=== PATIENT | female | born 1930 | race Two or more races ===

== ENCOUNTER 2019-02-19 09:22 | Inpatient (IN) | payer OTHER ==
[2019-02-19] MEDS ORDERED: morphine SULFATE 4 MG/ML VIAL IVPUSH ONE ×2 (09:43→11:32)
[2019-02-19] MEDS ORDERED: SODIUM CHLORIDE 500 ML IV STA (09:44)
[2019-02-19] MEDS ORDERED: ONDANSETRON 4 MG/2 ML VIAL IVPUSH ONE (09:50)
[2019-02-19] MEDS ORDERED: morphine SULFATE 4 MG/ML VIAL ONE ×2 (09:52→11:53)
[2019-02-19] MEDS ORDERED: ONDANSETRON 4 MG/2 ML VIAL ONE ×2 (09:54→14:17)
[2019-02-19 10:11] LABS: EOS % 0.2 % (0-4.5); HEMATOCRIT 46.3 % (32.4-45.2); HEMOGLOBIN 15.6 GM/dL (10.7-15.3); LYMPH % 2.6 % (8-40); MCH 30.9 pg (25.7-33.7); MCHC 33.6 g/dl (32.0-36.0); MEAN CELL VOLUME 91.8 fl (80-96); MEAN PLT VOLUME 7.5 fl (7.5-11.1); MONO % 2.8 % (3.8-10.2); NEUT % 94.4 % (42.8-82.8); PLATELET COUNT 381 K/MM3 (134-434); RBC 5.05 M/mm3 (3.60-5.2); RDW 15.4 % (11.6-15.6); WHITE BLOOD COUNT 10.7 K/mm3 (4.0-10.0)
[2019-02-19 10:40] LABS: INR 0.94 (0.83-1.09); PROTHROMBIN TIME (PATIENT) 11.1 SEC (9.7-13.0)
[2019-02-19 10:42] LABS: ALK PHOS 93 U/L (45-117); ANION GAP 11 MMOL/L (8-16); BILIRUBIN,TOTAL 1.3 mg/dL (0.2-1); BLOOD UREA NITROGEN 22 mg/dL (7-18); CALCIUM 9.7 mg/dL (8.5-10.1); CHLORIDE 87 mmol/L (98-107); CO2 24 mmol/L (21-32); GLUCOSE,RANDOM 279 mg/dL (74-106); LIPASE 1992 U/L (73-393); POTASSIUM 4.8 mmol/L (3.5-5.1); SGOT/AST 24 U/L (15-37); SGPT/ALT 15 U/L (13-61); SODIUM 122 mmol/L (136-145); TOT PROT 7.8 g/dl (6.4-8.2)
--- NOTE | 2019-02-19 11:25 | PDOC ---
Documentation entered by Adelina Dwyer SCRIBE, acting as scribe for Jim Agustin MD. Jim Agustin MD: This documentation has been prepared by the Yuliya white Nirvannie, SCRIBE, under my direction and personally reviewed by me in its entirety. I confirm that the documentation accurately reflects all work, treatment, procedures, and medical decision making performed by me. Attending Attestation - Resident Resident Name: Pierre Dent - ED Attending Attestation I have performed the following: I have examined & evaluated the patient, The case was reviewed & discussed with the resident, I agree w/resident's findings & plan, Exceptions are as noted - HPI HPI: 02/19/19 10:45 The patient is a 88 year old female, with a significant past medical history of DM and HTN, who presents to the emergency department with, 1 day of abdominal pain and back pain. Patient describes her abdominal pain to be 10/10, constant, starting early this morning at 5am. She notes associated constipation (last BM 2 days ago) and nausea without vomiting. Denies any prior similar episodes. She denies recent fevers, chills, headache or dizziness. She denies recent nausea or vomit. She denies recent dysuria, frequency, urgency or hematuria. She denies recent chest pain or shortness of breath. Allergies: NKDA Past surgical history: Appendectomy. - Physicial Exam PE: 02/19/19 10:45 GENERAL: Awake, alert, and fully oriented, in no acute distress. HEAD: No signs of trauma EYES: PERRLA, EOMI, sclera anicteric, conjunctiva clear ENT: Auricles normal inspection, hearing grossly normal, nares patent, oropharynx clear without exudates. Moist mucosa NECK: Nontender, no stepoffs, Normal ROM, supple, no lymphadenopathy, JVD, or masses LUNGS: Breath sounds equal, clear to auscultation bilaterally. No wheezes, and no crackles HEART: Regular rate and rhythm, normal S1 and S2, no murmurs, rubs or gallops ABDOMEN: + distended abdomen, diffusely tender + guarding EXTREMITIES: Normal range of motion, no edema. No clubbing or cyanosis. No cords, erythema, or tenderness NEUROLOGICAL: Cranial nerves II through XII intact. 5/5 strength and sensation in all extremities, Normal speech, normal gait, normal cerebellar function SKIN: Warm, Dry, normal turgor, no rashes or lesions noted. - Critical Care Time Total Critical Care Time: 60 Critical Care Statement: The care of this patient involved high complexity decision making to prevent further life threatening deterioration of the patient 's condition and/or to evaluate & treat vital organ system(s) failure or risk of failure. - Medical Decision Making 02/19/19 11:20 88 F with abdominal pain, distention, diffusely tender. + peritoneal signs. Will evaluate for SBO vs perf vs colitis vs pancreatitis. - Labs, lipase - CTAP - IVF, morphine, zofran 02/19/19 11:38 Labs with elevated lipase, lactate CT appears to have free air Dr. Kyle consulted, will evaluate pt Pt to be admitted to ICU
[2019-02-19] MEDS ORDERED: VANCOMYCIN 1 GM in D5W (PRE-DOCKED) 1,000 MG/250 ML IVPB ONE (11:30)
[2019-02-19] MEDS ORDERED: SODIUM CHLORIDE 1,000 ML IV STA ×3 (11:30→18:57)
[2019-02-19] MEDS ORDERED: PIPERACILLIN/TAZOB 4.5 GM 4.5 GM in DEXTROSE 5%-WATER 100 ML IVPB ONE (11:31)
[2019-02-19] MEDS ORDERED: VANCOMYCIN 1 GRAM (PRE-DOCKED) 1,000 MG/250 ML BAG IVPB ONE (11:40)
[2019-02-19] MEDS ORDERED: PIPERACILLIN/TAZOB 4.5 GM 4.5 GM/100 ML BAG IVPB ONE (11:40)
[2019-02-19] MEDS ORDERED: SODIUM CHLORIDE 1,000 ML IV SCH ×2 (12:00→13:45)
[2019-02-19] MEDS ORDERED: FLUCONAZOLE 400 MG/NS 200 ML IVPB ONE (12:15)
--- NOTE | 2019-02-19 12:18 | CON.ID ---
Consult Consult Specialty:: infectious diseases Referred by:: ad Reason for Consultation:: abd perforation,sepsis - History of Present Illness Chief Complaint: abd pain ,inability to pass stools History of Present Illness: 8 year old female with past medical history of DM, HTN and CAD (s/p stent placement in 2008), presented to the ED due to sudden onset diffuse abdominal pain. Patient reported she had no bowel movements the past 2 days, and this morning, as she was trying to go to the bathroom, she experienced sudden onset, severe 10/10, constant diffuse abdominal pain. The son was nearby when it happened and he immediately called 911. On review of medications, patient takes Meloxicam 15mg daily. Patient denies fever, chills, headache, vomiting, chest pain, SOB, diarrhea, urinary symptoms. patient was worked up and found to have perfration in the abd surgery on the case - History Source History Provided By: Family Member Limitations to Obtaining History: Language Barrier - Alcohol/Substance Use Hx Alcohol Use: No - Smoking History Smoking history: Former smoker Have you smoked in the past 12 months: No Home Medications - Allergies Allergies/Adverse Reactions: Allergies Allergy/AdvReac Type Severity Reaction Status Date / Time No Known Allergies Allergy Verified 02/19/19 09:35 - Home Medications Home Medications: Ambulatory Orders Atorvastatin Ca [Lipitor] 40 mg PO HS 02/19/19 Gabapentin 100 mg PO BID 02/19/19 Isosorbide Mononitrate [Isosorbide Mononitrate ER] 30 mg PO DAILY 02/19/19 Losartan Potassium 100 mg PO DAILY 02/19/19 Meloxicam 15 mg PO DAILY 02/19/19 Metformin HCl [Glucophage] 500 mg PO BID 02/19/19 Zolpidem Tartrate [Ambien] 10 mg PO HS 02/19/19 Physical Exam Vital Signs: Vital Signs Temperature 97.7 F 02/19/19 09:35 Pulse Rate 116 H 02/19/19 11:06 Respiratory Rate 29 H 02/19/19 11:06 Blood Pressure 146/64 02/19/19 11:06 O2 Sat by Pulse Oximetry (%) 96 02/19/19 11:06 Constitutional: Yes: Calm, Moderate Distress Eyes: Yes: Conjunctiva Clear Cardiovascular: Yes: Regular Rate and Rhythm Respiratory: Yes: Regular, CTA Bilaterally Gastrointestinal: Yes: Distention, Tenderness, Other (absent bowel sounds) Musculoskeletal: Yes: WNL Extremities: Yes: WNL Neurological: Yes: Alert, Oriented Psychiatric: Yes: Alert, Oriented Labs: CBC, BMP 02/19/19 09:50 02/19/19 09:50 Imaging - Results Cat Scan: Report Reviewed, Image Reviewed Assessment/Plan Assessment/Plan Perforated viscus, dehydration, CAD, Obesity. Plan : Hydrate , Antibiotics, Emergency laparotomy , for possible perforated ulcer. plan will give her zosyn and diflucan hydration as per surgery rest as per the team
--- NOTE | 2019-02-19 12:21 | PDOC ---
History of Present Illness - General Chief Complaint: Pain Stated Complaint: ABDOMINAL PAIN Time Seen by Provider: 02/19/19 09:37 History Source: Patient Exam Limitations: No Limitations - History of Present Illness Initial Comments: 02/19/19 11:28 88 yo female pmh DM and HTN presents to the ED for sudden onset severe abdominal pain this am. Pain woke her up out of sleep at 5 am, described as severe and diffuse without relieving factors and has associated lower back pain. Last BM 2 days ago described as normal without BRB or melena. Denies F/C/N /V, changes in urinary habits, CP, SOB Past History - Past Medical History Allergies/Adverse Reactions: Allergies Allergy/AdvReac Type Severity Reaction Status Date / Time No Known Allergies Allergy Verified 02/19/19 09:35 Home Medications: Ambulatory Orders Atorvastatin Ca [Lipitor] 40 mg PO HS 02/19/19 Gabapentin 100 mg PO BID 02/19/19 Isosorbide Mononitrate [Isosorbide Mononitrate ER] 30 mg PO DAILY 02/19/19 Losartan Potassium 100 mg PO DAILY 02/19/19 Meloxicam 15 mg PO DAILY 02/19/19 Metformin HCl [Glucophage] 500 mg PO BID 02/19/19 Zolpidem Tartrate [Ambien] 10 mg PO HS 02/19/19 COPD: No Diabetes: Yes HTN: Yes - Suicide/Smoking/Psychosocial Hx Smoking History: Former smoker Have you smoked in the past 12 months: No Information on smoking cessation initiated: No Hx Alcohol Use: No Drug/Substance Use Hx: No Review of Systems - Review of Systems Constitutional: No: Chills, Fever Respiratory: No: Shortness of Breath Cardiac (ROS): No: Chest Pain, Edema ABD/GI: Yes: Constipated, Other (severe diffuse abdominal pain). No: Abdominal Distended, Diarrhea, Nausea, Vomiting, Tarry Stools : No: Burning, Dysuria, Discharge, Frequency, Flank Pain, Hematuria, Incontinence Musculoskeletal: Yes: Back Pain. No: Muscle Weakness Neurological: No: Headache, Numbness, Paresthesia, Weakness *Physical Exam - Vital Signs Last Vital Signs Temp Pulse Resp BP Pulse Ox 97.7 F 116 H 29 H 146/64 96 02/19/19 09:35 02/19/19 11:06 02/19/19 11:06 02/19/19 11:06 02/19/19 11:06 - Physical Exam General Appearance: Yes: Nourished, Appropriately Dressed, Apparent Distress ( due to excessive abdominal pain, pt appears withdrawn ) HEENT: positive: EOMI, WANDA, Normal Voice, Hearing Grossly Normal. negative: Lesions Neck: positive: Supple. negative: Carotid bruit Respiratory/Chest: positive: Lungs Clear, Normal Breath Sounds. negative: Accessory Muscle Use, Rapid RR Cardiovascular: positive: Regular Rhythm, S1, S2, Tachycardia. negative: Edema , JVD, Murmur Vascular Pulses: Dorsalis-Pedis (R): 4+, Doralis-Pedis (L): 4+ Gastrointestinal/Abdominal: positive: Guarding, Rebound, Tenderness. negative: Soft, Pulsatile Mass Musculoskeletal: negative: CVA Tenderness Extremity: positive: Normal Capillary Refill, Normal Inspection Integumentary: positive: Normal Color, Dry, Warm Neurologic: positive: Fully Oriented, Alert, Normal Mood/Affect ED Treatment Course - LABORATORY CBC & Chemistry Diagram: 02/21/19 05:30 02/21/19 05:30 - ADDITIONAL ORDERS Additional order review: Laboratory Results 02/19/19 02/19/19 02/19/19 09:50 09:50 09:50 PT with INR 11.10 INR 0.94 Sodium 122 L Potassium 4.8 Chloride 87 L Carbon Dioxide 24 Anion Gap 11 BUN 22 H Creatinine 1.0 Est GFR (CKD-EPI)AfAm 59.08 Est GFR (CKD-EPI)NonAf 50.97 Random Glucose 279 H Lactic Acid 3.8 H* Calcium 9.7 Total Bilirubin 1.3 H AST 24 ALT 15 Alkaline Phosphatase 93 Creatine Kinase 110 Troponin I < 0.02 Total Protein 7.8 Albumin 4.0 Lipase 1992 H 02/19/19 09:50 RBC 5.05 MCV 91.8 MCHC 33.6 RDW 15.4 MPV 7.5 Neutrophils % 94.4 H Lymphocytes % 2.6 L Monocytes % 2.8 L Eosinophils % 0.2 Basophils % 0.0 - RADIOLOGY Radiology Studies Ordered: Category Date Time Status ABDOMEN FLAT & UPRIGHT [RAD] Stat Radiology 02/19/19 09:44 Completed CHEST X-RAY PORTABLE* [RAD] Stat Radiology 02/19/19 09:44 Completed - Medications Given in the ED: ED Medications Discontinued Medications Generic Name Dose Route Start Last Admin Trade Name Freq PRN Reason Stop Dose Admin Sodium Chloride 500 mls @ 500 mls/hr 02/19/19 09:44 02/19/19 10:13 Normal Saline - IV 02/19/19 10:43 500 mls/hr ASDIR STA Administration Morphine Sulfate 4 mg 02/19/19 09:43 02/19/19 10:13 Morphine Sulfate IVPUSH 02/19/19 09:44 4 mg ONCE ONE Administration Ondansetron HCl 4 mg 02/19/19 09:50 02/19/19 10:13 Zofran Injection IVPUSH 02/19/19 09:51 4 mg ONCE ONE Administration Medical Decision Making - Medical Decision Making 02/19/19 11: 88 yo female pmh DM and HTN presents to the ED for sudden onset severe abdominal pain this am. Pain woke her up out of sleep at 5 am, described as severe and diffuse without relieving factors and has associated lower back pain. Last BM 2 days ago described as normal without BRB or melena. Denies F/C/N /V, changes in urinary habits, CP, SOB Vitasl show elevated HR likely due to pain Abdominal Exam shows guarding, rigidity and diffuse tenderness. Possible surgical abdomen Flat and upright abdominal x ray taken, poor quality but likely shows evidence of SBO line placed immediately on evaluation, 4mg morphine and NS given with minimal relief of pain. Pre-op surgery labs drawn FAST neg Pt taken for CTAP. Image likely shows perforation on ED read, radiology contacted to read image and Dr. Kyle contacted immediately Case discussed with Dr. Kyle, agrees to see pt benedict in the ED and have ICU contacted NG tube, fluids and broad spectrum antibiotics started. Dr. Kyle assess pt in the ED, states immediate surgery required to fix perforation. Pt left department and headed directly to surgery *DC/Admit/Observation/Transfer Diagnosis at time of Disposition: Bowel perforation - Discharge Dispostion Condition at time of disposition: Stable Decision to Admit order: Yes - Referrals - Patient Instructions - Post Discharge Activity
[2019-02-19] MEDS ORDERED: LACTATED RINGERS SOLUTION 1,000 ML/1,000 ML INFUS.BAG IV ONE (12:44)
[2019-02-19] MEDS ORDERED: LACTATED RINGERS SOLUTION 1,000 ML/1,000 ML INFUS.BAG IV SCH (12:45)
[2019-02-19] MEDS ORDERED: MORPHINE SULFATE 2 MG/ML VIAL IVPUSH PRN (12:46)
--- NOTE | 2019-02-19 12:54 | PN ---
Teaching Attending Note Name of Resident: Mackenzie Moss ATTENDING PHYSICIAN STATEMENT I saw and evaluated the patient. I reviewed the resident's note and discussed the case with the resident. I agree with the resident's findings and plan as documented. SUBJECTIVE: Pt seen and examined in the ER. Briefly, 88yo female with h/o HTN, DM who presents with sudden onset abdominal pain starting this AM. Has been constipated for the past 2 days with nausea. Found to have pneumoperitoneum on CT A/P likely from perforated stomach or duodenum. She does take daily meloxicam. No alcohol. No prior abdominal surgeries. OBJECTIVE: Vital Signs Period Temp Pulse Resp BP Sys/Perry Pulse Ox Last 24 Hr 97.7 F 116-123 20-29 146-188/64-87 95-96 Intake & Output 02/16/19 02/17/19 02/18/19 02/19/19 23:59 23:59 23:59 23:59 Weight 59.874 kg Gen: dry mucous membranes Heart: tachycardic, regular Lung: decreased breath sounds at the bases Abd: distended, tympanic, diffusely tender, +rebound Ext: no edema CBC, BMP 02/19/19 09:50 02/19/19 09:50 Active Medications Sodium Chloride (Normal Saline -) 1,000 mls @ 75 mls/hr IV ASDIR AI Fluconazole (Diflucan 400 Mg/Ns Premixed Ivpb -) 200 mls @ 200 mls/hr IVPB ONCE ONE Stop: 02/19/19 13:14 Piperacillin Sod/Tazobactam (Sod 4.5 gm/ Dextrose) 100 mls @ 200 mls/hr IVPB Q8H-IV AI; Protocol Lactated Ringer's (Lactated Ringers Solution) 1,000 ml in 1,000 mls @ 75 mls/ hr IV ASDIR AI Lactated Ringer's (Lactated Ringers Solution) 1,000 ml in 1,000 mls @ 1,000 mls /hr IV ONCE ONE Stop: 02/19/19 13:43 Morphine Sulfate (Morphine Injection -) 2 mg IVPUSH Q4H PRN PRN Reason: PAIN LEVEL 6-10 Pantoprazole Sodium (Protonix Iv) 40 mg IVPUSH DAILY AI ASSESSMENT AND PLAN: r/o Perforated Gastric/Duodenal Ulcer Pneumoperitoneum Severe Sepsis Lactic Acidosis Hyponatremia HTN DM - surgery eval - IV antibiotics - empiric antifungals - protonix - f/u cultures - aggressive IVF resuscitation - maintain urine output >0.5mL/kg/hr - place erickson - send urine lytes, osms, serum osms - trend lactate - pain control - NPO - DVT prophylaxis - ICU monitoring - discussed with pt and son at bedside critical care time spent in reviewing chart, evaluating patient and formulating plan 35 min
--- NOTE | 2019-02-19 13:00 | CONSULT ---
Consultation: REQUESTING PROVIDER: CONSULT REQUEST: We have been asked to medically evaluate this patient for perforated viscus. HISTORY OF PRESENT ILLNESS: Patient is an 88 year old female with past medical history of DM, HTN and CAD (s /p stent placement in 2008), presented to the ED due to sudden onset diffuse abdominal pain. Patient reported she had no bowel movements the past 2 days, and this morning, as she was trying to go to the bathroom, she experienced sudden onset, severe 10/10, constant diffuse abdominal pain. The son was nearby when it happened and he immediately called 911. On review of medications, patient takes Meloxicam 15mg daily. Patient denies fever, chills, headache, vomiting, chest pain, SOB, diarrhea, urinary symptoms. REVIEW OF SYSTEMS: CONSTITUTIONAL: Absent: fever, chills, diaphoresis, generalized weakness, malaise, loss of appetite, weight change HEENT: Absent: rhinorrhea, nasal congestion, throat pain, throat swelling, difficulty swallowing, mouth swelling, ear pain, eye pain, visual changes CARDIOVASCULAR: Absent: chest pain, syncope, palpitations, irregular heart rate, lightheadedness , peripheral edema RESPIRATORY: Absent: cough, shortness of breath, dyspnea with exertion, orthopnea, wheezing, stridor, hemoptysis GASTROINTESTINAL:abdominal pain, nausea,constipation Absent: abdominal distension, vomiting, diarrhea, melena, hematochezia GENITOURINARY: Absent: dysuria, frequency, urgency, hesitancy, hematuria, flank pain, genital pain MUSCULOSKELETAL: Absent: myalgia, arthralgia, joint swelling, back pain, neck pain SKIN: Absent: rash, itching, pallor HEMATOLOGIC/IMMUNOLOGIC: Absent: easy bleeding, easy bruising, lymphadenopathy, frequent infections ENDOCRINE: Absent: unexplained weight gain, unexplained weight loss, heat intolerance, cold intolerance NEUROLOGIC: Absent: headache, focal weakness or paresthesias, dizziness, unsteady gait, seizure, mental status changes, bladder or bowel incontinence PSYCHIATRIC: Absent: anxiety, depression, suicidal or homicidal ideation, hallucinations. PHYSICAL EXAMINATION Vital Signs - 24 hr 02/19/19 02/19/19 09:35 11:06 Temperature 97.7 F Pulse Rate 123 H Pulse Rate [ 116 H Apical] Respiratory 20 29 H Rate Blood Pressure 188/87 H Blood Pressure 146/64 [Right] O2 Sat by Pulse 95 96 Oximetry (%) GENERAL: Awake, alert, and fully oriented, in pain. HEAD: Normal with no signs of trauma. EYES: PERRLA, EOMI, sclera anicteric, conjunctiva clear. EARS, NOSE, THROAT: oropharynx clear without exudates. Dry mucous membranes. NECK: Normal range of motion, supple without lymphadenopathy, JVD, or masses. LUNGS: Breath sounds equal, clear to auscultation bilaterally. HEART: Tachycardic, normal S1 and S2 without murmur, rub or gallop. ABDOMEN: Soft, +diffuse tenderness, not distended, hypoactive bowel sounds. MUSCULOSKELETAL: Normal range of motion at all joints. No bony deformities or tenderness. No CVA tenderness. UPPER EXTREMITIES: 2+ pulses, warm, well-perfused.No peripheral edema. LOWER EXTREMITIES: 2+ pulses, warm, well-perfused.No peripheral edema. NEUROLOGICAL: Cranial nerves II-XII intact. Normal speech. Gait not observed. PSYCHIATRIC: Cooperative. Good eye contact. Appropriate mood and affect. SKIN: Warm, dry, normal turgor, no rashes or lesions noted. Laboratory Results - last 24 hr 02/19/19 02/19/19 02/19/19 09:50 09:50 09:50 WBC 10.7 H RBC 5.05 Hgb 15.6 H Hct 46.3 H MCV 91.8 MCH 30.9 MCHC 33.6 RDW 15.4 Plt Count 381 MPV 7.5 Absolute Neuts (auto) 10.1 H Neutrophils % 94.4 H Lymphocytes % 2.6 L Monocytes % 2.8 L Eosinophils % 0.2 Basophils % 0.0 Nucleated RBC % 0 PT with INR 11.10 INR 0.94 Sodium 122 L Potassium 4.8 Chloride 87 L Carbon Dioxide 24 Anion Gap 11 BUN 22 H Creatinine 1.0 Est GFR (CKD-EPI)AfAm 59.08 Est GFR (CKD-EPI)NonAf 50.97 Random Glucose 279 H Lactic Acid Calcium 9.7 Total Bilirubin 1.3 H AST 24 ALT 15 Alkaline Phosphatase 93 Creatine Kinase 110 Troponin I < 0.02 Total Protein 7.8 Albumin 4.0 Lipase 1992 H Blood Type Antibody Screen 02/19/19 02/19/19 09:50 09:50 WBC RBC Hgb Hct MCV MCH MCHC RDW Plt Count MPV Absolute Neuts (auto) Neutrophils % Lymphocytes % Monocytes % Eosinophils % Basophils % Nucleated RBC % PT with INR INR Sodium Potassium Chloride Carbon Dioxide Anion Gap BUN Creatinine Est GFR (CKD-EPI)AfAm Est GFR (CKD-EPI)NonAf Random Glucose Lactic Acid 3.8 H* Calcium Total Bilirubin AST ALT Alkaline Phosphatase Creatine Kinase Troponin I Total Protein Albumin Lipase Blood Type A POSITIVE Antibody Screen Negative Active Medications Generic Name Dose Route Start Last Admin Trade Name Freq PRN Reason Stop Dose Admin Sodium Chloride 1,000 mls @ 75 mls/hr 02/19/19 12:00 Normal Saline - IV ASDIR AI Fluconazole 200 mls @ 200 mls/hr 02/19/19 12:15 Diflucan 400 Mg/Ns Premixed Ivpb - IVPB 02/19/19 13:14 ONCE ONE Piperacillin Sod/Tazobactam 100 mls @ 200 mls/hr 02/19/19 18:00 Sod 4.5 gm/ Dextrose IVPB Q8H-IV AI Protocol Lactated Ringer's 1,000 ml in 1,000 mls @ 75 mls/hr 02/19/19 12:45 Lactated Ringers Solution IV ASDIR AI Lactated Ringer's 1,000 ml in 1,000 mls @ 1,000 mls/hr 02/19/19 12:44 Lactated Ringers Solution IV 02/19/19 13:43 ONCE ONE Morphine Sulfate 2 mg 02/19/19 12:46 Morphine Injection - IVPUSH Q4H PRN PAIN LEVEL 6-10 ASSESSMENT/PLAN: Patient is an 88 year old female with past medical history of DM, HTN and CAD (s /p stent placement in 2008), presented to the ED due to sudden onset diffuse abdominal pain. #Neuro -awake, alert and oriented x3 #Cardiovascular -Tachycardic, likely due to pain -BP wnl -Will hold #Pulmonology -On 2L NC, saturating >90% -CT: bibasilar interstitial thickening which may represent discoid atelectasis vs chronic interstitial lung disease. An acute infiltrate is less likely. #GI -CTAP: Pneumoperitoneum. Possible soft tissue stranding adjacent to the gastric antrum/proximal duodenum which could be on the basis of PUD. Small amount of free fluid within the abdomen and pelvis. Mild diffuse small bowel dilatation prob on the basis of an ileus. Colonic diverticulosis without evidence of acute diverticulitis. -Surgery (Dr. Kyle) consulted. Recommendations appreciated -Plan for emergent laparotomy -aggressive IV fluid hydration -NPO for now -IV Morphine 2mg q4h PRN for pain -IV Protonix 40mg daily -IV antibiotics per ID -Urine lytes and osm, serum osm -Becerra catheter inserted for accurate I&Os -Lactic acid 3.8. Will trend lactic acid #Renal -renal function stable -Becerra catheter for I&Os -Keep urine output >0.5cc/kg/hr -Hyponatremia, will replete with Iv NS -Urinalysis, urine lytes ordered #ID -ID (Dr. Borjas) consulted. REcommendations appreciated. -Vanc and Zosyn, and Fluconazole given at the ED -Will continue Zosyn 4.5 gm q8h #Endo -Hx of DM -Will hold home Metformin -Insulin sliding scale -BGM q6h #FEN -IV NS @75cc/hr, boluses given -HypoNa, repleted -Routine bmp monitoring -NPO #Prophylaxis -DVT: SCDs -GI: Protonix 40mg IV daily #Disposition -Patient wants DNR but is unable to sign the form. She made her son, Boo Escobar , her healthcare proxy, who was also at bedside. -ICU monitoring Dispo: We will continue to follow the patient. Thank you for this consultative opportunity. Visit type - Emergency Visit Emergency Visit: Yes ED Registration Date: 02/19/19 Care time: The patient presented to the Emergency Department on the above date and was hospitalized for further evaluation of their emergent condition. - New Patient This patient is new to me today: Yes Date on this admission: 02/19/19 - Critical Care Critical Care patient: Yes Total Critical Care Time (in minutes): 35 Critical Care Statement: The care of this patient involved high complexity decision making to prevent further life threatening deterioration of the patient 's condition and/or to evaluate & treat vital organ system(s) failure or risk of failure.
--- NOTE | 2019-02-19 13:53 | CONSULT ---
Consult Consult Specialty:: Surgery Reason for Consultation:: Perforated viscus. - History Source History Provided By: Patient - Past Medical History Cardio/Vascular: Yes: CAD - Alcohol/Substance Use Hx Alcohol Use: No - Smoking History Smoking history: Former smoker Have you smoked in the past 12 months: No Home Medications - Allergies Allergies/Adverse Reactions: Allergies Allergy/AdvReac Type Severity Reaction Status Date / Time No Known Allergies Allergy Verified 02/19/19 09:35 - Home Medications Home Medications: Ambulatory Orders Atorvastatin Ca [Lipitor] 40 mg PO HS 02/19/19 Gabapentin 100 mg PO BID 02/19/19 Isosorbide Mononitrate [Isosorbide Mononitrate ER] 30 mg PO DAILY 02/19/19 Losartan Potassium 100 mg PO DAILY 02/19/19 Meloxicam 15 mg PO DAILY 02/19/19 Metformin HCl [Glucophage] 500 mg PO BID 02/19/19 Zolpidem Tartrate [Ambien] 10 mg PO HS 02/19/19 Physical Exam Vital Signs: Vital Signs Temperature 97.7 F 02/19/19 09:35 Pulse Rate 116 H 02/19/19 11:06 Respiratory Rate 29 H 02/19/19 11:06 Blood Pressure 146/64 02/19/19 11:06 O2 Sat by Pulse Oximetry (%) 96 02/19/19 11:06 Gastrointestinal: Yes: Soft, Tenderness (Tender in right upper quadrant. Distended abdomen.) Labs: CBC, BMP 02/19/19 09:50 02/19/19 09:50 Imaging - Results Cat Scan: Report Reviewed, Image Reviewed Assessment/Plan Perforated viscus, dehydration, CAD, Obesity. Plan : Hydrate , Antibiotics, Emergency laparotomy , for possible perforated ulcer. monitoring,. Consent obtained, Spoke to patient and her son.
[2019-02-19 14:00] LABS: ANISOCYTOSIS 0; MACROCYTOSIS 0; PLATELET ESTIMATE NORMAL
[2019-02-19] MEDS ORDERED: PROPOFOL 20 ML ONE (14:16)
[2019-02-19] MEDS ORDERED: ROCURONIUM BROMIDE 50 MG/5 ML VIAL ONE (14:16)
[2019-02-19] MEDS ORDERED: SODIUM CHLORIDE 0.9% P/F 10 ML VIAL IJ ONE (14:17)
[2019-02-19] MEDS ORDERED: LIDOCAINE HCL/PF 2% SDV 5ML VIAL ONE ×2 (14:17→14:30)
[2019-02-19] MEDS ORDERED: DEXAMETHASONE SOD PHOSPHATE 4 MG/1 ML VIAL ONE (14:17)
[2019-02-19] MEDS ORDERED: ceFAZolin SODIUM 1 GM VIAL ONE (14:17)
--- NOTE | 2019-02-19 14:36 | HP ---
Admitting History and Physical - Admission Chief Complaint: came with abdominal pain History of Present Illness: The patient is a 88 year old female, with a significant past medical history of DM and HTN, who presents to the emergency department with, 1 day of abdominal pain and back pain. Patient describes her abdominal pain to be 10/10, constant, starting early this morning at 5am. She notes associated constipation (last BM 2 days ago) and nausea without vomiting. Denies any prior similar episodes. She denies recent fevers, chills, headache or dizziness. She denies recent nausea or vomit. She denies recent dysuria, frequency, urgency or hematuria. She denies recent chest pain or shortness of breath. in ER Ct scan done show pneumoperitoneum in ER she got diflucan,vanco and zosyn seen by surgery , pulm and ID wbc 10.9 lactic acid 3.8 History Source: Family Member, Medical Record - Past Medical History Cardiovascular: Yes: CAD - Smoking History Smoking history: Former smoker Have you smoked in the past 12 months: No - Alcohol/Substance Use Hx Alcohol Use: No Home Medications - Allergies Allergies/Adverse Reactions: Allergies Allergy/AdvReac Type Severity Reaction Status Date / Time No Known Allergies Allergy Verified 02/19/19 09:35 - Home Medications Home Medications: Ambulatory Orders Atorvastatin Ca [Lipitor] 40 mg PO HS 02/19/19 Gabapentin 100 mg PO BID 02/19/19 Isosorbide Mononitrate [Isosorbide Mononitrate ER] 30 mg PO DAILY 02/19/19 Losartan Potassium 100 mg PO DAILY 02/19/19 Meloxicam 15 mg PO DAILY 02/19/19 Metformin HCl [Glucophage] 500 mg PO BID 02/19/19 Zolpidem Tartrate [Ambien] 10 mg PO HS 02/19/19 Review of Systems - Review of Systems Gastrointestinal: reports: Abdominal Pain Physical Examination Vital Signs: Vital Signs Temperature 98.6 F 02/19/19 14:00 Pulse Rate 95 H 02/19/19 14:00 Respiratory Rate 02/19/19 14:00 Blood Pressure 117/57 L 02/19/19 14:00 O2 Sat by Pulse Oximetry (%) 97 02/19/19 14:00 Constitutional: Yes: Calm HENT: Yes: Other (NG tube) Cardiovascular: Yes: Regular Rate and Rhythm, S1, S2 Respiratory: Yes: CTA Bilaterally Gastrointestinal: Yes: Distention, Tenderness Edema: No Neurological: Yes: Alert, Oriented Labs: CBC, BMP 02/19/19 09:50 02/19/19 09:50 Imaging - Results Cat Scan: Report Reviewed Problem List - Problems (1) Bowel perforation Assessment/Plan: NPO - emergency laprotomy ng tube ivf - hydration iv abx icu monitring scds Code(s): K63.1 - PERFORATION OF INTESTINE (NONTRAUMATIC)
[2019-02-19] MEDS ORDERED: ceFAZolin SODIUM 1 GM VIAL IVPB ONE (15:12)
[2019-02-19] MEDS ORDERED: NEOSTIGMINE METHYLSULFATE 0.5 MG/1 ML - 10 ML MDV ONE (16:07)
[2019-02-19] MEDS ORDERED: GLYCOPYRROLATE 0.2 MG/1 ML VIAL ONE (16:10)
[2019-02-19] MEDS ORDERED: ESMOLOL HCL 100,000 MCG/10 ML VIAL ONE (16:17)
--- NOTE | 2019-02-19 16:37 | OP ---
Operative Note - Note: Operative Date: 02/19/19 Pre-Operative Diagnosis: Perforated duodenal ulcer , acute peritonitis, CAD , hypertetion , obesity. Operation: Exploratory laparotomy,. Repair of perforated duodenal ulcer with plication and omental overlay. Findings: Perforation of anterior wall of duodenum about 2 cms , with peritonitis. Post-Operative Diagnosis: Other (Perforated duodenal ulcer with peritonitis.) Surgeon: Lupillo Kyle Operator: Filomena Santamaria Anesthesia: General Estimated Blood Loss (mls): 20 Operative Report Dictated: Yes
--- NOTE | 2019-02-19 17:18 | SURG ---
Surgery [facility] Note [facility]: Janice Monreal PA-C Date of Service: 02/19/19 Diagnosis: Perforated duodenal ulcer , acute peritonitis, CAD , hypertetion , obesity. Procedure: Exploratory laparotomy,. Repair of perforated duodenal ulcer with plication and omental overlay I was present for the entirety of the operative procedure. For further detail, please refer to operative report. Visit type - Case Type Case Type: ED Admission - Emergency Emergency Visit: Yes ED Registration Date: 02/19/19 Care time: The patient presented to the Emergency Department on the above date and was hospitalized for further evaluation of their emergent condition. - New patient This patient is new to me today: Yes Date on this admission: 02/19/19
[2019-02-19] MEDS ORDERED: PIPERACILLIN/TAZOB 4.5 GM 4.5 GM in DEXTROSE 5%-WATER 100 ML IVPB SCH (18:00)
[2019-02-19] MEDS ORDERED: DEXTROSE 5%-WATER 100 ML IVPB ONE (18:19)
[2019-02-19] MEDS ORDERED: PIPERACILLIN/TAZOBACTAM 4.5 GM VIAL IVPB ONE (18:19)
--- NOTE | 2019-02-19 18:24 | PN ---
Progress Note (short form) - Note Progress Note: Received patient from OR s/p repair of perforated duodenal ulcer. Per anesthesia , no complications during sx. Pt. had brief episode of desaturation s/p extubation which has since resolved. Physical exam: Neuro: patient awake, drowsy, able to follow commands moving all 4 extremities. Pulmonary: CTA b/l down to the bases Cardio: Tachycardic, regular rhythm, s1, s2 heard no murmurs Abdomen: Midline surgical bandage clean and in place. Right sided drain in place draining serosanguinous fluid. A/P -Patient desaturated after extubation; will order CXR to r/o aspiration. Will order ABG to assess respiratory status. -Patient tachycardic on transfer from PACU to the 120's-40's. Rate normalized once patient settled in bed and given IV morphine. -ABG indicative of metabolic acidosis; will order stat bmp, lactic acid -will order post op cbc while drawing above labs. -Pain control w/ morphine 2mg q4h -s/p 1L bolus and now on NS @ 75 -monitor overnight for post op hypotension.
[2019-02-19 18:35] LABS: ARTERIAL BLD GAS O2 SATURATION 91.9 % (95-98); ARTERIAL BLOOD GAS BASE EXCESS -5.4 meq/l (-2-2); ARTERIAL BLOOD GAS PCO2 38.3 mmHg (35-45); ARTERIAL BLOOD GAS PO2 65.9 mmHg (80-105); ARTERIAL BLOOD GAS pH 7.33 (7.35-7.45)
[2019-02-19 18:38] LABS: ALLENS TEST POSITIVE
[2019-02-19] MEDS ORDERED: DEXTROSE 5%-LACTATED RINGERS 1,000 ML IV SCH (18:57)
[2019-02-19] MEDS: SODIUM CHLORIDE 1,000 ML IV SCH (19:00)
[2019-02-19] MEDS: MUPIROCIN 2% TOPICAL OINTMENT FOR DECOLONIZATION NS SCH (21:38)
[2019-02-19] MEDS: CHLORHEXIDINE GLUCONATE 4% CLEANSER FOR DECOLONIZATION TP SCH (21:39)
[2019-02-19] MEDS: HEPARIN NA (PORCINE) 5,000 UNITS/ML 1ML VIAL SQ SCH (21:42)
[2019-02-19] MEDS: MORPHINE SULFATE 2 MG/ML VIAL IVPUSH PRN (21:43)
[2019-02-19 21:51] LABS: HEMATOCRIT 40.5 % (32.4-45.2); HEMOGLOBIN 13.4 GM/dL (10.7-15.3); MCH 30.7 pg (25.7-33.7); MCHC 33.1 g/dl (32.0-36.0); MEAN CELL VOLUME 92.6 fl (80-96); MEAN PLT VOLUME 7.4 fl (7.5-11.1); PLATELET COUNT 237 K/MM3 (134-434); RBC 4.37 M/mm3 (3.60-5.2); RDW 15.6 % (11.6-15.6); WHITE BLOOD COUNT 9.8 K/mm3 (4.0-10.0)
[2019-02-19] MEDS ORDERED: MUPIROCIN 2% TOPICAL OINTMENT FOR DECOLONIZATION NS SCH ×2 (22:00)
[2019-02-19] MEDS ORDERED: CHLORHEXIDINE GLUCONATE 4% CLEANSER FOR DECOLONIZATION TP SCH ×2 (22:00)
[2019-02-19 22:17] LABS: CALCIUM 7.7 mg/dL (8.5-10.1); CREATININE 0.7 mg/dL (0.55-1.3); POTASSIUM 4.6 mmol/L (3.5-5.1)
[2019-02-20] MEDS: MORPHINE SULFATE 2 MG/ML VIAL IVPUSH PRN ×2 (04:34→10:20)
[2019-02-20 06:56] LABS: BASO % 0.1 % (0-2.0); HEMATOCRIT 37.2 % (32.4-45.2); HEMOGLOBIN 12.5 GM/dL (10.7-15.3); LYMPH % 3.4 % (8-40); MCH 30.6 pg (25.7-33.7); MCHC 33.6 g/dl (32.0-36.0); MEAN CELL VOLUME 91.2 fl (80-96); MEAN PLT VOLUME 7.4 fl (7.5-11.1); MONO % 5.6 % (3.8-10.2); NEUT % 90.9 % (42.8-82.8); PLATELET COUNT 285 K/MM3 (134-434); RBC 4.08 M/mm3 (3.60-5.2); RDW 15.5 % (11.6-15.6); WHITE BLOOD COUNT 11.9 K/mm3 (4.0-10.0)
[2019-02-20] MEDS: INSULIN SLIDING SCALE (NOVOLOG) 1 VIAL SQ SCH ×4 (07:02→21:59)
[2019-02-20 07:22] LABS: ALBUMIN 2.4 g/dl (3.4-5.0); BILIRUBIN,TOTAL 0.8 mg/dL (0.2-1); CALCIUM 7.8 mg/dL (8.5-10.1); CREATININE 0.6 mg/dL (0.55-1.3); MAGNESIUM 2.9 mg/dL (1.8-2.4); PHOSPHOROUS 3.4 mg/dL (2.5-4.9); POTASSIUM 4.7 mmol/L (3.5-5.1); TOT PROT 5.2 g/dl (6.4-8.2)
--- NOTE | 2019-02-20 08:18 | PN ---
Progress Note (short form) - Note Progress Note: Post op day#1.S/P Expl lapratomy with repair of perforated duodenal ulcer under GA uneventful.P96.BP141/65 and Spo2 94 on O2 3L.Patient stable.No any anesthesia related problem.Patient DC from the anesthesia care.
--- NOTE | 2019-02-20 08:43 | OP ---
DATE OF OPERATION: 02/19/2019 PREOPERATIVE DIAGNOSIS: Perforated viscus, acute abdomen, abdominal pain, coronary artery disease, hypertension, diabetes mellitus. POSTOPERATIVE DIAGNOSIS: Perforated duodenal ulcer, peritonitis. OPERATIVE PROCEDURE: Exploratory laparotomy, repair of perforated duodenal ulcer with plication and omental overlay. SURGEON: LUIS MAURER MD KNOT BUMPER: ADE JUAN ANESTHESIA: General. OPERATIVE DESCRIPTION: This 88-year-old woman presented to the emergency room with acute onset of abdominal pain this morning. She had tenderness in the upper abdomen. She had workup which revealed pneumoperitoneum with fluid around the stomach suggesting perforated duodenal ulcer. The patient's consent was obtained for exploratory laparotomy. The risks, benefits and complications were discussed with the patient and the family. The patient was given antibiotics, started on IV fluids. An NG tube was placed. The patient was brought to the operating room. The patient received general anesthesia. A Becerra catheter was placed in the bladder. The abdomen painted and draped. A timeout was called. The abdomen was opened through an upper midline incision below the umbilicus. It was deepened through the skin and subcutaneous tissue, the linea alba, anterior peritoneum and the abdominal cavity. There was free air and fluid in the upper part of the abdomen. A specimen of fluid was sent for culture and antibiotic sensitivity examination. On further inspection there was found to be a 2-cm ulcer on the anterior wall of the first portion of the duodenum. The liver was normal. On palpation there were multiple diverticula in the sigmoid colon. However, there was no pus, no free air, suggestive of chronic diverticulitis. The perforation was then approximated with 2-0 silk sutures across the length of the duodenum, one above the perforation, one across the middle of the perforation, another below the perforation. A suture was passed 2 cm on the edge of the perforation, brought into the perforation, and introduced again through the perforation and brought out to the opposite side of the bowel. Three silk sutures obtained. The duodenum was then approximated and plicated by tying the knots across the perforation. Next, free vascularized omentum of the transverse colon was brought over the repair and sutured. The sutures were brought around the omentum and around the perforation again, thus overlaying the omentum over the perforation and repair. Two seromuscular sutures of the stomach were obtained to anchor the omentum overlying the duodenum. Repair was adequately performed. The stomach was distended but there was no air leak when air was introduced into the stomach via the ng tube, from the reapir into the peritoneal cavity. The abdominal cavity was then thoroughly irrigated with normal saline, irrigating all the 4 quadrants as well as the complete abdominal cavity. The sump drainage tube was then placed in the infra hepatic space on the right side adjacent to the duodenum, and was brought out of the abdomen, through a stab wound in the right flank. This was anchored to the skin with interrupted 2-0 silk sutures. The NG tube was found to be in the body of the stomach. The abdomen was then closed with continuous No. 1 looped PDS sutures. The skin was approximated with joey. Estimated blood loss was between 5 to 20 mL. Sponge count, instrument counts were correct. The patient was brought to the recovery room in satisfactory and stable condition. Cruz TOM/[id number] MTDD
--- NOTE | 2019-02-20 09:00 | PN ---
Physical Exam: SUBJECTIVE: Patient seen and examined at bedside this morning. No acute events overnight. Patient reports pain on surgical site, relieved with Morphine. She reports headache and discomfort from not sleeping last night because of the noise. She denies fever, chills, dizziness, chest pain, SOB. No flatus or BMs. Becerra cath in place with UO 1700cc overnight. JANET drain 280cc of serosanguinous fluid. OBJECTIVE: Vital Signs Temperature 98.4 F 02/20/19 06:00 Pulse Rate 96 H 02/20/19 06:00 Respiratory Rate 16 02/20/19 06:00 Blood Pressure 127/59 L 02/20/19 06:00 O2 Sat by Pulse Oximetry (%) 97 02/19/19 21:00 GENERAL: Awake, alert, and fully oriented, not in distress HEAD: Normal with no signs of trauma. EYES: PERRLA, EOMI, sclera anicteric, conjunctiva clear. EARS, NOSE, THROAT: oropharynx clear without exudates. Dry mucous membranes. NGT in place. NECK: Normal range of motion, supple without lymphadenopathy, JVD, or masses. LUNGS: Breath sounds equal, clear to auscultation bilaterally. HEART: RRR, normal S1 and S2 without murmur, rub or gallop. ABDOMEN: Soft, +RUQ tenderness, not distended, hypoactive bowel sounds. Dressing clean dry and intact, JANET drain in place. MUSCULOSKELETAL: Normal range of motion at all joints. No bony deformities or tenderness. No CVA tenderness. UPPER EXTREMITIES: 2+ pulses, warm, well-perfused.No peripheral edema. LOWER EXTREMITIES: 2+ pulses, warm, well-perfused.No peripheral edema. NEUROLOGICAL: Cranial nerves II-XII intact. Normal speech. Gait not observed. PSYCHIATRIC: Cooperative. Good eye contact. Appropriate mood and affect. SKIN: Warm, dry, normal turgor, no rashes or lesions noted. Laboratory Results - last 24 hr 02/19/19 02/19/19 02/19/19 09:50 09:50 09:50 WBC 10.7 H RBC 5.05 Hgb 15.6 H Hct 46.3 H MCV 91.8 MCH 30.9 MCHC 33.6 RDW 15.4 Plt Count 381 MPV 7.5 Absolute Neuts (auto) 10.1 H Neutrophils % 94.4 H Neutrophils % (Manual) 87.2 H Band Neutrophils % 7.3 Lymphocytes % 2.6 L Lymphocytes % (Manual) 2.8 L Monocytes % 2.8 L Monocytes % (Manual) 2 L Eosinophils % 0.2 Eosinophils % (Manual) 0.0 Basophils % 0.0 Basophils % (Manual) 0.0 Myelocytes % (Man) 0 Promyelocytes % (Man) 0 Blast Cells % (Manual) 0 Nucleated RBC % 0 Metamyelocytes 1 Hypochromia 0 Platelet Estimate Normal Polychromasia 0 Poikilocytosis 0 Anisocytosis 0 Microcytosis 0 Macrocytosis 0 PT with INR 11.10 INR 0.94 Puncture Site ABG pH ABG pCO2 at Pt Temp ABG pO2 at Pt Temp ABG HCO3 ABG O2 Sat (Measured) ABG O2 Content ABG Base Excess Malik Test O2 Delivery Device Oxygen Flow Rate Sodium 122 L Potassium 4.8 Chloride 87 L Carbon Dioxide 24 Anion Gap 11 BUN 22 H Creatinine 1.0 Est GFR (CKD-EPI)AfAm 59.08 Est GFR (CKD-EPI)NonAf 50.97 POC Glucometer Random Glucose 279 H Serum Osmolality Lactic Acid Calcium 9.7 Phosphorus Magnesium Total Bilirubin 1.3 H AST 24 ALT 15 Alkaline Phosphatase 93 Creatine Kinase 110 Troponin I < 0.02 Total Protein 7.8 Albumin 4.0 Lipase 1992 H Blood Type Antibody Screen 02/19/19 02/19/19 02/19/19 09:50 09:50 12:26 WBC RBC Hgb Hct MCV MCH MCHC RDW Plt Count MPV Absolute Neuts (auto) Neutrophils % Neutrophils % (Manual) Band Neutrophils % Lymphocytes % Lymphocytes % (Manual) Monocytes % Monocytes % (Manual) Eosinophils % Eosinophils % (Manual) Basophils % Basophils % (Manual) Myelocytes % (Man) Promyelocytes % (Man) Blast Cells % (Manual) Nucleated RBC % Metamyelocytes Hypochromia Platelet Estimate Polychromasia Poikilocytosis Anisocytosis Microcytosis Macrocytosis PT with INR INR Puncture Site ABG pH ABG pCO2 at Pt Temp ABG pO2 at Pt Temp ABG HCO3 ABG O2 Sat (Measured) ABG O2 Content ABG Base Excess Malik Test O2 Delivery Device Oxygen Flow Rate Sodium Potassium Chloride Carbon Dioxide Anion Gap BUN Creatinine Est GFR (CKD-EPI)AfAm Est GFR (CKD-EPI)NonAf POC Glucometer Random Glucose Serum Osmolality Lactic Acid 3.8 H* Calcium Phosphorus Magnesium Total Bilirubin AST ALT Alkaline Phosphatase Creatine Kinase Troponin I Total Protein Albumin Lipase Blood Type A POSITIVE Cancelled Antibody Screen Negative Cancelled 02/19/19 02/19/19 02/19/19 13:32 13:32 17:26 WBC RBC Hgb Hct MCV MCH MCHC RDW Plt Count MPV Absolute Neuts (auto) Neutrophils % Neutrophils % (Manual) Band Neutrophils % Lymphocytes % Lymphocytes % (Manual) Monocytes % Monocytes % (Manual) Eosinophils % Eosinophils % (Manual) Basophils % Basophils % (Manual) Myelocytes % (Man) Promyelocytes % (Man) Blast Cells % (Manual) Nucleated RBC % Metamyelocytes Hypochromia Platelet Estimate Polychromasia Poikilocytosis Anisocytosis Microcytosis Macrocytosis PT with INR INR Puncture Site Arterial line ABG pH 7.33 L ABG pCO2 at Pt Temp 38.3 ABG pO2 at Pt Temp 65.9 L ABG HCO3 19.5 L ABG O2 Sat (Measured) 91.9 L ABG O2 Content 15.8 ABG Base Excess -5.4 L Malik Test Positive O2 Delivery Device Nasal cannula Oxygen Flow Rate 3l Sodium Potassium Chloride Carbon Dioxide Anion Gap BUN Creatinine Est GFR (CKD-EPI)AfAm Est GFR (CKD-EPI)NonAf POC Glucometer Random Glucose Serum Osmolality 279 Lactic Acid Calcium Phosphorus Magnesium Total Bilirubin AST ALT Alkaline Phosphatase Creatine Kinase Troponin I Total Protein Albumin Lipase Blood Type A POSITIVE Antibody Screen Negative 02/19/19 02/19/19 02/19/19 19:45 21:30 21:30 WBC 9.8 RBC 4.37 Hgb 13.4 Hct 40.5 MCV 92.6 MCH 30.7 MCHC 33.1 RDW 15.6 Plt Count 237 D MPV 7.4 L Absolute Neuts (auto) Neutrophils % Neutrophils % (Manual) Band Neutrophils % Lymphocytes % Lymphocytes % (Manual) Monocytes % Monocytes % (Manual) Eosinophils % Eosinophils % (Manual) Basophils % Basophils % (Manual) Myelocytes % (Man) Promyelocytes % (Man) Blast Cells % (Manual) Nucleated RBC % Metamyelocytes Hypochromia Platelet Estimate Polychromasia Poikilocytosis Anisocytosis Microcytosis Macrocytosis PT with INR INR Puncture Site ABG pH ABG pCO2 at Pt Temp ABG pO2 at Pt Temp ABG HCO3 ABG O2 Sat (Measured) ABG O2 Content ABG Base Excess Malik Test O2 Delivery Device Oxygen Flow Rate Sodium 127 L Potassium 4.6 Chloride 97 L Carbon Dioxide 22 Anion Gap 8 BUN 17 Creatinine 0.7 Est GFR (CKD-EPI)AfAm 90.93 Est GFR (CKD-EPI)NonAf 78.45 POC Glucometer Random Glucose 213 H Serum Osmolality Lactic Acid 2.9 H* Calcium 7.7 L Phosphorus Magnesium Total Bilirubin AST ALT Alkaline Phosphatase Creatine Kinase Troponin I Total Protein Albumin Lipase Blood Type Antibody Screen 02/20/19 02/20/19 02/20/19 05:30 05:30 07:00 WBC 11.9 H RBC 4.08 Hgb 12.5 Hct 37.2 MCV 91.2 MCH 30.6 MCHC 33.6 RDW 15.5 Plt Count 285 D MPV 7.4 L Absolute Neuts (auto) 10.8 H Neutrophils % 90.9 H Neutrophils % (Manual) Band Neutrophils % Lymphocytes % 3.4 L D Lymphocytes % (Manual) Monocytes % 5.6 D Monocytes % (Manual) Eosinophils % 0.0 D Eosinophils % (Manual) Basophils % 0.1 D Basophils % (Manual) Myelocytes % (Man) Promyelocytes % (Man) Blast Cells % (Manual) Nucleated RBC % 0 Metamyelocytes Hypochromia Platelet Estimate Polychromasia Poikilocytosis Anisocytosis Microcytosis Macrocytosis PT with INR INR Puncture Site ABG pH ABG pCO2 at Pt Temp ABG pO2 at Pt Temp ABG HCO3 ABG O2 Sat (Measured) ABG O2 Content ABG Base Excess Malik Test O2 Delivery Device Oxygen Flow Rate Sodium 132 L Potassium 4.7 Chloride 102 Carbon Dioxide 23 Anion Gap 7 L BUN 14 Creatinine 0.6 Est GFR (CKD-EPI)AfAm 95.66 Est GFR (CKD-EPI)NonAf 82.53 POC Glucometer 108 Random Glucose 116 H Serum Osmolality Lactic Acid Calcium 7.8 L Phosphorus 3.4 Magnesium 2.9 H Total Bilirubin 0.8 AST 41 H ALT 32 Alkaline Phosphatase 55 Creatine Kinase Troponin I Total Protein 5.2 L Albumin 2.4 L Lipase Blood Type Antibody Screen Active Medications Generic Name Dose Route Start Last Admin Trade Name Freq PRN Reason Stop Dose Admin Chlorhexidine Gluconate 1 applic 02/19/19 22:00 02/19/19 21:39 Hibiclens For Decolonization - TP 1 applic HS AI Administration Heparin Sodium (Porcine) 5,000 unit 05/16/19 22:00 02/19/19 21:42 Heparin - SQ 5,000 unit BID AI Administration Sodium Chloride 1,000 mls @ 75 mls/hr 02/19/19 18:57 02/19/19 19:00 Normal Saline - IV 75 mls/hr ASDIR AI Administration Piperacillin Sod/Tazobactam 100 mls @ 200 mls/hr 02/20/19 02:00 Sod 4.5 gm/ Dextrose IVPB Q8H-IV AI Protocol Insulin Aspart 1 vial 02/20/19 07:00 02/20/19 07:02 Novolog Vial Sliding Scale - SQ Not Given ACHS AI Protocol Morphine Sulfate 2 mg 02/19/19 18:57 02/20/19 04:34 Morphine Sulfate IVPUSH 2 mg Q4H PRN Administration PAIN LEVEL 6-10 Mupirocin 1 applic 02/19/19 22:00 02/19/19 21:38 Bactroban Ointment (For Decolonization) - NS 02/24/19 21:59 1 applic BID AI Administration Pantoprazole Sodium 40 mg 02/20/19 10:00 Protonix Iv IVPUSH DAILY [facility] ASSESSMENT/PLAN: Patient is an 88 year old female with past medical history of DM, HTN and CAD (s /p stent placement in 2008), presented to the ED due to sudden onset diffuse abdominal pain. #Neuro -awake, alert and oriented x3 #Cardiovascular -BP and HR wnl -Will hold home BP meds for now. -May resume BP meds when PO resumed. #Pulmonology -On 2L NC, saturating >90% -CT: bibasilar interstitial thickening which may represent discoid atelectasis vs chronic interstitial lung disease. An acute infiltrate is less likely. #GI -CTAP: Pneumoperitoneum. Possible soft tissue stranding adjacent to the gastric antrum/proximal duodenum which could be on the basis of PUD. Small amount of free fluid within the abdomen and pelvis. Mild diffuse small bowel dilatation prob on the basis of an ileus. Colonic diverticulosis without evidence of acute diverticulitis. -Surgery (Dr. Kyle) consulted. Recommendations appreciated -POD 1: exploratory laparotomy. Repair of perforated duodenal ulcer with plication and omental overlay. -Post-op findings: Perforation of anterior wall of duodenum withe peritonitis -Continue IV fluids -Keep NPO, advance as per surgery recs -NG tube to suction -IV Morphine 2mg q4h PRN for pain -IV Protonix 40mg daily -IV antibiotics per ID -Urine lytes and osm, serum osm -Becerra catheter inserted for accurate I&Os -Lactic acidosis, resolved #Renal -renal function stable -Becerra catheter for I&Os -Keep urine output >0.5cc/kg/hr -Hyponatremia, will replete with Iv NS -Urinalysis, urine lytes ordered #ID -ID (Dr. Brojas) consulted. REcommendations appreciated. -Vanc and Zosyn, and Fluconazole given at the ED -Will continue Zosyn 4.5 gm q8h #Endo -Hx of DM -Will hold home Metformin -Insulin sliding scale -BGM q6h #FEN -IV NS @75cc/hr, boluses given -Routine bmp monitoring -NPO #Prophylaxis -DVT: SCDs -GI: Protonix 40mg IV daily #Disposition -Patient wants DNR but is unable to sign the form. She made her son, Boo Escobar , her healthcare proxy, who was also at bedside. -Transfer to tele Visit type - Emergency Visit Emergency Visit: Yes ED Registration Date: 02/19/19 Care time: The patient presented to the Emergency Department on the above date and was hospitalized for further evaluation of their emergent condition. - New Patient This patient is new to me today: No - Critical Care Critical Care patient: Yes Total Critical Care Time (in minutes): 36 Critical Care Statement: The care of this patient involved high complexity decision making to prevent further life threatening deterioration of the patient 's condition and/or to evaluate & treat vital organ system(s) failure or risk of failure.
[2019-02-20] MEDS ORDERED: PANTOPRAZOLE SODIUM 40 MG VIAL IVPUSH SCH (10:00)
[2019-02-20] MEDS: PANTOPRAZOLE SODIUM 40 MG VIAL IVPUSH SCH (10:18)
[2019-02-20] MEDS: MUPIROCIN 2% TOPICAL OINTMENT FOR DECOLONIZATION NS SCH ×2 (10:19→21:53)
[2019-02-20] MEDS: HEPARIN NA (PORCINE) 5,000 UNITS/ML 1ML VIAL SQ SCH ×2 (10:19→21:53)
--- NOTE | 2019-02-20 10:44 | PN ---
Progress Note, Physician Chief Complaint: await alert has some abdominal pain NG tube in place erickson cath removed - Current Medication List Current Medications: Active Medications Chlorhexidine Gluconate (Hibiclens For Decolonization -) 1 applic TP HS [facility] Last Admin: 02/19/19 21:39 Dose: 1 applic Heparin Sodium (Porcine) (Heparin -) 5,000 unit SQ BID [facility] Last Admin: 02/20/19 10:19 Dose: 5,000 unit Sodium Chloride (Normal Saline -) 1,000 mls @ 75 mls/hr IV ASDIR [facility] Last Admin: 02/19/19 19:00 Dose: 75 mls/hr Piperacillin Sod/Tazobactam (Sod 4.5 gm/ Dextrose) 100 mls @ 200 mls/hr IVPB Q8H-IV [facility]; Protocol Insulin Aspart (Novolog Vial Sliding Scale -) 1 vial SQ ACHS [facility]; Protocol Last Admin: 02/20/19 07:02 Dose: Not Given Morphine Sulfate (Morphine Sulfate) 2 mg IVPUSH Q4H PRN PRN Reason: PAIN LEVEL 6-10 Last Admin: 02/20/19 10:20 Dose: 2 mg Mupirocin (Bactroban Ointment (For Decolonization) -) 1 applic NS BID [facility] Stop: 02/24/19 21:59 Last Admin: 02/20/19 10:19 Dose: 1 applic Pantoprazole Sodium (Protonix Iv) 40 mg IVPUSH DAILY [facility] Last Admin: 02/20/19 10:18 Dose: 40 mg - Objective Vital Signs: Vital Signs Temperature 98.4 F 02/20/19 06:00 Pulse Rate 96 H 02/20/19 06:00 Respiratory Rate 16 02/20/19 06:00 Blood Pressure 127/59 L 02/20/19 06:00 O2 Sat by Pulse Oximetry (%) 97 02/19/19 21:00 Constitutional: Yes: Calm Cardiovascular: Yes: Regular Rate and Rhythm, S1, S2 Respiratory: Yes: CTA Bilaterally Gastrointestinal: Yes: Other (midline dressing and right quadrant dressing in place with drain serosanginous drainage) Edema: No Neurological: Yes: Alert, Oriented Labs: CBC, BMP 02/20/19 05:30 02/20/19 05:30 INR, PTT INR 0.94 (0.83-1.09) 05/16/19 09:50 Problem List - Problems (1) Bowel perforation Assessment/Plan: NPO - emergency exploratory laprotomy and repair perforated duodenal ulcer ng tube ivf - hydration iv abx icu monitoring scds dvt ppx trend lactic acid Code(s): K63.1 - PERFORATION OF INTESTINE (NONTRAUMATIC)
--- NOTE | 2019-02-20 11:54 | PN ---
Teaching Attending Note Name of Resident: Mackenzie Moss ATTENDING PHYSICIAN STATEMENT I saw and evaluated the patient. I reviewed the resident's note and discussed the case with the resident. I agree with the resident's findings and plan as documented. SUBJECTIVE: Patient seen and examined in the ICU. Awake and alert. Reports abdominal discomfort. No CP or SOB. OBJECTIVE: Intake & Output 02/17/19 02/18/19 02/19/19 02/20/19 23:59 23:59 23:59 23:59 Intake Total 1525 900 Output Total 930 1730 Balance 595 -830 Weight 132 lb Last Vital Signs Temp Pulse Resp BP Pulse Ox 97.2 F L 96 H 20 124/66 97 02/20/19 08:00 02/20/19 10:00 02/20/19 10:00 02/20/19 10:00 02/19/19 21:00 Active Medications Chlorhexidine Gluconate (Hibiclens For Decolonization -) 1 applic TP HS [facility] Last Admin: 02/19/19 21:39 Dose: 1 applic Heparin Sodium (Porcine) (Heparin -) 5,000 unit SQ BID [facility] Last Admin: 02/20/19 10:19 Dose: 5,000 unit Sodium Chloride (Normal Saline -) 1,000 mls @ 75 mls/hr IV ASDIR [facility] Last Admin: 02/19/19 19:00 Dose: 75 mls/hr Piperacillin Sod/Tazobactam (Sod 4.5 gm/ Dextrose) 100 mls @ 200 mls/hr IVPB Q8H-IV [facility]; Protocol Insulin Aspart (Novolog Vial Sliding Scale -) 1 vial SQ ACHS [facility]; Protocol Last Admin: 02/20/19 07:02 Dose: Not Given Morphine Sulfate (Morphine Sulfate) 2 mg IVPUSH Q4H PRN PRN Reason: PAIN LEVEL 6-10 Last Admin: 02/20/19 10:20 Dose: 2 mg Mupirocin (Bactroban Ointment (For Decolonization) -) 1 applic NS BID [facility] Stop: 02/24/19 21:59 Last Admin: 02/20/19 10:19 Dose: 1 applic Pantoprazole Sodium (Protonix Iv) 40 mg IVPUSH DAILY [facility] Last Admin: 02/20/19 10:18 Dose: 40 mg Gen: dry mucous membranes Heart: tachycardic, regular Lung: decreased breath sounds at the bases Abd: distended, tympanic, diffusely tender, +rebound Ext: no edema Laboratory Results - last 24 hr 02/19/19 02/19/19 02/19/19 09:50 09:50 12:26 WBC RBC Hgb Hct MCV MCH MCHC RDW Plt Count MPV Absolute Neuts (auto) Neutrophils % Neutrophils % (Manual) 87.2 H Band Neutrophils % 7.3 Lymphocytes % Lymphocytes % (Manual) 2.8 L Monocytes % Monocytes % (Manual) 2 L Eosinophils % Eosinophils % (Manual) 0.0 Basophils % Basophils % (Manual) 0.0 Myelocytes % (Man) 0 Promyelocytes % (Man) 0 Blast Cells % (Manual) 0 Nucleated RBC % Metamyelocytes 1 Hypochromia 0 Platelet Estimate Normal Polychromasia 0 Poikilocytosis 0 Anisocytosis 0 Microcytosis 0 Macrocytosis 0 Puncture Site ABG pH ABG pCO2 at Pt Temp ABG pO2 at Pt Temp ABG HCO3 ABG O2 Sat (Measured) ABG O2 Content ABG Base Excess Malik Test O2 Delivery Device Oxygen Flow Rate Sodium Potassium Chloride Carbon Dioxide Anion Gap BUN Creatinine Est GFR (CKD-EPI)AfAm Est GFR (CKD-EPI)NonAf POC Glucometer Random Glucose Serum Osmolality Lactic Acid Calcium Phosphorus Magnesium Total Bilirubin AST ALT Alkaline Phosphatase Total Protein Albumin Blood Type A POSITIVE Cancelled Antibody Screen Negative Cancelled 02/19/19 02/19/19 02/19/19 13:32 13:32 17:26 WBC RBC Hgb Hct MCV MCH MCHC RDW Plt Count MPV Absolute Neuts (auto) Neutrophils % Neutrophils % (Manual) Band Neutrophils % Lymphocytes % Lymphocytes % (Manual) Monocytes % Monocytes % (Manual) Eosinophils % Eosinophils % (Manual) Basophils % Basophils % (Manual) Myelocytes % (Man) Promyelocytes % (Man) Blast Cells % (Manual) Nucleated RBC % Metamyelocytes Hypochromia Platelet Estimate Polychromasia Poikilocytosis Anisocytosis Microcytosis Macrocytosis Puncture Site Arterial line ABG pH 7.33 L ABG pCO2 at Pt Temp 38.3 ABG pO2 at Pt Temp 65.9 L ABG HCO3 19.5 L ABG O2 Sat (Measured) 91.9 L ABG O2 Content 15.8 ABG Base Excess -5.4 L Malik Test Positive O2 Delivery Device Nasal cannula Oxygen Flow Rate 3l Sodium Potassium Chloride Carbon Dioxide Anion Gap BUN Creatinine Est GFR (CKD-EPI)AfAm Est GFR (CKD-EPI)NonAf POC Glucometer Random Glucose Serum Osmolality 279 Lactic Acid Calcium Phosphorus Magnesium Total Bilirubin AST ALT Alkaline Phosphatase Total Protein Albumin Blood Type A POSITIVE Antibody Screen Negative 02/19/19 02/19/19 02/19/19 19:45 21:30 21:30 WBC 9.8 RBC 4.37 Hgb 13.4 Hct 40.5 MCV 92.6 MCH 30.7 MCHC 33.1 RDW 15.6 Plt Count 237 D MPV 7.4 L Absolute Neuts (auto) Neutrophils % Neutrophils % (Manual) Band Neutrophils % Lymphocytes % Lymphocytes % (Manual) Monocytes % Monocytes % (Manual) Eosinophils % Eosinophils % (Manual) Basophils % Basophils % (Manual) Myelocytes % (Man) Promyelocytes % (Man) Blast Cells % (Manual) Nucleated RBC % Metamyelocytes Hypochromia Platelet Estimate Polychromasia Poikilocytosis Anisocytosis Microcytosis Macrocytosis Puncture Site ABG pH ABG pCO2 at Pt Temp ABG pO2 at Pt Temp ABG HCO3 ABG O2 Sat (Measured) ABG O2 Content ABG Base Excess Malik Test O2 Delivery Device Oxygen Flow Rate Sodium 127 L Potassium 4.6 Chloride 97 L Carbon Dioxide 22 Anion Gap 8 BUN 17 Creatinine 0.7 Est GFR (CKD-EPI)AfAm 90.93 Est GFR (CKD-EPI)NonAf 78.45 POC Glucometer Random Glucose 213 H Serum Osmolality Lactic Acid 2.9 H* Calcium 7.7 L Phosphorus Magnesium Total Bilirubin AST ALT Alkaline Phosphatase Total Protein Albumin Blood Type Antibody Screen 02/20/19 02/20/19 02/20/19 05:30 05:30 07:00 WBC 11.9 H RBC 4.08 Hgb 12.5 Hct 37.2 MCV 91.2 MCH 30.6 MCHC 33.6 RDW 15.5 Plt Count 285 D MPV 7.4 L Absolute Neuts (auto) 10.8 H Neutrophils % 90.9 H Neutrophils % (Manual) Band Neutrophils % Lymphocytes % 3.4 L D Lymphocytes % (Manual) Monocytes % 5.6 D Monocytes % (Manual) Eosinophils % 0.0 D Eosinophils % (Manual) Basophils % 0.1 D Basophils % (Manual) Myelocytes % (Man) Promyelocytes % (Man) Blast Cells % (Manual) Nucleated RBC % 0 Metamyelocytes Hypochromia Platelet Estimate Polychromasia Poikilocytosis Anisocytosis Microcytosis Macrocytosis Puncture Site ABG pH ABG pCO2 at Pt Temp ABG pO2 at Pt Temp ABG HCO3 ABG O2 Sat (Measured) ABG O2 Content ABG Base Excess Malik Test O2 Delivery Device Oxygen Flow Rate Sodium 132 L Potassium 4.7 Chloride 102 Carbon Dioxide 23 Anion Gap 7 L BUN 14 Creatinine 0.6 Est GFR (CKD-EPI)AfAm 95.66 Est GFR (CKD-EPI)NonAf 82.53 POC Glucometer 108 Random Glucose 116 H Serum Osmolality Lactic Acid Calcium 7.8 L Phosphorus 3.4 Magnesium 2.9 H Total Bilirubin 0.8 AST 41 H ALT 32 Alkaline Phosphatase 55 Total Protein 5.2 L Albumin 2.4 L Blood Type Antibody Screen 02/20/19 11:05 WBC RBC Hgb Hct MCV MCH MCHC RDW Plt Count MPV Absolute Neuts (auto) Neutrophils % Neutrophils % (Manual) Band Neutrophils % Lymphocytes % Lymphocytes % (Manual) Monocytes % Monocytes % (Manual) Eosinophils % Eosinophils % (Manual) Basophils % Basophils % (Manual) Myelocytes % (Man) Promyelocytes % (Man) Blast Cells % (Manual) Nucleated RBC % Metamyelocytes Hypochromia Platelet Estimate Polychromasia Poikilocytosis Anisocytosis Microcytosis Macrocytosis Puncture Site ABG pH ABG pCO2 at Pt Temp ABG pO2 at Pt Temp ABG HCO3 ABG O2 Sat (Measured) ABG O2 Content ABG Base Excess Malik Test O2 Delivery Device Oxygen Flow Rate Sodium Potassium Chloride Carbon Dioxide Anion Gap BUN Creatinine Est GFR (CKD-EPI)AfAm Est GFR (CKD-EPI)NonAf POC Glucometer Random Glucose Serum Osmolality Lactic Acid 1.7 Calcium Phosphorus Magnesium Total Bilirubin AST ALT Alkaline Phosphatase Total Protein Albumin Blood Type Antibody Screen ASSESSMENT AND PLAN: Perforated Duodenal Ulcer Pneumoperitoneum Sepsis Lactic Acidosis Hyponatremia HTN DM - IVF - ABX coverage - Protonix - f/u final cultures - maintain urine output >0.5mL/kg/hr - D/C erickson - Pain control - PO when cleared by surgery - DVT prophylaxis - Floor in AM if stable Dr Sue
[2019-02-20] MEDS: PIPERACILLIN/TAZOB 4.5 GM 4.5 GM in DEXTROSE 5%-WATER 100 ML IVPB SCH ×2 (12:00→17:47)
--- NOTE | 2019-02-20 12:04 | PN ---
Progress Note, Physician - Current Medication List Current Medications: Active Medications Chlorhexidine Gluconate (Hibiclens For Decolonization -) 1 applic TP HS [facility] Last Admin: 02/19/19 21:39 Dose: 1 applic Heparin Sodium (Porcine) (Heparin -) 5,000 unit SQ BID [facility] Last Admin: 02/20/19 10:19 Dose: 5,000 unit Sodium Chloride (Normal Saline -) 1,000 mls @ 75 mls/hr IV ASDIR [facility] Last Admin: 02/19/19 19:00 Dose: 75 mls/hr Piperacillin Sod/Tazobactam (Sod 4.5 gm/ Dextrose) 100 mls @ 200 mls/hr IVPB Q8H-IV [facility]; Protocol Insulin Aspart (Novolog Vial Sliding Scale -) 1 vial SQ ACHS [facility]; Protocol Last Admin: 02/20/19 07:02 Dose: Not Given Morphine Sulfate (Morphine Sulfate) 2 mg IVPUSH Q4H PRN PRN Reason: PAIN LEVEL 6-10 Last Admin: 02/20/19 10:20 Dose: 2 mg Mupirocin (Bactroban Ointment (For Decolonization) -) 1 applic NS BID [facility] Stop: 02/24/19 21:59 Last Admin: 02/20/19 10:19 Dose: 1 applic Pantoprazole Sodium (Protonix Iv) 40 mg IVPUSH DAILY [facility] Last Admin: 02/20/19 10:18 Dose: 40 mg - Objective Vital Signs: Vital Signs Temperature 97.2 F L 02/20/19 08:00 Pulse Rate 96 H 02/20/19 10:00 Respiratory Rate 20 02/20/19 10:00 Blood Pressure 124/66 02/20/19 10:00 O2 Sat by Pulse Oximetry (%) 97 02/19/19 21:00 Labs: CBC, BMP 02/20/19 05:30 02/20/19 05:30 INR, PTT INR 0.94 (0.83-1.09) 02/19/19 09:50 Assessment/Plan Surgery: Patient is alert and oriented , She is informed of the operative findings. Labwork is normal. Reinforced the need for NG tube to suction , with the nursing staff. Wound is clean, No calf tenderness. On PPI, DVT prophylaxis, antibiotics. WBC 11.9. Electrolytes , normal. . Lactic acid , corrected. Adequate urine output. Antibiotics.
[2019-02-20] MEDS ORDERED: DEXTROSE 5%-WATER 100 ML IVPB ONE ×2 (14:46→17:42)
[2019-02-20] MEDS ORDERED: PIPERACILLIN/TAZOBACTAM 4.5 GM VIAL IVPB ONE ×2 (14:46→17:42)
--- NOTE | 2019-02-20 14:49 | PN ---
Progress Note, Physician History of Present Illness: stable no new issues feels better - Current Medication List Current Medications: Active Medications Chlorhexidine Gluconate (Hibiclens For Decolonization -) 1 applic TP HS [facility] Last Admin: 02/19/19 21:39 Dose: 1 applic Heparin Sodium (Porcine) (Heparin -) 5,000 unit SQ BID [facility] Last Admin: 02/20/19 10:19 Dose: 5,000 unit Sodium Chloride (Normal Saline -) 1,000 mls @ 75 mls/hr IV ASDIR [facility] Last Admin: 02/19/19 19:00 Dose: 75 mls/hr Piperacillin Sod/Tazobactam (Sod 4.5 gm/ Dextrose) 100 mls @ 200 mls/hr IVPB Q8H-IV [facility]; Protocol Insulin Aspart (Novolog Vial Sliding Scale -) 1 vial SQ ACHS [facility]; Protocol Last Admin: 02/20/19 07:02 Dose: Not Given Morphine Sulfate (Morphine Sulfate) 2 mg IVPUSH Q4H PRN PRN Reason: PAIN LEVEL 6-10 Last Admin: 02/20/19 10:20 Dose: 2 mg Mupirocin (Bactroban Ointment (For Decolonization) -) 1 applic NS BID [facility] Stop: 02/24/19 21:59 Last Admin: 02/20/19 10:19 Dose: 1 applic Pantoprazole Sodium (Protonix Iv) 40 mg IVPUSH DAILY [facility] Last Admin: 02/20/19 10:18 Dose: 40 mg - Objective Vital Signs: Vital Signs Temperature 97.2 F L 02/20/19 08:00 Pulse Rate 96 H 02/20/19 10:00 Respiratory Rate 20 02/20/19 10:00 Blood Pressure 124/66 02/20/19 10:00 O2 Sat by Pulse Oximetry (%) 97 02/19/19 21:00 Constitutional: Yes: No Distress, Calm Cardiovascular: Yes: Regular Rate and Rhythm Respiratory: Yes: Regular, CTA Bilaterally Gastrointestinal: Yes: Soft, Other (absent bowel sounds,ng in place) Musculoskeletal: Yes: WNL Extremities: Yes: WNL Neurological: Yes: Alert, Oriented Psychiatric: Yes: Alert, Oriented Labs: CBC, BMP 02/20/19 05:30 02/20/19 05:30 INR, PTT INR 0.94 (0.83-1.09) 02/19/19 09:50 - ....Imaging Chest X-ray: Report Reviewed, Image Reviewed Assessment/Plan Assessment/Plan Perforated viscus, dehydration, CAD, Obesity. Plan : Hydrate , Antibiotics, Emergency laparotomy , for possible perforated ulcer. plan continue current mgmt hydration ng tube rest as per icu close watch awaiting gi function cc 40 min
--- NOTE | 2019-02-20 14:49 | EKG ---
Test Reason : Blood Pressure : / mmHG Vent. Rate : 123 BPM Atrial Rate : 123 BPM P-R Int : 130 ms QRS Dur : 084 ms QT Int : 316 ms P-R-T Axes : 046 036 054 degrees QTc Int : 452 ms SINUS TACHYCARDIA NONSPECIFIC ST ABNORMALITY ABNORMAL ECG NO PREVIOUS ECGS AVAILABLE Confirmed by KARON SPICER MD ([id number]) on 02/20/2019 2:48:57 PM Referred By: Nia SCOTT Confirmed By:KARON SPICER MD
[2019-02-20] MEDS: CHLORHEXIDINE GLUCONATE 4% CLEANSER FOR DECOLONIZATION TP SCH (21:53)
[2019-02-20] MEDS: SODIUM CHLORIDE 1,000 ML IV SCH (21:59)
[2019-02-21] MEDS ORDERED: PIPERACILLIN/TAZOBACTAM 4.5 GM VIAL IVPB ONE ×3 (01:31→17:26)
[2019-02-21] MEDS ORDERED: DEXTROSE 5%-WATER 100 ML IVPB ONE ×3 (01:31→17:26)
[2019-02-21] MEDS: PIPERACILLIN/TAZOB 4.5 GM 4.5 GM in DEXTROSE 5%-WATER 100 ML IVPB SCH ×3 (01:37→17:29)
[2019-02-21] MEDS: MORPHINE SULFATE 2 MG/ML VIAL IVPUSH PRN ×2 (02:02→09:50)
[2019-02-21] MEDS: INSULIN SLIDING SCALE (NOVOLOG) 1 VIAL SQ SCH ×4 (05:24→21:50)
[2019-02-21 06:11] LABS: BASO % 0.1 % (0-2.0); EOS % 0.4 % (0-4.5); HEMATOCRIT 35.5 % (32.4-45.2); HEMOGLOBIN 11.9 GM/dL (10.7-15.3); LYMPH % 7.6 % (8-40); MCH 30.6 pg (25.7-33.7); MCHC 33.6 g/dl (32.0-36.0); MEAN CELL VOLUME 91.1 fl (80-96); MEAN PLT VOLUME 7.2 fl (7.5-11.1); NEUT % 86.9 % (42.8-82.8); PLATELET COUNT 249 K/MM3 (134-434); RDW 15.9 % (11.6-15.6); WHITE BLOOD COUNT 11.4 K/mm3 (4.0-10.0)
[2019-02-21 06:44] LABS: ALBUMIN 2.4 g/dl (3.4-5.0); BILIRUBIN,TOTAL 1.1 mg/dL (0.2-1); CALCIUM 7.9 mg/dL (8.5-10.1); CREATININE 0.8 mg/dL (0.55-1.3); MAGNESIUM 2.4 mg/dL (1.8-2.4); PHOSPHOROUS 2.8 mg/dL (2.5-4.9); POTASSIUM 4.2 mmol/L (3.5-5.1); TOT PROT 5.5 g/dl (6.4-8.2)
[2019-02-21] MEDS: PANTOPRAZOLE SODIUM 40 MG VIAL IVPUSH SCH (09:49)
[2019-02-21] MEDS: MUPIROCIN 2% TOPICAL OINTMENT FOR DECOLONIZATION NS SCH (09:49)
[2019-02-21] MEDS: HEPARIN NA (PORCINE) 5,000 UNITS/ML 1ML VIAL SQ SCH ×2 (09:49→21:52)
--- NOTE | 2019-02-21 09:57 | PN ---
Progress Note, Physician - Current Medication List Current Medications: Active Medications Chlorhexidine Gluconate (Hibiclens For Decolonization -) 1 applic TP HS [facility] Last Admin: 02/20/19 21:53 Dose: 1 applic Heparin Sodium (Porcine) (Heparin -) 5,000 unit SQ BID [facility] Last Admin: 02/21/19 09:49 Dose: 5,000 unit Sodium Chloride (Normal Saline -) 1,000 mls @ 75 mls/hr IV ASDIR [facility] Last Admin: 02/20/19 21:59 Dose: Not Given Piperacillin Sod/Tazobactam (Sod 4.5 gm/ Dextrose) 100 mls @ 200 mls/hr IVPB Q8H-IV [facility]; Protocol Last Admin: 02/21/19 09:49 Dose: 200 mls/hr Insulin Aspart (Novolog Vial Sliding Scale -) 1 vial SQ Q6H [facility]; Protocol Last Admin: 02/21/19 05:24 Dose: Not Given Morphine Sulfate (Morphine Sulfate) 2 mg IVPUSH Q4H PRN PRN Reason: PAIN LEVEL 6-10 Last Admin: 02/21/19 09:50 Dose: 2 mg Mupirocin (Bactroban Ointment (For Decolonization) -) 1 applic NS BID [facility] Stop: 02/24/19 21:59 Last Admin: 02/21/19 09:49 Dose: 1 applic Pantoprazole Sodium (Protonix Iv) 40 mg IVPUSH DAILY [facility] Last Admin: 02/21/19 09:49 Dose: 40 mg - Objective Vital Signs: Vital Signs Temperature 98.4 F 02/21/19 06:00 Pulse Rate 113 H 02/21/19 08:00 Respiratory Rate 24 H 02/21/19 08:00 Blood Pressure 177/94 H 02/21/19 08:00 O2 Sat by Pulse Oximetry (%) 100 02/20/19 21:00 Cardiovascular: Yes: S1, S2 Respiratory: Yes: Mechanically Ventilated Gastrointestinal: Yes: Distention, Other (NGT INSERTED) Labs: CBC, BMP 02/21/19 05:30 02/21/19 05:30 INR, PTT INR 0.94 (0.83-1.09) 02/19/19 09:50 Problem List - Problems (1) Perforated chronic peptic ulcer Assessment/Plan: Operative Date: 02/19/19 Pre-Operative Diagnosis: Perforated duodenal ulcer , acute peritonitis, CAD , hypertetion , obesity. Operation: Exploratory laparotomy,. Repair of perforated duodenal ulcer with plication and omental overlay. Findings: Perforation of anterior wall of duodenum about 2 cms , with peritonitis. Post-Operative Diagnosis: Other (Perforated duodenal ulcer with peritonitis.) Surgeon: Lupillo Kyle FURTHER PLAN PER SURGERY Code(s): K27.5 - CHRONIC OR UNSP PEPTIC ULCER, SITE UNSP, WITH PERFORATION (2) Diabetes Assessment/Plan: BGM WITH SS Code(s): E11.9 - TYPE 2 DIABETES MELLITUS WITHOUT COMPLICATIONS (3) Sepsis Assessment/Plan: IV ABX ID ON CASE Code(s): A41.9 - SEPSIS, UNSPECIFIED ORGANISM
[2019-02-21] MEDS ORDERED: METOPROLOL TARTRATE 5 MG/5 ML VIAL IVPUSH ONE (11:15)
--- NOTE | 2019-02-21 13:29 | PN ---
Progress Note, Physician History of Present Illness: patient stable no complaints ng tube not draining much - Current Medication List Current Medications: Active Medications Chlorhexidine Gluconate (Hibiclens For Decolonization -) 1 applic TP HS [facility] Last Admin: 02/20/19 21:53 Dose: 1 applic Heparin Sodium (Porcine) (Heparin -) 5,000 unit SQ BID [facility] Last Admin: 02/21/19 09:49 Dose: 5,000 unit Sodium Chloride (Normal Saline -) 1,000 mls @ 75 mls/hr IV ASDIR [facility] Last Admin: 02/20/19 21:59 Dose: Not Given Piperacillin Sod/Tazobactam (Sod 4.5 gm/ Dextrose) 100 mls @ 200 mls/hr IVPB Q8H-IV [facility]; Protocol Last Admin: 02/21/19 09:49 Dose: 200 mls/hr Insulin Aspart (Novolog Vial Sliding Scale -) 1 vial SQ Q6H [facility]; Protocol Last Admin: 02/21/19 11:34 Dose: Not Given Morphine Sulfate (Morphine Sulfate) 2 mg IVPUSH Q4H PRN PRN Reason: PAIN LEVEL 6-10 Last Admin: 02/21/19 09:50 Dose: 2 mg Mupirocin (Bactroban Ointment (For Decolonization) -) 1 applic NS BID [facility] Stop: 02/24/19 21:59 Last Admin: 02/21/19 09:49 Dose: 1 applic Pantoprazole Sodium (Protonix Iv) 40 mg IVPUSH DAILY [facility] Last Admin: 02/21/19 09:49 Dose: 40 mg - Objective Vital Signs: Vital Signs Temperature 98.8 F 02/21/19 10:00 Pulse Rate 97 H 02/21/19 12:00 Respiratory Rate 14 02/21/19 12:00 Blood Pressure 116/94 02/21/19 12:00 O2 Sat by Pulse Oximetry (%) 100 02/21/19 09:00 Constitutional: Yes: No Distress, Calm Cardiovascular: Yes: S1, S2 Respiratory: Yes: Regular, CTA Bilaterally Gastrointestinal: Yes: Other (bowel sounds still absent,ng tube in place) Musculoskeletal: Yes: WNL Extremities: Yes: WNL Wound/Incision: Yes: Clean/Dry Neurological: Yes: Alert, Oriented Psychiatric: Yes: Alert, Oriented Labs: CBC, BMP 02/21/19 05:30 02/21/19 05:30 INR, PTT INR 0.94 (0.83-1.09) 02/19/19 09:50 - ....Imaging Chest X-ray: Report Reviewed, Image Reviewed Assessment/Plan Assessment/Plan Perforated viscus, dehydration, CAD, Obesity. Plan : Hydrate , Antibiotics, Emergency laparotomy , for possible perforated ulcer. plan continue current mgmt hydration ng tube rest as per icu close watch awaiting gi function cc 40 min
--- NOTE | 2019-02-21 14:43 | PN ---
Progress Note, Physician - Current Medication List Current Medications: Active Medications Chlorhexidine Gluconate (Hibiclens For Decolonization -) 1 applic TP HS [facility] Heparin Sodium (Porcine) (Heparin -) 5,000 unit SQ BID [facility] Sodium Chloride (Normal Saline -) 1,000 mls @ 75 mls/hr IV ASDIR [facility] Piperacillin Sod/Tazobactam (Sod 4.5 gm/ Dextrose) 100 mls @ 200 mls/hr IVPB Q8H-IV [facility]; Protocol Insulin Aspart (Novolog Vial Sliding Scale -) 1 vial SQ Q6H [facility]; Protocol Morphine Sulfate (Morphine Sulfate) 2 mg IVPUSH Q4H PRN PRN Reason: PAIN LEVEL 6-10 Mupirocin (Bactroban Ointment (For Decolonization) -) 1 applic NS BID [facility] Stop: 02/24/19 21:59 Pantoprazole Sodium (Protonix Iv) 40 mg IVPUSH DAILY [facility] - Objective Vital Signs: Vital Signs Temperature 98.8 F 02/21/19 10:00 Pulse Rate 97 H 02/21/19 12:00 Respiratory Rate 14 02/21/19 12:00 Blood Pressure 116/94 02/21/19 12:00 O2 Sat by Pulse Oximetry (%) 100 02/21/19 09:00 Labs: CBC, BMP 02/21/19 05:30 02/21/19 05:30 INR, PTT INR 0.94 (0.83-1.09) 02/19/19 09:50 Assessment/Plan Surgery: patient is alert and orinted, comfortable. Temperature is normal. WBC is elevated. Abdomen is soft , not tender. No dranage from drain. NG drainage only 22 ml . greenish. WBC is still elevated, Continue antibiotics. Gastrograffin g.i. study on Saturday. Continue antibiotics, IV fluids, ' NG to suction. Out of bed.
[2019-02-21] MEDS: SODIUM CHLORIDE 1,000 ML IV SCH (15:23)
[2019-02-21] MEDS ORDERED: CHLORHEXIDINE GLUCONATE 4% CLEANSER FOR DECOLONIZATION TP SCH (22:00)
[2019-02-21] MEDS ORDERED: MUPIROCIN 2% TOPICAL OINTMENT FOR DECOLONIZATION NS SCH (22:00)
[2019-02-22] MEDS ORDERED: DEXTROSE 5%-WATER 100 ML IVPB ONE ×3 (01:09→18:40)
[2019-02-22] MEDS ORDERED: PIPERACILLIN/TAZOBACTAM 4.5 GM VIAL IVPB ONE ×3 (01:09→18:39)
[2019-02-22] MEDS: PIPERACILLIN/TAZOB 4.5 GM 4.5 GM in DEXTROSE 5%-WATER 100 ML IVPB SCH ×3 (01:16→18:42)
[2019-02-22] MEDS: MORPHINE SULFATE 2 MG/ML VIAL IVPUSH PRN ×4 (02:30→20:55)
[2019-02-22] MEDS: INSULIN SLIDING SCALE (NOVOLOG) 1 VIAL SQ SCH ×4 (06:33→21:01)
--- NOTE | 2019-02-22 10:03 | PN ---
Progress Note, Physician - Current Medication List Current Medications: Active Medications Heparin Sodium (Porcine) (Heparin -) 5,000 unit SQ BID [facility] Last Admin: 02/21/19 21:52 Dose: 5,000 unit Sodium Chloride (Normal Saline -) 1,000 mls @ 75 mls/hr IV ASDIR [facility] Last Admin: 02/21/19 15:23 Dose: 75 mls/hr Piperacillin Sod/Tazobactam (Sod 4.5 gm/ Dextrose) 100 mls @ 200 mls/hr IVPB Q8H-IV [facility]; Protocol Last Admin: 02/22/19 01:16 Dose: 200 mls/hr Insulin Aspart (Novolog Vial Sliding Scale -) 1 vial SQ ACHS [facility]; Protocol Last Admin: 02/22/19 06:33 Dose: Not Given Morphine Sulfate (Morphine Sulfate) 2 mg IVPUSH Q4H PRN PRN Reason: PAIN LEVEL 6-10 Last Admin: 02/22/19 08:57 Dose: 2 mg Pantoprazole Sodium (Protonix Iv) 40 mg IVPUSH DAILY [facility] - Objective Vital Signs: Vital Signs Temperature 98.6 F 02/22/19 06:00 Pulse Rate 88 02/22/19 06:00 Respiratory Rate 16 02/22/19 06:00 Blood Pressure 151/76 02/22/19 06:00 O2 Sat by Pulse Oximetry (%) 100 02/21/19 21:00 Cardiovascular: Yes: S1, S2 Respiratory: Yes: Regular, CTA Bilaterally Gastrointestinal: Yes: Soft, Tenderness, Other (ngt) Labs: CBC, BMP 02/21/19 05:30 02/21/19 05:30 INR, PTT INR 0.94 (0.83-1.09) 02/19/19 09:50 Problem List - Problems (1) Perforated chronic peptic ulcer Assessment/Plan: Operative Date: 02/19/19 Pre-Operative Diagnosis: Perforated duodenal ulcer , acute peritonitis, CAD , hypertetion , obesity. Operation: Exploratory laparotomy,. Repair of perforated duodenal ulcer with plication and omental overlay. Findings: Perforation of anterior wall of duodenum about 2 cms , with peritonitis. Post-Operative Diagnosis: Other (Perforated duodenal ulcer with peritonitis.) Surgeon: Lupillo Kyle FURTHER PLAN PER SURGERY Code(s): K27.5 - CHRONIC OR UNSP PEPTIC ULCER, SITE UNSP, WITH PERFORATION (2) Diabetes Assessment/Plan: BGM WITH SS Code(s): E11.9 - TYPE 2 DIABETES MELLITUS WITHOUT COMPLICATIONS (3) Sepsis Assessment/Plan: IV ABX ID ON CASE Code(s): A41.9 - SEPSIS, UNSPECIFIED ORGANISM
[2019-02-22] MEDS: PANTOPRAZOLE SODIUM 40 MG VIAL IVPUSH SCH (10:23)
[2019-02-22] MEDS: HEPARIN NA (PORCINE) 5,000 UNITS/ML 1ML VIAL SQ SCH ×2 (10:23→21:00)
--- NOTE | 2019-02-22 11:50 | PN ---
Progress Note, Physician History of Present Illness: stable no complaints - Current Medication List Current Medications: Active Medications Heparin Sodium (Porcine) (Heparin -) 5,000 unit SQ BID [facility] Last Admin: 02/22/19 10:23 Dose: 5,000 unit Sodium Chloride (Normal Saline -) 1,000 mls @ 75 mls/hr IV ASDIR [facility] Last Admin: 02/21/19 15:23 Dose: 75 mls/hr Piperacillin Sod/Tazobactam (Sod 4.5 gm/ Dextrose) 100 mls @ 200 mls/hr IVPB Q8H-IV [facility]; Protocol Last Admin: 02/22/19 10:23 Dose: 200 mls/hr Insulin Aspart (Novolog Vial Sliding Scale -) 1 vial SQ ACHS [facility]; Protocol Last Admin: 02/22/19 11:35 Dose: Not Given Morphine Sulfate (Morphine Sulfate) 2 mg IVPUSH Q4H PRN PRN Reason: PAIN LEVEL 6-10 Last Admin: 02/22/19 08:57 Dose: 2 mg Pantoprazole Sodium (Protonix Iv) 40 mg IVPUSH DAILY [facility] Last Admin: 02/22/19 10:23 Dose: 40 mg - Objective Vital Signs: Vital Signs Temperature 98.8 F 02/22/19 09:00 Pulse Rate 92 H 02/22/19 11:12 Respiratory Rate 20 02/22/19 11:12 Blood Pressure 148/77 02/22/19 11:12 O2 Sat by Pulse Oximetry (%) 100 02/21/19 21:00 Constitutional: Yes: No Distress, Calm Cardiovascular: Yes: S1, S2 Respiratory: Yes: Regular, CTA Bilaterally Gastrointestinal: Yes: Soft, Other (still absent bowel sounds) Musculoskeletal: Yes: WNL Extremities: Yes: WNL Wound/Incision: Yes: Clean/Dry Neurological: Yes: Alert, Oriented Psychiatric: Yes: Alert, Oriented Labs: CBC, BMP 02/21/19 05:30 02/21/19 05:30 INR, PTT INR 0.94 (0.83-1.09) 02/19/19 09:50 Assessment/Plan Assessment/Plan Perforated viscus, dehydration, CAD, Obesity. Plan : Hydrate , Antibiotics, Emergency laparotomy , for possible perforated ulcer. plan continue current mgmt hydration close watch awaiting gi function
[2019-02-22] MEDS: SODIUM CHLORIDE 1,000 ML IV SCH (16:42)
[2019-02-23] MEDS ORDERED: DEXTROSE 5%-WATER 100 ML IVPB ONE ×3 (01:12→18:05)
[2019-02-23] MEDS ORDERED: PIPERACILLIN/TAZOBACTAM 4.5 GM VIAL IVPB ONE ×3 (01:12→18:05)
[2019-02-23] MEDS: PIPERACILLIN/TAZOB 4.5 GM 4.5 GM in DEXTROSE 5%-WATER 100 ML IVPB SCH ×3 (01:23→18:43)
[2019-02-23] MEDS: MORPHINE SULFATE 2 MG/ML VIAL IVPUSH PRN ×3 (04:35→23:23)
[2019-02-23] MEDS: INSULIN SLIDING SCALE (NOVOLOG) 1 VIAL SQ SCH ×4 (06:32→23:15)
[2019-02-23] MEDS: HEPARIN NA (PORCINE) 5,000 UNITS/ML 1ML VIAL SQ SCH ×2 (09:05→23:12)
[2019-02-23] MEDS: PANTOPRAZOLE SODIUM 40 MG VIAL IVPUSH SCH (09:05)
[2019-02-23] MEDS: SODIUM CHLORIDE 1,000 ML IV SCH ×3 (09:05→23:16)
--- NOTE | 2019-02-23 11:44 | PN ---
Progress Note, Physician Chief Complaint: Perforated Peptic Ulcer Acute Peritonitis S/p Exp Laparotomy History of Present Illness: Previous notes and events reviewed awake and alert NAD sts pain is controlled upper GI series done today NGT to [facility] - Current Medication List Current Medications: Active Medications Heparin Sodium (Porcine) (Heparin -) 5,000 unit SQ BID [facility] Last Admin: 02/23/19 09:05 Dose: 5,000 unit Sodium Chloride (Normal Saline -) 1,000 mls @ 75 mls/hr IV ASDIR [facility] Last Admin: 02/23/19 09:05 Dose: 75 mls/hr Piperacillin Sod/Tazobactam (Sod 4.5 gm/ Dextrose) 100 mls @ 200 mls/hr IVPB Q8H-IV [facility]; Protocol Last Admin: 02/23/19 09:06 Dose: 200 mls/hr Insulin Aspart (Novolog Vial Sliding Scale -) 1 vial SQ ACHS [facility]; Protocol Last Admin: 02/23/19 11:18 Dose: Not Given Morphine Sulfate (Morphine Sulfate) 2 mg IVPUSH Q4H PRN PRN Reason: PAIN LEVEL 6-10 Last Admin: 02/23/19 10:45 Dose: 2 mg Pantoprazole Sodium (Protonix Iv) 40 mg IVPUSH DAILY [facility] Last Admin: 02/23/19 09:05 Dose: 40 mg - Objective Vital Signs: Vital Signs Temperature 98.4 F 02/23/19 09:00 Pulse Rate 95 H 02/23/19 09:00 Respiratory Rate 18 02/23/19 09:00 Blood Pressure 150/88 02/23/19 09:00 O2 Sat by Pulse Oximetry (%) 95 02/23/19 09:00 Constitutional: Yes: No Distress, Calm Eyes: Yes: Conjunctiva Clear HENT: Yes: Atraumatic Cardiovascular: Yes: Regular Rate and Rhythm Respiratory: Yes: Regular, CTA Bilaterally Gastrointestinal: Yes: Normal Bowel Sounds, Soft Genitourinary: Yes: Incontinence Musculoskeletal: Yes: Muscle Weakness Extremities: Yes: WNL Edema: No Wound/Incision: Yes: [place] Intact, Open to air, Draining (RLQ--draining to gravity) Neurological: Yes: Alert, Pre-Existing Deficit Psychiatric: Yes: Alert Labs: CBC, BMP 02/21/19 05:30 02/21/19 05:30 INR, PTT INR 0.94 (0.83-1.09) 02/19/19 09:50 Microbiology 02/19/19 17:30 Peritoneal Cavity Swab Gram Stain - Final 02/19/19 17:30 Peritoneal Cavity Swab Wound Culture - Final NO AEROBIC OR ANAEROBIC GROWTH OBTAINED. Problem List - Problems (1) Diabetes Assessment/Plan: -BGM ACHS -ISS Code(s): E11.9 - TYPE 2 DIABETES MELLITUS WITHOUT COMPLICATIONS (2) Perforated chronic peptic ulcer Assessment/Plan: -Surgery on board -POD #4 exploratory laparotomy -NGT to [facility]CS -drain to RLQ draining to gravity -Upper GI Series shows no extravasation -IV Zosyn -NPO status Code(s): K27.5 - CHRONIC OR UNSP PEPTIC ULCER, SITE UNSP, WITH PERFORATION (3) Sepsis Assessment/Plan: -WBC 11.4 -afebrile -ID on board -IV Zosyn Code(s): A41.9 - SEPSIS, UNSPECIFIED ORGANISM Assessment/Plan see problem list dvt ppx
--- NOTE | 2019-02-23 13:06 | PN ---
Progress Note, Physician History of Present Illness: stable no new issues still awaiting function - Current Medication List Current Medications: Active Medications Heparin Sodium (Porcine) (Heparin -) 5,000 unit SQ BID [facility] Last Admin: 02/23/19 09:05 Dose: 5,000 unit Sodium Chloride (Normal Saline -) 1,000 mls @ 75 mls/hr IV ASDIR [facility] Last Admin: 02/23/19 09:05 Dose: 75 mls/hr Piperacillin Sod/Tazobactam (Sod 4.5 gm/ Dextrose) 100 mls @ 200 mls/hr IVPB Q8H-IV [facility]; Protocol Last Admin: 02/23/19 09:06 Dose: 200 mls/hr Insulin Aspart (Novolog Vial Sliding Scale -) 1 vial SQ ACHS [facility]; Protocol Last Admin: 02/23/19 11:18 Dose: Not Given Morphine Sulfate (Morphine Sulfate) 2 mg IVPUSH Q4H PRN PRN Reason: PAIN LEVEL 6-10 Last Admin: 02/23/19 10:45 Dose: 2 mg Pantoprazole Sodium (Protonix Iv) 40 mg IVPUSH DAILY [facility] Last Admin: 02/23/19 09:05 Dose: 40 mg - Objective Vital Signs: Vital Signs Temperature 98.4 F 02/23/19 09:00 Pulse Rate 95 H 02/23/19 09:00 Respiratory Rate 18 02/23/19 09:00 Blood Pressure 150/88 02/23/19 09:00 O2 Sat by Pulse Oximetry (%) 95 02/23/19 09:00 Constitutional: Yes: No Distress, Calm Cardiovascular: Yes: S1, S2 Respiratory: Yes: Regular, CTA Bilaterally Gastrointestinal: Yes: Hypoactive Bowel Sounds Musculoskeletal: Yes: WNL Extremities: Yes: WNL Wound/Incision: Yes: Clean/Dry Neurological: Yes: Alert, Oriented Psychiatric: Yes: Alert, Oriented Labs: CBC, BMP 02/21/19 05:30 02/21/19 05:30 INR, PTT INR 0.94 (0.83-1.09) 02/19/19 09:50 Assessment/Plan Assessment/Plan Perforated viscus, dehydration, CAD, Obesity. Plan : Hydrate , Antibiotics, Emergency laparotomy , perforated ulcer. gi bleed plan stable continue current mgmt awaiting gi function rest as per surgery
[2019-02-23] MEDS ORDERED: PHENOL 177 ML SPRAY BOTTLE MM SCH (19:22)
--- NOTE | 2019-02-23 19:33 | PN ---
Progress Note, Physician - Current Medication List Current Medications: Active Medications Heparin Sodium (Porcine) (Heparin -) 5,000 unit SQ BID [facility] Last Admin: 02/23/19 09:05 Dose: 5,000 unit Sodium Chloride (Normal Saline -) 1,000 mls @ 75 mls/hr IV ASDIR [facility] Last Admin: 02/23/19 09:05 Dose: 75 mls/hr Piperacillin Sod/Tazobactam (Sod 4.5 gm/ Dextrose) 100 mls @ 200 mls/hr IVPB Q8H-IV [facility]; Protocol Last Admin: 02/23/19 18:43 Dose: 200 mls/hr Insulin Aspart (Novolog Vial Sliding Scale -) 1 vial SQ ACHS [facility]; Protocol Last Admin: 02/23/19 17:58 Dose: Not Given Morphine Sulfate (Morphine Sulfate) 2 mg IVPUSH Q4H PRN PRN Reason: PAIN LEVEL 6-10 Last Admin: 02/23/19 10:45 Dose: 2 mg Pantoprazole Sodium (Protonix Iv) 40 mg IVPUSH DAILY [facility] Last Admin: 02/23/19 09:05 Dose: 40 mg Phenol/Menthol (Chloraseptic -) 1 spray MM DAILY [facility] - Objective Vital Signs: Vital Signs Temperature 98.9 F 02/23/19 14:12 Pulse Rate 89 02/23/19 14:12 Respiratory Rate 18 02/23/19 09:00 Blood Pressure 145/83 02/23/19 14:12 O2 Sat by Pulse Oximetry (%) 95 02/23/19 09:00 Labs: CBC, BMP 02/21/19 05:30 02/21/19 05:30 INR, PTT INR 0.94 (0.83-1.09) 02/19/19 09:50 Assessment/Plan Surgery: Patient is afebrile. Abdomen is soft, not tender, Gasrograffin study shows no contrast leaking out. Will resume oral feeding tomorrow. Repeat wbc. Discharge planning.
[2019-02-23] MEDS: TETRACAINE/BENZOCAINE/BUTAMBEN 20 GM SPR TP SCH (23:11)
[2019-02-24] MEDS ORDERED: PIPERACILLIN/TAZOBACTAM 4.5 GM VIAL IVPB ONE ×3 (02:52→09:53)
[2019-02-24] MEDS ORDERED: DEXTROSE 5%-WATER 100 ML IVPB ONE ×3 (02:52→09:53)
[2019-02-24] MEDS: PIPERACILLIN/TAZOB 4.5 GM 4.5 GM in DEXTROSE 5%-WATER 100 ML IVPB SCH ×2 (02:57→10:03)
[2019-02-24] MEDS: MORPHINE SULFATE 2 MG/ML VIAL IVPUSH PRN (03:30)
[2019-02-24] MEDS: INSULIN SLIDING SCALE (NOVOLOG) 1 VIAL SQ SCH ×4 (06:21→21:29)
[2019-02-24 06:33] LABS: BASO % 0.6 % (0-2.0); EOS % 3.1 % (0-4.5); HEMATOCRIT 35.8 % (32.4-45.2); HEMOGLOBIN 12.2 GM/dL (10.7-15.3); LYMPH % 13.1 % (8-40); MCH 30.7 pg (25.7-33.7); MCHC 34.1 g/dl (32.0-36.0); MEAN CELL VOLUME 90.1 fl (80-96); MEAN PLT VOLUME 7.1 fl (7.5-11.1); MONO % 10.5 % (3.8-10.2); NEUT % 72.7 % (42.8-82.8); PLATELET COUNT 295 K/MM3 (134-434); RBC 3.98 M/mm3 (3.60-5.2); RDW 15.6 % (11.6-15.6); WHITE BLOOD COUNT 9.2 K/mm3 (4.0-10.0)
[2019-02-24 07:15] LABS: ALBUMIN 2.3 g/dl (3.4-5.0); BILIRUBIN,TOTAL 0.9 mg/dL (0.2-1); CREATININE 0.6 mg/dL (0.55-1.3); TOT PROT 5.5 g/dl (6.4-8.2)
[2019-02-24 07:29] LABS: POTASSIUM 2.7 mmol/L (3.5-5.1)
[2019-02-24] MEDS: HEPARIN NA (PORCINE) 5,000 UNITS/ML 1ML VIAL SQ SCH ×2 (10:04→21:28)
[2019-02-24] MEDS: PANTOPRAZOLE SODIUM 40 MG VIAL IVPUSH SCH (10:04)
[2019-02-24] MEDS: TETRACAINE/BENZOCAINE/BUTAMBEN 20 GM SPR TP SCH (10:08)
[2019-02-24] MEDS ORDERED: POTASSIUM CHLORIDE TABS 20 MEQ TABLET.ER (FP) PO ONE (10:15)
--- NOTE | 2019-02-24 10:53 | PN ---
Progress Note, Physician - Current Medication List Current Medications: Active Medications Benzocaine/Butamben/Tetracaine HCl (Cetacaine [place] -) 1 spray TP DAILY [facility] Last Admin: 02/24/19 10:08 Dose: 1 spray Heparin Sodium (Porcine) (Heparin -) 5,000 unit SQ BID [facility] Last Admin: 02/24/19 10:04 Dose: 5,000 unit Sodium Chloride (Normal Saline -) 1,000 mls @ 75 mls/hr IV ASDIR [facility] Last Admin: 02/23/19 23:16 Dose: 75 mls/hr Piperacillin Sod/Tazobactam (Sod 4.5 gm/ Dextrose) 100 mls @ 200 mls/hr IVPB Q8H-IV [facility]; Protocol Last Admin: 02/24/19 10:03 Dose: 200 mls/hr Potassium Chloride (Potassium Chloride 10 Meq Premix Ivpb -) 10 meq in 100 mls @ 100 mls/hr IVPB Q1H [facility] Stop: 02/24/19 12:14 Insulin Aspart (Novolog Vial Sliding Scale -) 1 vial SQ ACHS [facility]; Protocol Last Admin: 02/24/19 06:21 Dose: Not Given Morphine Sulfate (Morphine Sulfate) 2 mg IVPUSH Q4H PRN PRN Reason: PAIN LEVEL 6-10 Last Admin: 02/24/19 03:30 Dose: 2 mg Pantoprazole Sodium (Protonix Iv) 40 mg IVPUSH DAILY [facility] Last Admin: 02/24/19 10:04 Dose: 40 mg - Objective Vital Signs: Vital Signs Temperature 98.0 F 02/24/19 06:30 Pulse Rate 98 H 02/24/19 06:30 Respiratory Rate 20 02/24/19 06:30 Blood Pressure 156/76 02/24/19 06:30 O2 Sat by Pulse Oximetry (%) 95 02/23/19 21:00 Labs: CBC, BMP 02/24/19 06:00 02/24/19 06:00 INR, PTT INR 0.94 (0.83-1.09) 02/19/19 09:50 Assessment/Plan Surgery: Patient is afebrile, Out of bed. Wound is clean , WBC is normal. Drain removed. Discharge planning. Hypokalemia. On IV PPI. can start oral PPI. Potassium supplements , Discharge planning.
[2019-02-24] MEDS: KCL 10 MEQ IVPB 10 MEQ/100 ML INFUS.BAG IVPB SCH ×2 (10:57→12:31)
[2019-02-24] MEDS: PANTOPRAZOLE 40 MG TABLET (FP) PO SCH (11:27)
[2019-02-24] MEDS ORDERED: INSULIN (NOVOLOG) ASPART 100 UNITS/ML 10ML VIAL ONE ×2 (11:48→17:04)
--- NOTE | 2019-02-24 12:05 | PN ---
Progress Note, Physician History of Present Illness: patient stable no new issues - Current Medication List Current Medications: Active Medications Benzocaine/Butamben/Tetracaine HCl (Cetacaine [place] -) 1 spray TP DAILY [facility] Last Admin: 02/24/19 10:08 Dose: 1 spray Heparin Sodium (Porcine) (Heparin -) 5,000 unit SQ BID [facility] Last Admin: 02/24/19 10:04 Dose: 5,000 unit Potassium Chloride (Potassium Chloride 10 Meq Premix Ivpb -) 10 meq in 100 mls @ 100 mls/hr IVPB Q1H [facility] Stop: 02/24/19 12:14 Last Admin: 02/24/19 10:57 Dose: 100 mls/hr Insulin Aspart (Novolog Vial Sliding Scale -) 1 vial SQ ACHS [facility]; Protocol Last Admin: 02/24/19 11:50 Dose: 6 units Morphine Sulfate (Morphine Sulfate) 2 mg IVPUSH Q4H PRN PRN Reason: PAIN LEVEL 6-10 Last Admin: 02/24/19 03:30 Dose: 2 mg Pantoprazole Sodium (Protonix -) 40 mg PO DAILY [facility] Last Admin: 02/24/19 11:27 Dose: Not Given - Objective Vital Signs: Vital Signs Temperature 98.0 F 02/24/19 10:00 Pulse Rate 108 H 02/24/19 10:00 Respiratory Rate 20 02/24/19 10:00 Blood Pressure 164/78 02/24/19 10:00 O2 Sat by Pulse Oximetry (%) 95 02/23/19 21:00 Constitutional: Yes: No Distress, Calm Cardiovascular: Yes: Regular Rate and Rhythm Respiratory: Yes: Regular, CTA Bilaterally Gastrointestinal: Yes: Normal Bowel Sounds, Soft Musculoskeletal: Yes: WNL Extremities: Yes: WNL Neurological: Yes: Alert, Oriented Psychiatric: Yes: Alert, Oriented Labs: CBC, BMP 02/24/19 06:00 02/24/19 06:00 INR, PTT INR 0.94 (0.83-1.09) 02/19/19 09:50 Assessment/Plan Assessment/Plan Perforated viscus, dehydration, CAD, Obesity. Plan : Hydrate , Antibiotics, Emergency laparotomy , for possible perforated ulcer. plan will change to oral abx to be given for another 5 days rest as per the team patient stable
--- NOTE | 2019-02-24 15:33 | PN ---
Progress Note, Physician Chief Complaint: Perforated Peptic Ulcer Acute Peritonitis S/p Exp Laparotomy History of Present Illness: Previous notes and events reviewed awake and alert NAD sts pain is controlled NGT removed and drain to RLQ removed - Current Medication List Current Medications: Active Medications Amoxicillin/Clavulanate Potassium (Augmentin - 875mg Tablet) 1 tab PO BID@0800, 1730 [facility] Benzocaine/Butamben/Tetracaine HCl (Cetacaine [place] -) 1 spray TP DAILY [facility] Last Admin: 02/24/19 10:08 Dose: 1 spray Heparin Sodium (Porcine) (Heparin -) 5,000 unit SQ BID [facility] Last Admin: 02/24/19 10:04 Dose: 5,000 unit Insulin Aspart (Novolog Vial Sliding Scale -) 1 vial SQ [facility]; Protocol Last Admin: 02/24/19 11:50 Dose: 6 units Pantoprazole Sodium (Protonix -) 40 mg PO DAILY [facility] Last Admin: 02/24/19 11:27 Dose: Not Given - Objective Vital Signs: Vital Signs Temperature 98.0 F 02/24/19 10:00 Pulse Rate 108 H 02/24/19 10:00 Respiratory Rate 02/24/19 10:00 Blood Pressure 164/78 02/24/19 10:00 O2 Sat by Pulse Oximetry (%) 95 02/23/19 21:00 Constitutional: Yes: No Distress, Calm Eyes: Yes: Conjunctiva Clear HENT: Yes: Atraumatic Cardiovascular: Yes: Regular Rate and Rhythm Respiratory: Yes: Regular, CTA Bilaterally Gastrointestinal: Yes: Normal Bowel Sounds, Soft Musculoskeletal: Yes: Muscle Weakness Extremities: Yes: WNL Edema: No Wound/Incision: Yes: [place] Intact, Dressing Dry and Intact Neurological: Yes: Alert Psychiatric: Yes: Alert, Oriented Labs: CBC, BMP 02/24/19 06:00 02/24/19 06:00 INR, PTT INR 0.94 (0.83-1.09) 02/19/19 09:50 Microbiology 02/19/19 17:30 Peritoneal Cavity Swab Gram Stain - Final 02/19/19 17:30 Peritoneal Cavity Swab Wound Culture - Final NO AEROBIC OR ANAEROBIC GROWTH OBTAINED. Problem List - Problems (1) Diabetes Assessment/Plan: -[facility] -ISS -diabetic diet Code(s): E11.9 - TYPE 2 DIABETES MELLITUS WITHOUT COMPLICATIONS (2) Perforated chronic peptic ulcer Assessment/Plan: -Surgery on board -POD #5 exploratory laparotomy -drain to RLQ draining to gravity -Upper GI Series shows no extravasation -Augmentin Code(s): K27.5 - CHRONIC OR UNSP PEPTIC ULCER, SITE UNSP, WITH PERFORATION (3) Sepsis Assessment/Plan: -WBC 9.2 -afebrile -ID on board -Augmentin PO Code(s): A41.9 - SEPSIS, UNSPECIFIED ORGANISM Assessment/Plan see problem list dvt ppx
[2019-02-24] MEDS: AMOX TR/POT CLAV 875MG/125MG TABLETS (FP) PO SCH (17:08)
[2019-02-24] MEDS ORDERED: MORPHINE SULFATE 2 MG/ML VIAL IVPUSH ONE (20:58)
[2019-02-25] MEDS ORDERED: INSULIN (NOVOLOG) ASPART 100 UNITS/ML 10ML VIAL ONE (05:45)
[2019-02-25] MEDS: INSULIN SLIDING SCALE (NOVOLOG) 1 VIAL SQ SCH ×4 (06:22→21:50)
[2019-02-25 07:44] LABS: HEMATOCRIT 38.4 % (32.4-45.2); MCHC 33.9 g/dl (32.0-36.0); MEAN CELL VOLUME 91.4 fl (80-96); MEAN PLT VOLUME 7.3 fl (7.5-11.1); PLATELET COUNT 312 K/MM3 (134-434); RDW 15.7 % (11.6-15.6); WHITE BLOOD COUNT 10.7 K/mm3 (4.0-10.0)
[2019-02-25 08:11] LABS: ALBUMIN 2.8 g/dl (3.4-5.0); BILIRUBIN,TOTAL 0.6 mg/dL (0.2-1); CALCIUM 8.6 mg/dL (8.5-10.1); CREATININE 0.8 mg/dL (0.55-1.3); POTASSIUM 3.9 mmol/L (3.5-5.1); TOT PROT 6.4 g/dl (6.4-8.2)
[2019-02-25] MEDS: AMOX TR/POT CLAV 875MG/125MG TABLETS (FP) PO SCH ×2 (08:26→17:29)
[2019-02-25] MEDS: HEPARIN NA (PORCINE) 5,000 UNITS/ML 1ML VIAL SQ SCH ×2 (09:53→21:51)
[2019-02-25] MEDS: PANTOPRAZOLE 40 MG TABLET (FP) PO SCH (09:53)
[2019-02-25] MEDS: TETRACAINE/BENZOCAINE/BUTAMBEN 20 GM SPR TP SCH (10:23)
--- NOTE | 2019-02-25 12:21 | PN ---
Progress Note, Physician History of Present Illness: stable dirrhoea - Current Medication List Current Medications: Active Medications Amoxicillin/Clavulanate Potassium (Augmentin - 875mg Tablet) 1 tab PO BID@0800, 1730 [facility] Last Admin: 02/25/19 08:26 Dose: 1 tab Benzocaine/Butamben/Tetracaine HCl (Cetacaine [place] -) 1 spray TP DAILY [facility] Last Admin: 02/25/19 10:23 Dose: 1 spray Heparin Sodium (Porcine) (Heparin -) 5,000 unit SQ BID [facility] Last Admin: 02/25/19 09:53 Dose: 5,000 unit Insulin Aspart (Novolog Vial Sliding Scale -) 1 vial SQ ACHS [facility]; Protocol Last Admin: 02/25/19 11:29 Dose: 4 units Pantoprazole Sodium (Protonix -) 40 mg PO DAILY [facility] Last Admin: 02/25/19 09:53 Dose: 40 mg - Objective Vital Signs: Vital Signs Temperature 98.7 F 02/25/19 09:00 Pulse Rate 94 H 02/25/19 09:00 Respiratory Rate 20 02/25/19 09:00 Blood Pressure 149/74 02/25/19 09:00 O2 Sat by Pulse Oximetry (%) 95 02/25/19 09:00 Constitutional: Yes: No Distress, Calm Cardiovascular: Yes: S1, S2 Respiratory: Yes: Regular, CTA Bilaterally Gastrointestinal: Yes: Normal Bowel Sounds, Soft Wound/Incision: Yes: Clean/Dry Neurological: Yes: Alert, Oriented Labs: CBC, BMP 02/25/19 07:00 02/25/19 07:00 INR, PTT INR 0.94 (0.83-1.09) 02/19/19 09:50 Assessment/Plan Assessment/Plan Perforated viscus, dehydration, CAD, Obesity. Plan : Hydrate , Antibiotics, Emergency laparotomy , perforated ulcer. gi bleed plan stable continue current mgmt nutrition rest as per surgery
--- NOTE | 2019-02-25 14:19 | PN ---
Progress Note, Physician Chief Complaint: Perforated Peptic Ulcer Acute Peritonitis S/p Exp Laparotomy History of Present Illness: Previous notes and events reviewed awake and alert NAD patient mulitple episodes of diarrhea last night and two episodes this morning, patient was advanced to regular diet during night parior to diarrhea denies abdominal pain - Current Medication List Current Medications: Active Medications Amoxicillin/Clavulanate Potassium (Augmentin - 875mg Tablet) 1 tab PO BID@0800, 1730 [facility] Last Admin: 02/25/19 08:26 Dose: 1 tab Benzocaine/Butamben/Tetracaine HCl (Cetacaine [place] -) 1 spray TP DAILY [facility] Last Admin: 02/25/19 10:23 Dose: 1 spray Heparin Sodium (Porcine) (Heparin -) 5,000 unit SQ BID [facility] Last Admin: 02/25/19 09:53 Dose: 5,000 unit Insulin Aspart (Novolog Vial Sliding Scale -) 1 vial SQ [facility]; Protocol Last Admin: 02/25/19 11:29 Dose: 4 units Pantoprazole Sodium (Protonix -) 40 mg PO DAILY [facility] Last Admin: 02/25/19 09:53 Dose: 40 mg - Objective Vital Signs: Vital Signs Temperature 98.7 F 02/25/19 09:00 Pulse Rate 94 H 02/25/19 09:00 Respiratory Rate 20 02/25/19 09:00 Blood Pressure 149/74 02/25/19 09:00 O2 Sat by Pulse Oximetry (%) 95 02/25/19 09:00 Constitutional: Yes: No Distress, Calm Eyes: Yes: Conjunctiva Clear Neck: Yes: Supple Cardiovascular: Yes: Regular Rate and Rhythm Respiratory: Yes: Regular, CTA Bilaterally Gastrointestinal: Yes: Normal Bowel Sounds, Soft Genitourinary: Yes: Incontinence Musculoskeletal: Yes: Muscle Weakness Extremities: Yes: WNL Edema: No Neurological: Yes: Alert, Oriented Psychiatric: Yes: Alert, Oriented Labs: CBC, BMP 02/25/19 07:00 02/25/19 07:00 INR, PTT INR 0.94 (0.83-1.09) 02/19/19 09:50 Microbiology 02/19/19 17:30 Peritoneal Cavity Swab Gram Stain - Final 02/19/19 17:30 Peritoneal Cavity Swab Wound Culture - Final NO AEROBIC OR ANAEROBIC GROWTH OBTAINED. Problem List - Problems (1) Diabetes Assessment/Plan: -BGM ACHS -ISS -diabetic diet Code(s): E11.9 - TYPE 2 DIABETES MELLITUS WITHOUT COMPLICATIONS (2) Perforated chronic peptic ulcer Assessment/Plan: -Surgery on board -POD #6 exploratory laparotomy -drain removed and dressing in place without -Upper GI Series shows no extravasation -Augmentin PO Code(s): K27.5 - CHRONIC OR UNSP PEPTIC ULCER, SITE UNSP, WITH PERFORATION (3) Sepsis Assessment/Plan: -WBC 10.7 -afebrile -ID on board -Augmentin PO Code(s): A41.9 - SEPSIS, UNSPECIFIED ORGANISM (4) Diarrhea Assessment/Plan: -stool culture ordered Code(s): R19.7 - DIARRHEA, UNSPECIFIED Assessment/Plan see problem list dvt ppx PT
--- NOTE | 2019-02-25 16:18 | PN ---
Progress Note, Physician - Current Medication List Current Medications: Active Medications Amoxicillin/Clavulanate Potassium (Augmentin - 875mg Tablet) 1 tab PO BID@0800, 1730 [facility] Last Admin: 02/25/19 08:26 Dose: 1 tab Benzocaine/Butamben/Tetracaine HCl (Cetacaine [place] -) 1 spray TP DAILY [facility] Last Admin: 02/25/19 10:23 Dose: 1 spray Heparin Sodium (Porcine) (Heparin -) 5,000 unit SQ BID [facility] Last Admin: 02/25/19 09:53 Dose: 5,000 unit Insulin Aspart (Novolog Vial Sliding Scale -) 1 vial SQ ACHS [facility]; Protocol Last Admin: 02/25/19 11:29 Dose: 4 units Pantoprazole Sodium (Protonix -) 40 mg PO DAILY [facility] Last Admin: 02/25/19 09:53 Dose: 40 mg - Objective Vital Signs: Vital Signs Temperature 98.7 F 02/25/19 09:00 Pulse Rate 94 H 02/25/19 09:00 Respiratory Rate 20 02/25/19 09:00 Blood Pressure 149/74 02/25/19 09:00 O2 Sat by Pulse Oximetry (%) 95 02/25/19 09:00 Labs: CBC, BMP 02/25/19 07:00 02/25/19 07:00 INR, PTT INR 0.94 (0.83-1.09) 02/19/19 09:50 Assessment/Plan Surgery: Patient is afebrile. Wound is clean. Tolerating diet . Had diarrhea, ? secondary to augmentin. Stool for C . diff. no surgical issues.
[2019-02-25] MEDS ORDERED: MORPHINE SULFATE 2 MG/ML VIAL IVPUSH ONE (22:06)
[2019-02-26] MEDS: INSULIN SLIDING SCALE (NOVOLOG) 1 VIAL SQ SCH ×4 (06:04→21:11)
[2019-02-26] MEDS: PANTOPRAZOLE 40 MG TABLET (FP) PO SCH (09:38)
[2019-02-26] MEDS: AMOX TR/POT CLAV 875MG/125MG TABLETS (FP) PO SCH ×2 (09:38→17:52)
[2019-02-26] MEDS: HEPARIN NA (PORCINE) 5,000 UNITS/ML 1ML VIAL SQ SCH ×2 (09:39→21:12)
[2019-02-26] MEDS: TETRACAINE/BENZOCAINE/BUTAMBEN 20 GM SPR TP SCH (09:46)
--- NOTE | 2019-02-26 12:28 | DS ---
Physical Examination Vital Signs: Vital Signs Temperature 98.4 F 02/26/19 06:10 Pulse Rate 102 H 02/26/19 06:10 Respiratory Rate 20 02/26/19 06:10 Blood Pressure 149/78 02/26/19 06:10 O2 Sat by Pulse Oximetry (%) 96 02/25/19 21:00 Findings/Remarks: Patient is an 88 y/o female with past medical history of DM and HTN. Patient complain of abdominal pain radiate to back x [address] scan in ER showed pneumoperitoneum. Patient is s/p exploratory laparotomy for repair of perforated duodenal ulcer. Constitutional: Yes: No Distress, Calm Eyes: Yes: Conjunctiva Clear HENT: Yes: Atraumatic Cardiovascular: Yes: Regular Rate and Rhythm Respiratory: Yes: Regular, CTA Bilaterally Gastrointestinal: Yes: Normal Bowel Sounds, Soft Musculoskeletal: Yes: Muscle Weakness Extremities: Yes: WNL Edema: No Wound/Incision: Yes: Recluse Intact, Dressing Dry and Intact Neurological: Yes: Alert, Pre-Existing Deficit Psychiatric: Yes: Alert, Oriented Labs: CBC, BMP 02/25/19 07:00 02/25/19 07:00 Microbiology 02/19/19 17:30 Peritoneal Cavity Swab Gram Stain - Final 02/19/19 17:30 Peritoneal Cavity Swab Wound Culture - Final NO AEROBIC OR ANAEROBIC GROWTH OBTAINED. Discharge Summary Reason For Visit: PERFORATION OF INTESTINE Current Active Problems Bowel perforation (Acute) Diabetes (Acute) Diarrhea (Acute) Perforated chronic peptic ulcer (Acute) Sepsis (Acute) Hospital Course: see progress notes Laboratory Tests 02/19/19 02/19/19 02/19/19 09:50 09:50 09:50 WBC 10.7 H RBC 5.05 Hgb 15.6 H Hct 46.3 H MCV 91.8 MCH 30.9 MCHC 33.6 RDW 15.4 Plt Count 381 MPV 7.5 Absolute Neuts (auto) 10.1 H Neutrophils % 94.4 H Neutrophils % (Manual) 87.2 H Band Neutrophils % 7.3 Lymphocytes % 2.6 L Lymphocytes % (Manual) 2.8 L Monocytes % 2.8 L Monocytes % (Manual) 2 L Eosinophils % 0.2 Eosinophils % (Manual) 0.0 Basophils % 0.0 Basophils % (Manual) 0.0 Myelocytes % (Man) 0 Promyelocytes % (Man) 0 Blast Cells % (Manual) 0 Nucleated RBC % 0 Metamyelocytes 1 Hypochromia 0 Platelet Estimate Normal Polychromasia 0 Poikilocytosis 0 Anisocytosis 0 Microcytosis 0 Macrocytosis 0 PT with INR 11.10 INR 0.94 Puncture Site ABG pH ABG pCO2 at Pt Temp ABG pO2 at Pt Temp ABG HCO3 ABG O2 Sat (Measured) ABG O2 Content ABG Base Excess Malik Test O2 Delivery Device Oxygen Flow Rate Sodium 122 L Potassium 4.8 Chloride 87 L Carbon Dioxide 24 Anion Gap 11 BUN 22 H Creatinine 1.0 Est GFR (CKD-EPI)AfAm 59.08 Est GFR (CKD-EPI)NonAf 50.97 POC Glucometer Random Glucose 279 H Serum Osmolality Lactic Acid Calcium 9.7 Phosphorus Magnesium Total Bilirubin 1.3 H AST 24 ALT 15 Alkaline Phosphatase 93 Creatine Kinase 110 Troponin I < 0.02 Total Protein 7.8 Albumin 4.0 Lipase 1992 H Blood Type Antibody Screen 02/19/19 02/19/19 02/19/19 09:50 09:50 12:26 WBC RBC Hgb Hct MCV MCH MCHC RDW Plt Count MPV Absolute Neuts (auto) Neutrophils % Neutrophils % (Manual) Band Neutrophils % Lymphocytes % Lymphocytes % (Manual) Monocytes % Monocytes % (Manual) Eosinophils % Eosinophils % (Manual) Basophils % Basophils % (Manual) Myelocytes % (Man) Promyelocytes % (Man) Blast Cells % (Manual) Nucleated RBC % Metamyelocytes Hypochromia Platelet Estimate Polychromasia Poikilocytosis Anisocytosis Microcytosis Macrocytosis PT with INR INR Puncture Site ABG pH ABG pCO2 at Pt Temp ABG pO2 at Pt Temp ABG HCO3 ABG O2 Sat (Measured) ABG O2 Content ABG Base Excess Malik Test O2 Delivery Device Oxygen Flow Rate Sodium Potassium Chloride Carbon Dioxide Anion Gap BUN Creatinine Est GFR (CKD-EPI)AfAm Est GFR (CKD-EPI)NonAf POC Glucometer Random Glucose Serum Osmolality Lactic Acid 3.8 H* Calcium Phosphorus Magnesium Total Bilirubin AST ALT Alkaline Phosphatase Creatine Kinase Troponin I Total Protein Albumin Lipase Blood Type A POSITIVE Cancelled Antibody Screen Negative Cancelled 02/19/19 02/19/19 02/19/19 13:32 13:32 17:26 WBC RBC Hgb Hct MCV MCH MCHC RDW Plt Count MPV Absolute Neuts (auto) Neutrophils % Neutrophils % (Manual) Band Neutrophils % Lymphocytes % Lymphocytes % (Manual) Monocytes % Monocytes % (Manual) Eosinophils % Eosinophils % (Manual) Basophils % Basophils % (Manual) Myelocytes % (Man) Promyelocytes % (Man) Blast Cells % (Manual) Nucleated RBC % Metamyelocytes Hypochromia Platelet Estimate Polychromasia Poikilocytosis Anisocytosis Microcytosis Macrocytosis PT with INR INR Puncture Site Arterial line ABG pH 7.33 L ABG pCO2 at Pt Temp 38.3 ABG pO2 at Pt Temp 65.9 L ABG HCO3 19.5 L ABG O2 Sat (Measured) 91.9 L ABG O2 Content 15.8 ABG Base Excess -5.4 L Malik Test Positive O2 Delivery Device Nasal cannula Oxygen Flow Rate 3l Sodium Potassium Chloride Carbon Dioxide Anion Gap BUN Creatinine Est GFR (CKD-EPI)AfAm Est GFR (CKD-EPI)NonAf POC Glucometer Random Glucose Serum Osmolality 279 Lactic Acid Calcium Phosphorus Magnesium Total Bilirubin AST ALT Alkaline Phosphatase Creatine Kinase Troponin I Total Protein Albumin Lipase Blood Type A POSITIVE Antibody Screen Negative 02/19/19 02/19/19 02/19/19 19:45 21:30 21:30 WBC 9.8 RBC 4.37 Hgb 13.4 Hct 40.5 MCV 92.6 MCH 30.7 MCHC 33.1 RDW 15.6 Plt Count 237 D MPV 7.4 L Absolute Neuts (auto) Neutrophils % Neutrophils % (Manual) Band Neutrophils % Lymphocytes % Lymphocytes % (Manual) Monocytes % Monocytes % (Manual) Eosinophils % Eosinophils % (Manual) Basophils % Basophils % (Manual) Myelocytes % (Man) Promyelocytes % (Man) Blast Cells % (Manual) Nucleated RBC % Metamyelocytes Hypochromia Platelet Estimate Polychromasia Poikilocytosis Anisocytosis Microcytosis Macrocytosis PT with INR INR Puncture Site ABG pH ABG pCO2 at Pt Temp ABG pO2 at Pt Temp ABG HCO3 ABG O2 Sat (Measured) ABG O2 Content ABG Base Excess Malik Test O2 Delivery Device Oxygen Flow Rate Sodium 127 L Potassium 4.6 Chloride 97 L Carbon Dioxide 22 Anion Gap 8 BUN 17 Creatinine 0.7 Est GFR (CKD-EPI)AfAm 90.93 Est GFR (CKD-EPI)NonAf 78.45 POC Glucometer Random Glucose 213 H Serum Osmolality Lactic Acid 2.9 H* Calcium 7.7 L Phosphorus Magnesium Total Bilirubin AST ALT Alkaline Phosphatase Creatine Kinase Troponin I Total Protein Albumin Lipase Blood Type Antibody Screen 02/20/19 02/20/19 02/20/19 05:30 05:30 07:00 WBC 11.9 H RBC 4.08 Hgb 12.5 Hct 37.2 MCV 91.2 MCH 30.6 MCHC 33.6 RDW 15.5 Plt Count 285 D MPV 7.4 L Absolute Neuts (auto) 10.8 H Neutrophils % 90.9 H Neutrophils % (Manual) Band Neutrophils % Lymphocytes % 3.4 L D Lymphocytes % (Manual) Monocytes % 5.6 D Monocytes % (Manual) Eosinophils % 0.0 D Eosinophils % (Manual) Basophils % 0.1 D Basophils % (Manual) Myelocytes % (Man) Promyelocytes % (Man) Blast Cells % (Manual) Nucleated RBC % 0 Metamyelocytes Hypochromia Platelet Estimate Polychromasia Poikilocytosis Anisocytosis Microcytosis Macrocytosis PT with INR INR Puncture Site ABG pH ABG pCO2 at Pt Temp ABG pO2 at Pt Temp ABG HCO3 ABG O2 Sat (Measured) ABG O2 Content ABG Base Excess Malik Test O2 Delivery Device Oxygen Flow Rate Sodium 132 L Potassium 4.7 Chloride 102 Carbon Dioxide 23 Anion Gap 7 L BUN 14 Creatinine 0.6 Est GFR (CKD-EPI)AfAm 95.66 Est GFR (CKD-EPI)NonAf 82.53 POC Glucometer 108 Random Glucose 116 H Serum Osmolality Lactic Acid Calcium 7.8 L Phosphorus 3.4 Magnesium 2.9 H Total Bilirubin 0.8 AST 41 H ALT 32 Alkaline Phosphatase 55 Creatine Kinase Troponin I Total Protein 5.2 L Albumin 2.4 L Lipase Blood Type Antibody Screen 02/20/19 02/20/19 02/20/19 11:05 15:36 21:57 WBC RBC Hgb Hct MCV MCH MCHC RDW Plt Count MPV Absolute Neuts (auto) Neutrophils % Neutrophils % (Manual) Band Neutrophils % Lymphocytes % Lymphocytes % (Manual) Monocytes % Monocytes % (Manual) Eosinophils % Eosinophils % (Manual) Basophils % Basophils % (Manual) Myelocytes % (Man) Promyelocytes % (Man) Blast Cells % (Manual) Nucleated RBC % Metamyelocytes Hypochromia Platelet Estimate Polychromasia Poikilocytosis Anisocytosis Microcytosis Macrocytosis PT with INR INR Puncture Site ABG pH ABG pCO2 at Pt Temp ABG pO2 at Pt Temp ABG HCO3 ABG O2 Sat (Measured) ABG O2 Content ABG Base Excess Malik Test O2 Delivery Device Oxygen Flow Rate Sodium Potassium Chloride Carbon Dioxide Anion Gap BUN Creatinine Est GFR (CKD-EPI)AfAm Est GFR (CKD-EPI)NonAf POC Glucometer 126 111 Random Glucose Serum Osmolality Lactic Acid 1.7 Calcium Phosphorus Magnesium Total Bilirubin AST ALT Alkaline Phosphatase Creatine Kinase Troponin I Total Protein Albumin Lipase Blood Type Antibody Screen 02/21/19 02/21/19 02/21/19 05:21 05:30 05:30 WBC 11.4 H RBC 3.90 Hgb 11.9 Hct 35.5 MCV 91.1 MCH 30.6 MCHC 33.6 RDW 15.9 H Plt Count 249 MPV 7.2 L Absolute Neuts (auto) 9.9 H Neutrophils % 86.9 H Neutrophils % (Manual) Band Neutrophils % Lymphocytes % 7.6 L D Lymphocytes % (Manual) Monocytes % 5.0 Monocytes % (Manual) Eosinophils % 0.4 D Eosinophils % (Manual) Basophils % 0.1 Basophils % (Manual) Myelocytes % (Man) Promyelocytes % (Man) Blast Cells % (Manual) Nucleated RBC % 0 Metamyelocytes Hypochromia Platelet Estimate Polychromasia Poikilocytosis Anisocytosis Microcytosis Macrocytosis PT with INR INR Puncture Site ABG pH ABG pCO2 at Pt Temp ABG pO2 at Pt Temp ABG HCO3 ABG O2 Sat (Measured) ABG O2 Content ABG Base Excess Malik Test O2 Delivery Device Oxygen Flow Rate Sodium 136 Potassium 4.2 Chloride 102 Carbon Dioxide 26 Anion Gap 8 BUN 13 Creatinine 0.8 Est GFR (CKD-EPI)AfAm 77.37 Est GFR (CKD-EPI)NonAf 66.76 POC Glucometer 97 Random Glucose 103 Serum Osmolality Lactic Acid Calcium 7.9 L Phosphorus 2.8 Magnesium 2.4 Total Bilirubin 1.1 H AST 28 ALT 19 Alkaline Phosphatase 66 Creatine Kinase Troponin I Total Protein 5.5 L Albumin 2.4 L Lipase Blood Type Antibody Screen 02/21/19 02/21/19 02/21/19 11:33 16:29 21:49 WBC RBC Hgb Hct MCV MCH MCHC RDW Plt Count MPV Absolute Neuts (auto) Neutrophils % Neutrophils % (Manual) Band Neutrophils % Lymphocytes % Lymphocytes % (Manual) Monocytes % Monocytes % (Manual) Eosinophils % Eosinophils % (Manual) Basophils % Basophils % (Manual) Myelocytes % (Man) Promyelocytes % (Man) Blast Cells % (Manual) Nucleated RBC % Metamyelocytes Hypochromia Platelet Estimate Polychromasia Poikilocytosis Anisocytosis Microcytosis Macrocytosis PT with INR INR Puncture Site ABG pH ABG pCO2 at Pt Temp ABG pO2 at Pt Temp ABG HCO3 ABG O2 Sat (Measured) ABG O2 Content ABG Base Excess Malik Test O2 Delivery Device Oxygen Flow Rate Sodium Potassium Chloride Carbon Dioxide Anion Gap BUN Creatinine Est GFR (CKD-EPI)AfAm Est GFR (CKD-EPI)NonAf POC Glucometer 119 96 95 Random Glucose Serum Osmolality Lactic Acid Calcium Phosphorus Magnesium Total Bilirubin AST ALT Alkaline Phosphatase Creatine Kinase Troponin I Total Protein Albumin Lipase Blood Type Antibody Screen 02/22/19 02/22/19 02/22/19 05:28 11:28 16:33 WBC RBC Hgb Hct MCV MCH MCHC RDW Plt Count MPV Absolute Neuts (auto) Neutrophils % Neutrophils % (Manual) Band Neutrophils % Lymphocytes % Lymphocytes % (Manual) Monocytes % Monocytes % (Manual) Eosinophils % Eosinophils % (Manual) Basophils % Basophils % (Manual) Myelocytes % (Man) Promyelocytes % (Man) Blast Cells % (Manual) Nucleated RBC % Metamyelocytes Hypochromia Platelet Estimate Polychromasia Poikilocytosis Anisocytosis Microcytosis Macrocytosis PT with INR INR Puncture Site ABG pH ABG pCO2 at Pt Temp ABG pO2 at Pt Temp ABG HCO3 ABG O2 Sat (Measured) ABG O2 Content ABG Base Excess Malik Test O2 Delivery Device Oxygen Flow Rate Sodium Potassium Chloride Carbon Dioxide Anion Gap BUN Creatinine Est GFR (CKD-EPI)AfAm Est GFR (CKD-EPI)NonAf POC Glucometer 80 99 73 Random Glucose Serum Osmolality Lactic Acid Calcium Phosphorus Magnesium Total Bilirubin AST ALT Alkaline Phosphatase Creatine Kinase Troponin I Total Protein Albumin Lipase Blood Type Antibody Screen 02/22/19 02/23/19 02/23/19 20:52 06:17 11:17 WBC RBC Hgb Hct MCV MCH MCHC RDW Plt Count MPV Absolute Neuts (auto) Neutrophils % Neutrophils % (Manual) Band Neutrophils % Lymphocytes % Lymphocytes % (Manual) Monocytes % Monocytes % (Manual) Eosinophils % Eosinophils % (Manual) Basophils % Basophils % (Manual) Myelocytes % (Man) Promyelocytes % (Man) Blast Cells % (Manual) Nucleated RBC % Metamyelocytes Hypochromia Platelet Estimate Polychromasia Poikilocytosis Anisocytosis Microcytosis Macrocytosis PT with INR INR Puncture Site ABG pH ABG pCO2 at Pt Temp ABG pO2 at Pt Temp ABG HCO3 ABG O2 Sat (Measured) ABG O2 Content ABG Base Excess Malik Test O2 Delivery Device Oxygen Flow Rate Sodium Potassium Chloride Carbon Dioxide Anion Gap BUN Creatinine Est GFR (CKD-EPI)AfAm Est GFR (CKD-EPI)NonAf POC Glucometer 88 87 115 Random Glucose Serum Osmolality Lactic Acid Calcium Phosphorus Magnesium Total Bilirubin AST ALT Alkaline Phosphatase Creatine Kinase Troponin I Total Protein Albumin Lipase Blood Type Antibody Screen 02/23/19 02/23/19 02/24/19 16:32 23:14 05:45 WBC RBC Hgb Hct MCV MCH MCHC RDW Plt Count MPV Absolute Neuts (auto) Neutrophils % Neutrophils % (Manual) Band Neutrophils % Lymphocytes % Lymphocytes % (Manual) Monocytes % Monocytes % (Manual) Eosinophils % Eosinophils % (Manual) Basophils % Basophils % (Manual) Myelocytes % (Man) Promyelocytes % (Man) Blast Cells % (Manual) Nucleated RBC % Metamyelocytes Hypochromia Platelet Estimate Polychromasia Poikilocytosis Anisocytosis Microcytosis Macrocytosis PT with INR INR Puncture Site ABG pH ABG pCO2 at Pt Temp ABG pO2 at Pt Temp ABG HCO3 ABG O2 Sat (Measured) ABG O2 Content ABG Base Excess Malik Test O2 Delivery Device Oxygen Flow Rate Sodium Potassium Chloride Carbon Dioxide Anion Gap BUN Creatinine Est GFR (CKD-EPI)AfAm Est GFR (CKD-EPI)NonAf POC Glucometer 90 89 90 Random Glucose Serum Osmolality Lactic Acid Calcium Phosphorus Magnesium Total Bilirubin AST ALT Alkaline Phosphatase Creatine Kinase Troponin I Total Protein Albumin Lipase Blood Type Antibody Screen 02/24/19 02/24/19 02/24/19 06:00 06:00 11:21 WBC 9.2 RBC 3.98 Hgb 12.2 Hct 35.8 MCV 90.1 MCH 30.7 MCHC 34.1 RDW 15.6 Plt Count 295 MPV 7.1 L Absolute Neuts (auto) 6.7 Neutrophils % 72.7 Neutrophils % (Manual) Band Neutrophils % Lymphocytes % 13.1 D Lymphocytes % (Manual) Monocytes % 10.5 H D Monocytes % (Manual) Eosinophils % 3.1 D Eosinophils % (Manual) Basophils % 0.6 D Basophils % (Manual) Myelocytes % (Man) Promyelocytes % (Man) Blast Cells % (Manual) Nucleated RBC % 0 Metamyelocytes Hypochromia Platelet Estimate Polychromasia Poikilocytosis Anisocytosis Microcytosis Macrocytosis PT with INR INR Puncture Site ABG pH ABG pCO2 at Pt Temp ABG pO2 at Pt Temp ABG HCO3 ABG O2 Sat (Measured) ABG O2 Content ABG Base Excess Malik Test O2 Delivery Device Oxygen Flow Rate Sodium 135 L Potassium 2.7 L* Chloride 102 Carbon Dioxide 23 Anion Gap 11 BUN 11 Creatinine 0.6 Est GFR (CKD-EPI)AfAm 95.66 Est GFR (CKD-EPI)NonAf 82.53 POC Glucometer 262 Random Glucose 99 Serum Osmolality Lactic Acid Calcium 8.0 L Phosphorus Magnesium Total Bilirubin 0.9 AST 18 ALT 14 Alkaline Phosphatase 61 Creatine Kinase Troponin I Total Protein 5.5 L Albumin 2.3 L Lipase Blood Type Antibody Screen 02/24/19 02/24/19 02/25/19 16:29 20:41 05:30 WBC RBC Hgb Hct MCV MCH MCHC RDW Plt Count MPV Absolute Neuts (auto) Neutrophils % Neutrophils % (Manual) Band Neutrophils % Lymphocytes % Lymphocytes % (Manual) Monocytes % Monocytes % (Manual) Eosinophils % Eosinophils % (Manual) Basophils % Basophils % (Manual) Myelocytes % (Man) Promyelocytes % (Man) Blast Cells % (Manual) Nucleated RBC % Metamyelocytes Hypochromia Platelet Estimate Polychromasia Poikilocytosis Anisocytosis Microcytosis Macrocytosis PT with INR INR Puncture Site ABG pH ABG pCO2 at Pt Temp ABG pO2 at Pt Temp ABG HCO3 ABG O2 Sat (Measured) ABG O2 Content ABG Base Excess Malik Test O2 Delivery Device Oxygen Flow Rate Sodium Potassium Chloride Carbon Dioxide Anion Gap BUN Creatinine Est GFR (CKD-EPI)AfAm Est GFR (CKD-EPI)NonAf POC Glucometer 175 194 137 Random Glucose Serum Osmolality Lactic Acid Calcium Phosphorus Magnesium Total Bilirubin AST ALT Alkaline Phosphatase Creatine Kinase Troponin I Total Protein Albumin Lipase Blood Type Antibody Screen 02/25/19 02/25/19 02/25/19 07:00 07:00 11:25 WBC 10.7 H RBC 4.20 Hgb 13.0 Hct 38.4 MCV 91.4 MCH 31.0 MCHC 33.9 RDW 15.7 H Plt Count 312 MPV 7.3 L Absolute Neuts (auto) Neutrophils % Neutrophils % (Manual) Band Neutrophils % Lymphocytes % Lymphocytes % (Manual) Monocytes % Monocytes % (Manual) Eosinophils % Eosinophils % (Manual) Basophils % Basophils % (Manual) Myelocytes % (Man) Promyelocytes % (Man) Blast Cells % (Manual) Nucleated RBC % Metamyelocytes Hypochromia Platelet Estimate Polychromasia Poikilocytosis Anisocytosis Microcytosis Macrocytosis PT with INR INR Puncture Site ABG pH ABG pCO2 at Pt Temp ABG pO2 at Pt Temp ABG HCO3 ABG O2 Sat (Measured) ABG O2 Content ABG Base Excess Malik Test O2 Delivery Device Oxygen Flow Rate Sodium 137 Potassium 3.9 Chloride 102 Carbon Dioxide 30 Anion Gap 6 L BUN 10 Creatinine 0.8 Est GFR (CKD-EPI)AfAm 77.37 Est GFR (CKD-EPI)NonAf 66.76 POC Glucometer 201 Random Glucose 143 H Serum Osmolality Lactic Acid Calcium 8.6 Phosphorus Magnesium Total Bilirubin 0.6 AST 21 ALT 16 Alkaline Phosphatase 71 Creatine Kinase Troponin I Total Protein 6.4 Albumin 2.8 L Lipase Blood Type Antibody Screen 02/25/19 02/25/19 02/26/19 16:30 21:44 06:01 WBC RBC Hgb Hct MCV MCH MCHC RDW Plt Count MPV Absolute Neuts (auto) Neutrophils % Neutrophils % (Manual) Band Neutrophils % Lymphocytes % Lymphocytes % (Manual) Monocytes % Monocytes % (Manual) Eosinophils % Eosinophils % (Manual) Basophils % Basophils % (Manual) Myelocytes % (Man) Promyelocytes % (Man) Blast Cells % (Manual) Nucleated RBC % Metamyelocytes Hypochromia Platelet Estimate Polychromasia Poikilocytosis Anisocytosis Microcytosis Macrocytosis PT with INR INR Puncture Site ABG pH ABG pCO2 at Pt Temp ABG pO2 at Pt Temp ABG HCO3 ABG O2 Sat (Measured) ABG O2 Content ABG Base Excess Malik Test O2 Delivery Device Oxygen Flow Rate Sodium Potassium Chloride Carbon Dioxide Anion Gap BUN Creatinine Est GFR (CKD-EPI)AfAm Est GFR (CKD-EPI)NonAf POC Glucometer 145 157 129 Random Glucose Serum Osmolality Lactic Acid Calcium Phosphorus Magnesium Total Bilirubin AST ALT Alkaline Phosphatase Creatine Kinase Troponin I Total Protein Albumin Lipase Blood Type Antibody Screen 02/26/19 11:22 WBC RBC Hgb Hct MCV MCH MCHC RDW Plt Count MPV Absolute Neuts (auto) Neutrophils % Neutrophils % (Manual) Band Neutrophils % Lymphocytes % Lymphocytes % (Manual) Monocytes % Monocytes % (Manual) Eosinophils % Eosinophils % (Manual) Basophils % Basophils % (Manual) Myelocytes % (Man) Promyelocytes % (Man) Blast Cells % (Manual) Nucleated RBC % Metamyelocytes Hypochromia Platelet Estimate Polychromasia Poikilocytosis Anisocytosis Microcytosis Macrocytosis PT with INR INR Puncture Site ABG pH ABG pCO2 at Pt Temp ABG pO2 at Pt Temp ABG HCO3 ABG O2 Sat (Measured) ABG O2 Content ABG Base Excess Malik Test O2 Delivery Device Oxygen Flow Rate Sodium Potassium Chloride Carbon Dioxide Anion Gap BUN Creatinine Est GFR (CKD-EPI)AfAm Est GFR (CKD-EPI)NonAf POC Glucometer 163 Random Glucose Serum Osmolality Lactic Acid Calcium Phosphorus Magnesium Total Bilirubin AST ALT Alkaline Phosphatase Creatine Kinase Troponin I Total Protein Albumin Lipase Blood Type Antibody Screen Active Medications Generic Name Dose Route Start Last Admin Trade Name Higinioq PRN Reason Stop Dose Admin Amoxicillin/Clavulanate Potassium 1 tab 02/24/19 17:30 02/26/19 09:38 Augmentin - 875mg Tablet PO 1 tab BID@0800,1730 AI Administration Benzocaine/Butamben/Tetracaine HCl 1 spray 02/23/19 19:00 02/26/19 09:46 Cetacaine [place] - TP 1 spray DAILY AI Administration Heparin Sodium (Porcine) 5,000 unit 02/21/19 22:00 02/26/19 09:39 Heparin - SQ 5,000 unit BID AI Administration Insulin Aspart 1 vial 02/21/19 16:30 02/26/19 11:27 Novolog Vial Sliding Scale - SQ 2 units ACHS AI Administration Protocol Pantoprazole Sodium 40 mg 02/24/19 11:15 02/26/19 09:38 Protonix - PO 40 mg DAILY AI Administration Microbiology 02/19/19 17:30 Peritoneal Cavity Swab Gram Stain - Final 02/19/19 17:30 Peritoneal Cavity Swab Wound Culture - Final NO AEROBIC OR ANAEROBIC GROWTH OBTAINED. Condition: Stable - Instructions Diet, Activity, Other Instructions: Call Dr. Kyle's office , Tel No [phone], for follow up appointment. Follow up with PMD in 1 week after discharge Follow up with Surgery Dr Kyle for staple removal continue with current medication regimen continue with ABT return to ER if develop infection to surgical site, respiratory distress, chest pain, fever Referrals: Lupillo Kyle MD [Staff Physician] - Disposition: VNS/HOME HEALTH CARE - Home Medications Comprehensive Discharge Medication List: Ambulatory Orders Atorvastatin Ca [Lipitor] 40 mg PO HS 02/19/19 Gabapentin 100 mg PO BID 02/19/19 Isosorbide Mononitrate [Isosorbide Mononitrate ER] 30 mg PO DAILY 02/19/19 Losartan Potassium 100 mg PO DAILY 02/19/19 Meloxicam 15 mg PO DAILY 02/19/19 Metformin HCl [Glucophage] 500 mg PO BID 02/19/19 Zolpidem Tartrate [Ambien] 10 mg PO HS 02/19/19 Amox-Tr/K Cl [Augmentin 875-125mg Tablet -] 1 tab PO BID@0800,1730 #6 tablet Pantoprazole Sodium [Protonix -] 40 mg PO DAILY #30 tablet.ec 02/26/19
--- NOTE | 2019-02-26 13:46 | PN ---
Progress Note, Physician History of Present Illness: awake and alert NAD patient mulitple episodes of diarrhea last night and two episodes this morning, patient was advanced to regular diet during night had dirrhoea - Current Medication List Current Medications: Active Medications Amoxicillin/Clavulanate Potassium (Augmentin - 875mg Tablet) 1 tab PO BID@0800, 1730 [facility] Last Admin: 02/26/19 09:38 Dose: 1 tab Benzocaine/Butamben/Tetracaine HCl (Cetacaine [place] -) 1 spray TP DAILY [facility] Last Admin: 02/26/19 09:46 Dose: 1 spray Heparin Sodium (Porcine) (Heparin -) 5,000 unit SQ BID [facility] Last Admin: 02/26/19 09:39 Dose: 5,000 unit Insulin Aspart (Novolog Vial Sliding Scale -) 1 vial SQ ACHS [facility]; Protocol Last Admin: 02/26/19 11:27 Dose: 2 units Pantoprazole Sodium (Protonix -) 40 mg PO DAILY [facility] Last Admin: 02/26/19 09:38 Dose: 40 mg - Objective Vital Signs: Vital Signs Temperature 98.4 F 02/26/19 06:10 Pulse Rate 102 H 02/26/19 06:10 Respiratory Rate 20 02/26/19 06:10 Blood Pressure 149/78 02/26/19 06:10 O2 Sat by Pulse Oximetry (%) 96 02/25/19 21:00 Constitutional: Yes: No Distress, Calm Cardiovascular: Yes: Regular Rate and Rhythm Respiratory: Yes: Regular, CTA Bilaterally Gastrointestinal: Yes: Normal Bowel Sounds, Soft Musculoskeletal: Yes: WNL Extremities: Yes: WNL Neurological: Yes: Alert, Oriented Psychiatric: Yes: Alert, Oriented Labs: CBC, BMP 02/25/19 07:00 02/25/19 07:00 INR, PTT INR 0.94 (0.83-1.09) 02/19/19 09:50 Assessment/Plan Assessment/Plan Perforated viscus, dehydration, CAD, Obesity. Plan : Hydrate , Antibiotics, Emergency laparotomy , perforated ulcer. gi bleed plan stable continue current mgmt will deescalte oral abx rest as per surgery
[2019-02-27] MEDS: INSULIN SLIDING SCALE (NOVOLOG) 1 VIAL SQ SCH ×4 (06:32→21:06)
[2019-02-27] MEDS: AMOX TR/POT CLAV 875MG/125MG TABLETS (FP) PO SCH (08:28)
[2019-02-27] MEDS: TETRACAINE/BENZOCAINE/BUTAMBEN 20 GM SPR TP SCH (09:08)
[2019-02-27] MEDS: HEPARIN NA (PORCINE) 5,000 UNITS/ML 1ML VIAL SQ SCH ×2 (09:09→21:06)
[2019-02-27] MEDS: PANTOPRAZOLE 40 MG TABLET (FP) PO SCH (09:09)
--- NOTE | 2019-02-27 09:49 | PN ---
Progress Note, Physician - Current Medication List Current Medications: Active Medications Amoxicillin/Clavulanate Potassium (Augmentin - 875mg Tablet) 1 tab PO BID@0800, 1730 [facility] Last Admin: 02/27/19 08:28 Dose: 1 tab Benzocaine/Butamben/Tetracaine HCl (Cetacaine [place] -) 1 spray TP DAILY [facility] Last Admin: 02/27/19 09:08 Dose: 1 spray Heparin Sodium (Porcine) (Heparin -) 5,000 unit SQ BID [facility] Last Admin: 02/27/19 09:09 Dose: 5,000 unit Insulin Aspart (Novolog Vial Sliding Scale -) 1 vial SQ ACHS [facility]; Protocol Last Admin: 02/27/19 06:32 Dose: Not Given Pantoprazole Sodium (Protonix -) 40 mg PO DAILY [facility] Last Admin: 02/27/19 09:09 Dose: 40 mg - Objective Vital Signs: Vital Signs Temperature 98.6 F 02/27/19 08:03 Pulse Rate 98 H 02/27/19 08:03 Respiratory Rate 15 02/27/19 08:03 Blood Pressure 160/78 02/27/19 08:03 O2 Sat by Pulse Oximetry (%) 97 02/26/19 21:00 Labs: CBC, BMP 02/25/19 07:00 02/25/19 07:00 INR, PTT INR 0.94 (0.83-1.09) 02/19/19 09:50 Assessment/Plan Wound is clean , all joey are removed. Wound is healing well. No more diarrhea. Can be discharged with PPI .
[2019-02-27] MEDS ORDERED: INSULIN (NOVOLOG) ASPART 100 UNITS/ML 10ML VIAL ONE (11:00)
--- NOTE | 2019-02-27 13:13 | PN ---
Progress Note, Physician History of Present Illness: stable doing well surgery note noted - Current Medication List Current Medications: Active Medications Amoxicillin/Clavulanate Potassium (Augmentin - 875mg Tablet) 1 tab PO BID@0800, 1730 [facility] Last Admin: 02/27/19 08:28 Dose: 1 tab Benzocaine/Butamben/Tetracaine HCl (Cetacaine [place] -) 1 spray TP DAILY [facility] Last Admin: 02/27/19 09:08 Dose: 1 spray Heparin Sodium (Porcine) (Heparin -) 5,000 unit SQ BID [facility] Last Admin: 02/27/19 09:09 Dose: 5,000 unit Insulin Aspart (Novolog Vial Sliding Scale -) 1 vial SQ ACHS [facility]; Protocol Last Admin: 02/27/19 11:00 Dose: 4 units Pantoprazole Sodium (Protonix -) 40 mg PO DAILY [facility] Last Admin: 02/27/19 09:09 Dose: 40 mg - Objective Vital Signs: Vital Signs Temperature 98.6 F 02/27/19 08:03 Pulse Rate 98 H 02/27/19 08:03 Respiratory Rate 15 02/27/19 08:03 Blood Pressure 160/78 02/27/19 08:03 O2 Sat by Pulse Oximetry (%) 98 02/27/19 09:00 Constitutional: Yes: No Distress, Calm Cardiovascular: Yes: Regular Rate and Rhythm Respiratory: Yes: Regular, CTA Bilaterally Gastrointestinal: Yes: Normal Bowel Sounds, Soft Musculoskeletal: Yes: WNL Extremities: Yes: WNL Wound/Incision: Yes: Clean/Dry Neurological: Yes: Alert, Oriented Psychiatric: Yes: Alert, Oriented Labs: CBC, BMP 02/25/19 07:00 02/25/19 07:00 INR, PTT INR 0.94 (0.83-1.09) 02/19/19 09:50 Assessment/Plan Assessment/Plan Perforated viscus, dehydration, CAD, Obesity. Plan : Hydrate , Antibiotics, Emergency laparotomy , for possible perforated ulcer. plan continue current mgmt stop abx rest as per the team
--- NOTE | 2019-02-27 17:16 | PN ---
Progress Note, Physician Chief Complaint: Perforated Peptic Ulcer Acute Peritonitis S/p Exp Laparotomy History of Present Illness: Previous notes and events reviewed awake and alert NAD denies further episodes of diarrhea awaiting bed at [facility] surgical joey removed by surgery team - Current Medication List Current Medications: Active Medications Amoxicillin/Clavulanate Potassium (Augmentin - 875mg Tablet) 1 tab PO BID@0800, 1730 [facility] Last Admin: 02/27/19 08:28 Dose: 1 tab Benzocaine/Butamben/Tetracaine HCl (Cetacaine [place] -) 1 spray TP DAILY [facility] Last Admin: 02/27/19 09:08 Dose: 1 spray Heparin Sodium (Porcine) (Heparin -) 5,000 unit SQ BID [facility] Last Admin: 02/27/19 09:09 Dose: 5,000 unit Insulin Aspart (Novolog Vial Sliding Scale -) 1 vial SQ ACHS [facility]; Protocol Last Admin: 02/27/19 16:05 Dose: Not Given Pantoprazole Sodium (Protonix -) 40 mg PO DAILY [facility] Last Admin: 02/27/19 09:09 Dose: 40 mg - Objective Vital Signs: Vital Signs Temperature 97.7 F 02/27/19 15:08 Pulse Rate 100 H 02/27/19 15:08 Respiratory Rate 15 02/27/19 08:03 Blood Pressure 156/80 02/27/19 15:08 O2 Sat by Pulse Oximetry (%) 98 02/27/19 09:00 Constitutional: Yes: No Distress, Calm Eyes: Yes: Conjunctiva Clear HENT: Yes: Atraumatic Cardiovascular: Yes: Regular Rate and Rhythm Respiratory: Yes: Regular, CTA Bilaterally Gastrointestinal: Yes: Normal Bowel Sounds, Soft Genitourinary: Yes: Incontinence Musculoskeletal: Yes: Muscle Weakness Extremities: Yes: WNL Edema: No Wound/Incision: Yes: Open to air, Other (steri strips) Neurological: Yes: Alert, Pre-Existing Deficit Psychiatric: Yes: Alert, Oriented Labs: CBC, BMP 02/25/19 07:00 02/25/19 07:00 INR, PTT INR 0.94 (0.83-1.09) 02/19/19 09:50 Microbiology 02/19/19 17:30 Peritoneal Cavity Swab Gram Stain - Final 02/19/19 17:30 Peritoneal Cavity Swab Wound Culture - Final NO AEROBIC OR ANAEROBIC GROWTH OBTAINED. Problem List - Problems (1) Diabetes Assessment/Plan: -BGM ACHS -ISS -diabetic diet Code(s): E11.9 - TYPE 2 DIABETES MELLITUS WITHOUT COMPLICATIONS (2) Perforated chronic peptic ulcer Assessment/Plan: -Surgery on board -POD #7 exploratory laparotomy -drain removed and dressing in place without -Upper GI Series shows no extravasation -d/c ABT as per ID--monitor off antibiotics Code(s): K27.5 - CHRONIC OR UNSP PEPTIC ULCER, SITE UNSP, WITH PERFORATION (3) Sepsis Assessment/Plan: -WBC 10.7 -afebrile -ID on board -ABT d/c by ID--will monitor off ABT Code(s): A41.9 - SEPSIS, UNSPECIFIED ORGANISM (4) Diarrhea Assessment/Plan: -stool culture ordered -resolved Code(s): R19.7 - DIARRHEA, UNSPECIFIED Assessment/Plan see problem list dvt ppx PT
[2019-02-28] MEDS: INSULIN SLIDING SCALE (NOVOLOG) 1 VIAL SQ SCH ×4 (06:04→21:06)
[2019-02-28] MEDS: TETRACAINE/BENZOCAINE/BUTAMBEN 20 GM SPR TP SCH (09:34)
[2019-02-28] MEDS: PANTOPRAZOLE 40 MG TABLET (FP) PO SCH (09:34)
[2019-02-28] MEDS: HEPARIN NA (PORCINE) 5,000 UNITS/ML 1ML VIAL SQ SCH ×2 (09:34→21:06)
[2019-02-28 09:51] LABS: HEMATOCRIT 36.3 % (32.4-45.2); MCH 30.5 pg (25.7-33.7); MEAN CELL VOLUME 92.3 fl (80-96); MEAN PLT VOLUME 7.4 fl (7.5-11.1); PLATELET COUNT 378 K/MM3 (134-434); RBC 3.94 M/mm3 (3.60-5.2); RDW 15.9 % (11.6-15.6); WHITE BLOOD COUNT 7.6 K/mm3 (4.0-10.0)
[2019-02-28 10:13] LABS: ALBUMIN 2.8 g/dl (3.4-5.0); BILIRUBIN,TOTAL 0.4 mg/dL (0.2-1); CALCIUM 8.6 mg/dL (8.5-10.1); CREATININE 0.9 mg/dL (0.55-1.3); POTASSIUM 3.4 mmol/L (3.5-5.1); TOT PROT 6.4 g/dl (6.4-8.2)
[2019-02-28] MEDS: LOSARTAN POTASSIUM 50 MG TABLET (FP) PO SCH (10:30)
[2019-02-28] MEDS: ISOSORBIDE MONONITRATE 30 MG TAB.SR.24H (FP) PO SCH (10:30)
[2019-02-28] MEDS ORDERED: INSULIN (NOVOLOG) ASPART 100 UNITS/ML 10ML VIAL ONE ×2 (11:13→20:44)
--- NOTE | 2019-02-28 11:20 | PN ---
Progress Note, Physician History of Present Illness: Pt seen and examined. Events noted. Pt states she feels well. Has no specific complaints. - Current Medication List Current Medications: Active Medications Atorvastatin Calcium (Lipitor -) 40 mg PO HS [facility] Benzocaine/Butamben/Tetracaine HCl (Cetacaine [place] -) 1 spray TP DAILY [facility] Last Admin: 02/28/19 09:34 Dose: 1 spray Gabapentin (Neurontin -) 100 mg PO BID [facility] Heparin Sodium (Porcine) (Heparin -) 5,000 unit SQ BID [facility] Last Admin: 02/28/19 09:34 Dose: 5,000 unit Insulin Aspart (Novolog Vial Sliding Scale -) 1 vial SQ ACHS [facility]; Protocol Last Admin: 02/28/19 11:14 Dose: 2 units Isosorbide Mononitrate (Imdur -) 30 mg PO DAILY [facility] Last Admin: 02/28/19 10:30 Dose: 30 mg Losartan Potassium (Cozaar -) 100 mg PO DAILY [facility] Last Admin: 02/28/19 10:30 Dose: 100 mg Metformin HCl (Glucophage -) 500 mg PO BID@0700,1630 [facility] Pantoprazole Sodium (Protonix -) 40 mg PO DAILY [facility] Last Admin: 02/28/19 09:34 Dose: 40 mg - Objective Vital Signs: Vital Signs Temperature 98.2 F 02/28/19 07:46 Pulse Rate 103 H 02/28/19 07:46 Respiratory Rate 17 02/28/19 07:46 Blood Pressure 170/85 02/28/19 07:46 O2 Sat by Pulse Oximetry (%) 98 02/28/19 08:51 Constitutional: Yes: No Distress, Calm Cardiovascular: Yes: Regular Rate and Rhythm Respiratory: Yes: Regular Gastrointestinal: Yes: Normal Bowel Sounds, Soft Genitourinary: Yes: WNL Integumentary: Yes: WNL Neurological: Yes: Alert Labs: CBC, BMP 02/28/19 09:10 02/28/19 09:10 INR, PTT INR 0.94 (0.83-1.09) 02/19/19 09:50 Problem List - Problems (1) Perforated chronic peptic ulcer Code(s): K27.5 - CHRONIC OR UNSP PEPTIC ULCER, SITE UNSP, WITH PERFORATION Assessment/Plan Perforated PUD s/p Ex-lap -- monitor off antibiotics -- currently stable, without pain/afebrile
[2019-02-28] MEDS: metFORMIN HCL 500 MG TABLET (FP) PO SCH (16:25)
[2019-02-28] MEDS ORDERED: POTASSIUM CHLORIDE ORAL LIQUID 20 MEQ/15 ML PO ONE (16:38)
--- NOTE | 2019-02-28 17:14 | PN ---
Progress Note, Physician Chief Complaint: Perforated Peptic Ulcer Acute Peritonitis S/p Exp Laparotomy History of Present Illness: Previous notes and events reviewed awake and alert NAD denies further episodes of diarrhea denies chest pain or SOB - Current Medication List Current Medications: Active Medications Atorvastatin Calcium (Lipitor -) 40 mg PO HS [facility] Benzocaine/Butamben/Tetracaine HCl (Cetacaine [place] -) 1 spray TP DAILY [facility] Last Admin: 02/28/19 09:34 Dose: 1 spray Gabapentin (Neurontin -) 100 mg PO BID [facility] Heparin Sodium (Porcine) (Heparin -) 5,000 unit SQ BID [facility] Last Admin: 02/28/19 09:34 Dose: 5,000 unit Insulin Aspart (Novolog Vial Sliding Scale -) 1 vial SQ ACHS [facility]; Protocol Last Admin: 02/28/19 16:23 Dose: Not Given Isosorbide Mononitrate (Imdur -) 30 mg PO DAILY [facility] Last Admin: 02/28/19 10:30 Dose: 30 mg Losartan Potassium (Cozaar -) 100 mg PO DAILY [facility] Last Admin: 02/28/19 10:30 Dose: 100 mg Metformin HCl (Glucophage -) 500 mg PO BID@0700,1630 [facility] Last Admin: 02/28/19 16:25 Dose: 500 mg Pantoprazole Sodium (Protonix -) 40 mg PO DAILY [facility] Last Admin: 02/28/19 09:34 Dose: 40 mg - Objective Vital Signs: Vital Signs Temperature 97.7 F 02/28/19 15:09 Pulse Rate 110 H 02/28/19 15:09 Respiratory Rate 17 02/28/19 15:09 Blood Pressure 143/72 02/28/19 15:09 O2 Sat by Pulse Oximetry (%) 98 02/28/19 08:51 Constitutional: Yes: No Distress, Calm Eyes: Yes: Conjunctiva Clear HENT: Yes: Atraumatic Cardiovascular: Yes: Regular Rate and Rhythm Respiratory: Yes: Regular, CTA Bilaterally Gastrointestinal: Yes: Normal Bowel Sounds, Soft Musculoskeletal: Yes: Muscle Weakness Extremities: Yes: WNL Edema: No Neurological: Yes: Alert, Oriented Psychiatric: Yes: Alert, Oriented Labs: CBC, BMP 02/28/19 09:10 02/28/19 09:10 INR, PTT INR 0.94 (0.83-1.09) 02/19/19 09:50 Microbiology 02/27/19 02:00 Stool Salmonella/Shigella Culture - Preliminary NO ENTERIC PATHOGENS, 24 HOURS, ON PRIMARY PLATES 02/27/19 02:00 Stool Yersinia Culture - Preliminary NO ENTERIC PATHOGENS, 24 HOURS, ON PRIMARY PLATES 02/27/19 02:00 Stool Vibrio Culture - Preliminary NO ENTERIC PATHOGENS, 24 HOURS, ON PRIMARY PLATES 02/27/19 02:00 Stool Escherichia coli 0157 Culture - Preliminary NO ENTERIC PATHOGENS, 24 HOURS, ON PRIMARY PLATES 02/19/19 17:30 Peritoneal Cavity Swab Gram Stain - Final 02/19/19 17:30 Peritoneal Cavity Swab Wound Culture - Final NO AEROBIC OR ANAEROBIC GROWTH OBTAINED. Problem List - Problems (1) Diabetes Assessment/Plan: -BGM ACHS -ISS -diabetic diet Code(s): E11.9 - TYPE 2 DIABETES MELLITUS WITHOUT COMPLICATIONS (2) Perforated chronic peptic ulcer Assessment/Plan: -Surgery on board -POD exploratory laparotomy -drain removed and dressing in place without -Upper GI Series shows no extravasation -monitor off antibiotics Code(s): K27.5 - CHRONIC OR UNSP PEPTIC ULCER, SITE UNSP, WITH PERFORATION (3) Sepsis Assessment/Plan: -WBC 7.6 -afebrile -ID on board -will monitor off ABT Code(s): A41.9 - SEPSIS, UNSPECIFIED ORGANISM (4) Diarrhea Assessment/Plan: -stool culture neg -resolved Code(s): R19.7 - DIARRHEA, UNSPECIFIED Assessment/Plan see problem list dvt ppx PT prior authorization for SNF was denied, spoke with MALINI Banks and will have peer to peer on Saturday
[2019-02-28] MEDS: ATORVASTATIN CA 40 MG TABLET (FP) PO SCH (21:06)
[2019-02-28] MEDS: GABAPENTIN 100 MG CAPSULE (FP) PO SCH (21:06)
[2019-03-01] MEDS: INSULIN SLIDING SCALE (NOVOLOG) 1 VIAL SQ SCH ×4 (06:26→21:34)
[2019-03-01] MEDS: metFORMIN HCL 500 MG TABLET (FP) PO SCH ×2 (06:26→16:47)
[2019-03-01] MEDS ORDERED: INSULIN (NOVOLOG) ASPART 100 UNITS/ML 10ML VIAL ONE ×2 (06:28→10:49)
[2019-03-01 08:54] LABS: MCH 30.3 pg (25.7-33.7); MCHC 32.5 g/dl (32.0-36.0); MEAN CELL VOLUME 93.1 fl (80-96); MEAN PLT VOLUME 7.5 fl (7.5-11.1); PLATELET COUNT 402 K/MM3 (134-434); RBC 3.97 M/mm3 (3.60-5.2); RDW 15.8 % (11.6-15.6); WHITE BLOOD COUNT 8.6 K/mm3 (4.0-10.0)
[2019-03-01] MEDS ORDERED: PT OWN MED DRAWER 7, Y5N ONE (09:22)
[2019-03-01 09:25] LABS: ALBUMIN 3.1 g/dl (3.4-5.0); BILIRUBIN,TOTAL 0.7 mg/dL (0.2-1); CREATININE 0.9 mg/dL (0.55-1.3); POTASSIUM 3.8 mmol/L (3.5-5.1); TOT PROT 6.7 g/dl (6.4-8.2)
[2019-03-01] MEDS: GABAPENTIN 100 MG CAPSULE (FP) PO SCH ×2 (09:25→21:31)
[2019-03-01] MEDS: ISOSORBIDE MONONITRATE 30 MG TAB.SR.24H (FP) PO SCH (09:25)
[2019-03-01] MEDS: PANTOPRAZOLE 40 MG TABLET (FP) PO SCH (09:25)
[2019-03-01] MEDS: LOSARTAN POTASSIUM 50 MG TABLET (FP) PO SCH (09:25)
[2019-03-01] MEDS: HEPARIN NA (PORCINE) 5,000 UNITS/ML 1ML VIAL SQ SCH (09:26)
[2019-03-01] MEDS: TETRACAINE/BENZOCAINE/BUTAMBEN 20 GM SPR TP SCH (09:27)
--- NOTE | 2019-03-01 12:29 | PN ---
Progress Note, Physician History of Present Illness: Pt states she feels better. Having BMs, no abd pain. No specific complaints. - Current Medication List Current Medications: Active Medications Atorvastatin Calcium (Lipitor -) 40 mg PO HS [facility] Last Admin: 02/28/19 21:06 Dose: 40 mg Benzocaine/Butamben/Tetracaine HCl (Cetacaine [place] -) 1 spray TP DAILY [facility] Last Admin: 03/01/19 09:27 Dose: 1 spray Gabapentin (Neurontin -) 100 mg PO BID [facility] Last Admin: 03/01/19 09:25 Dose: 100 mg Heparin Sodium (Porcine) (Heparin -) 5,000 unit SQ BID [facility] Last Admin: 03/01/19 09:26 Dose: 5,000 unit Insulin Aspart (Novolog Vial Sliding Scale -) 1 vial SQ ACHS [facility]; Protocol Last Admin: 03/01/19 10:55 Dose: Not Given Isosorbide Mononitrate (Imdur -) 30 mg PO DAILY [facility] Last Admin: 03/01/19 09:25 Dose: 30 mg Losartan Potassium (Cozaar -) 100 mg PO DAILY [facility] Last Admin: 03/01/19 09:25 Dose: 100 mg Metformin HCl (Glucophage -) 500 mg PO BID@0700,1630 [facility] Last Admin: 03/01/19 06:26 Dose: 500 mg Pantoprazole Sodium (Protonix -) 40 mg PO DAILY [facility] Last Admin: 03/01/19 09:25 Dose: 40 mg - Objective Vital Signs: Vital Signs Temperature 97.9 F 03/01/19 10:00 Pulse Rate 98 H 03/01/19 10:00 Respiratory Rate 19 03/01/19 10:00 Blood Pressure 159/75 03/01/19 10:00 O2 Sat by Pulse Oximetry (%) 97 03/01/19 09:00 Constitutional: Yes: No Distress, Calm Cardiovascular: Yes: Regular Rate and Rhythm Respiratory: Yes: Regular Gastrointestinal: Yes: Normal Bowel Sounds, Soft Integumentary: Yes: WNL Labs: CBC, BMP 03/01/19 08:00 03/01/19 08:00 INR, PTT INR 0.94 (0.83-1.09) 02/19/19 09:50 Problem List - Problems (1) Perforated chronic peptic ulcer Code(s): K27.5 - CHRONIC OR UNSP PEPTIC ULCER, SITE UNSP, WITH PERFORATION Assessment/Plan Perforated PUD s/p Ex-lap s/p Acute peritonitis -- currently stable, without pain/afebrile monitor off antibiotics
--- NOTE | 2019-03-01 14:44 | PN ---
Progress Note, Physician Chief Complaint: Perforated Peptic Ulcer Acute Peritonitis S/p Exp Laparotomy History of Present Illness: Previous notes and events reviewed awake and alert NAD denies chest pain or SOB no complaints of pain verbalized - Current Medication List Current Medications: Active Medications Atorvastatin Calcium (Lipitor -) 40 mg PO HS [facility] Last Admin: 02/28/19 21:06 Dose: 40 mg Benzocaine/Butamben/Tetracaine HCl (Cetacaine [place] -) 1 spray TP DAILY [facility] Last Admin: 03/01/19 09:27 Dose: 1 spray Gabapentin (Neurontin -) 100 mg PO BID [facility] Last Admin: 03/01/19 09:25 Dose: 100 mg Heparin Sodium (Porcine) (Heparin -) 5,000 unit SQ BID [facility] Last Admin: 03/01/19 09:26 Dose: 5,000 unit Insulin Aspart (Novolog Vial Sliding Scale -) 1 vial SQ [facility]; Protocol Last Admin: 03/01/19 10:55 Dose: Not Given Isosorbide Mononitrate (Imdur -) 30 mg PO DAILY [facility] Last Admin: 03/01/19 09:25 Dose: 30 mg Losartan Potassium (Cozaar -) 100 mg PO DAILY [facility] Last Admin: 03/01/19 09:25 Dose: 100 mg Metformin HCl (Glucophage -) 500 mg PO BID@0700,1630 [facility] Last Admin: 03/01/19 06:26 Dose: 500 mg Pantoprazole Sodium (Protonix -) 40 mg PO DAILY [facility] Last Admin: 03/01/19 09:25 Dose: 40 mg - Objective Vital Signs: Vital Signs Temperature 97.9 F 03/01/19 10:00 Pulse Rate 98 H 03/01/19 10:00 Respiratory Rate 19 03/01/19 10:00 Blood Pressure 159/75 03/01/19 10:00 O2 Sat by Pulse Oximetry (%) 97 03/01/19 09:00 Constitutional: Yes: No Distress, Calm Eyes: Yes: Conjunctiva Clear HENT: Yes: Atraumatic Cardiovascular: Yes: Regular Rate and Rhythm Respiratory: Yes: Regular, CTA Bilaterally Gastrointestinal: Yes: Normal Bowel Sounds, Soft Musculoskeletal: Yes: Muscle Weakness Extremities: Yes: WNL Edema: No Neurological: Yes: Alert, Pre-Existing Deficit Psychiatric: Yes: Alert Labs: CBC, BMP 03/01/19 08:00 03/01/19 08:00 INR, PTT INR 0.94 (0.83-1.09) 02/19/19 09:50 Microbiology 02/27/19 02:00 Stool Salmonella/Shigella Culture - Final NO GROWTH OF SALMONELLA OR SHIGELLA SPECIES OBTAINED 02/27/19 02:00 Stool Campylobacter Culture - Final NO GROWTH OF CAMPYLOBACTER SPECIES OBTAINED 02/27/19 02:00 Stool Yersinia Culture - Final NO GROWTH OF YERSINIA SPECIES OBTAINED 02/27/19 02:00 Stool Vibrio Culture - Final NO GROWTH OF VIBRIO SPECIES OBTAINED 02/27/19 02:00 Stool Escherichia coli 0157 Culture - Final NO GROWTH OF E COLI 0157 OBTAINED 02/19/19 17:30 Peritoneal Cavity Swab Gram Stain - Final 02/19/19 17:30 Peritoneal Cavity Swab Wound Culture - Final NO AEROBIC OR ANAEROBIC GROWTH OBTAINED. Problem List - Problems (1) Diabetes Assessment/Plan: -[facility] ACHS -ISS -diabetic diet Code(s): E11.9 - TYPE 2 DIABETES MELLITUS WITHOUT COMPLICATIONS (2) Perforated chronic peptic ulcer Assessment/Plan: -Surgery on board -s/pexploratory laparotomy -drain removed and dressing in place without -Upper GI Series shows no extravasation -monitor off antibiotics Code(s): K27.5 - CHRONIC OR UNSP PEPTIC ULCER, SITE UNSP, WITH PERFORATION (3) Sepsis Assessment/Plan: -WBC 8.6 -afebrile -ID on board -will monitor off ABT Code(s): A41.9 - SEPSIS, UNSPECIFIED ORGANISM (4) Diarrhea Assessment/Plan: -stool culture neg -resolved Code(s): R19.7 - DIARRHEA, UNSPECIFIED
[2019-03-01] MEDS: ATORVASTATIN CA 40 MG TABLET (FP) PO SCH (21:23)
[2019-03-02] MEDS ORDERED: ACETAMINOPHEN 1000 MG/100 ML VIAL (NON FORMULARY) IVPB ONE (01:09)
[2019-03-02] MEDS ORDERED: PANTOPRAZOLE SODIUM 40 MG VIAL IVPUSH ONE (05:40)
[2019-03-02] MEDS: INSULIN SLIDING SCALE (NOVOLOG) 1 VIAL SQ SCH ×4 (06:05→21:30)
[2019-03-02] MEDS: metFORMIN HCL 500 MG TABLET (FP) PO SCH ×2 (06:05→18:00)
[2019-03-02 06:50] LABS: HEMATOCRIT 28.9 % (32.4-45.2); HEMOGLOBIN 9.8 GM/dL (10.7-15.3); MCH 30.8 pg (25.7-33.7); MCHC 33.9 g/dl (32.0-36.0); MEAN CELL VOLUME 90.9 fl (80-96); PLATELET COUNT 369 K/MM3 (134-434); RBC 3.17 M/mm3 (3.60-5.2); RDW 15.4 % (11.6-15.6)
[2019-03-02 07:22] LABS: ALBUMIN 2.6 g/dl (3.4-5.0); BILIRUBIN,TOTAL 0.5 mg/dL (0.2-1); CALCIUM 8.3 mg/dL (8.5-10.1); CREATININE 0.9 mg/dL (0.55-1.3); TOT PROT 5.6 g/dl (6.4-8.2)
--- NOTE | 2019-03-02 09:19 | CON.GI ---
Consult - History of Present Illness History of Present Illness: GI CONSULT DICTATED - NPO /IVF -PPI - SERIAL H/H - TENTATIVELY PLAN FOR EGD ON SATURDAY - Past Medical History Cardio/Vascular: Yes: CAD - Alcohol/Substance Use Hx Alcohol Use: No - Smoking History Smoking history: Former smoker Have you smoked in the past 12 months: No Home Medications - Allergies Allergies/Adverse Reactions: Allergies Allergy/AdvReac Type Severity Reaction Status Date / Time No Known Allergies Allergy Verified 02/19/19 09:35 - Home Medications Home Medications: Ambulatory Orders Atorvastatin Ca [Lipitor] 40 mg PO HS 02/19/19 Gabapentin 100 mg PO BID 02/19/19 Isosorbide Mononitrate [Isosorbide Mononitrate ER] 30 mg PO DAILY 02/19/19 Losartan Potassium 100 mg PO DAILY 02/19/19 Meloxicam 15 mg PO DAILY 02/19/19 Metformin HCl [Glucophage] 500 mg PO BID 02/19/19 Zolpidem Tartrate [Ambien] 10 mg PO HS 02/19/19 Amox-Tr/K Cl [Augmentin 875-125mg Tablet -] 1 tab PO BID@0800,1730 #6 tablet Pantoprazole Sodium [Protonix -] 40 mg PO DAILY #30 tablet.ec 02/26/19 Physical Exam-GI Vital Signs: Vital Signs Temperature 98.5 F 03/02/19 05:55 Pulse Rate 105 H 03/02/19 05:55 Respiratory Rate 20 03/02/19 05:55 Blood Pressure 125/64 03/02/19 05:55 O2 Sat by Pulse Oximetry (%) 98 03/01/19 21:00 Labs: CBC, BMP 03/02/19 06:40 03/02/19 06:40 INR, PTT INR 0.94 (0.83-1.09) 02/19/19 09:50
--- NOTE | 2019-03-02 09:47 | PN ---
Progress Note, Physician Chief Complaint: Perforated Peptic Ulcer Acute Peritonitis S/p Exp Laparotomy History of Present Illness: Previous notes and events reviewed awake and alert NAD patient started having episodes of BRBPR x3, last night with clots noted, currently had 2 episodes this morning tachycardic pale looking - Current Medication List Current Medications: Active Medications Atorvastatin Calcium (Lipitor -) 40 mg PO HS [facility] Last Admin: 03/01/19 21:23 Dose: Not Given Benzocaine/Butamben/Tetracaine HCl (Cetacaine [place] -) 1 spray TP DAILY [facility] Last Admin: 03/01/19 09:27 Dose: 1 spray Gabapentin (Neurontin -) 100 mg PO BID [facility] Last Admin: 03/01/19 21:31 Dose: Not Given Sodium Chloride (Normal Saline -) 1,000 mls @ 42 mls/hr IV ASDIR [facility] Insulin Aspart (Novolog Vial Sliding Scale -) 1 vial SQ ACHS [facility]; Protocol Last Admin: 03/02/19 06:05 Dose: Not Given Isosorbide Mononitrate (Imdur -) 30 mg PO DAILY [facility] Last Admin: 03/01/19 09:25 Dose: 30 mg Losartan Potassium (Cozaar -) 100 mg PO DAILY [facility] Last Admin: 03/01/19 09:25 Dose: 100 mg Metformin HCl (Glucophage -) 500 mg PO BID@0700,1630 [facility] Last Admin: 03/02/19 06:05 Dose: Not Given Pantoprazole Sodium (Protonix -) 40 mg PO BID [facility] - Objective Vital Signs: Vital Signs Temperature 98.5 F 03/02/19 05:55 Pulse Rate 105 H 03/02/19 05:55 Respiratory Rate 20 03/02/19 05:55 Blood Pressure 125/64 03/02/19 05:55 O2 Sat by Pulse Oximetry (%) 98 03/01/19 21:00 Constitutional: Yes: No Distress, Calm, Pallor Eyes: Yes: Conjunctiva Clear HENT: Yes: Atraumatic Cardiovascular: Yes: Tachycardia Respiratory: Yes: Regular, CTA Bilaterally Gastrointestinal: Yes: Normal Bowel Sounds, Soft Musculoskeletal: Yes: Muscle Weakness Extremities: Yes: WNL Edema: No Neurological: Yes: Alert, Pre-Existing Deficit Psychiatric: Yes: Alert Labs: CBC, BMP 03/02/19 06:40 03/02/19 06:40 INR, PTT INR 0.94 (0.83-1.09) 02/19/19 09:50 Microbiology 02/27/19 02:00 Stool Salmonella/Shigella Culture - Final NO GROWTH OF SALMONELLA OR SHIGELLA SPECIES OBTAINED 02/27/19 02:00 Stool Campylobacter Culture - Final NO GROWTH OF CAMPYLOBACTER SPECIES OBTAINED 02/27/19 02:00 Stool Yersinia Culture - Final NO GROWTH OF YERSINIA SPECIES OBTAINED 02/27/19 02:00 Stool Vibrio Culture - Final NO GROWTH OF VIBRIO SPECIES OBTAINED 02/27/19 02:00 Stool Escherichia coli 0157 Culture - Final NO GROWTH OF E COLI 0157 OBTAINED 02/19/19 17:30 Peritoneal Cavity Swab Gram Stain - Final 02/19/19 17:30 Peritoneal Cavity Swab Wound Culture - Final NO AEROBIC OR ANAEROBIC GROWTH OBTAINED. Problem List - Problems (1) Diabetes Assessment/Plan: -BGM ACHS -ISS -diabetic diet Code(s): E11.9 - TYPE 2 DIABETES MELLITUS WITHOUT COMPLICATIONS (2) Perforated chronic peptic ulcer Assessment/Plan: -Surgery on board -s/p exploratory laparotomy -drain removed and dressing in place without -Upper GI Series shows no extravasation -monitor off antibiotics Code(s): K27.5 - CHRONIC OR UNSP PEPTIC ULCER, SITE UNSP, WITH PERFORATION (3) Sepsis Assessment/Plan: -WBC 10.0 -afebrile -ID on board -will monitor off ABT Code(s): A41.9 - SEPSIS, UNSPECIFIED ORGANISM (4) Diarrhea Assessment/Plan: -stool culture neg -resolved Code(s): R19.7 - DIARRHEA, UNSPECIFIED (5) Rectal bleeding Assessment/Plan: -GI consult -IV hydration -Hg drop 12.0-9.8 -type and screen -1U PRBC -NPO -ICU consult Code(s): K62.5 - HEMORRHAGE OF ANUS AND RECTUM Assessment/Plan see problem list dvt ppx
[2019-03-02] MEDS: SODIUM CHLORIDE 1,000 ML IV SCH (09:48)
[2019-03-02] MEDS: LOSARTAN POTASSIUM 50 MG TABLET (FP) PO SCH (09:49)
[2019-03-02] MEDS: PANTOPRAZOLE 40 MG TABLET (FP) PO SCH ×2 (09:49→22:38)
[2019-03-02] MEDS: GABAPENTIN 100 MG CAPSULE (FP) PO SCH ×2 (09:49→22:38)
[2019-03-02] MEDS: ISOSORBIDE MONONITRATE 30 MG TAB.SR.24H (FP) PO SCH (09:49)
[2019-03-02] MEDS: TETRACAINE/BENZOCAINE/BUTAMBEN 20 GM SPR TP SCH (09:50)
--- NOTE | 2019-03-02 10:42 | PN ---
Progress Note, Physician - Current Medication List Current Medications: Active Medications Atorvastatin Calcium (Lipitor -) 40 mg PO HS [facility] Last Admin: 03/01/19 21:23 Dose: Not Given Benzocaine/Butamben/Tetracaine HCl (Cetacaine [place] -) 1 spray TP DAILY [facility] Last Admin: 03/02/19 09:50 Dose: 1 spray Gabapentin (Neurontin -) 100 mg PO BID [facility] Last Admin: 03/02/19 09:49 Dose: 100 mg Sodium Chloride (Normal Saline -) 1,000 mls @ 42 mls/hr IV ASDIR [facility] Last Admin: 03/02/19 09:48 Dose: 42 mls/hr Insulin Aspart (Novolog Vial Sliding Scale -) 1 vial SQ ACHS [facility]; Protocol Last Admin: 03/02/19 06:05 Dose: Not Given Isosorbide Mononitrate (Imdur -) 30 mg PO DAILY [facility] Last Admin: 03/02/19 09:49 Dose: 30 mg Losartan Potassium (Cozaar -) 100 mg PO DAILY [facility] Last Admin: 03/02/19 09:49 Dose: 100 mg Metformin HCl (Glucophage -) 500 mg PO BID@0700,1630 [facility] Last Admin: 03/02/19 06:05 Dose: Not Given Pantoprazole Sodium (Protonix -) 40 mg PO BID [facility] Last Admin: 03/02/19 09:49 Dose: 40 mg - Objective Vital Signs: Vital Signs Temperature 98.5 F 03/02/19 05:55 Pulse Rate 105 H 03/02/19 05:55 Respiratory Rate 20 03/02/19 05:55 Blood Pressure 125/64 03/02/19 05:55 O2 Sat by Pulse Oximetry (%) 98 03/01/19 21:00 Labs: CBC, BMP 03/02/19 06:40 03/02/19 06:40 INR, PTT INR 0.94 (0.83-1.09) 02/19/19 09:50 Assessment/Plan Surgery: Patient has rectal bleeding since last night with drop in hematocrit from 35,38 - to 28. Still has painless bloody bowel movement Patient had a perforated ulcer on the anterior wall of the first portion of the duodenum. Active , acute bleeding, is usually from a penetrating ulcer, on the posterior wall of the duodenum. G.I evaluation for source of bleeding , upper and lower endocsopy. If brisk bleeding suggest , CT angio. Keep in a monitored setting. Serial hematocrit. Discussed with the ICU attending. Transfer to a monitored setting, to ICU.
--- NOTE | 2019-03-02 12:11 | PN ---
Progress Note, Physician History of Present Illness: patient now in the icu bleeding per rectum being transfused c/o abd pain - Current Medication List Current Medications: Active Medications Atorvastatin Calcium (Lipitor -) 40 mg PO HS [facility] Last Admin: 03/01/19 21:23 Dose: Not Given Benzocaine/Butamben/Tetracaine HCl (Cetacaine [place] -) 1 spray TP DAILY [facility] Last Admin: 03/02/19 09:50 Dose: 1 spray Gabapentin (Neurontin -) 100 mg PO BID [facility] Last Admin: 03/02/19 09:49 Dose: 100 mg Sodium Chloride (Normal Saline -) 1,000 mls @ 42 mls/hr IV ASDIR [facility] Last Admin: 03/02/19 09:48 Dose: 42 mls/hr Insulin Aspart (Novolog Vial Sliding Scale -) 1 vial SQ ACHS [facility]; Protocol Last Admin: 03/02/19 06:05 Dose: Not Given Isosorbide Mononitrate (Imdur -) 30 mg PO DAILY [facility] Last Admin: 03/02/19 09:49 Dose: 30 mg Losartan Potassium (Cozaar -) 100 mg PO DAILY [facility] Last Admin: 03/02/19 09:49 Dose: 100 mg Metformin HCl (Glucophage -) 500 mg PO BID@0700,1630 [facility] Last Admin: 03/02/19 06:05 Dose: Not Given Pantoprazole Sodium (Protonix -) 40 mg PO BID [facility] Last Admin: 03/02/19 09:49 Dose: 40 mg - Objective Vital Signs: Vital Signs Temperature 99.5 F 03/02/19 09:00 Pulse Rate 94 H 03/02/19 09:00 Respiratory Rate 19 03/02/19 09:00 Blood Pressure 136/83 03/02/19 09:00 O2 Sat by Pulse Oximetry (%) 98 03/02/19 09:00 Constitutional: Yes: Calm, Moderate Distress Cardiovascular: Yes: S1, S2 Respiratory: Yes: Regular, CTA Bilaterally Gastrointestinal: Yes: Rectal Bleeding, Tenderness, Other (absent bowel sounds) Musculoskeletal: Yes: WNL Extremities: Yes: WNL Neurological: Yes: Alert, Oriented Psychiatric: Yes: Alert, Oriented Labs: CBC, BMP 03/02/19 06:40 03/02/19 06:40 INR, PTT INR 0.94 (0.83-1.09) 05/16/19 09:50 Assessment/Plan Assessment/Plan Perforated viscus, dehydration, CAD, Obesity. Plan : Hydrate , Antibiotics, Emergency laparotomy , perforated ulcer. gi bleed plan would hold of any abx for now gambino h monitoring close watch transfusion r/o any abd issues should consider ct scan to see for any intraabd finding rest as per the team cc 40 min
--- NOTE | 2019-03-02 15:55 | CONS ---
DATE OF CONSULTATION: DATEOF DICTATION: 03/02/2019 HISTORY OF PRESENT ILLNESS: The patient is an 88-year-old female with a past medical history of diabetes, hypertension who was admitted to the emergency room with a 1 day history of abdominal and back pain. Her initial CAT scan was shown to have pneumoperitoneum. During the course she underwent repair of a perforated duodenal ulcer with plication and omental overlay. She was treated for peritonitis and was doing well on the floor. However, last night she developed an episode of bloody bowel movement which she denies any associated abdominal pain, nausea, vomiting, hematemesis or melena. It was noted to be bright red blood. Today she has had no further episodes of GI bleed. PAST MEDICAL AND SURGICAL HISTORY: As listed in the HPI. ALLERGIES: No known drug allergies. SOCIAL HISTORY: No smoking, drinking or drug use. FAMILY HISTORY: Noncontributory. REVIEW OF SYSTEMS: As per the HPI. PHYSICAL EXAMINATION: Vital Signs: Temperature 98, pulse 100, blood pressure 108/59, respirations 17, saturation of oxygen 100% on 2 L. General: No acute distress. HEENT: Anicteric sclerae. Cardiovascular: S1, S2, regular rate and rhythm. Lungs: Bilaterally clear to auscultation. Abdomen: Soft and nontender. Extremities: No edema. White blood cell count 10, hemoglobin 9.8 and hematocrit 28. Previously on the it was hemoglobin 12 and hematocrit 37. MCV 90. Platelet count 369. INR 0.94. Sodium 134, potassium 4, BUN 13 and creatinine 0.9, glucose 141. Stool for occult blood on the was negative. She has had no further imaging of her abdomen since her abdominal perforation. IMPRESSION: Bloody bowel movement and history of perforated peptic ulcer, status post repair which was done on the . It would appear that this is a lower GI source. However, an upper GI source considering her history of ulcer disease and recent surgical repair cannot be entirely excluded. She is hemodynamically stable at this time without sign of an overt GI bleed. RECOMMENDATION: N.p.o. IV fluids. Protonix 40 mg IV daily. Would recommend stool H. pylori antigen. Tentatively plan for a diagnostic upper endoscopy tomorrow if cleared by surgery and, if that is negative, she can have a diagnostic colonoscopy the day to follow. Avoid NSAIDs. Serial hemoglobins and hematocrits q.6 hours. Medical ICU care. DO RHONDA DELGADO/[id number]
[2019-03-02 16:59] LABS: BASO % 0.7 % (0-2.0); EOS % 1.5 % (0-4.5); HEMOGLOBIN 10.4 GM/dL (10.7-15.3); LYMPH % 15.3 % (8-40); MCH 29.9 pg (25.7-33.7); MCHC 32.6 g/dl (32.0-36.0); MEAN CELL VOLUME 91.7 fl (80-96); MEAN PLT VOLUME 7.6 fl (7.5-11.1); MONO % 7.3 % (3.8-10.2); NEUT % 75.2 % (42.8-82.8); PLATELET COUNT 375 K/MM3 (134-434); RBC 3.49 M/mm3 (3.60-5.2); RDW 15.5 % (11.6-15.6); WHITE BLOOD COUNT 11.4 K/mm3 (4.0-10.0)
--- NOTE | 2019-03-02 18:00 | PN ---
Physical Exam: SUBJECTIVE: Patient seen and examined at bedside this morning. Patient reported to have about 5 episodes of painless BRBPR with clots that started last night. This morning, Hgb was noted to drop from 12 to 9.8. Patient received 1 unit pRBC and was transferred to the ICU for closer monitoring. Patient denies any fever, chills, headache, dizziness, chest pain, SOB, abdominal pain, diarrhea, urinary symptoms. Patient is POD 11 today. Upon arrival at the ICU, no more episodes of GI bleeding. OBJECTIVE: Vital Signs Temperature 97.6 F 03/02/19 16:00 Pulse Rate 94 H 03/02/19 16:00 Respiratory Rate 21 H 03/02/19 16:00 Blood Pressure 115/59 L 03/02/19 16:00 O2 Sat by Pulse Oximetry (%) 100 03/02/19 16:52 GENERAL: The patient is awake, alert, and fully oriented, in no acute distress. HEAD: Normal with no signs of trauma. EYES: PERRLA, EOMI, sclera anicteric, conjunctiva clear. ENT:oropharynx clear without exudates, dry mucous membranes. NECK: Trachea midline, full range of motion, supple. LUNGS: Breath sounds equal, clear to auscultation bilaterally. HEART: Regular rate and rhythm, S1, S2 without murmur, rub or gallop. ABDOMEN: Soft, nontender, nondistended, normoactive bowel sounds. +midline wound clean, dry and intact with sterile strips EXTREMITIES: 2+ pulses, warm, well-perfused, no edema. NEUROLOGICAL: Cranial nerves II through XII grossly intact. Normal speech, gait not observed. PSYCH: Normal mood, normal affect. SKIN: Warm, dry, normal turgor, no rashes or lesions noted Laboratory Results - last 24 hr 03/01/19 03/02/19 03/02/19 21:33 04:00 06:03 WBC RBC Hgb Hct MCV MCH MCHC RDW Plt Count MPV Absolute Neuts (auto) Neutrophils % Lymphocytes % Monocytes % Eosinophils % Basophils % Nucleated RBC % Sodium Potassium Chloride Carbon Dioxide Anion Gap BUN Creatinine Est GFR (CKD-EPI)AfAm Est GFR (CKD-EPI)NonAf POC Glucometer 144 154 Random Glucose Calcium Total Bilirubin AST ALT Alkaline Phosphatase Total Protein Albumin Stool Occult Blood Negative Blood Type Antibody Screen Crossmatch 03/02/19 03/02/1919 06:40 06:40 06:40 WBC 10.0 RBC 3.17 L Hgb 9.8 L Hct 28.9 L D MCV 90.9 MCH 30.8 MCHC 33.9 RDW 15.4 Plt Count 369 MPV 7.0 L Absolute Neuts (auto) Neutrophils % Lymphocytes % Monocytes % Eosinophils % Basophils % Nucleated RBC % Sodium 134 L Potassium 4.0 Chloride 100 Carbon Dioxide 27 Anion Gap 7 L BUN 13 Creatinine 0.9 Est GFR (CKD-EPI)AfAm 67.10 Est GFR (CKD-EPI)NonAf 57.90 POC Glucometer Random Glucose 141 H Calcium 8.3 L Total Bilirubin 0.5 AST 18 ALT 15 Alkaline Phosphatase 62 Total Protein 5.6 L Albumin 2.6 L Stool Occult Blood Blood Type A POSITIVE Antibody Screen Negative Crossmatch See Detail 03/02/19 03/02/19 03/02/19 12:19 16:40 16:57 WBC 11.4 H RBC 3.49 L Hgb 10.4 L Hct 32.0 L MCV 91.7 MCH 29.9 MCHC 32.6 RDW 15.5 Plt Count 375 MPV 7.6 Absolute Neuts (auto) 8.6 H Neutrophils % 75.2 Lymphocytes % 15.3 Monocytes % 7.3 Eosinophils % 1.5 Basophils % 0.7 Nucleated RBC % 0 Sodium Potassium Chloride Carbon Dioxide Anion Gap BUN Creatinine Est GFR (CKD-EPI)AfAm Est GFR (CKD-EPI)NonAf POC Glucometer 136 113 Random Glucose Calcium Total Bilirubin AST ALT Alkaline Phosphatase Total Protein Albumin Stool Occult Blood Blood Type Antibody Screen Crossmatch Active Medications Generic Name Dose Route Start Last Admin Trade Name Yovani PRN Reason Stop Dose Admin Atorvastatin Calcium 40 mg 02/28/19 22:00 03/01/19 21:23 Lipitor - PO Not Given HS AI Benzocaine/Butamben/Tetracaine HCl 1 spray 02/23/19 19:00 03/02/19 09:50 Cetacaine [place] - TP 1 spray DAILY AI Administration Gabapentin 100 mg 02/28/19 22:00 03/02/19 09:49 Neurontin - PO 100 mg BID AI Administration Sodium Chloride 1,000 mls @ 42 mls/hr 03/02/19 09:45 03/02/19 09:48 Normal Saline - IV 42 mls/hr ASDIR AI Administration Insulin Aspart 1 vial 02/21/19 16:30 03/02/19 12:22 Novolog Vial Sliding Scale - SQ Not Given ACHS [facility] Protocol Isosorbide Mononitrate 30 mg 02/28/19 10:00 03/02/19 09:49 Imdur - PO 30 mg DAILY [facility] Administration Losartan Potassium 100 mg 02/28/19 10:00 03/02/19 09:49 Cozaar - PO 100 mg DAILY AI Administration Metformin HCl 500 mg 02/28/19 16:30 03/02/19 06:05 Glucophage - PO Not Given BID@0700,1630 [facility] Pantoprazole Sodium 40 mg 03/02/19 10:00 03/02/19 09:49 Protonix - PO 40 mg BID [facility] Administration ASSESSMENT/PLAN: Patient is an 88 year old female with past medical history of DM, HTN and CAD (s /p stent placement in 2008), presented to the ED due to sudden onset diffuse abdominal pain. #Neuro -awake, alert and oriented x3 #Cardiovascular -BP and HR wnl -Will hold home BP meds for now as patient is NPO for tentaive EGD tomorrow -May resume BP meds when PO resumed. #Pulmonology -On 2L NC, saturating >90% #GI -New onset GI bleed -CT abdomen/pelvis done. -Surgery (Dr. Kyle) consulted. Recommendations appreciated -POD 11: exploratory laparotomy. Repair of perforated duodenal ulcer with plication and omental overlay. -Post-op findings: Perforation of anterior wall of duodenum with peritonitis -Active acute GI bleed is usually from an ulcer on the posterior wall of the duodenum -CT abdomen and pelvis done -Serial H/H -GI (Dr. Castano) consulted. Recommendations appreciated -Keep NPO -IV Protonix drip started -Iv fluids -Tentative plan for EGD tomorrow -Transfuse PRN to keep Hgb >7 #Renal -renal function stable -Bladder scan showed 1000cc of retained urine -Becerra catheter inserted #ID -ID (Dr. Borjas) consulted. REcommendations appreciated. -Hold any antibiotics for now #Endo -Hx of DM -Will hold home Metformin -Insulin sliding scale -BGM q6h #Anemia -Anemia 2/2 acute GI blood loss -s/p 1 u pRBC -repeat Hgb improved from 9.8 to 10.4 -Transfuse PRN to keep Hgb>7 -CBC q6h #FEN -IV NS @42cc/hr, boluses PRN -Routine bmp monitoring -NPO #Prophylaxis -DVT: SCDs -GI: Protonix drip #Disposition -Patient wants DNR but is unable to sign the form. She made her son, Boo Escobar , her healthcare proxy, who was also at bedside. -ICU monitoring -Would discuss goals of care again tomorrow. Visit type - Emergency Visit Emergency Visit: Yes ED Registration Date: 02/19/19 Care time: The patient presented to the Emergency Department on the above date and was hospitalized for further evaluation of their emergent condition. - New Patient This patient is new to me today: Yes Date on this admission: 03/02/19 - Critical Care Critical Care patient: Yes Total Critical Care Time (in minutes): 36 Critical Care Statement: The care of this patient involved high complexity decision making to prevent further life threatening deterioration of the patient 's condition and/or to evaluate & treat vital organ system(s) failure or risk of failure.
[2019-03-02] MEDS: ATORVASTATIN CA 40 MG TABLET (FP) PO SCH (22:38)
[2019-03-03] MEDS: metFORMIN HCL 500 MG TABLET (FP) PO SCH ×2 (06:04→18:30)
[2019-03-03] MEDS: INSULIN SLIDING SCALE (NOVOLOG) 1 VIAL SQ SCH ×4 (06:04→21:11)
[2019-03-03 06:28] LABS: BASO % 0.7 % (0-2.0); EOS % 2.2 % (0-4.5); HEMATOCRIT 29.6 % (32.4-45.2); HEMOGLOBIN 10.2 GM/dL (10.7-15.3); LYMPH % 15.7 % (8-40); MCH 31.1 pg (25.7-33.7); MCHC 34.3 g/dl (32.0-36.0); MEAN CELL VOLUME 90.5 fl (80-96); MEAN PLT VOLUME 7.6 fl (7.5-11.1); NEUT % 72.4 % (42.8-82.8); PLATELET COUNT 347 K/MM3 (134-434); RBC 3.27 M/mm3 (3.60-5.2); RDW 15.5 % (11.6-15.6); WHITE BLOOD COUNT 8.9 K/mm3 (4.0-10.0)
[2019-03-03 06:48] LABS: ALBUMIN 2.4 g/dl (3.4-5.0); CALCIUM 8.2 mg/dL (8.5-10.1); CREATININE 0.8 mg/dL (0.55-1.3); MAGNESIUM 2.1 mg/dL (1.8-2.4); PHOSPHOROUS 3.7 mg/dL (2.5-4.9); POTASSIUM 4.2 mmol/L (3.5-5.1); TOT PROT 5.2 g/dl (6.4-8.2)
--- NOTE | 2019-03-03 08:21 | PN ---
Progress Note, Physician - Current Medication List Current Medications: Active Medications Atorvastatin Calcium (Lipitor -) 40 mg PO HS [facility] Last Admin: 03/02/19 22:38 Dose: 40 mg Benzocaine/Butamben/Tetracaine HCl (Cetacaine [place] -) 1 spray TP DAILY [facility] Last Admin: 03/02/19 09:50 Dose: 1 spray Gabapentin (Neurontin -) 100 mg PO BID [facility] Last Admin: 03/02/19 22:38 Dose: 100 mg Sodium Chloride (Normal Saline -) 1,000 mls @ 42 mls/hr IV ASDIR [facility] Last Admin: 03/02/19 09:48 Dose: 42 mls/hr Insulin Aspart (Novolog Vial Sliding Scale -) 1 vial SQ ACHS [facility]; Protocol Last Admin: 03/03/19 06:04 Dose: Not Given Isosorbide Mononitrate (Imdur -) 30 mg PO DAILY [facility] Last Admin: 03/02/19 09:49 Dose: 30 mg Losartan Potassium (Cozaar -) 100 mg PO DAILY [facility] Last Admin: 03/02/19 09:49 Dose: 100 mg Metformin HCl (Glucophage -) 500 mg PO BID@0700,1630 [facility] Last Admin: 03/03/19 06:04 Dose: 500 mg Pantoprazole Sodium (Protonix -) 40 mg PO BID [facility] Last Admin: 03/02/19 22:38 Dose: 40 mg - Objective Vital Signs: Vital Signs Temperature 97.2 F L 03/03/19 02:00 Pulse Rate 85 03/03/19 06:00 Respiratory Rate 18 03/03/19 06:00 Blood Pressure 134/55 L 03/03/19 06:00 O2 Sat by Pulse Oximetry (%) 100 03/02/19 21:00 Cardiovascular: Yes: Regular Rate and Rhythm Respiratory: Yes: Regular, CTA Bilaterally Gastrointestinal: Yes: Normal Bowel Sounds, Soft. No: Tenderness Labs: CBC, BMP 03/03/19 05:30 03/03/19 05:30 INR, PTT INR 0.94 (0.83-1.09) 02/19/19 09:50 Problem List - Problems (1) Perforated chronic peptic ulcer Code(s): K27.5 - CHRONIC OR UNSP PEPTIC ULCER, SITE UNSP, WITH PERFORATION (2) Diabetes Code(s): E11.9 - TYPE 2 DIABETES MELLITUS WITHOUT COMPLICATIONS (3) Sepsis Code(s): A41.9 - SEPSIS, UNSPECIFIED ORGANISM Assessment/Plan - Problems (1) Diabetes Assessment/Plan: -BGM ACHS -ISS -diabetic diet Code(s): E11.9 - TYPE 2 DIABETES MELLITUS WITHOUT COMPLICATIONS (2) Perforated chronic peptic ulcer Assessment/Plan: -Surgery on board -s/p exploratory laparotomy -drain removed and dressing in place without -Upper GI Series shows no extravasation -monitor off antibiotics Code(s): K27.5 - CHRONIC OR UNSP PEPTIC ULCER, SITE UNSP, WITH PERFORATION (3) Sepsis Assessment/Plan: -WBC 10.0 -afebrile -ID on board -will monitor off ABT Code(s): A41.9 - SEPSIS, UNSPECIFIED ORGANISM (4) Diarrhea Assessment/Plan: -stool culture neg -resolved Code(s): R19.7 - DIARRHEA, UNSPECIFIED (5) Rectal bleeding Assessment/Plan: -GI consult -IV hydration -Hg drop 12.0-9.8 Laboratory Tests 03/02/19 03/02/19 03/03/19 06:40 16:40 05:30 Hgb 9.8 L 10.4 L 10.2 L BUN Creatinine 03/03/19 05:30 Hgb BUN 8 Creatinine 0.8 -Endoscpy per gi and surgery -NPO Code(s): K62.5 - HEMORRHAGE OF ANUS AND RECTUM
--- NOTE | 2019-03-03 09:17 | PN ---
Physical Exam: SUBJECTIVE: Patient seen and examined at bedside this morning. Yesterday afternoon, bladder scan was done which revealed >1000cc of retained urine. Erickson catheter was inserted. Patient had no more episodes of GI bleed since coming to the ICU. No acute events overnight. Patient denies fever, chills, headache, dizziness, chest pain, SOB, addominal pain, diarrhea. OBJECTIVE: Vital Signs Temperature 97.2 F L 03/03/19 02:00 Pulse Rate 85 03/03/19 06:00 Respiratory Rate 18 03/03/19 06:00 Blood Pressure 134/55 L 03/03/19 06:00 O2 Sat by Pulse Oximetry (%) 100 03/02/19 21:00 GENERAL: The patient is awake, alert, and fully oriented, in no acute distress. HEAD: Normal with no signs of trauma. EYES: PERRLA, EOMI, sclera anicteric, conjunctiva clear. ENT:oropharynx clear without exudates, dry mucous membranes. NECK: Trachea midline, full range of motion, supple. LUNGS: Breath sounds equal, clear to auscultation bilaterally. HEART: Regular rate and rhythm, S1, S2 without murmur, rub or gallop. ABDOMEN: Soft, nontender, nondistended, normoactive bowel sounds. +midline wound clean, dry and intact with sterile strips ODALIS: no masses, no hemorrhoids appreciated. No gross blood noted. EXTREMITIES: 2+ pulses, warm, well-perfused, no edema. NEUROLOGICAL: Cranial nerves II through XII grossly intact. Normal speech, gait not observed. PSYCH: Normal mood, normal affect. SKIN: Warm, dry, normal turgor, no rashes or lesions noted Laboratory Results - last 24 hr 03/02/19 03/02/19 03/02/19 06:40 12:19 16:40 WBC 11.4 H RBC 3.49 L Hgb 10.4 L Hct 32.0 L MCV 91.7 MCH 29.9 MCHC 32.6 RDW 15.5 Plt Count 375 MPV 7.6 Absolute Neuts (auto) 8.6 H Neutrophils % 75.2 Lymphocytes % 15.3 Monocytes % 7.3 Eosinophils % 1.5 Basophils % 0.7 Nucleated RBC % 0 Sodium Potassium Chloride Carbon Dioxide Anion Gap BUN Creatinine Est GFR (CKD-EPI)AfAm Est GFR (CKD-EPI)NonAf POC Glucometer 136 Random Glucose Calcium Phosphorus Magnesium Total Bilirubin AST ALT Alkaline Phosphatase Total Protein Albumin Blood Type A POSITIVE Antibody Screen Negative Crossmatch See Detail 03/02/19 03/02/19 03/03/19 16:57 21:51 05:30 WBC 8.9 RBC 3.27 L Hgb 10.2 L Hct 29.6 L MCV 90.5 MCH 31.1 MCHC 34.3 RDW 15.5 Plt Count 347 MPV 7.6 Absolute Neuts (auto) 6.4 Neutrophils % 72.4 Lymphocytes % 15.7 Monocytes % 9.0 Eosinophils % 2.2 Basophils % 0.7 Nucleated RBC % 0 Sodium Potassium Chloride Carbon Dioxide Anion Gap BUN Creatinine Est GFR (CKD-EPI)AfAm Est GFR (CKD-EPI)NonAf POC Glucometer 113 110 Random Glucose Calcium Phosphorus Magnesium Total Bilirubin AST ALT Alkaline Phosphatase Total Protein Albumin Blood Type Antibody Screen Crossmatch 03/03/19 03/03/19 05:30 05:47 WBC RBC Hgb Hct MCV MCH MCHC RDW Plt Count MPV Absolute Neuts (auto) Neutrophils % Lymphocytes % Monocytes % Eosinophils % Basophils % Nucleated RBC % Sodium 136 Potassium 4.2 Chloride 102 Carbon Dioxide 28 Anion Gap 6 L BUN 8 Creatinine 0.8 Est GFR (CKD-EPI)AfAm 77.37 Est GFR (CKD-EPI)NonAf 66.76 POC Glucometer 107 Random Glucose 107 H Calcium 8.2 L Phosphorus 3.7 Magnesium 2.1 Total Bilirubin 1.0 AST 15 ALT 13 Alkaline Phosphatase 60 Total Protein 5.2 L Albumin 2.4 L Blood Type Antibody Screen Crossmatch Active Medications Generic Name Dose Route Start Last Admin Trade Name Yovani PRN Reason Stop Dose Admin Atorvastatin Calcium 40 mg 02/28/19 22:00 03/02/19 22:38 Lipitor - PO 40 mg HS AI Administration Benzocaine/Butamben/Tetracaine HCl 1 spray 02/23/19 19:00 03/02/19 09:50 Cetacaine [place] - TP 1 spray DAILY AI Administration Gabapentin 100 mg 02/28/19 22:00 03/02/19 22:38 Neurontin - PO 100 mg BID AI Administration Sodium Chloride 1,000 mls @ 42 mls/hr 03/02/19 09:45 03/02/19 09:48 Normal Saline - IV 42 mls/hr ASDIR AI Administration Insulin Aspart 1 vial 02/21/19 16:30 03/03/19 06:04 Novolog Vial Sliding Scale - SQ Not Given ACHS [facility] Protocol Isosorbide Mononitrate 30 mg 02/28/19 10:00 03/02/19 09:49 Imdur - PO 30 mg DAILY AI Administration Losartan Potassium 100 mg 02/28/19 10:00 03/02/19 09:49 Cozaar - PO 100 mg DAILY AI Administration Metformin HCl 500 mg 02/28/19 16:30 03/03/19 06:04 Glucophage - PO 500 mg BID@0700,1630 AI Administration Pantoprazole Sodium 40 mg 03/02/19 10:00 03/02/19 22:38 Protonix - PO 40 mg BID AI Administration ASSESSMENT/PLAN: Patient is an 88 year old female with past medical history of DM, HTN and CAD (s /p stent placement in 2008), presented to the ED due to sudden onset diffuse abdominal pain. #Neuro -awake, alert and oriented x3 #Cardiovascular -BP and HR wnl -Will hold home BP meds for now as patient is NPO for tentative EGD/Colonoscopy -May resume BP meds when PO resumed. #Pulmonology -On 2L NC, saturating >90% #GI -Acute GI bleed, likely 2/2 LGIB, vs UGIB -CT abdomen/pelvis: Cholelithiasis. Mild right sided hydronephrosis and hydroureter without obvious obstruction. Prominent pancreatic head. Markedly dilated urinary bladder. Extensive left sided diverticulosis without evidence of acute diverticulitis. Fecal retention. No acute pathology within the abdomen or plevis. -Pancreatic head prominent, would need MRCP. -Surgery (Dr. Kyle) consulted. Recommendations appreciated -POD 11: exploratory laparotomy. Repair of perforated duodenal ulcer with plication and omental overlay. -Post-op findings: Perforation of anterior wall of duodenum with peritonitis -Serial H/H -GI (Dr. Castano) consulted. -Keep NPO -IV Protonix drip started -Iv fluids -Tentative plan for EGD -Transfuse PRN to keep Hgb >7 #Renal -renal function stable -Bladder scan showed 1000cc of retained urine, erickson cath inserted yesterday -Will maintain erickson for now #ID -ID (Dr. Borjas) consulted. Recommendations appreciated. -Hold any antibiotics for now #Endo -Hx of DM -Will hold home Metformin -Insulin sliding scale -BGM q6h #Anemia -Anemia 2/2 acute GI blood loss -s/p 1 u pRBC yesterday -Hgb stable at 10.2 -Transfuse PRN to keep Hgb>7 -CBC q12h #FEN -IV NS @42cc/hr, boluses PRN -Routine bmp monitoring -NPO #Prophylaxis -DVT: SCDs -GI: Protonix drip #Disposition -ICU monitoring Visit type - Emergency Visit Emergency Visit: Yes ED Registration Date: 02/19/19 Care time: The patient presented to the Emergency Department on the above date and was hospitalized for further evaluation of their emergent condition. - New Patient This patient is new to me today: No - Critical Care Critical Care patient: Yes Total Critical Care Time (in minutes): 35 Critical Care Statement: The care of this patient involved high complexity decision making to prevent further life threatening deterioration of the patient 's condition and/or to evaluate & treat vital organ system(s) failure or risk of failure.
[2019-03-03] MEDS ORDERED: PT OWN MED DRAWER 7, Y5N ONE ×2 (09:49→21:01)
[2019-03-03] MEDS: LOSARTAN POTASSIUM 50 MG TABLET (FP) PO SCH (09:55)
[2019-03-03] MEDS: ISOSORBIDE MONONITRATE 30 MG TAB.SR.24H (FP) PO SCH (09:55)
[2019-03-03] MEDS: TETRACAINE/BENZOCAINE/BUTAMBEN 20 GM SPR TP SCH (09:55)
[2019-03-03] MEDS: PANTOPRAZOLE 40 MG TABLET (FP) PO SCH (09:55)
[2019-03-03] MEDS: GABAPENTIN 100 MG CAPSULE (FP) PO SCH ×2 (09:55→21:09)
--- NOTE | 2019-03-03 11:35 | PN ---
Teaching Attending Note Name of Resident: Mackenzie Moss ATTENDING PHYSICIAN STATEMENT I saw and evaluated the patient. I reviewed the resident's note and discussed the case with the resident. I agree with the resident's findings and plan as documented. SUBJECTIVE: Pt seen and examined in the ICU. Transferred down after having episodes of BRBPR. Hemodynamically stable. Denies abdominal pain, shortness of breath or chest pain. OBJECTIVE: Vital Signs Period Temp Pulse Resp BP Sys/Perry Pulse Ox Last 24 Hr 97.2 F-98.5 F 82-108 14-24 94-151/45-89 93-100 Intake & Output 02/28/19 03/01/19 03/02/19 03/03/19 23:59 23:59 23:59 23:59 Intake Total 635 724 2894 431.4 Output Total 2800 400 Balance 805 570 -1128 31.4 Weight 58.287 kg 58.202 kg Gen: NAD at rest Heart: RRR Lung: decreased breath sounds at the bases Abd: soft, nontender Ext: no edema CBC, BMP 03/03/19 05:30 03/03/19 05:30 Active Medications Atorvastatin Calcium (Lipitor -) 40 mg PO HS [facility] Last Admin: 03/02/19 22:38 Dose: 40 mg Benzocaine/Butamben/Tetracaine HCl (Cetacaine [place] -) 1 spray TP DAILY [facility] Last Admin: 03/03/19 09:55 Dose: 1 spray Gabapentin (Neurontin -) 100 mg PO BID [facility] Last Admin: 03/03/19 09:55 Dose: 100 mg Sodium Chloride (Normal Saline -) 1,000 mls @ 42 mls/hr IV ASDIR [facility] Last Admin: 03/02/19 09:48 Dose: 42 mls/hr Insulin Aspart (Novolog Vial Sliding Scale -) 1 vial SQ ACHS [facility]; Protocol Last Admin: 03/03/19 06:04 Dose: Not Given Isosorbide Mononitrate (Imdur -) 30 mg PO DAILY [facility] Last Admin: 03/03/19 09:55 Dose: 30 mg Losartan Potassium (Cozaar -) 100 mg PO DAILY [facility] Last Admin: 03/03/19 09:55 Dose: 100 mg Metformin HCl (Glucophage -) 500 mg PO BID@0700,1630 [facility] Last Admin: 03/03/19 06:04 Dose: 500 mg Pantoprazole Sodium (Protonix -) 40 mg PO BID AI Last Admin: 03/03/19 09:55 Dose: 40 mg ASSESSMENT AND PLAN: GI Bleed Acute Blood Loss Anemia Perforated Duodenal Ulcer s/p ex-lap/repair 02/19 DM HTN - monitor H/H - transfuse as needed - protonix - GI f/u for endoscopy - NPO for now - IVF - DVT prophylaxis - disposition pending endoscopy -
[2019-03-03] MEDS: SODIUM CHLORIDE 1,000 ML IV SCH (12:18)
--- NOTE | 2019-03-03 12:19 | PN ---
Progress Note, Physician History of Present Illness: Surgery: Patient is currently not bleeding. Hematocrit is 29. has no abdominal pain. Scheduled to have endoscopy today. Abdomen is soft. CT scan suggests an enlarged head of pancreas and an MRCP is recommended. marked diverticulii in the descending colon. Problems: Lower g.i. bleed, ? etilogy, Enlarged / Prominent head of pancreas. Blood loss anemia. - Current Medication List Current Medications: Active Medications Atorvastatin Calcium (Lipitor -) 40 mg PO HS [facility] Last Admin: 03/02/19 22:38 Dose: 40 mg Benzocaine/Butamben/Tetracaine HCl (Cetacaine [place] -) 1 spray TP DAILY [facility] Last Admin: 03/03/19 09:55 Dose: 1 spray Gabapentin (Neurontin -) 100 mg PO BID [facility] Last Admin: 03/03/19 09:55 Dose: 100 mg Sodium Chloride (Normal Saline -) 1,000 mls @ 42 mls/hr IV ASDIR [facility] Last Admin: 03/02/19 09:48 Dose: 42 mls/hr Insulin Aspart (Novolog Vial Sliding Scale -) 1 vial SQ ACHS [facility]; Protocol Last Admin: 03/03/19 06:04 Dose: Not Given Isosorbide Mononitrate (Imdur -) 30 mg PO DAILY [facility] Last Admin: 03/03/19 09:55 Dose: 30 mg Losartan Potassium (Cozaar -) 100 mg PO DAILY [facility] Last Admin: 03/03/19 09:55 Dose: 100 mg Metformin HCl (Glucophage -) 500 mg PO BID@0700,1630 [facility] Last Admin: 03/03/19 06:04 Dose: 500 mg Pantoprazole Sodium (Protonix -) 40 mg PO BID [facility] Last Admin: 03/03/19 09:55 Dose: 40 mg - Objective Vital Signs: Vital Signs Temperature 97.5 F L 03/03/19 10:00 Pulse Rate 85 03/03/19 10:00 Respiratory Rate 19 03/03/19 10:00 Blood Pressure 151/89 03/03/19 10:00 O2 Sat by Pulse Oximetry (%) 100 03/03/19 09:00 Labs: CBC, BMP 03/03/19 05:30 03/03/19 05:30 INR, PTT INR 0.94 (0.83-1.09) 02/19/19 09:50
--- NOTE | 2019-03-03 14:38 | PN ---
Progress Note (short form) - Note Progress Note: EGD complete. report left in procedural section of physical chart and to be scanned into [employer]
--- NOTE | 2019-03-03 16:27 | PN ---
Progress Note (short form) - Note Progress Note: Spoke with Ms. Palumbo post procedure. Explained that no source of rectal bleeding and anemia noted on EGD. AHs never had colonosocpy. Discussed potential risks of the procedure like but not limited to bleeding, perforation requiring surgery to repair, infection, sedation medication effects all of which could be potentially life threatening. She has agreed to the procedure. Plan for 03/04.
[2019-03-03] MEDS ORDERED: BISACODYL 5 MG TABLET.DR (FP) PO ONE (17:00)
[2019-03-03 17:39] LABS: HEMATOCRIT 30.7 % (32.4-45.2); HEMOGLOBIN 10.1 GM/dL (10.7-15.3); MCH 30.1 pg (25.7-33.7); MCHC 32.8 g/dl (32.0-36.0); MEAN PLT VOLUME 7.4 fl (7.5-11.1); PLATELET COUNT 351 K/MM3 (134-434); RBC 3.34 M/mm3 (3.60-5.2); RDW 15.7 % (11.6-15.6); WHITE BLOOD COUNT 11.4 K/mm3 (4.0-10.0)
[2019-03-03] MEDS ORDERED: POLYETHYLENE GLYCOL 3350 255 GM BTL PO ONE (18:00)
[2019-03-03 18:06] LABS: AMYLASE 332 U/L (25-115); LIPASE 2142 U/L (73-393)
[2019-03-03] MEDS: ATORVASTATIN CA 40 MG TABLET (FP) PO SCH (21:09)
[2019-03-03] MEDS: PANTOPRAZOLE 20 MG TABLET (FP) PO SCH (21:09)
[2019-03-04] MEDS: metFORMIN HCL 500 MG TABLET (FP) PO SCH (06:09)
[2019-03-04] MEDS: INSULIN SLIDING SCALE (NOVOLOG) 1 VIAL SQ SCH ×4 (06:09→21:08)
[2019-03-04 06:40] LABS: HEMATOCRIT 30.5 % (32.4-45.2); HEMOGLOBIN 10.3 GM/dL (10.7-15.3); MCH 30.7 pg (25.7-33.7); MCHC 33.8 g/dl (32.0-36.0); MEAN CELL VOLUME 90.8 fl (80-96); MEAN PLT VOLUME 7.7 fl (7.5-11.1); PLATELET COUNT 374 K/MM3 (134-434); RBC 3.35 M/mm3 (3.60-5.2); RDW 15.6 % (11.6-15.6); WHITE BLOOD COUNT 9.8 K/mm3 (4.0-10.0)
[2019-03-04] MEDS ORDERED: PT OWN MED DRAWER 7, Y5N ONE ×2 (08:19→09:16)
[2019-03-04 08:24] LABS: CREATININE 0.7 mg/dL (0.55-1.3); POTASSIUM 3.7 mmol/L (3.5-5.1)
[2019-03-04 08:25] LABS: ALBUMIN 2.7 g/dl (3.4-5.0); BILIRUBIN,TOTAL 0.7 mg/dL (0.2-1); CALCIUM 8.3 mg/dL (8.5-10.1); MAGNESIUM 2.1 mg/dL (1.8-2.4); PHOSPHOROUS 3.5 mg/dL (2.5-4.9); TOT PROT 5.4 g/dl (6.4-8.2)
--- NOTE | 2019-03-04 08:35 | PN ---
Progress Note, Physician - Current Medication List Current Medications: Active Medications Atorvastatin Calcium (Lipitor -) 40 mg PO HS [facility] Last Admin: 03/03/19 21:09 Dose: 40 mg Benzocaine/Butamben/Tetracaine HCl (Cetacaine [place] -) 1 spray TP DAILY [facility] Last Admin: 03/03/19 09:55 Dose: 1 spray Gabapentin (Neurontin -) 100 mg PO BID [facility] Last Admin: 03/03/19 21:09 Dose: 100 mg Sodium Chloride (Normal Saline -) 1,000 mls @ 42 mls/hr IV ASDIR [facility] Last Admin: 03/03/19 12:18 Dose: 42 mls/hr Insulin Aspart (Novolog Vial Sliding Scale -) 1 vial SQ [facility]; Protocol Last Admin: 03/04/19 06:09 Dose: Not Given Isosorbide Mononitrate (Imdur -) 30 mg PO DAILY [facility] Last Admin: 03/03/19 09:55 Dose: 30 mg Losartan Potassium (Cozaar -) 100 mg PO DAILY [facility] Last Admin: 03/03/19 09:55 Dose: 100 mg Pantoprazole Sodium (Protonix -) 20 mg PO BID [facility] Last Admin: 03/03/19 21:09 Dose: 20 mg - Objective Vital Signs: Vital Signs Temperature 98.7 F 03/04/19 06:00 Pulse Rate 91 H 03/04/19 08:00 Respiratory Rate 18 03/04/19 08:00 Blood Pressure 132/57 L 03/04/19 08:00 O2 Sat by Pulse Oximetry (%) 100 03/04/19 08:01 Cardiovascular: Yes: S1, S2 Respiratory: Yes: Regular, CTA Bilaterally Gastrointestinal: Yes: Normal Bowel Sounds, Soft. No: Tenderness Labs: CBC, BMP 03/04/19 05:30 03/04/19 05:30 INR, PTT INR 0.94 (0.83-1.09) 02/19/19 09:50 Problem List - Problems (1) Perforated chronic peptic ulcer Code(s): K27.5 - CHRONIC OR UNSP PEPTIC ULCER, SITE UNSP, WITH PERFORATION (2) Diabetes Code(s): E11.9 - TYPE 2 DIABETES MELLITUS WITHOUT COMPLICATIONS (3) Sepsis Code(s): A41.9 - SEPSIS, UNSPECIFIED ORGANISM Assessment/Plan - Problems (1) Diabetes Assessment/Plan: -BGM ACHS -ISS -diabetic diet Code(s): E11.9 - TYPE 2 DIABETES MELLITUS WITHOUT COMPLICATIONS (2) Perforated chronic peptic ulcer Assessment/Plan: -Surgery on board -s/p exploratory laparotomy -drain removed and dressing in place without -Upper GI Series shows no extravasation -monitor off antibiotics Code(s): K27.5 - CHRONIC OR UNSP PEPTIC ULCER, SITE UNSP, WITH PERFORATION (3) Sepsis Assessment/Plan: -WBC 10.0 -afebrile -ID on board -will monitor off ABT Code(s): A41.9 - SEPSIS, UNSPECIFIED ORGANISM (4) Diarrhea Assessment/Plan: -stool culture neg -resolved Code(s): R19.7 - DIARRHEA, UNSPECIFIED (5) Rectal bleeding Assessment/Plan: -GI consult -IV hydration -Hg drop 12.0-9.8 Laboratory Tests 03/02/19 03/02/19 03/03/19 06:40 16:40 05:30 Hgb 9.8 L 10.4 L 10.2 L BUN Creatinine 03/03/19 05:30 Hgb BUN 8 Creatinine 0.8 -Endoscpy per gi and surgery -NPO Code(s): K62.5 - HEMORRHAGE OF ANUS AND RECTUM
--- NOTE | 2019-03-04 08:38 | PN ---
Physical Exam: SUBJECTIVE: Patient seen and examined at bedside this morning. Patient had EGD yesterday. Plan for colonoscopy today, bowel prep started last night. No acute events overnight. No melena or hematochezia reported. Patient denies any fever, chills, headache, dizziness, chest pain, SOB, abdominal pain, diarrhea, urinary symptoms. OBJECTIVE: Vital Signs Temperature 98.7 F 03/04/19 06:00 Pulse Rate 91 H 03/04/19 08:00 Respiratory Rate 18 03/04/19 08:00 Blood Pressure 132/57 L 03/04/19 08:00 O2 Sat by Pulse Oximetry (%) 100 03/04/19 08:01 GENERAL: The patient is awake, alert, and fully oriented, in no acute distress. HEAD: Normal with no signs of trauma. EYES: PERRLA, EOMI, sclera anicteric, conjunctiva clear. ENT:oropharynx clear without exudates, dry mucous membranes. NECK: Trachea midline, supple. LUNGS: Breath sounds equal, clear to auscultation bilaterally. HEART: Regular rate and rhythm, S1, S2 without murmur, rub or gallop. ABDOMEN: Soft, nontender, nondistended, normoactive bowel sounds. +midline wound clean, dry and intact with sterile strips EXTREMITIES: 2+ pulses, warm, well-perfused, no edema. NEUROLOGICAL: Cranial nerves II through XII grossly intact. Normal speech, gait not observed. PSYCH: Normal mood, normal affect. SKIN: Warm, dry, normal turgor, no rashes or lesions noted Laboratory Results - last 24 hr 03/03/19 03/03/19 03/03/19 12:33 17:00 17:00 WBC 11.4 H RBC 3.34 L Hgb 10.1 L Hct 30.7 L MCV 92.0 MCH 30.1 MCHC 32.8 RDW 15.7 H Plt Count 351 MPV 7.4 L POC Glucometer 114 Total Amylase 332 H Lipase 2142 H 03/03/19 03/03/19 03/04/19 17:47 21:08 05:30 WBC 9.8 RBC 3.35 L Hgb 10.3 L Hct 30.5 L MCV 90.8 MCH 30.7 MCHC 33.8 RDW 15.6 Plt Count 374 MPV 7.7 POC Glucometer 99 195 Total Amylase Lipase 03/04/19 06:03 WBC RBC Hgb Hct MCV MCH MCHC RDW Plt Count MPV POC Glucometer 114 Total Amylase Lipase Active Medications Generic Name Dose Route Start Last Admin Trade Name Yovani PRN Reason Stop Dose Admin Atorvastatin Calcium 40 mg 02/28/19 22:00 03/03/19 21:09 Lipitor - PO 40 mg HS AI Administration Benzocaine/Butamben/Tetracaine HCl 1 spray 02/23/19 19:00 03/03/19 09:55 Cetacaine [place] - TP 1 spray DAILY AI Administration Gabapentin 100 mg 02/28/19 22:00 03/03/19 21:09 Neurontin - PO 100 mg BID AI Administration Sodium Chloride 1,000 mls @ 42 mls/hr 03/02/19 09:45 03/03/19 12:18 Normal Saline - IV 42 mls/hr ASDIR AI Administration Insulin Aspart 1 vial 02/21/19 16:30 03/04/19 06:09 Novolog Vial Sliding Scale - SQ Not Given ACHS AI Protocol Isosorbide Mononitrate 30 mg 02/28/19 10:00 03/03/19 09:55 Imdur - PO 30 mg DAILY AI Administration Losartan Potassium 100 mg 02/28/19 10:00 03/03/19 09:55 Cozaar - PO 100 mg DAILY AI Administration Metformin HCl 500 mg 02/28/19 16:30 03/04/19 06:09 Glucophage - PO Not Given BID@0700,1630 AI Pantoprazole Sodium 20 mg 03/03/19 22:00 03/03/19 21:09 Protonix - PO 20 mg BID AI Administration ASSESSMENT/PLAN: Patient is an 88 year old female with past medical history of DM, HTN, HLD and CAD (s/p stent placement in 2008), presented to the ED due to sudden onset diffuse abdominal pain. #Neuro -awake, alert and oriented x3 #Cardiovascular -Hx of HTN, HLD -Losartan 100mg daily -Atorvastatin 40mg daily #Pulmonology -On 2L NC, saturating >90% #GI -Acute GI bleed, likely 2/2 LGIB -EGD done yesterday: Duodenitis. Esophagus, stomach, rest of duodenum unremarkable. No bleeding source. -CT abdomen/pelvis: Cholelithiasis. Mild right sided hydronephrosis and hydroureter without obvious obstruction. Prominent pancreatic head. Markedly dilated urinary bladder. Extensive left sided diverticulosis without evidence of acute diverticulitis. Fecal retention. No acute pathology within the abdomen or plevis. -Pancreatic head prominent, may need MRCP. -Lipase (2142) and Amylase (332) elevated -Surgery (Dr. Kyle) consulted. Recommendations appreciated -POD 11: exploratory laparotomy. Repair of perforated duodenal ulcer with plication and omental overlay. -Post-op findings: Perforation of anterior wall of duodenum with peritonitis -GI (Dr. Liu) consulted. Recommendations appreciated. -Keep NPO except meds -Avoid NSAIDs -PO Protonix 20mg BID -IV fluids -Plan for colonoscopy today -Transfuse PRN to keep Hgb >7 #Renal -renal function stable -Becerra cath inserted (03/02) for urine retention #ID -ID (Dr. Borjas) consulted. Recommendations appreciated. -Hold any antibiotics for now #Endo -Hx of DM -Will hold home Metformin -Insulin sliding scale -BGM q6h #Anemia -Anemia 2/2 acute GI blood loss -s/p 1 u pRBC (03/02) -Hgb stable at 10.3 -Transfuse PRN to keep Hgb>7 -CBC q12h #FEN -IV NS @42cc/hr, boluses PRN -Routine bmp monitoring -NPO except for meds #Prophylaxis -DVT: SCDs -GI: Pantoprazole 20mg PO BID #Disposition -ICU monitoring -await colonoscopy results, then will transfer to [facility]-surg Visit type - Emergency Visit Emergency Visit: Yes ED Registration Date: 02/19/19 Care time: The patient presented to the Emergency Department on the above date and was hospitalized for further evaluation of their emergent condition. - New Patient This patient is new to me today: No - Critical Care Critical Care patient: Yes Total Critical Care Time (in minutes): 35 Critical Care Statement: The care of this patient involved high complexity decision making to prevent further life threatening deterioration of the patient 's condition and/or to evaluate & treat vital organ system(s) failure or risk of failure.
[2019-03-04] MEDS: ISOSORBIDE MONONITRATE 30 MG TAB.SR.24H (FP) PO SCH (09:41)
[2019-03-04] MEDS: LOSARTAN POTASSIUM 50 MG TABLET (FP) PO SCH (09:41)
[2019-03-04] MEDS: GABAPENTIN 100 MG CAPSULE (FP) PO SCH ×2 (09:41→21:08)
[2019-03-04] MEDS: PANTOPRAZOLE 20 MG TABLET (FP) PO SCH ×2 (10:04→21:08)
[2019-03-04] MEDS: TETRACAINE/BENZOCAINE/BUTAMBEN 20 GM SPR TP SCH (10:08)
[2019-03-04] MEDS: SODIUM CHLORIDE 1,000 ML IV SCH (10:09)
--- NOTE | 2019-03-04 10:16 | PN ---
Teaching Attending Note Name of Resident: Mackenzie Moss ATTENDING PHYSICIAN STATEMENT I saw and evaluated the patient. I reviewed the resident's note and discussed the case with the resident. I agree with the resident's findings and plan as documented. SUBJECTIVE: Pt seen and examined in the ICU. s/p EGD showing duodenitis. For colonoscopy today. OBJECTIVE: Vital Signs Period Temp Pulse Resp BP Sys/Perry Pulse Ox Last 24 Hr 97.4 F-98.7 F 89-100 16-22 105-139/51-76 100-100 Intake & Output 03/01/19 03/02/19 03/03/19 03/04/19 23:59 23:59 23:59 23:59 Intake Total 570 1672 2581.4 Output Total 2800 400 Balance 570 -1128 2181.4 Weight 58.287 kg 58.202 kg 59.012 kg Gen: NAD at rest Heart: RRR Lung: decreased breath sounds at the bases Abd: soft, nontender Ext: no edema CBC, BMP 03/04/19 05:30 03/04/19 05:30 Active Medications Atorvastatin Calcium (Lipitor -) 40 mg PO HS [facility] Last Admin: 03/03/19 21:09 Dose: 40 mg Benzocaine/Butamben/Tetracaine HCl (Cetacaine [place] -) 1 spray TP DAILY [facility] Last Admin: 03/04/19 10:08 Dose: 1 spray Gabapentin (Neurontin -) 100 mg PO BID [facility] Last Admin: 03/04/19 09:41 Dose: 100 mg Sodium Chloride (Normal Saline -) 1,000 mls @ 42 mls/hr IV ASDIR [facility] Last Admin: 03/04/19 10:09 Dose: 42 mls/hr Insulin Aspart (Novolog Vial Sliding Scale -) 1 vial SQ ACHS [facility]; Protocol Last Admin: 03/04/19 06:09 Dose: Not Given Isosorbide Mononitrate (Imdur -) 30 mg PO DAILY [facility] Last Admin: 03/04/19 09:41 Dose: 30 mg Losartan Potassium (Cozaar -) 100 mg PO DAILY [facility] Last Admin: 03/04/19 09:41 Dose: 100 mg Pantoprazole Sodium (Protonix -) 20 mg PO BID [facility] Last Admin: 03/04/19 10:04 Dose: 20 mg ASSESSMENT AND PLAN: GI Bleed Acute Blood Loss Anemia Pancreatic Mass Perforated Duodenal Ulcer s/p ex-lap/repair 02/19 DM HTN - monitor H/H - transfuse as needed - protonix - for colonoscopy today - IVF - for MRCP - DVT prophylaxis - can monitor on floor
--- NOTE | 2019-03-04 11:00 | PN ---
Progress Note (short form) - Note Progress Note: Spoke to Gen Palumbo, , who is the patient's [id number], brother to her . He said he has power of Office Worker but no such documents on file. Asked about the patient's welfare, he said he had visited her in hospital and had called and received information prior. He wanted to know if she was stable enough to be transferred back to the floors. Let him know endoscopy did not show any bleeding site, but she was pending colonoscopy and if negative would be transferred to Med Surg.
[2019-03-04 13:01] LABS: BASO % 0.5 % (0-2.0); EOS % 1.6 % (0-4.5); HEMATOCRIT 31.1 % (32.4-45.2); HEMOGLOBIN 10.3 GM/dL (10.7-15.3); LYMPH % 13.2 % (8-40); MCH 30.7 pg (25.7-33.7); MEAN CELL VOLUME 92.9 fl (80-96); MEAN PLT VOLUME 7.6 fl (7.5-11.1); MONO % 8.6 % (3.8-10.2); NEUT % 76.1 % (42.8-82.8); PLATELET COUNT 398 K/MM3 (134-434); RBC 3.35 M/mm3 (3.60-5.2); RDW 15.6 % (11.6-15.6); WHITE BLOOD COUNT 8.6 K/mm3 (4.0-10.0)
--- NOTE | 2019-03-04 13:29 | PN ---
Progress Note, Physician History of Present Illness: patient stable no new issues no bleeding any mores plan for colonoscopy abd pain better - Current Medication List Current Medications: Active Medications Atorvastatin Calcium (Lipitor -) 40 mg PO HS [facility] Last Admin: 03/03/19 21:09 Dose: 40 mg Benzocaine/Butamben/Tetracaine HCl (Cetacaine [place] -) 1 spray TP DAILY [facility] Last Admin: 03/04/19 10:08 Dose: 1 spray Gabapentin (Neurontin -) 100 mg PO BID [facility] Last Admin: 03/04/19 09:41 Dose: 100 mg Sodium Chloride (Normal Saline -) 1,000 mls @ 42 mls/hr IV ASDIR [facility] Last Admin: 03/04/19 10:09 Dose: 42 mls/hr Insulin Aspart (Novolog Vial Sliding Scale -) 1 vial SQ ACHS [facility]; Protocol Last Admin: 03/04/19 11:55 Dose: Not Given Isosorbide Mononitrate (Imdur -) 30 mg PO DAILY [facility] Last Admin: 03/04/19 09:41 Dose: 30 mg Losartan Potassium (Cozaar -) 100 mg PO DAILY [facility] Last Admin: 03/04/19 09:41 Dose: 100 mg Pantoprazole Sodium (Protonix -) 20 mg PO BID [facility] Last Admin: 03/04/19 10:04 Dose: 20 mg - Objective Vital Signs: Vital Signs Temperature 98.2 F 03/04/19 12:00 Pulse Rate 99 H 03/04/19 12:00 Respiratory Rate 18 03/04/19 12:00 Blood Pressure 139/60 03/04/19 12:00 O2 Sat by Pulse Oximetry (%) 100 03/04/19 08:01 Constitutional: Yes: Calm, Mild Distress Cardiovascular: Yes: Regular Rate and Rhythm Respiratory: Yes: Regular, CTA Bilaterally Gastrointestinal: Yes: Soft, Hypoactive Bowel Sounds, Tenderness Musculoskeletal: Yes: WNL Extremities: Yes: WNL Neurological: Yes: Alert, Oriented Psychiatric: Yes: Alert, Oriented Labs: CBC, BMP 03/04/19 05:30 INR, PTT INR 0.94 (0.83-1.09) 02/19/19 09:50 Assessment/Plan Assessment/Plan Perforated viscus, dehydration, CAD, Obesity. Plan : Hydrate , Antibiotics, Emergency laparotomy , perforated ulcer. gi bleed plan continue as per icu monitor colonoscopy rest as per the team stable cc 38 min
--- NOTE | 2019-03-04 15:29 | PN ---
Progress Note (short form) - Note Progress Note: Brief GI note Colonoscopy performed today revealing scattered diverticulosis throughout the colon and moderate/large internal hemorrhoids, both potential sources of lower GI bleed. No blood seen on this exam. 2 diminutive polyps also seen in right colon and transverse colon, removed with cold forceps. See scanned endoscopy report for additional details. Recommendations: -Observe patient in MICU -Continue to monitor Hb and for evidence of bleeding -Resume previous diet, once diet advanced advise high fiber -Follow up pathology results -Attempted to contact pts son to discuss, no answer, VM not available.
[2019-03-04 17:43] LABS: HEMATOCRIT 30.5 % (32.4-45.2); HEMOGLOBIN 10.1 GM/dL (10.7-15.3); MCH 30.6 pg (25.7-33.7); MCHC 33.2 g/dl (32.0-36.0); MEAN CELL VOLUME 92.2 fl (80-96); MEAN PLT VOLUME 7.5 fl (7.5-11.1); PLATELET COUNT 410 K/MM3 (134-434); RBC 3.31 M/mm3 (3.60-5.2); RDW 15.5 % (11.6-15.6); WHITE BLOOD COUNT 8.5 K/mm3 (4.0-10.0)
[2019-03-04] MEDS: ATORVASTATIN CA 40 MG TABLET (FP) PO SCH (21:08)
[2019-03-05] MEDS ORDERED: ACETAMINOPHEN 325 MG TABLET (FP) PO PRN (02:11)
[2019-03-05] MEDS ORDERED: ACETAMINOPHEN 325 MG TABLET (FP) ONE (02:20)
[2019-03-05] MEDS: INSULIN SLIDING SCALE (NOVOLOG) 1 VIAL SQ SCH ×4 (06:16→22:38)
[2019-03-05 06:20] LABS: BASO % 0.8 % (0-2.0); EOS % 2.6 % (0-4.5); HEMATOCRIT 26.8 % (32.4-45.2); HEMOGLOBIN 9.2 GM/dL (10.7-15.3); LYMPH % 18.1 % (8-40); MCH 31.3 pg (25.7-33.7); MCHC 34.4 g/dl (32.0-36.0); MEAN PLT VOLUME 7.6 fl (7.5-11.1); MONO % 10.8 % (3.8-10.2); NEUT % 67.7 % (42.8-82.8); PLATELET COUNT 383 K/MM3 (134-434); RBC 2.95 M/mm3 (3.60-5.2); RDW 15.6 % (11.6-15.6)
[2019-03-05 06:55] LABS: ALBUMIN 2.5 g/dl (3.4-5.0); BILIRUBIN,TOTAL 0.6 mg/dL (0.2-1); CREATININE 0.6 mg/dL (0.55-1.3); PHOSPHOROUS 3.5 mg/dL (2.5-4.9); POTASSIUM 3.7 mmol/L (3.5-5.1); TOT PROT 5.1 g/dl (6.4-8.2)
[2019-03-05] MEDS: GABAPENTIN 100 MG CAPSULE (FP) PO SCH ×2 (10:07→22:32)
[2019-03-05] MEDS: LOSARTAN POTASSIUM 50 MG TABLET (FP) PO SCH (10:07)
[2019-03-05] MEDS: PANTOPRAZOLE 20 MG TABLET (FP) PO SCH ×2 (10:07→22:32)
[2019-03-05] MEDS: ISOSORBIDE MONONITRATE 30 MG TAB.SR.24H (FP) PO SCH (10:07)
[2019-03-05] MEDS: TETRACAINE/BENZOCAINE/BUTAMBEN 20 GM SPR TP SCH (10:21)
--- NOTE | 2019-03-05 10:37 | PN ---
Teaching Attending Note Name of Resident: Mackenzie Moss ATTENDING PHYSICIAN STATEMENT I saw and evaluated the patient. I reviewed the resident's note and discussed the case with the resident. I agree with the resident's findings and plan as documented. SUBJECTIVE: Pt seen and examined in the ICU. s/p colonoscopy showing diverticulosism, internal hemorrhoids, s/p polypectomy x 2. No further bleeding noted. OBJECTIVE: Vital Signs Period Temp Pulse Resp BP Sys/Perry Pulse Ox Last 24 Hr 97.4 F-98.4 F 85-104 15-21 96-139/52-78 100-100 Intake & Output 03/02/19 03/03/19 03/04/19 03/05/19 23:59 23:59 23:59 23:59 Intake Total 1672 2581.4 1220 504 Output Total 2800 400 1300 Balance -1128 2181.4 -80 504 Weight 58.287 kg 58.202 kg 59.012 kg 56.291 kg Gen: NAD at rest Heart: RRR Lung: decreased breath sounds at the bases Abd: soft, nontender Ext: no edema CBC, BMP 03/05/19 05:30 03/05/19 05:30 Active Medications Acetaminophen (Tylenol -) 325 mg PO Q4H PRN PRN Reason: PAIN LEVEL 4 - 6 Last Admin: 03/05/19 02:22 Dose: 325 mg Atorvastatin Calcium (Lipitor -) 40 mg PO HS [facility] Last Admin: 03/04/19 21:08 Dose: 40 mg Benzocaine/Butamben/Tetracaine HCl (Cetacaine [place] -) 1 spray TP DAILY [facility] Last Admin: 03/05/19 10:21 Dose: 1 spray Gabapentin (Neurontin -) 100 mg PO BID [facility] Last Admin: 03/05/19 10:07 Dose: 100 mg Sodium Chloride (Normal Saline -) 1,000 mls @ 42 mls/hr IV ASDIR [facility] Last Admin: 03/04/19 10:09 Dose: 42 mls/hr Insulin Aspart (Novolog Vial Sliding Scale -) 1 vial SQ ACHS [facility]; Protocol Last Admin: 03/05/19 06:16 Dose: Not Given Isosorbide Mononitrate (Imdur -) 30 mg PO DAILY [facility] Last Admin: 03/05/19 10:07 Dose: 30 mg Losartan Potassium (Cozaar -) 100 mg PO DAILY [facility] Last Admin: 03/05/19 10:07 Dose: 100 mg Pantoprazole Sodium (Protonix -) 20 mg PO BID [facility] Last Admin: 03/05/19 10:07 Dose: 20 mg ASSESSMENT AND PLAN: GI Bleed Acute Blood Loss Anemia Pancreatic Mass Perforated Duodenal Ulcer s/p ex-lap/repair 02/19 DM HTN - monitor H/H - transfuse as needed - PO as tolerated - can d/c IVF if tolerating PO - for MRCP - DVT prophylaxis - can monitor on floor
--- NOTE | 2019-03-05 11:27 | PN ---
Progress Note, Physician Chief Complaint: awake alert in icu s/p colonoscopy yesterday showed internal hemorrhoids and diverticulosis h/h stable no more bleeding - Current Medication List Current Medications: Active Medications Acetaminophen (Tylenol -) 325 mg PO Q4H PRN PRN Reason: PAIN LEVEL 4 - 6 Last Admin: 03/05/19 02:22 Dose: 325 mg Atorvastatin Calcium (Lipitor -) 40 mg PO HS [facility] Last Admin: 03/04/19 21:08 Dose: 40 mg Benzocaine/Butamben/Tetracaine HCl (Cetacaine [place] -) 1 spray TP DAILY [facility] Last Admin: 03/05/19 10:21 Dose: 1 spray Gabapentin (Neurontin -) 100 mg PO BID [facility] Last Admin: 03/05/19 10:07 Dose: 100 mg Insulin Aspart (Novolog Vial Sliding Scale -) 1 vial SQ ACHS [facility]; Protocol Last Admin: 03/05/19 06:16 Dose: Not Given Isosorbide Mononitrate (Imdur -) 30 mg PO DAILY [facility] Last Admin: 03/05/19 10:07 Dose: 30 mg Losartan Potassium (Cozaar -) 100 mg PO DAILY [facility] Last Admin: 03/05/19 10:07 Dose: 100 mg Pantoprazole Sodium (Protonix -) 20 mg PO BID [facility] Last Admin: 03/05/19 10:07 Dose: 20 mg - Objective Vital Signs: Vital Signs Temperature 98.4 F 03/05/19 06:00 Pulse Rate 91 H 03/05/19 08:00 Respiratory Rate 20 03/05/19 09:00 Blood Pressure 124/77 03/05/19 08:00 O2 Sat by Pulse Oximetry (%) 100 03/05/19 09:00 Constitutional: Yes: Calm Cardiovascular: Yes: Regular Rate and Rhythm, S1, S2 Respiratory: Yes: CTA Bilaterally Gastrointestinal: Yes: Normal Bowel Sounds, Soft, Other (midline steristrips) Neurological: Yes: Alert, Oriented Labs: CBC, BMP 03/05/19 05:30 03/05/19 05:30 INR, PTT INR 0.94 (0.83-1.09) 02/19/19 09:50 Problem List - Problems (1) Bowel perforation Assessment/Plan: S/p exploratory laprotomy and repair perforated duodenal ulcer drain removed tolerating diet Code(s): K63.1 - PERFORATION OF INTESTINE (NONTRAUMATIC) (2) Diabetes Assessment/Plan: sliding scale bgm noted metformin held bc of lactic acidosis Code(s): E11.9 - TYPE 2 DIABETES MELLITUS WITHOUT COMPLICATIONS Qualifiers: Diabetes mellitus type: type 2 (3) Rectal bleeding Assessment/Plan: s/p colonscopy h/h stable Code(s): K62.5 - HEMORRHAGE OF ANUS AND RECTUM (4) Pancreatic abnormality Assessment/Plan: noted on ct scan to get MRCP 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
--- NOTE | 2019-03-05 11:43 | PN ---
Physical Exam: SUBJECTIVE: Patient seen and examined at bedside this morning. No acute events overnight. Patient feels well and denies any fever, chills, headache, chest pain , SOB, palpitations, abdominal pain, diarrhea, bloody stools, or urinary symptoms. OBJECTIVE: Vital Signs Temperature 98.4 F 03/05/19 06:00 Pulse Rate 91 H 03/05/19 08:00 Respiratory Rate 20 03/05/19 09:00 Blood Pressure 124/77 03/05/19 08:00 O2 Sat by Pulse Oximetry (%) 100 03/05/19 09:00 GENERAL: The patient is awake, alert, and fully oriented, in no acute distress. HEAD: Normal with no signs of trauma. EYES: PERRLA, EOMI, sclera anicteric, conjunctiva clear. ENT:oropharynx clear without exudates, dry mucous membranes. NECK: supple. LUNGS: Breath sounds equal, clear to auscultation bilaterally. HEART: Regular rate and rhythm, S1, S2 without murmur, rub or gallop. ABDOMEN: Soft, nontender, nondistended, normoactive bowel sounds. +midline wound clean, dry and intact with sterile strips EXTREMITIES: 2+ pulses, warm, well-perfused, no edema. NEUROLOGICAL: Cranial nerves II through XII grossly intact. Normal speech, gait not observed. PSYCH: Normal mood, normal affect. SKIN: Warm, dry, normal turgor, no rashes or lesions noted Laboratory Results - last 24 hr 03/04/19 03/04/19 03/04/19 11:52 12:40 16:16 WBC 8.6 RBC 3.35 L Hgb 10.3 L Hct 31.1 L MCV 92.9 MCH 30.7 MCHC 33.0 RDW 15.6 Plt Count 398 MPV 7.6 Absolute Neuts (auto) 6.5 Neutrophils % 76.1 Lymphocytes % 13.2 Monocytes % 8.6 Eosinophils % 1.6 Basophils % 0.5 Nucleated RBC % 0 Sodium Potassium Chloride Carbon Dioxide Anion Gap BUN Creatinine Est GFR (CKD-EPI)AfAm Est GFR (CKD-EPI)NonAf POC Glucometer 124 110 Random Glucose Calcium Phosphorus Magnesium Total Bilirubin AST ALT Alkaline Phosphatase Total Protein Albumin 03/04/19 03/04/19 03/05/19 17:21 21:07 05:30 WBC 8.5 7.0 RBC 3.31 L 2.95 L Hgb 10.1 L 9.2 L Hct 30.5 L 26.8 L MCV 92.2 91.0 MCH 30.6 31.3 MCHC 33.2 34.4 RDW 15.5 15.6 Plt Count 410 383 MPV 7.5 7.6 Absolute Neuts (auto) 4.8 Neutrophils % 67.7 Lymphocytes % 18.1 D Monocytes % 10.8 H Eosinophils % 2.6 Basophils % 0.8 Nucleated RBC % 0 Sodium Potassium Chloride Carbon Dioxide Anion Gap BUN Creatinine Est GFR (CKD-EPI)AfAm Est GFR (CKD-EPI)NonAf POC Glucometer 178 Random Glucose Calcium Phosphorus Magnesium Total Bilirubin AST ALT Alkaline Phosphatase Total Protein Albumin 03/05/19 03/05/19 05:30 05:32 WBC RBC Hgb Hct MCV MCH MCHC RDW Plt Count MPV Absolute Neuts (auto) Neutrophils % Lymphocytes % Monocytes % Eosinophils % Basophils % Nucleated RBC % Sodium 137 Potassium 3.7 Chloride 104 Carbon Dioxide 26 Anion Gap 7 L BUN 7 Creatinine 0.6 Est GFR (CKD-EPI)AfAm 95.66 Est GFR (CKD-EPI)NonAf 82.53 POC Glucometer 114 Random Glucose 117 H Calcium 8.0 L Phosphorus 3.5 Magnesium 2.0 Total Bilirubin 0.6 AST 17 ALT 14 Alkaline Phosphatase 63 Total Protein 5.1 L Albumin 2.5 L Active Medications Generic Name Dose Route Start Last Admin Trade Name Freq PRN Reason Stop Dose Admin Acetaminophen 325 mg 03/05/19 02:11 03/05/19 02:22 Tylenol - PO 325 mg Q4H PRN Administration PAIN LEVEL 4 - 6 Atorvastatin Calcium 40 mg 02/28/19 22:00 03/04/19 21:08 Lipitor - PO 40 mg HS AI Administration Benzocaine/Butamben/Tetracaine HCl 1 spray 02/23/19 19:00 03/05/19 10:21 Cetacaine [place] - TP 1 spray DAILY AI Administration Gabapentin 100 mg 02/28/19 22:00 03/05/19 10:07 Neurontin - PO 100 mg BID AI Administration Insulin Aspart 1 vial 02/21/19 16:30 03/05/19 06:16 Novolog Vial Sliding Scale - SQ Not Given ACHS AI Protocol Isosorbide Mononitrate 30 mg 02/28/19 10:00 03/05/19 10:07 Imdur - PO 30 mg DAILY AI Administration Losartan Potassium 100 mg 02/28/19 10:00 03/05/19 10:07 Cozaar - PO 100 mg DAILY AI Administration Pantoprazole Sodium 20 mg 03/03/19 22:00 03/05/19 10:07 Protonix - PO 20 mg BID AI Administration ASSESSMENT/PLAN: Patient is an 88 year old female with past medical history of DM, HTN, HLD and CAD (s/p stent placement in 2008), presented to the ED due to sudden onset diffuse abdominal pain. #Neuro -awake, alert and oriented x3 #Cardiovascular -Hx of HTN, HLD -Losartan 100mg daily -Atorvastatin 40mg daily #Pulmonology -On 2L NC, saturating >90% #GI -Acute GI bleed, likely 2/2 LGIB -EGD (03/03): Duodenitis. Esophagus, stomach, rest of duodenum unremarkable. No bleeding source. -Colonoscopy (03/04): Scattered diverticulosis throughout the colon and moderate /large internal hemorrhoids. No blood seen. Two diminutive polyps seen in right colon and transverse colon, removed with cold forceps. -CT abdomen/pelvis: Cholelithiasis. Mild right sided hydronephrosis and hydroureter without obvious obstruction. Prominent pancreatic head. Markedly dilated urinary bladder. Extensive left sided diverticulosis without evidence of acute diverticulitis. Fecal retention. No acute pathology within the abdomen or plevis. -Pancreatic head prominent. -MRCP pending -Lipase and Amylase elevated, trending down today -Surgery (Dr. Kyle) consulted. Recommendations appreciated -POD 14: exploratory laparotomy. Repair of perforated duodenal ulcer with plication and omental overlay. -Post-op findings: Perforation of anterior wall of duodenum with peritonitis -GI (Dr. Liu) consulted. Recommendations appreciated. -Resume diabetic, high fiber diet -To follow up biopsy results -Avoid NSAIDs -PO Protonix 20mg BID -Transfuse PRN to keep Hgb >7 #Renal -renal function stable -Erickson cath inserted (03/02) for urine retention -Will discontinue erickson for voiding trial -Bladder scan PRN #ID -ID (Dr. Borjas) consulted. Recommendations appreciated. -Hold any antibiotics for now #Endo -Hx of DM -Will hold home Metformin -Insulin sliding scale -BGM q6h #Anemia -Anemia 2/2 acute GI blood loss -s/p 1 u pRBC (03/02) -H/H stable -Transfuse PRN to keep Hgb>7 -Will continue monitor CBC #FEN -Not on any standing fluids -Routine bmp monitoring -Diabetic, high fiber diet #Prophylaxis -DVT: SCDs -GI: Pantoprazole 20mg PO BID #Disposition -full code -transfer to [facility]-surg Visit type - Emergency Visit Emergency Visit: Yes ED Registration Date: 02/19/19 Care time: The patient presented to the Emergency Department on the above date and was hospitalized for further evaluation of their emergent condition. - New Patient This patient is new to me today: No - Critical Care Critical Care patient: Yes Total Critical Care Time (in minutes): 35 Critical Care Statement: The care of this patient involved high complexity decision making to prevent further life threatening deterioration of the patient 's condition and/or to evaluate & treat vital organ system(s) failure or risk of failure.
[2019-03-05 12:14] LABS: BASO % 0.6 % (0-2.0); EOS % 1.9 % (0-4.5); HEMATOCRIT 30.1 % (32.4-45.2); HEMOGLOBIN 10.1 GM/dL (10.7-15.3); LYMPH % 14.6 % (8-40); MCH 30.8 pg (25.7-33.7); MCHC 33.4 g/dl (32.0-36.0); MEAN CELL VOLUME 92.3 fl (80-96); MEAN PLT VOLUME 7.4 fl (7.5-11.1); MONO % 9.9 % (3.8-10.2); PLATELET COUNT 418 K/MM3 (134-434); RBC 3.26 M/mm3 (3.60-5.2); RDW 15.3 % (11.6-15.6); WHITE BLOOD COUNT 7.1 K/mm3 (4.0-10.0)
--- NOTE | 2019-03-05 13:12 | PN ---
Progress Note, Physician History of Present Illness: stable no new issues - Current Medication List Current Medications: Active Medications Acetaminophen (Tylenol -) 325 mg PO Q4H PRN PRN Reason: PAIN LEVEL 4 - 6 Last Admin: 03/05/19 02:22 Dose: 325 mg Atorvastatin Calcium (Lipitor -) 40 mg PO HS [facility] Last Admin: 03/04/19 21:08 Dose: 40 mg Benzocaine/Butamben/Tetracaine HCl (Cetacaine [place] -) 1 spray TP DAILY [facility] Last Admin: 03/05/19 10:21 Dose: 1 spray Gabapentin (Neurontin -) 100 mg PO BID [facility] Last Admin: 03/05/19 10:07 Dose: 100 mg Insulin Aspart (Novolog Vial Sliding Scale -) 1 vial SQ ACHS [facility]; Protocol Last Admin: 03/05/19 06:16 Dose: Not Given Isosorbide Mononitrate (Imdur -) 30 mg PO DAILY [facility] Last Admin: 03/05/19 10:07 Dose: 30 mg Losartan Potassium (Cozaar -) 100 mg PO DAILY [facility] Last Admin: 03/05/19 10:07 Dose: 100 mg Pantoprazole Sodium (Protonix -) 20 mg PO BID [facility] Last Admin: 03/05/19 10:07 Dose: 20 mg - Objective Vital Signs: Vital Signs Temperature 98.4 F 03/05/19 06:00 Pulse Rate 91 H 03/05/19 08:00 Respiratory Rate 20 03/05/19 09:00 Blood Pressure 124/77 03/05/19 08:00 O2 Sat by Pulse Oximetry (%) 100 03/05/19 09:00 Constitutional: Yes: No Distress, Calm Cardiovascular: Yes: S1, S2 Respiratory: Yes: Regular, CTA Bilaterally Gastrointestinal: Yes: Normal Bowel Sounds, Soft Musculoskeletal: Yes: WNL Extremities: Yes: WNL Neurological: Yes: Alert, Oriented Psychiatric: Yes: Alert, Oriented Labs: CBC, BMP 03/05/19 11:55 03/05/19 05:30 INR, PTT INR 0.94 (0.83-1.09) 02/19/19 09:50 Assessment/Plan Assessment/Plan Perforated viscus, dehydration, CAD, Obesity. Plan : Hydrate , Antibiotics, Emergency laparotomy , perforated ulcer. gi bleed plan stable continue current mgmt colonoscopy noted rest as per the team
--- NOTE | 2019-03-05 14:19 | PATH ---
Surgical Pathology Report Patient Name: DISHA IBARRA [facility]. Rec. #: [id number] /Age/Gender: 1930 (Age: 88) / F Account: [id number] Location: ICU [employer] [facility] Taken: 03/03/2019 Received: 03/04/2019 Reported: 03/05/2019 Physicians: Cruz Benitez D.O. Specimen(s) Received ANGULARIS AND BODY Clinical History Anemia Postoperative diagnosis: Duodenitis Final Diagnosis STOMACH, ANGULARIS AND BODY, BIOPSY: GASTRIC BODY MUCOSA WITH MILD CHRONIC GASTRITIS. IMMUNOHISTOCHEMICAL STAIN FOR H. PYLORI IS NEGATIVE. Electronically Signed Disha Steven M.D. Gross Description Received in formalin, labeled "angularis and body biopsy" are 3 butcher, irregular portions of soft tissue ranging from 0.2-0.4 cm. in greatest dimension. The specimens are submitted in toto in one cassette. /03/04/2019 [facility]03/04/2019
[2019-03-05] MEDS: SODIUM CHLORIDE 1,000 ML IV SCH (16:33)
--- NOTE | 2019-03-05 19:33 | PN.GI ---
GI Progress Note Subjective: No focal complaints No abdominal pain H. pylori negative on gastric biopsies - Objective Vital Signs: Vital Signs Temperature 98.2 F 03/05/19 18:00 Pulse Rate 108 H 03/05/19 18:00 Respiratory Rate 20 03/05/19 18:00 Blood Pressure 120/65 03/05/19 18:00 O2 Sat by Pulse Oximetry (%) 100 03/05/19 09:00 Constitutional: Calm Eyes: No: Sclera Icterus Cardiovascular: Yes: Regular Rate and Rhythm Respiratory: Yes: CTA Bilaterally Gastrointestinal Inspection: Yes: Scars. No: Distention ...Auscultate: Yes: Normoactive Bowel Sounds ...Palpate: Yes: Soft Edema: No (No LE edema) Labs: CBC, BMP 03/05/19 11:55 03/05/19 05:30 INR, PTT INR 0.94 (0.83-1.09) 02/19/19 09:50 Problem List - Problems (1) Rectal bleeding Assessment/Plan: No further bleeding, suspected hemorrhoidal vs. diverticular S/P EGD / colonoscopy Recall as needed. Will sign off Code(s): K62.5 - HEMORRHAGE OF ANUS AND RECTUM
[2019-03-05] MEDS: ATORVASTATIN CA 40 MG TABLET (FP) PO SCH (22:32)
[2019-03-06] MEDS: INSULIN SLIDING SCALE (NOVOLOG) 1 VIAL SQ SCH ×4 (07:05→23:22)
[2019-03-06 07:42] LABS: EOS % 3.2 % (0-4.5); HEMATOCRIT 28.9 % (32.4-45.2); HEMOGLOBIN 9.9 GM/dL (10.7-15.3); LYMPH % 19.9 % (8-40); MCH 31.2 pg (25.7-33.7); MCHC 34.3 g/dl (32.0-36.0); MEAN PLT VOLUME 7.5 fl (7.5-11.1); MONO % 12.2 % (3.8-10.2); NEUT % 63.7 % (42.8-82.8); PLATELET COUNT 407 K/MM3 (134-434); RBC 3.17 M/mm3 (3.60-5.2); RDW 15.6 % (11.6-15.6); WHITE BLOOD COUNT 6.3 K/mm3 (4.0-10.0)
[2019-03-06 07:51] LABS: ALBUMIN 2.5 g/dl (3.4-5.0); BILIRUBIN,TOTAL 0.5 mg/dL (0.2-1); CALCIUM 8.3 mg/dL (8.5-10.1); CREATININE 0.7 mg/dL (0.55-1.3); MAGNESIUM 1.9 mg/dL (1.8-2.4); PHOSPHOROUS 3.2 mg/dL (2.5-4.9); POTASSIUM 3.7 mmol/L (3.5-5.1); TOT PROT 5.5 g/dl (6.4-8.2)
[2019-03-06] MEDS ORDERED: PT OWN MED DRAWER 7, Y5N ONE (10:41)
[2019-03-06] MEDS: TETRACAINE/BENZOCAINE/BUTAMBEN 20 GM SPR TP SCH (10:44)
[2019-03-06] MEDS: GABAPENTIN 100 MG CAPSULE (FP) PO SCH ×2 (10:45→23:21)
[2019-03-06] MEDS: LOSARTAN POTASSIUM 50 MG TABLET (FP) PO SCH (10:45)
[2019-03-06] MEDS: ISOSORBIDE MONONITRATE 30 MG TAB.SR.24H (FP) PO SCH (10:45)
[2019-03-06] MEDS: PANTOPRAZOLE 20 MG TABLET (FP) PO SCH ×2 (10:45→23:22)
--- NOTE | 2019-03-06 11:37 | PN ---
Progress Note, Physician History of Present Illness: clinically stable no issues - Current Medication List Current Medications: Active Medications Acetaminophen (Tylenol -) 325 mg PO Q4H PRN PRN Reason: PAIN LEVEL 4 - 6 Atorvastatin Calcium (Lipitor -) 40 mg PO HS [facility] Benzocaine/Butamben/Tetracaine HCl (Cetacaine [place] -) 1 spray TP DAILY [facility] Last Admin: 03/06/19 10:44 Dose: Not Given Gabapentin (Neurontin -) 100 mg PO BID [facility] Last Admin: 03/06/19 10:45 Dose: 100 mg Insulin Aspart (Novolog Vial Sliding Scale -) 1 vial SQ ACHS [facility]; Protocol Isosorbide Mononitrate (Imdur -) 30 mg PO DAILY [facility] Last Admin: 03/06/19 10:45 Dose: 30 mg Losartan Potassium (Cozaar -) 100 mg PO DAILY [facility] Last Admin: 03/06/19 10:45 Dose: 100 mg Pantoprazole Sodium (Protonix -) 20 mg PO BID [facility] Last Admin: 03/06/19 10:45 Dose: 20 mg - Objective Vital Signs: Vital Signs Temperature 98.6 F 03/06/19 06:00 Pulse Rate 88 03/06/19 06:00 Respiratory Rate 20 03/06/19 06:00 Blood Pressure 160/63 03/06/19 06:00 O2 Sat by Pulse Oximetry (%) 100 03/05/19 09:00 Constitutional: Yes: No Distress, Calm Cardiovascular: Yes: S1, S2 Respiratory: Yes: Regular, CTA Bilaterally Gastrointestinal: Yes: Normal Bowel Sounds, Soft Musculoskeletal: Yes: WNL Extremities: Yes: WNL Neurological: Yes: Alert, Oriented Psychiatric: Yes: Alert, Oriented Labs: CBC, BMP 03/06/19 06:48 03/06/19 06:48 INR, PTT INR 0.94 (0.83-1.09) 02/19/19 09:50 Assessment/Plan Assessment/Plan Perforated viscus, dehydration, CAD, Obesity. Plan : Hydrate , Antibiotics, Emergency laparotomy , perforated ulcer. gi bleed plan stable continue current mgmt colonoscopy noted rest as per the team
--- NOTE | 2019-03-06 16:09 | DS ---
Physical Examination Vital Signs: Vital Signs Temperature 98.1 F 03/06/19 15:00 Pulse Rate 106 H 03/06/19 15:00 Respiratory Rate 18 03/06/19 15:00 Blood Pressure 119/50 L 03/06/19 15:00 O2 Sat by Pulse Oximetry (%) 100 03/05/19 09:00 Findings/Remarks: Patient is an 88 y/o female with past medical history of DM and HTN. Patient complain of abdominal pain radiate to back x [address] scan in ER showed pneumoperitoneum. Patient is s/p exploratory laparotomy for repair of perforated duodenal ulcer. Constitutional: Yes: No Distress, Calm Eyes: Yes: Conjunctiva Clear HENT: Yes: Atraumatic Cardiovascular: Yes: Regular Rate and Rhythm Respiratory: Yes: Regular, CTA Bilaterally Gastrointestinal: Yes: Normal Bowel Sounds, Soft Musculoskeletal: Yes: Muscle Weakness Extremities: Yes: WNL Edema: No Neurological: Yes: Alert, Pre-Existing Deficit Psychiatric: Yes: Alert Labs: CBC, BMP 03/06/19 06:48 03/06/19 06:48 Discharge Summary Reason For Visit: PERFORATION OF INTESTINE Current Active Problems Bowel perforation (Acute) Diabetes (Acute) Diarrhea (Acute) Pancreatic abnormality (Acute) Perforated chronic peptic ulcer (Acute) Rectal bleeding (Acute) Rectal bleeding (Acute) Sepsis (Acute) Hospital Course: see progress notes Laboratory Tests 02/19/19 02/19/19 02/19/19 09:50 09:50 09:50 WBC 10.7 H RBC 5.05 Hgb 15.6 H Hct 46.3 H MCV 91.8 MCH 30.9 MCHC 33.6 RDW 15.4 Plt Count 381 MPV 7.5 Absolute Neuts (auto) 10.1 H Neutrophils % 94.4 H Neutrophils % (Manual) 87.2 H Band Neutrophils % 7.3 Lymphocytes % 2.6 L Lymphocytes % (Manual) 2.8 L Monocytes % 2.8 L Monocytes % (Manual) 2 L Eosinophils % 0.2 Eosinophils % (Manual) 0.0 Basophils % 0.0 Basophils % (Manual) 0.0 Myelocytes % (Man) 0 Promyelocytes % (Man) 0 Blast Cells % (Manual) 0 Nucleated RBC % 0 Metamyelocytes 1 Hypochromia 0 Platelet Estimate Normal Polychromasia 0 Poikilocytosis 0 Anisocytosis 0 Microcytosis 0 Macrocytosis 0 PT with INR 11.10 INR 0.94 Puncture Site ABG pH ABG pCO2 at Pt Temp ABG pO2 at Pt Temp ABG HCO3 ABG O2 Sat (Measured) ABG O2 Content ABG Base Excess Malik Test O2 Delivery Device Oxygen Flow Rate Sodium 122 L Potassium 4.8 Chloride 87 L Carbon Dioxide 24 Anion Gap 11 BUN 22 H Creatinine 1.0 Est GFR (CKD-EPI)AfAm 59.08 Est GFR (CKD-EPI)NonAf 50.97 POC Glucometer Random Glucose 279 H Serum Osmolality Lactic Acid Calcium 9.7 Phosphorus Magnesium Total Bilirubin 1.3 H AST 24 ALT 15 Alkaline Phosphatase 93 Creatine Kinase 110 Troponin I < 0.02 Total Protein 7.8 Albumin 4.0 Total Amylase Lipase 1992 H Stool Occult Blood Blood Type Antibody Screen Crossmatch 02/19/19 02/19/19 02/19/19 09:50 09:50 12:26 WBC RBC Hgb Hct MCV MCH MCHC RDW Plt Count MPV Absolute Neuts (auto) Neutrophils % Neutrophils % (Manual) Band Neutrophils % Lymphocytes % Lymphocytes % (Manual) Monocytes % Monocytes % (Manual) Eosinophils % Eosinophils % (Manual) Basophils % Basophils % (Manual) Myelocytes % (Man) Promyelocytes % (Man) Blast Cells % (Manual) Nucleated RBC % Metamyelocytes Hypochromia Platelet Estimate Polychromasia Poikilocytosis Anisocytosis Microcytosis Macrocytosis PT with INR INR Puncture Site ABG pH ABG pCO2 at Pt Temp ABG pO2 at Pt Temp ABG HCO3 ABG O2 Sat (Measured) ABG O2 Content ABG Base Excess Malik Test O2 Delivery Device Oxygen Flow Rate Sodium Potassium Chloride Carbon Dioxide Anion Gap BUN Creatinine Est GFR (CKD-EPI)AfAm Est GFR (CKD-EPI)NonAf POC Glucometer Random Glucose Serum Osmolality Lactic Acid 3.8 H* Calcium Phosphorus Magnesium Total Bilirubin AST ALT Alkaline Phosphatase Creatine Kinase Troponin I Total Protein Albumin Total Amylase Lipase Stool Occult Blood Blood Type A POSITIVE Cancelled Antibody Screen Negative Cancelled Crossmatch 02/19/19 02/19/19 02/19/19 13:32 13:32 17:26 WBC RBC Hgb Hct MCV MCH MCHC RDW Plt Count MPV Absolute Neuts (auto) Neutrophils % Neutrophils % (Manual) Band Neutrophils % Lymphocytes % Lymphocytes % (Manual) Monocytes % Monocytes % (Manual) Eosinophils % Eosinophils % (Manual) Basophils % Basophils % (Manual) Myelocytes % (Man) Promyelocytes % (Man) Blast Cells % (Manual) Nucleated RBC % Metamyelocytes Hypochromia Platelet Estimate Polychromasia Poikilocytosis Anisocytosis Microcytosis Macrocytosis PT with INR INR Puncture Site Arterial line ABG pH 7.33 L ABG pCO2 at Pt Temp 38.3 ABG pO2 at Pt Temp 65.9 L ABG HCO3 19.5 L ABG O2 Sat (Measured) 91.9 L ABG O2 Content 15.8 ABG Base Excess -5.4 L Malik Test Positive O2 Delivery Device Nasal cannula Oxygen Flow Rate 3l Sodium Potassium Chloride Carbon Dioxide Anion Gap BUN Creatinine Est GFR (CKD-EPI)AfAm Est GFR (CKD-EPI)NonAf POC Glucometer Random Glucose Serum Osmolality 279 Lactic Acid Calcium Phosphorus Magnesium Total Bilirubin AST ALT Alkaline Phosphatase Creatine Kinase Troponin I Total Protein Albumin Total Amylase Lipase Stool Occult Blood Blood Type A POSITIVE Antibody Screen Negative Crossmatch 02/19/19 02/19/19 02/19/19 19:45 21:30 21:30 WBC 9.8 RBC 4.37 Hgb 13.4 Hct 40.5 MCV 92.6 MCH 30.7 MCHC 33.1 RDW 15.6 Plt Count 237 D MPV 7.4 L Absolute Neuts (auto) Neutrophils % Neutrophils % (Manual) Band Neutrophils % Lymphocytes % Lymphocytes % (Manual) Monocytes % Monocytes % (Manual) Eosinophils % Eosinophils % (Manual) Basophils % Basophils % (Manual) Myelocytes % (Man) Promyelocytes % (Man) Blast Cells % (Manual) Nucleated RBC % Metamyelocytes Hypochromia Platelet Estimate Polychromasia Poikilocytosis Anisocytosis Microcytosis Macrocytosis PT with INR INR Puncture Site ABG pH ABG pCO2 at Pt Temp ABG pO2 at Pt Temp ABG HCO3 ABG O2 Sat (Measured) ABG O2 Content ABG Base Excess Malik Test O2 Delivery Device Oxygen Flow Rate Sodium 127 L Potassium 4.6 Chloride 97 L Carbon Dioxide 22 Anion Gap 8 BUN 17 Creatinine 0.7 Est GFR (CKD-EPI)AfAm 90.93 Est GFR (CKD-EPI)NonAf 78.45 POC Glucometer Random Glucose 213 H Serum Osmolality Lactic Acid 2.9 H* Calcium 7.7 L Phosphorus Magnesium Total Bilirubin AST ALT Alkaline Phosphatase Creatine Kinase Troponin I Total Protein Albumin Total Amylase Lipase Stool Occult Blood Blood Type Antibody Screen Crossmatch 02/20/19 02/20/19 02/20/19 05:30 05:30 07:00 WBC 11.9 H RBC 4.08 Hgb 12.5 Hct 37.2 MCV 91.2 MCH 30.6 MCHC 33.6 RDW 15.5 Plt Count 285 D MPV 7.4 L Absolute Neuts (auto) 10.8 H Neutrophils % 90.9 H Neutrophils % (Manual) Band Neutrophils % Lymphocytes % 3.4 L D Lymphocytes % (Manual) Monocytes % 5.6 D Monocytes % (Manual) Eosinophils % 0.0 D Eosinophils % (Manual) Basophils % 0.1 D Basophils % (Manual) Myelocytes % (Man) Promyelocytes % (Man) Blast Cells % (Manual) Nucleated RBC % 0 Metamyelocytes Hypochromia Platelet Estimate Polychromasia Poikilocytosis Anisocytosis Microcytosis Macrocytosis PT with INR INR Puncture Site ABG pH ABG pCO2 at Pt Temp ABG pO2 at Pt Temp ABG HCO3 ABG O2 Sat (Measured) ABG O2 Content ABG Base Excess Malik Test O2 Delivery Device Oxygen Flow Rate Sodium 132 L Potassium 4.7 Chloride 102 Carbon Dioxide 23 Anion Gap 7 L BUN 14 Creatinine 0.6 Est GFR (CKD-EPI)AfAm 95.66 Est GFR (CKD-EPI)NonAf 82.53 POC Glucometer 108 Random Glucose 116 H Serum Osmolality Lactic Acid Calcium 7.8 L Phosphorus 3.4 Magnesium 2.9 H Total Bilirubin 0.8 AST 41 H ALT 32 Alkaline Phosphatase 55 Creatine Kinase Troponin I Total Protein 5.2 L Albumin 2.4 L Total Amylase Lipase Stool Occult Blood Blood Type Antibody Screen Crossmatch 02/20/19 02/20/19 02/20/19 11:05 15:36 21:57 WBC RBC Hgb Hct MCV MCH MCHC RDW Plt Count MPV Absolute Neuts (auto) Neutrophils % Neutrophils % (Manual) Band Neutrophils % Lymphocytes % Lymphocytes % (Manual) Monocytes % Monocytes % (Manual) Eosinophils % Eosinophils % (Manual) Basophils % Basophils % (Manual) Myelocytes % (Man) Promyelocytes % (Man) Blast Cells % (Manual) Nucleated RBC % Metamyelocytes Hypochromia Platelet Estimate Polychromasia Poikilocytosis Anisocytosis Microcytosis Macrocytosis PT with INR INR Puncture Site ABG pH ABG pCO2 at Pt Temp ABG pO2 at Pt Temp ABG HCO3 ABG O2 Sat (Measured) ABG O2 Content ABG Base Excess Malik Test O2 Delivery Device Oxygen Flow Rate Sodium Potassium Chloride Carbon Dioxide Anion Gap BUN Creatinine Est GFR (CKD-EPI)AfAm Est GFR (CKD-EPI)NonAf POC Glucometer 126 111 Random Glucose Serum Osmolality Lactic Acid 1.7 Calcium Phosphorus Magnesium Total Bilirubin AST ALT Alkaline Phosphatase Creatine Kinase Troponin I Total Protein Albumin Total Amylase Lipase Stool Occult Blood Blood Type Antibody Screen Crossmatch 02/21/19 02/21/19 02/21/19 05:21 05:30 05:30 WBC 11.4 H RBC 3.90 Hgb 11.9 Hct 35.5 MCV 91.1 MCH 30.6 MCHC 33.6 RDW 15.9 H Plt Count 249 MPV 7.2 L Absolute Neuts (auto) 9.9 H Neutrophils % 86.9 H Neutrophils % (Manual) Band Neutrophils % Lymphocytes % 7.6 L D Lymphocytes % (Manual) Monocytes % 5.0 Monocytes % (Manual) Eosinophils % 0.4 D Eosinophils % (Manual) Basophils % 0.1 Basophils % (Manual) Myelocytes % (Man) Promyelocytes % (Man) Blast Cells % (Manual) Nucleated RBC % 0 Metamyelocytes Hypochromia Platelet Estimate Polychromasia Poikilocytosis Anisocytosis Microcytosis Macrocytosis PT with INR INR Puncture Site ABG pH ABG pCO2 at Pt Temp ABG pO2 at Pt Temp ABG HCO3 ABG O2 Sat (Measured) ABG O2 Content ABG Base Excess Malik Test O2 Delivery Device Oxygen Flow Rate Sodium 136 Potassium 4.2 Chloride 102 Carbon Dioxide 26 Anion Gap 8 BUN 13 Creatinine 0.8 Est GFR (CKD-EPI)AfAm 77.37 Est GFR (CKD-EPI)NonAf 66.76 POC Glucometer 97 Random Glucose 103 Serum Osmolality Lactic Acid Calcium 7.9 L Phosphorus 2.8 Magnesium 2.4 Total Bilirubin 1.1 H AST 28 ALT 19 Alkaline Phosphatase 66 Creatine Kinase Troponin I Total Protein 5.5 L Albumin 2.4 L Total Amylase Lipase Stool Occult Blood Blood Type Antibody Screen Crossmatch 02/21/19 02/21/19 02/21/19 11:33 16:29 21:49 WBC RBC Hgb Hct MCV MCH MCHC RDW Plt Count MPV Absolute Neuts (auto) Neutrophils % Neutrophils % (Manual) Band Neutrophils % Lymphocytes % Lymphocytes % (Manual) Monocytes % Monocytes % (Manual) Eosinophils % Eosinophils % (Manual) Basophils % Basophils % (Manual) Myelocytes % (Man) Promyelocytes % (Man) Blast Cells % (Manual) Nucleated RBC % Metamyelocytes Hypochromia Platelet Estimate Polychromasia Poikilocytosis Anisocytosis Microcytosis Macrocytosis PT with INR INR Puncture Site ABG pH ABG pCO2 at Pt Temp ABG pO2 at Pt Temp ABG HCO3 ABG O2 Sat (Measured) ABG O2 Content ABG Base Excess Malik Test O2 Delivery Device Oxygen Flow Rate Sodium Potassium Chloride Carbon Dioxide Anion Gap BUN Creatinine Est GFR (CKD-EPI)AfAm Est GFR (CKD-EPI)NonAf POC Glucometer 119 96 95 Random Glucose Serum Osmolality Lactic Acid Calcium Phosphorus Magnesium Total Bilirubin AST ALT Alkaline Phosphatase Creatine Kinase Troponin I Total Protein Albumin Total Amylase Lipase Stool Occult Blood Blood Type Antibody Screen Crossmatch 02/22/19 02/22/19 02/22/19 05:28 11:28 16:33 WBC RBC Hgb Hct MCV MCH MCHC RDW Plt Count MPV Absolute Neuts (auto) Neutrophils % Neutrophils % (Manual) Band Neutrophils % Lymphocytes % Lymphocytes % (Manual) Monocytes % Monocytes % (Manual) Eosinophils % Eosinophils % (Manual) Basophils % Basophils % (Manual) Myelocytes % (Man) Promyelocytes % (Man) Blast Cells % (Manual) Nucleated RBC % Metamyelocytes Hypochromia Platelet Estimate Polychromasia Poikilocytosis Anisocytosis Microcytosis Macrocytosis PT with INR INR Puncture Site ABG pH ABG pCO2 at Pt Temp ABG pO2 at Pt Temp ABG HCO3 ABG O2 Sat (Measured) ABG O2 Content ABG Base Excess Malik Test O2 Delivery Device Oxygen Flow Rate Sodium Potassium Chloride Carbon Dioxide Anion Gap BUN Creatinine Est GFR (CKD-EPI)AfAm Est GFR (CKD-EPI)NonAf POC Glucometer 80 99 73 Random Glucose Serum Osmolality Lactic Acid Calcium Phosphorus Magnesium Total Bilirubin AST ALT Alkaline Phosphatase Creatine Kinase Troponin I Total Protein Albumin Total Amylase Lipase Stool Occult Blood Blood Type Antibody Screen Crossmatch 02/22/19 02/23/19 02/23/19 20:52 06:17 11:17 WBC RBC Hgb Hct MCV MCH MCHC RDW Plt Count MPV Absolute Neuts (auto) Neutrophils % Neutrophils % (Manual) Band Neutrophils % Lymphocytes % Lymphocytes % (Manual) Monocytes % Monocytes % (Manual) Eosinophils % Eosinophils % (Manual) Basophils % Basophils % (Manual) Myelocytes % (Man) Promyelocytes % (Man) Blast Cells % (Manual) Nucleated RBC % Metamyelocytes Hypochromia Platelet Estimate Polychromasia Poikilocytosis Anisocytosis Microcytosis Macrocytosis PT with INR INR Puncture Site ABG pH ABG pCO2 at Pt Temp ABG pO2 at Pt Temp ABG HCO3 ABG O2 Sat (Measured) ABG O2 Content ABG Base Excess Malik Test O2 Delivery Device Oxygen Flow Rate Sodium Potassium Chloride Carbon Dioxide Anion Gap BUN Creatinine Est GFR (CKD-EPI)AfAm Est GFR (CKD-EPI)NonAf POC Glucometer 88 87 115 Random Glucose Serum Osmolality Lactic Acid Calcium Phosphorus Magnesium Total Bilirubin AST ALT Alkaline Phosphatase Creatine Kinase Troponin I Total Protein Albumin Total Amylase Lipase Stool Occult Blood Blood Type Antibody Screen Crossmatch 02/23/19 02/23/19 02/24/19 16:32 23:14 05:45 WBC RBC Hgb Hct MCV MCH MCHC RDW Plt Count MPV Absolute Neuts (auto) Neutrophils % Neutrophils % (Manual) Band Neutrophils % Lymphocytes % Lymphocytes % (Manual) Monocytes % Monocytes % (Manual) Eosinophils % Eosinophils % (Manual) Basophils % Basophils % (Manual) Myelocytes % (Man) Promyelocytes % (Man) Blast Cells % (Manual) Nucleated RBC % Metamyelocytes Hypochromia Platelet Estimate Polychromasia Poikilocytosis Anisocytosis Microcytosis Macrocytosis PT with INR INR Puncture Site ABG pH ABG pCO2 at Pt Temp ABG pO2 at Pt Temp ABG HCO3 ABG O2 Sat (Measured) ABG O2 Content ABG Base Excess Malik Test O2 Delivery Device Oxygen Flow Rate Sodium Potassium Chloride Carbon Dioxide Anion Gap BUN Creatinine Est GFR (CKD-EPI)AfAm Est GFR (CKD-EPI)NonAf POC Glucometer 90 89 90 Random Glucose Serum Osmolality Lactic Acid Calcium Phosphorus Magnesium Total Bilirubin AST ALT Alkaline Phosphatase Creatine Kinase Troponin I Total Protein Albumin Total Amylase Lipase Stool Occult Blood Blood Type Antibody Screen Crossmatch 02/24/19 02/24/19 02/24/19 06:00 06:00 11:21 WBC 9.2 RBC 3.98 Hgb 12.2 Hct 35.8 MCV 90.1 MCH 30.7 MCHC 34.1 RDW 15.6 Plt Count 295 MPV 7.1 L Absolute Neuts (auto) 6.7 Neutrophils % 72.7 Neutrophils % (Manual) Band Neutrophils % Lymphocytes % 13.1 D Lymphocytes % (Manual) Monocytes % 10.5 H D Monocytes % (Manual) Eosinophils % 3.1 D Eosinophils % (Manual) Basophils % 0.6 D Basophils % (Manual) Myelocytes % (Man) Promyelocytes % (Man) Blast Cells % (Manual) Nucleated RBC % 0 Metamyelocytes Hypochromia Platelet Estimate Polychromasia Poikilocytosis Anisocytosis Microcytosis Macrocytosis PT with INR INR Puncture Site ABG pH ABG pCO2 at Pt Temp ABG pO2 at Pt Temp ABG HCO3 ABG O2 Sat (Measured) ABG O2 Content ABG Base Excess Malik Test O2 Delivery Device Oxygen Flow Rate Sodium 135 L Potassium 2.7 L* Chloride 102 Carbon Dioxide 23 Anion Gap 11 BUN 11 Creatinine 0.6 Est GFR (CKD-EPI)AfAm 95.66 Est GFR (CKD-EPI)NonAf 82.53 POC Glucometer 262 Random Glucose 99 Serum Osmolality Lactic Acid Calcium 8.0 L Phosphorus Magnesium Total Bilirubin 0.9 AST 18 ALT 14 Alkaline Phosphatase 61 Creatine Kinase Troponin I Total Protein 5.5 L Albumin 2.3 L Total Amylase Lipase Stool Occult Blood Blood Type Antibody Screen Crossmatch 02/24/19 02/24/19 02/25/19 16:29 20:41 05:30 WBC RBC Hgb Hct MCV MCH MCHC RDW Plt Count MPV Absolute Neuts (auto) Neutrophils % Neutrophils % (Manual) Band Neutrophils % Lymphocytes % Lymphocytes % (Manual) Monocytes % Monocytes % (Manual) Eosinophils % Eosinophils % (Manual) Basophils % Basophils % (Manual) Myelocytes % (Man) Promyelocytes % (Man) Blast Cells % (Manual) Nucleated RBC % Metamyelocytes Hypochromia Platelet Estimate Polychromasia Poikilocytosis Anisocytosis Microcytosis Macrocytosis PT with INR INR Puncture Site ABG pH ABG pCO2 at Pt Temp ABG pO2 at Pt Temp ABG HCO3 ABG O2 Sat (Measured) ABG O2 Content ABG Base Excess Malik Test O2 Delivery Device Oxygen Flow Rate Sodium Potassium Chloride Carbon Dioxide Anion Gap BUN Creatinine Est GFR (CKD-EPI)AfAm Est GFR (CKD-EPI)NonAf POC Glucometer 175 194 137 Random Glucose Serum Osmolality Lactic Acid Calcium Phosphorus Magnesium Total Bilirubin AST ALT Alkaline Phosphatase Creatine Kinase Troponin I Total Protein Albumin Total Amylase Lipase Stool Occult Blood Blood Type Antibody Screen Crossmatch 02/25/19 02/25/19 02/25/19 07:00 07:00 11:25 WBC 10.7 H RBC 4.20 Hgb 13.0 Hct 38.4 MCV 91.4 MCH 31.0 MCHC 33.9 RDW 15.7 H Plt Count 312 MPV 7.3 L Absolute Neuts (auto) Neutrophils % Neutrophils % (Manual) Band Neutrophils % Lymphocytes % Lymphocytes % (Manual) Monocytes % Monocytes % (Manual) Eosinophils % Eosinophils % (Manual) Basophils % Basophils % (Manual) Myelocytes % (Man) Promyelocytes % (Man) Blast Cells % (Manual) Nucleated RBC % Metamyelocytes Hypochromia Platelet Estimate Polychromasia Poikilocytosis Anisocytosis Microcytosis Macrocytosis PT with INR INR Puncture Site ABG pH ABG pCO2 at Pt Temp ABG pO2 at Pt Temp ABG HCO3 ABG O2 Sat (Measured) ABG O2 Content ABG Base Excess Malik Test O2 Delivery Device Oxygen Flow Rate Sodium 137 Potassium 3.9 Chloride 102 Carbon Dioxide 30 Anion Gap 6 L BUN 10 Creatinine 0.8 Est GFR (CKD-EPI)AfAm 77.37 Est GFR (CKD-EPI)NonAf 66.76 POC Glucometer 201 Random Glucose 143 H Serum Osmolality Lactic Acid Calcium 8.6 Phosphorus Magnesium Total Bilirubin 0.6 AST 21 ALT 16 Alkaline Phosphatase 71 Creatine Kinase Troponin I Total Protein 6.4 Albumin 2.8 L Total Amylase Lipase Stool Occult Blood Blood Type Antibody Screen Crossmatch 02/25/19 02/25/19 02/26/19 16:30 21:44 06:01 WBC RBC Hgb Hct MCV MCH MCHC RDW Plt Count MPV Absolute Neuts (auto) Neutrophils % Neutrophils % (Manual) Band Neutrophils % Lymphocytes % Lymphocytes % (Manual) Monocytes % Monocytes % (Manual) Eosinophils % Eosinophils % (Manual) Basophils % Basophils % (Manual) Myelocytes % (Man) Promyelocytes % (Man) Blast Cells % (Manual) Nucleated RBC % Metamyelocytes Hypochromia Platelet Estimate Polychromasia Poikilocytosis Anisocytosis Microcytosis Macrocytosis PT with INR INR Puncture Site ABG pH ABG pCO2 at Pt Temp ABG pO2 at Pt Temp ABG HCO3 ABG O2 Sat (Measured) ABG O2 Content ABG Base Excess Malik Test O2 Delivery Device Oxygen Flow Rate Sodium Potassium Chloride Carbon Dioxide Anion Gap BUN Creatinine Est GFR (CKD-EPI)AfAm Est GFR (CKD-EPI)NonAf POC Glucometer 145 157 129 Random Glucose Serum Osmolality Lactic Acid Calcium Phosphorus Magnesium Total Bilirubin AST ALT Alkaline Phosphatase Creatine Kinase Troponin I Total Protein Albumin Total Amylase Lipase Stool Occult Blood Blood Type Antibody Screen Crossmatch 02/26/19 02/26/19 02/26/19 11:22 16:35 21:10 WBC RBC Hgb Hct MCV MCH MCHC RDW Plt Count MPV Absolute Neuts (auto) Neutrophils % Neutrophils % (Manual) Band Neutrophils % Lymphocytes % Lymphocytes % (Manual) Monocytes % Monocytes % (Manual) Eosinophils % Eosinophils % (Manual) Basophils % Basophils % (Manual) Myelocytes % (Man) Promyelocytes % (Man) Blast Cells % (Manual) Nucleated RBC % Metamyelocytes Hypochromia Platelet Estimate Polychromasia Poikilocytosis Anisocytosis Microcytosis Macrocytosis PT with INR INR Puncture Site ABG pH ABG pCO2 at Pt Temp ABG pO2 at Pt Temp ABG HCO3 ABG O2 Sat (Measured) ABG O2 Content ABG Base Excess Malik Test O2 Delivery Device Oxygen Flow Rate Sodium Potassium Chloride Carbon Dioxide Anion Gap BUN Creatinine Est GFR (CKD-EPI)AfAm Est GFR (CKD-EPI)NonAf POC Glucometer 163 193 134 Random Glucose Serum Osmolality Lactic Acid Calcium Phosphorus Magnesium Total Bilirubin AST ALT Alkaline Phosphatase Creatine Kinase Troponin I Total Protein Albumin Total Amylase Lipase Stool Occult Blood Blood Type Antibody Screen Crossmatch 02/27/19 02/27/19 02/27/19 05:53 10:58 16:04 WBC RBC Hgb Hct MCV MCH MCHC RDW Plt Count MPV Absolute Neuts (auto) Neutrophils % Neutrophils % (Manual) Band Neutrophils % Lymphocytes % Lymphocytes % (Manual) Monocytes % Monocytes % (Manual) Eosinophils % Eosinophils % (Manual) Basophils % Basophils % (Manual) Myelocytes % (Man) Promyelocytes % (Man) Blast Cells % (Manual) Nucleated RBC % Metamyelocytes Hypochromia Platelet Estimate Polychromasia Poikilocytosis Anisocytosis Microcytosis Macrocytosis PT with INR INR Puncture Site ABG pH ABG pCO2 at Pt Temp ABG pO2 at Pt Temp ABG HCO3 ABG O2 Sat (Measured) ABG O2 Content ABG Base Excess Malik Test O2 Delivery Device Oxygen Flow Rate Sodium Potassium Chloride Carbon Dioxide Anion Gap BUN Creatinine Est GFR (CKD-EPI)AfAm Est GFR (CKD-EPI)NonAf POC Glucometer 129 206 149 Random Glucose Serum Osmolality Lactic Acid Calcium Phosphorus Magnesium Total Bilirubin AST ALT Alkaline Phosphatase Creatine Kinase Troponin I Total Protein Albumin Total Amylase Lipase Stool Occult Blood Blood Type Antibody Screen Crossmatch 02/27/19 02/28/19 02/28/19 21:04 05:30 09:10 WBC 7.6 RBC 3.94 Hgb 12.0 Hct 36.3 MCV 92.3 MCH 30.5 MCHC 33.0 RDW 15.9 H Plt Count 378 D MPV 7.4 L Absolute Neuts (auto) Neutrophils % Neutrophils % (Manual) Band Neutrophils % Lymphocytes % Lymphocytes % (Manual) Monocytes % Monocytes % (Manual) Eosinophils % Eosinophils % (Manual) Basophils % Basophils % (Manual) Myelocytes % (Man) Promyelocytes % (Man) Blast Cells % (Manual) Nucleated RBC % Metamyelocytes Hypochromia Platelet Estimate Polychromasia Poikilocytosis Anisocytosis Microcytosis Macrocytosis PT with INR INR Puncture Site ABG pH ABG pCO2 at Pt Temp ABG pO2 at Pt Temp ABG HCO3 ABG O2 Sat (Measured) ABG O2 Content ABG Base Excess Malik Test O2 Delivery Device Oxygen Flow Rate Sodium Potassium Chloride Carbon Dioxide Anion Gap BUN Creatinine Est GFR (CKD-EPI)AfAm Est GFR (CKD-EPI)NonAf POC Glucometer 134 128 Random Glucose Serum Osmolality Lactic Acid Calcium Phosphorus Magnesium Total Bilirubin AST ALT Alkaline Phosphatase Creatine Kinase Troponin I Total Protein Albumin Total Amylase Lipase Stool Occult Blood Blood Type Antibody Screen Crossmatch 02/28/19 02/28/19 02/28/19 09:10 11:11 16:22 WBC RBC Hgb Hct MCV MCH MCHC RDW Plt Count MPV Absolute Neuts (auto) Neutrophils % Neutrophils % (Manual) Band Neutrophils % Lymphocytes % Lymphocytes % (Manual) Monocytes % Monocytes % (Manual) Eosinophils % Eosinophils % (Manual) Basophils % Basophils % (Manual) Myelocytes % (Man) Promyelocytes % (Man) Blast Cells % (Manual) Nucleated RBC % Metamyelocytes Hypochromia Platelet Estimate Polychromasia Poikilocytosis Anisocytosis Microcytosis Macrocytosis PT with INR INR Puncture Site ABG pH ABG pCO2 at Pt Temp ABG pO2 at Pt Temp ABG HCO3 ABG O2 Sat (Measured) ABG O2 Content ABG Base Excess Malik Test O2 Delivery Device Oxygen Flow Rate Sodium 134 L Potassium 3.4 L Chloride 97 L Carbon Dioxide 30 Anion Gap 6 L BUN 9 Creatinine 0.9 Est GFR (CKD-EPI)AfAm 67.10 Est GFR (CKD-EPI)NonAf 57.90 POC Glucometer 153 149 Random Glucose 228 H Serum Osmolality Lactic Acid Calcium 8.6 Phosphorus Magnesium Total Bilirubin 0.4 AST 21 ALT 20 Alkaline Phosphatase 68 Creatine Kinase Troponin I Total Protein 6.4 Albumin 2.8 L Total Amylase Lipase Stool Occult Blood Blood Type Antibody Screen Crossmatch 02/28/19 03/01/19 03/01/19 21:04 05:56 08:00 WBC 8.6 RBC 3.97 Hgb 12.0 Hct 37.0 MCV 93.1 MCH 30.3 MCHC 32.5 RDW 15.8 H Plt Count 402 MPV 7.5 Absolute Neuts (auto) Neutrophils % Neutrophils % (Manual) Band Neutrophils % Lymphocytes % Lymphocytes % (Manual) Monocytes % Monocytes % (Manual) Eosinophils % Eosinophils % (Manual) Basophils % Basophils % (Manual) Myelocytes % (Man) Promyelocytes % (Man) Blast Cells % (Manual) Nucleated RBC % Metamyelocytes Hypochromia Platelet Estimate Polychromasia Poikilocytosis Anisocytosis Microcytosis Macrocytosis PT with INR INR Puncture Site ABG pH ABG pCO2 at Pt Temp ABG pO2 at Pt Temp ABG HCO3 ABG O2 Sat (Measured) ABG O2 Content ABG Base Excess Malik Test O2 Delivery Device Oxygen Flow Rate Sodium Potassium Chloride Carbon Dioxide Anion Gap BUN Creatinine Est GFR (CKD-EPI)AfAm Est GFR (CKD-EPI)NonAf POC Glucometer 166 132 Random Glucose Serum Osmolality Lactic Acid Calcium Phosphorus Magnesium Total Bilirubin AST ALT Alkaline Phosphatase Creatine Kinase Troponin I Total Protein Albumin Total Amylase Lipase Stool Occult Blood Blood Type Antibody Screen Crossmatch 03/01/19 03/01/19 03/01/19 08:00 10:54 16:47 WBC RBC Hgb Hct MCV MCH MCHC RDW Plt Count MPV Absolute Neuts (auto) Neutrophils % Neutrophils % (Manual) Band Neutrophils % Lymphocytes % Lymphocytes % (Manual) Monocytes % Monocytes % (Manual) Eosinophils % Eosinophils % (Manual) Basophils % Basophils % (Manual) Myelocytes % (Man) Promyelocytes % (Man) Blast Cells % (Manual) Nucleated RBC % Metamyelocytes Hypochromia Platelet Estimate Polychromasia Poikilocytosis Anisocytosis Microcytosis Macrocytosis PT with INR INR Puncture Site ABG pH ABG pCO2 at Pt Temp ABG pO2 at Pt Temp ABG HCO3 ABG O2 Sat (Measured) ABG O2 Content ABG Base Excess Malik Test O2 Delivery Device Oxygen Flow Rate Sodium 133 L Potassium 3.8 Chloride 97 L Carbon Dioxide 29 Anion Gap 7 L BUN 11 Creatinine 0.9 Est GFR (CKD-EPI)AfAm 67.10 Est GFR (CKD-EPI)NonAf 57.90 POC Glucometer 120 149 Random Glucose 149 H Serum Osmolality Lactic Acid Calcium 9.0 Phosphorus Magnesium Total Bilirubin 0.7 AST 26 ALT 21 Alkaline Phosphatase 73 Creatine Kinase Troponin I Total Protein 6.7 Albumin 3.1 L Total Amylase Lipase Stool Occult Blood Blood Type Antibody Screen Crossmatch 03/01/19 03/02/19 03/02/19 21:33 04:00 06:03 WBC RBC Hgb Hct MCV MCH MCHC RDW Plt Count MPV Absolute Neuts (auto) Neutrophils % Neutrophils % (Manual) Band Neutrophils % Lymphocytes % Lymphocytes % (Manual) Monocytes % Monocytes % (Manual) Eosinophils % Eosinophils % (Manual) Basophils % Basophils % (Manual) Myelocytes % (Man) Promyelocytes % (Man) Blast Cells % (Manual) Nucleated RBC % Metamyelocytes Hypochromia Platelet Estimate Polychromasia Poikilocytosis Anisocytosis Microcytosis Macrocytosis PT with INR INR Puncture Site ABG pH ABG pCO2 at Pt Temp ABG pO2 at Pt Temp ABG HCO3 ABG O2 Sat (Measured) ABG O2 Content ABG Base Excess Malik Test O2 Delivery Device Oxygen Flow Rate Sodium Potassium Chloride Carbon Dioxide Anion Gap BUN Creatinine Est GFR (CKD-EPI)AfAm Est GFR (CKD-EPI)NonAf POC Glucometer 144 154 Random Glucose Serum Osmolality Lactic Acid Calcium Phosphorus Magnesium Total Bilirubin AST ALT Alkaline Phosphatase Creatine Kinase Troponin I Total Protein Albumin Total Amylase Lipase Stool Occult Blood Negative Blood Type Antibody Screen Crossmatch 03/02/19 03/02/19 03/02/19 06:40 06:40 06:40 WBC 10.0 RBC 3.17 L Hgb 9.8 L Hct 28.9 L D MCV 90.9 MCH 30.8 MCHC 33.9 RDW 15.4 Plt Count 369 MPV 7.0 L Absolute Neuts (auto) Neutrophils % Neutrophils % (Manual) Band Neutrophils % Lymphocytes % Lymphocytes % (Manual) Monocytes % Monocytes % (Manual) Eosinophils % Eosinophils % (Manual) Basophils % Basophils % (Manual) Myelocytes % (Man) Promyelocytes % (Man) Blast Cells % (Manual) Nucleated RBC % Metamyelocytes Hypochromia Platelet Estimate Polychromasia Poikilocytosis Anisocytosis Microcytosis Macrocytosis PT with INR INR Puncture Site ABG pH ABG pCO2 at Pt Temp ABG pO2 at Pt Temp ABG HCO3 ABG O2 Sat (Measured) ABG O2 Content ABG Base Excess Malik Test O2 Delivery Device Oxygen Flow Rate Sodium 134 L Potassium 4.0 Chloride 100 Carbon Dioxide 27 Anion Gap 7 L BUN 13 Creatinine 0.9 Est GFR (CKD-EPI)AfAm 67.10 Est GFR (CKD-EPI)NonAf 57.90 POC Glucometer Random Glucose 141 H Serum Osmolality Lactic Acid Calcium 8.3 L Phosphorus Magnesium Total Bilirubin 0.5 AST 18 ALT 15 Alkaline Phosphatase 62 Creatine Kinase Troponin I Total Protein 5.6 L Albumin 2.6 L Total Amylase Lipase Stool Occult Blood Blood Type A POSITIVE Antibody Screen Negative Crossmatch See Detail 03/02/19 03/02/19 03/02/19 12:19 16:40 16:57 WBC 11.4 H RBC 3.49 L Hgb 10.4 L Hct 32.0 L MCV 91.7 MCH 29.9 MCHC 32.6 RDW 15.5 Plt Count 375 MPV 7.6 Absolute Neuts (auto) 8.6 H Neutrophils % 75.2 Neutrophils % (Manual) Band Neutrophils % Lymphocytes % 15.3 Lymphocytes % (Manual) Monocytes % 7.3 Monocytes % (Manual) Eosinophils % 1.5 Eosinophils % (Manual) Basophils % 0.7 Basophils % (Manual) Myelocytes % (Man) Promyelocytes % (Man) Blast Cells % (Manual) Nucleated RBC % 0 Metamyelocytes Hypochromia Platelet Estimate Polychromasia Poikilocytosis Anisocytosis Microcytosis Macrocytosis PT with INR INR Puncture Site ABG pH ABG pCO2 at Pt Temp ABG pO2 at Pt Temp ABG HCO3 ABG O2 Sat (Measured) ABG O2 Content ABG Base Excess Malik Test O2 Delivery Device Oxygen Flow Rate Sodium Potassium Chloride Carbon Dioxide Anion Gap BUN Creatinine Est GFR (CKD-EPI)AfAm Est GFR (CKD-EPI)NonAf POC Glucometer 136 113 Random Glucose Serum Osmolality Lactic Acid Calcium Phosphorus Magnesium Total Bilirubin AST ALT Alkaline Phosphatase Creatine Kinase Troponin I Total Protein Albumin Total Amylase Lipase Stool Occult Blood Blood Type Antibody Screen Crossmatch 03/02/19 03/03/19 03/03/19 21:51 05:30 05:30 WBC 8.9 RBC 3.27 L Hgb 10.2 L Hct 29.6 L MCV 90.5 MCH 31.1 MCHC 34.3 RDW 15.5 Plt Count 347 MPV 7.6 Absolute Neuts (auto) 6.4 Neutrophils % 72.4 Neutrophils % (Manual) Band Neutrophils % Lymphocytes % 15.7 Lymphocytes % (Manual) Monocytes % 9.0 Monocytes % (Manual) Eosinophils % 2.2 Eosinophils % (Manual) Basophils % 0.7 Basophils % (Manual) Myelocytes % (Man) Promyelocytes % (Man) Blast Cells % (Manual) Nucleated RBC % 0 Metamyelocytes Hypochromia Platelet Estimate Polychromasia Poikilocytosis Anisocytosis Microcytosis Macrocytosis PT with INR INR Puncture Site ABG pH ABG pCO2 at Pt Temp ABG pO2 at Pt Temp ABG HCO3 ABG O2 Sat (Measured) ABG O2 Content ABG Base Excess Malik Test O2 Delivery Device Oxygen Flow Rate Sodium 136 Potassium 4.2 Chloride 102 Carbon Dioxide 28 Anion Gap 6 L BUN 8 Creatinine 0.8 Est GFR (CKD-EPI)AfAm 77.37 Est GFR (CKD-EPI)NonAf 66.76 POC Glucometer 110 Random Glucose 107 H Serum Osmolality Lactic Acid Calcium 8.2 L Phosphorus 3.7 Magnesium 2.1 Total Bilirubin 1.0 AST 15 ALT 13 Alkaline Phosphatase 60 Creatine Kinase Troponin I Total Protein 5.2 L Albumin 2.4 L Total Amylase Lipase Stool Occult Blood Blood Type Antibody Screen Crossmatch 03/03/19 03/03/19 03/03/19 05:47 12:33 17:00 WBC 11.4 H RBC 3.34 L Hgb 10.1 L Hct 30.7 L MCV 92.0 MCH 30.1 MCHC 32.8 RDW 15.7 H Plt Count 351 MPV 7.4 L Absolute Neuts (auto) Neutrophils % Neutrophils % (Manual) Band Neutrophils % Lymphocytes % Lymphocytes % (Manual) Monocytes % Monocytes % (Manual) Eosinophils % Eosinophils % (Manual) Basophils % Basophils % (Manual) Myelocytes % (Man) Promyelocytes % (Man) Blast Cells % (Manual) Nucleated RBC % Metamyelocytes Hypochromia Platelet Estimate Polychromasia Poikilocytosis Anisocytosis Microcytosis Macrocytosis PT with INR INR Puncture Site ABG pH ABG pCO2 at Pt Temp ABG pO2 at Pt Temp ABG HCO3 ABG O2 Sat (Measured) ABG O2 Content ABG Base Excess Malik Test O2 Delivery Device Oxygen Flow Rate Sodium Potassium Chloride Carbon Dioxide Anion Gap BUN Creatinine Est GFR (CKD-EPI)AfAm Est GFR (CKD-EPI)NonAf POC Glucometer 107 114 Random Glucose Serum Osmolality Lactic Acid Calcium Phosphorus Magnesium Total Bilirubin AST ALT Alkaline Phosphatase Creatine Kinase Troponin I Total Protein Albumin Total Amylase Lipase Stool Occult Blood Blood Type Antibody Screen Crossmatch 03/03/19 03/03/19 03/03/19 17:00 17:47 21:08 WBC RBC Hgb Hct MCV MCH MCHC RDW Plt Count MPV Absolute Neuts (auto) Neutrophils % Neutrophils % (Manual) Band Neutrophils % Lymphocytes % Lymphocytes % (Manual) Monocytes % Monocytes % (Manual) Eosinophils % Eosinophils % (Manual) Basophils % Basophils % (Manual) Myelocytes % (Man) Promyelocytes % (Man) Blast Cells % (Manual) Nucleated RBC % Metamyelocytes Hypochromia Platelet Estimate Polychromasia Poikilocytosis Anisocytosis Microcytosis Macrocytosis PT with INR INR Puncture Site ABG pH ABG pCO2 at Pt Temp ABG pO2 at Pt Temp ABG HCO3 ABG O2 Sat (Measured) ABG O2 Content ABG Base Excess Malik Test O2 Delivery Device Oxygen Flow Rate Sodium Potassium Chloride Carbon Dioxide Anion Gap BUN Creatinine Est GFR (CKD-EPI)AfAm Est GFR (CKD-EPI)NonAf POC Glucometer 99 195 Random Glucose Serum Osmolality Lactic Acid Calcium Phosphorus Magnesium Total Bilirubin AST ALT Alkaline Phosphatase Creatine Kinase Troponin I Total Protein Albumin Total Amylase 332 H Lipase 2142 H Stool Occult Blood Blood Type Antibody Screen Crossmatch 03/04/19 03/04/19 03/04/19 05:30 05:30 06:03 WBC 9.8 RBC 3.35 L Hgb 10.3 L Hct 30.5 L MCV 90.8 MCH 30.7 MCHC 33.8 RDW 15.6 Plt Count 374 MPV 7.7 Absolute Neuts (auto) Neutrophils % Neutrophils % (Manual) Band Neutrophils % Lymphocytes % Lymphocytes % (Manual) Monocytes % Monocytes % (Manual) Eosinophils % Eosinophils % (Manual) Basophils % Basophils % (Manual) Myelocytes % (Man) Promyelocytes % (Man) Blast Cells % (Manual) Nucleated RBC % Metamyelocytes Hypochromia Platelet Estimate Polychromasia Poikilocytosis Anisocytosis Microcytosis Macrocytosis PT with INR INR Puncture Site ABG pH ABG pCO2 at Pt Temp ABG pO2 at Pt Temp ABG HCO3 ABG O2 Sat (Measured) ABG O2 Content ABG Base Excess Malik Test O2 Delivery Device Oxygen Flow Rate Sodium 135 L Potassium 3.7 Chloride 101 Carbon Dioxide 25 Anion Gap 9 BUN 8 Creatinine 0.7 Est GFR (CKD-EPI)AfAm 90.93 Est GFR (CKD-EPI)NonAf 78.45 POC Glucometer 114 Random Glucose 112 H Serum Osmolality Lactic Acid Calcium 8.3 L Phosphorus 3.5 Magnesium 2.1 Total Bilirubin 0.7 AST 19 ALT 16 Alkaline Phosphatase 65 Creatine Kinase Troponin I Total Protein 5.4 L Albumin 2.7 L Total Amylase Lipase 1460 H Stool Occult Blood Blood Type Antibody Screen Crossmatch 03/04/19 03/04/19 03/04/19 11:52 12:40 16:16 WBC 8.6 RBC 3.35 L Hgb 10.3 L Hct 31.1 L MCV 92.9 MCH 30.7 MCHC 33.0 RDW 15.6 Plt Count 398 MPV 7.6 Absolute Neuts (auto) 6.5 Neutrophils % 76.1 Neutrophils % (Manual) Band Neutrophils % Lymphocytes % 13.2 Lymphocytes % (Manual) Monocytes % 8.6 Monocytes % (Manual) Eosinophils % 1.6 Eosinophils % (Manual) Basophils % 0.5 Basophils % (Manual) Myelocytes % (Man) Promyelocytes % (Man) Blast Cells % (Manual) Nucleated RBC % 0 Metamyelocytes Hypochromia Platelet Estimate Polychromasia Poikilocytosis Anisocytosis Microcytosis Macrocytosis PT with INR INR Puncture Site ABG pH ABG pCO2 at Pt Temp ABG pO2 at Pt Temp ABG HCO3 ABG O2 Sat (Measured) ABG O2 Content ABG Base Excess Malik Test O2 Delivery Device Oxygen Flow Rate Sodium Potassium Chloride Carbon Dioxide Anion Gap BUN Creatinine Est GFR (CKD-EPI)AfAm Est GFR (CKD-EPI)NonAf POC Glucometer 124 110 Random Glucose Serum Osmolality Lactic Acid Calcium Phosphorus Magnesium Total Bilirubin AST ALT Alkaline Phosphatase Creatine Kinase Troponin I Total Protein Albumin Total Amylase Lipase Stool Occult Blood Blood Type Antibody Screen Crossmatch 03/04/19 03/04/19 03/05/19 17:21 21:07 05:30 WBC 8.5 7.0 RBC 3.31 L 2.95 L Hgb 10.1 L 9.2 L Hct 30.5 L 26.8 L MCV 92.2 91.0 MCH 30.6 31.3 MCHC 33.2 34.4 RDW 15.5 15.6 Plt Count 410 383 MPV 7.5 7.6 Absolute Neuts (auto) 4.8 Neutrophils % 67.7 Neutrophils % (Manual) Band Neutrophils % Lymphocytes % 18.1 D Lymphocytes % (Manual) Monocytes % 10.8 H Monocytes % (Manual) Eosinophils % 2.6 Eosinophils % (Manual) Basophils % 0.8 Basophils % (Manual) Myelocytes % (Man) Promyelocytes % (Man) Blast Cells % (Manual) Nucleated RBC % 0 Metamyelocytes Hypochromia Platelet Estimate Polychromasia Poikilocytosis Anisocytosis Microcytosis Macrocytosis PT with INR INR Puncture Site ABG pH ABG pCO2 at Pt Temp ABG pO2 at Pt Temp ABG HCO3 ABG O2 Sat (Measured) ABG O2 Content ABG Base Excess Malik Test O2 Delivery Device Oxygen Flow Rate Sodium Potassium Chloride Carbon Dioxide Anion Gap BUN Creatinine Est GFR (CKD-EPI)AfAm Est GFR (CKD-EPI)NonAf POC Glucometer 178 Random Glucose Serum Osmolality Lactic Acid Calcium Phosphorus Magnesium Total Bilirubin AST ALT Alkaline Phosphatase Creatine Kinase Troponin I Total Protein Albumin Total Amylase Lipase Stool Occult Blood Blood Type Antibody Screen Crossmatch 03/05/19 03/05/19 03/05/19 05:30 05:32 11:55 WBC 7.1 RBC 3.26 L Hgb 10.1 L Hct 30.1 L MCV 92.3 MCH 30.8 MCHC 33.4 RDW 15.3 Plt Count 418 MPV 7.4 L Absolute Neuts (auto) 5.2 Neutrophils % 73.0 Neutrophils % (Manual) Band Neutrophils % Lymphocytes % 14.6 Lymphocytes % (Manual) Monocytes % 9.9 Monocytes % (Manual) Eosinophils % 1.9 Eosinophils % (Manual) Basophils % 0.6 Basophils % (Manual) Myelocytes % (Man) Promyelocytes % (Man) Blast Cells % (Manual) Nucleated RBC % 0 Metamyelocytes Hypochromia Platelet Estimate Polychromasia Poikilocytosis Anisocytosis Microcytosis Macrocytosis PT with INR INR Puncture Site ABG pH ABG pCO2 at Pt Temp ABG pO2 at Pt Temp ABG HCO3 ABG O2 Sat (Measured) ABG O2 Content ABG Base Excess Malik Test O2 Delivery Device Oxygen Flow Rate Sodium 137 Potassium 3.7 Chloride 104 Carbon Dioxide 26 Anion Gap 7 L BUN 7 Creatinine 0.6 Est GFR (CKD-EPI)AfAm 95.66 Est GFR (CKD-EPI)NonAf 82.53 POC Glucometer 114 Random Glucose 117 H Serum Osmolality Lactic Acid Calcium 8.0 L Phosphorus 3.5 Magnesium 2.0 Total Bilirubin 0.6 AST 17 ALT 14 Alkaline Phosphatase 63 Creatine Kinase Troponin I Total Protein 5.1 L Albumin 2.5 L Total Amylase Lipase Stool Occult Blood Blood Type Antibody Screen Crossmatch 03/05/19 03/05/19 03/05/19 12:34 18:01 22:37 WBC RBC Hgb Hct MCV MCH MCHC RDW Plt Count MPV Absolute Neuts (auto) Neutrophils % Neutrophils % (Manual) Band Neutrophils % Lymphocytes % Lymphocytes % (Manual) Monocytes % Monocytes % (Manual) Eosinophils % Eosinophils % (Manual) Basophils % Basophils % (Manual) Myelocytes % (Man) Promyelocytes % (Man) Blast Cells % (Manual) Nucleated RBC % Metamyelocytes Hypochromia Platelet Estimate Polychromasia Poikilocytosis Anisocytosis Microcytosis Macrocytosis PT with INR INR Puncture Site ABG pH ABG pCO2 at Pt Temp ABG pO2 at Pt Temp ABG HCO3 ABG O2 Sat (Measured) ABG O2 Content ABG Base Excess Malik Test O2 Delivery Device Oxygen Flow Rate Sodium Potassium Chloride Carbon Dioxide Anion Gap BUN Creatinine Est GFR (CKD-EPI)AfAm Est GFR (CKD-EPI)NonAf POC Glucometer 183 169 154 Random Glucose Serum Osmolality Lactic Acid Calcium Phosphorus Magnesium Total Bilirubin AST ALT Alkaline Phosphatase Creatine Kinase Troponin I Total Protein Albumin Total Amylase Lipase Stool Occult Blood Blood Type Antibody Screen Crossmatch 03/06/19 03/06/19 03/06/19 06:33 06:48 06:48 WBC 6.3 RBC 3.17 L Hgb 9.9 L Hct 28.9 L MCV 91.0 MCH 31.2 MCHC 34.3 RDW 15.6 Plt Count 407 MPV 7.5 Absolute Neuts (auto) 4.0 Neutrophils % 63.7 Neutrophils % (Manual) Band Neutrophils % Lymphocytes % 19.9 D Lymphocytes % (Manual) Monocytes % 12.2 H Monocytes % (Manual) Eosinophils % 3.2 Eosinophils % (Manual) Basophils % 1.0 Basophils % (Manual) Myelocytes % (Man) Promyelocytes % (Man) Blast Cells % (Manual) Nucleated RBC % 0 Metamyelocytes Hypochromia Platelet Estimate Polychromasia Poikilocytosis Anisocytosis Microcytosis Macrocytosis PT with INR INR Puncture Site ABG pH ABG pCO2 at Pt Temp ABG pO2 at Pt Temp ABG HCO3 ABG O2 Sat (Measured) ABG O2 Content ABG Base Excess Malik Test O2 Delivery Device Oxygen Flow Rate Sodium 137 Potassium 3.7 Chloride 102 Carbon Dioxide 28 Anion Gap 7 L BUN 8 Creatinine 0.7 Est GFR (CKD-EPI)AfAm 90.93 Est GFR (CKD-EPI)NonAf 78.45 POC Glucometer 124 Random Glucose 120 H Serum Osmolality Lactic Acid Calcium 8.3 L Phosphorus 3.2 Magnesium 1.9 Total Bilirubin 0.5 AST 12 L ALT 11 L Alkaline Phosphatase 69 Creatine Kinase Troponin I Total Protein 5.5 L Albumin 2.5 L Total Amylase Lipase Stool Occult Blood Blood Type Antibody Screen Crossmatch 03/06/19 12:48 WBC RBC Hgb Hct MCV MCH MCHC RDW Plt Count MPV Absolute Neuts (auto) Neutrophils % Neutrophils % (Manual) Band Neutrophils % Lymphocytes % Lymphocytes % (Manual) Monocytes % Monocytes % (Manual) Eosinophils % Eosinophils % (Manual) Basophils % Basophils % (Manual) Myelocytes % (Man) Promyelocytes % (Man) Blast Cells % (Manual) Nucleated RBC % Metamyelocytes Hypochromia Platelet Estimate Polychromasia Poikilocytosis Anisocytosis Microcytosis Macrocytosis PT with INR INR Puncture Site ABG pH ABG pCO2 at Pt Temp ABG pO2 at Pt Temp ABG HCO3 ABG O2 Sat (Measured) ABG O2 Content ABG Base Excess Malik Test O2 Delivery Device Oxygen Flow Rate Sodium Potassium Chloride Carbon Dioxide Anion Gap BUN Creatinine Est GFR (CKD-EPI)AfAm Est GFR (CKD-EPI)NonAf POC Glucometer 139 Random Glucose Serum Osmolality Lactic Acid Calcium Phosphorus Magnesium Total Bilirubin AST ALT Alkaline Phosphatase Creatine Kinase Troponin I Total Protein Albumin Total Amylase Lipase Stool Occult Blood Blood Type Antibody Screen Crossmatch Active Medications Generic Name Dose Route Start Last Admin Trade Name Freq PRN Reason Stop Dose Admin Acetaminophen 325 mg 03/06/19 07:38 Tylenol - PO Q4H PRN PAIN LEVEL 4 - 6 Atorvastatin Calcium 40 mg 03/06/19 22:00 Lipitor - PO HS AI Benzocaine/Butamben/Tetracaine HCl 1 spray 03/06/19 10:00 03/06/19 10:44 Cetacaine [place] - TP Not Given DAILY AI Gabapentin 100 mg 03/06/19 10:00 03/06/19 10:45 Neurontin - PO 100 mg BID AI Administration Insulin Aspart 1 vial 03/06/19 11:00 03/06/19 12:48 Novolog Vial Sliding Scale - SQ Not Given ACHS [facility] Protocol Isosorbide Mononitrate 30 mg 03/06/19 10:00 03/06/19 10:45 Imdur - PO 30 mg DAILY AI Administration Losartan Potassium 100 mg 03/06/19 10:00 03/06/19 10:45 Cozaar - PO 100 mg DAILY AI Administration Pantoprazole Sodium 20 mg 03/06/19 10:00 03/06/19 10:45 Protonix - PO 20 mg BID AI Administration Microbiology 02/27/19 02:00 Stool Salmonella/Shigella Culture - Final NO GROWTH OF SALMONELLA OR SHIGELLA SPECIES OBTAINED 02/27/19 02:00 Stool Campylobacter Culture - Final NO GROWTH OF CAMPYLOBACTER SPECIES OBTAINED 02/27/19 02:00 Stool Yersinia Culture - Final NO GROWTH OF YERSINIA SPECIES OBTAINED 02/27/19 02:00 Stool Vibrio Culture - Final NO GROWTH OF VIBRIO SPECIES OBTAINED 02/27/19 02:00 Stool Escherichia coli 0157 Culture - Final NO GROWTH OF E COLI 0157 OBTAINED 02/19/19 17:30 Peritoneal Cavity Swab Gram Stain - Final 02/19/19 17:30 Peritoneal Cavity Swab Wound Culture - Final NO AEROBIC OR ANAEROBIC GROWTH OBTAINED. Condition: Stable - Instructions Diet, Activity, Other Instructions: Call Dr. Kyle's office , Tel No [phone], for follow up appointment. Follow up with PMD in 1 week after discharge Follow up with Surgery Dr Kyle for staple removal continue with current medication regimen continue with ABT return to ER if develop infection to surgical site, respiratory distress, chest pain, fever Referrals: Disha Castano DO [Staff Physician] - Lupillo Kyle MD [Staff Physician] - Disposition: LONG TERM FACILITY - Home Medications Comprehensive Discharge Medication List: Ambulatory Orders Atorvastatin Ca [Lipitor] 40 mg PO HS 02/19/19 Gabapentin 100 mg PO BID 02/19/19 Isosorbide Mononitrate [Isosorbide Mononitrate ER] 30 mg PO DAILY 02/19/19 Losartan Potassium 100 mg PO DAILY 02/19/19 Meloxicam 15 mg PO DAILY 02/19/19 Metformin HCl [Glucophage] 500 mg PO BID 02/19/19 Zolpidem Tartrate [Ambien] 10 mg PO HS 02/19/19 Amox-Tr/K Cl [Augmentin 875-125mg Tablet -] 1 tab PO BID@0800,1730 #6 tablet Pantoprazole Sodium [Protonix -] 40 mg PO DAILY #30 tablet.ec 02/26/19
[2019-03-06] MEDS ORDERED: INSULIN (NOVOLOG) ASPART 100 UNITS/ML 10ML VIAL ONE (21:25)
[2019-03-06] MEDS: ATORVASTATIN CA 40 MG TABLET (FP) PO SCH (23:21)
[2019-03-07] MEDS: INSULIN SLIDING SCALE (NOVOLOG) 1 VIAL SQ SCH ×4 (06:58→21:35)
[2019-03-07 07:32] LABS: HEMATOCRIT 29.7 % (32.4-45.2); HEMOGLOBIN 10.2 GM/dL (10.7-15.3); MCH 31.2 pg (25.7-33.7); MCHC 34.2 g/dl (32.0-36.0); MEAN CELL VOLUME 91.1 fl (80-96); MEAN PLT VOLUME 7.6 fl (7.5-11.1); PLATELET COUNT 425 K/MM3 (134-434); RBC 3.26 M/mm3 (3.60-5.2); RDW 15.8 % (11.6-15.6)
[2019-03-07 07:46] LABS: ALBUMIN 2.7 g/dl (3.4-5.0); BILIRUBIN,TOTAL 0.6 mg/dL (0.2-1); CALCIUM 8.8 mg/dL (8.5-10.1); CREATININE 0.8 mg/dL (0.55-1.3); TOT PROT 5.8 g/dl (6.4-8.2)
--- NOTE | 2019-03-07 09:09 | PN ---
Progress Note, Physician Chief Complaint: AWAKE ALERT CHART AND NOTES REVIEED REPORTS NO BM X 2 DAYS - Current Medication List Current Medications: Active Medications Acetaminophen (Tylenol -) 325 mg PO Q4H PRN PRN Reason: PAIN LEVEL 4 - 6 Atorvastatin Calcium (Lipitor -) 40 mg PO HS [facility] Last Admin: 03/06/19 23:21 Dose: 40 mg Benzocaine/Butamben/Tetracaine HCl (Cetacaine [place] -) 1 spray TP DAILY [facility] Last Admin: 03/06/19 10:44 Dose: Not Given Gabapentin (Neurontin -) 100 mg PO BID [facility] Last Admin: 03/06/19 23:21 Dose: 100 mg Insulin Aspart (Novolog Vial Sliding Scale -) 1 vial SQ ACHS [facility]; Protocol Last Admin: 03/07/19 06:58 Dose: Not Given Isosorbide Mononitrate (Imdur -) 30 mg PO DAILY [facility] Last Admin: 03/06/19 10:45 Dose: 30 mg Losartan Potassium (Cozaar -) 100 mg PO DAILY [facility] Last Admin: 03/06/19 10:45 Dose: 100 mg Pantoprazole Sodium (Protonix -) 20 mg PO BID [facility] Last Admin: 03/06/19 23:22 Dose: 20 mg - Objective Vital Signs: Vital Signs Temperature 99 F 03/07/19 06:00 Pulse Rate 109 H 03/07/19 06:00 Respiratory Rate 18 03/07/19 06:00 Blood Pressure 130/54 L 03/07/19 06:00 O2 Sat by Pulse Oximetry (%) 100 03/06/19 21:00 Constitutional: Yes: No Distress Eyes: Yes: WNL HENT: Yes: WNL Neck: Yes: WNL Cardiovascular: Yes: Regular Rate and Rhythm Respiratory: Yes: WNL Gastrointestinal: Yes: Soft Genitourinary: Yes: Incontinence Musculoskeletal: Yes: Muscle Weakness Edema: No Peripheral Pulses WNL: Yes Integumentary: Yes: WNL Wound/Incision: Yes: Clean/Dry Neurological: Yes: Pre-Existing Deficit Psychiatric: Yes: WNL Labs: CBC, BMP 03/07/19 06:40 03/07/19 06:40 INR, PTT INR 0.94 (0.83-1.09) 02/19/19 09:50 Problem List - Problems (1) Bowel perforation Code(s): K63.1 - PERFORATION OF INTESTINE (NONTRAUMATIC) (2) Diabetes Code(s): E11.9 - TYPE 2 DIABETES MELLITUS WITHOUT COMPLICATIONS Qualifiers: Diabetes mellitus type: type 2 (3) Sepsis Code(s): A41.9 - SEPSIS, UNSPECIFIED ORGANISM Assessment/Plan RESOLVING PERFORATED VISCOUS RESOLVING SEPSIS AWAITING PLACEMENT TO SNF STOOL SOFTENERS OOB TO CHAIR PT
--- NOTE | 2019-03-07 09:20 | PN ---
Progress Note, Physician History of Present Illness: patient stable no new issue - Current Medication List Current Medications: Active Medications Acetaminophen (Tylenol -) 325 mg PO Q4H PRN PRN Reason: PAIN LEVEL 4 - 6 Atorvastatin Calcium (Lipitor -) 40 mg PO HS [facility] Last Admin: 03/06/19 23:21 Dose: 40 mg Benzocaine/Butamben/Tetracaine HCl (Cetacaine [place] -) 1 spray TP DAILY [facility] Last Admin: 03/06/19 10:44 Dose: Not Given Gabapentin (Neurontin -) 100 mg PO BID [facility] Last Admin: 03/06/19 23:21 Dose: 100 mg Insulin Aspart (Novolog Vial Sliding Scale -) 1 vial SQ [facility]; Protocol Last Admin: 03/07/19 06:58 Dose: Not Given Isosorbide Mononitrate (Imdur -) 30 mg PO DAILY [facility] Last Admin: 03/06/19 10:45 Dose: 30 mg Losartan Potassium (Cozaar -) 100 mg PO DAILY [facility] Last Admin: 03/06/19 10:45 Dose: 100 mg Pantoprazole Sodium (Protonix -) 20 mg PO BID [facility] Last Admin: 03/06/19 23:22 Dose: 20 mg Polyethylene Glycol (Miralax (For Daily Use) -) 17 gm PO DAILY [facility] - Objective Vital Signs: Vital Signs Temperature 99 F 03/07/19 06:00 Pulse Rate 109 H 03/07/19 06:00 Respiratory Rate 18 03/07/19 06:00 Blood Pressure 130/54 L 03/07/19 06:00 O2 Sat by Pulse Oximetry (%) 100 03/06/19 21:00 Constitutional: Yes: No Distress, Calm Cardiovascular: Yes: S1, S2 Respiratory: Yes: Regular, CTA Bilaterally Gastrointestinal: Yes: Normal Bowel Sounds, Soft Musculoskeletal: Yes: WNL Extremities: Yes: WNL Neurological: Yes: Alert, Oriented Psychiatric: Yes: Alert, Oriented Labs: CBC, BMP 03/07/19 06:40 03/07/19 06:40 INR, PTT INR 0.94 (0.83-1.09) 02/19/19 09:50 Assessment/Plan Assessment/Plan Perforated viscus, dehydration, CAD, Obesity. Plan : Hydrate , Antibiotics, Emergency laparotomy , perforated ulcer. gi bleed plan stable continue current mgmt colonoscopy noted rest as per the team
[2019-03-07] MEDS: TETRACAINE/BENZOCAINE/BUTAMBEN 20 GM SPR TP SCH (09:33)
[2019-03-07] MEDS ORDERED: PT OWN MED DRAWER 7, Y5N ONE (09:38)
[2019-03-07] MEDS: GABAPENTIN 100 MG CAPSULE (FP) PO SCH ×2 (09:41→21:35)
[2019-03-07] MEDS: PANTOPRAZOLE 20 MG TABLET (FP) PO SCH ×2 (09:41→21:34)
[2019-03-07] MEDS: LOSARTAN POTASSIUM 50 MG TABLET (FP) PO SCH (09:41)
[2019-03-07] MEDS: ISOSORBIDE MONONITRATE 30 MG TAB.SR.24H (FP) PO SCH (09:41)
[2019-03-07] MEDS: POLYETHYLENE GLYCOL 3350 119 GM BTL PO SCH (09:42)
[2019-03-07] MEDS: ATORVASTATIN CA 40 MG TABLET (FP) PO SCH (21:34)
[2019-03-08] MEDS: INSULIN SLIDING SCALE (NOVOLOG) 1 VIAL SQ SCH ×4 (06:47→21:11)
[2019-03-08] MEDS: LOSARTAN POTASSIUM 50 MG TABLET (FP) PO SCH (09:29)
[2019-03-08] MEDS: PANTOPRAZOLE 20 MG TABLET (FP) PO SCH ×2 (09:29→21:09)
[2019-03-08] MEDS: GABAPENTIN 100 MG CAPSULE (FP) PO SCH ×2 (09:29→21:09)
[2019-03-08] MEDS: POLYETHYLENE GLYCOL 3350 119 GM BTL PO SCH (09:29)
[2019-03-08] MEDS: ISOSORBIDE MONONITRATE 30 MG TAB.SR.24H (FP) PO SCH (09:29)
--- NOTE | 2019-03-08 11:26 | PN ---
Progress Note, Physician Chief Complaint: AWAKE ALERT HAD A BOWEL MOVEMENT TODAY NO BLOOD NO FEVER +APPETITE - Current Medication List Current Medications: Active Medications Acetaminophen (Tylenol -) 325 mg PO Q4H PRN PRN Reason: PAIN LEVEL 4 - 6 Atorvastatin Calcium (Lipitor -) 40 mg PO HS [facility] Last Admin: 03/07/19 21:34 Dose: 40 mg Gabapentin (Neurontin -) 100 mg PO BID [facility] Last Admin: 03/08/19 09:29 Dose: 100 mg Insulin Aspart (Novolog Vial Sliding Scale -) 1 vial SQ [facility]; Protocol Last Admin: 03/08/19 06:47 Dose: Not Given Isosorbide Mononitrate (Imdur -) 30 mg PO DAILY [facility] Last Admin: 03/08/19 09:29 Dose: 30 mg Losartan Potassium (Cozaar -) 100 mg PO DAILY [facility] Last Admin: 03/08/19 09:29 Dose: 100 mg Pantoprazole Sodium (Protonix -) 20 mg PO BID [facility] Last Admin: 03/08/19 09:29 Dose: 20 mg Polyethylene Glycol (Miralax (For Daily Use) -) 17 gm PO DAILY [facility] Last Admin: 03/08/19 09:29 Dose: 17 grams - Objective Vital Signs: Vital Signs Temperature 98.3 F 03/08/19 09:04 Pulse Rate 106 H 03/08/19 09:04 Respiratory Rate 18 03/08/19 09:04 Blood Pressure 130/57 L 03/08/19 09:04 O2 Sat by Pulse Oximetry (%) 94 L 03/07/19 21:00 Constitutional: Yes: Mild Distress Eyes: Yes: WNL HENT: Yes: WNL Neck: Yes: WNL Cardiovascular: Yes: Regular Rate and Rhythm Respiratory: Yes: WNL Gastrointestinal: Yes: Soft Genitourinary: Yes: WNL Musculoskeletal: Yes: Muscle Weakness Edema: No Peripheral Pulses WNL: Yes Integumentary: Yes: WNL Wound/Incision: Yes: Clean/Dry Neurological: Yes: Alert, Oriented ...Motor Strength: LLE, RLE Psychiatric: Yes: Other Labs: CBC, BMP 03/07/19 06:40 03/07/19 06:40 INR, PTT INR 0.94 (0.83-1.09) 02/19/19 09:50 Problem List - Problems (1) Bowel perforation Code(s): K63.1 - PERFORATION OF INTESTINE (NONTRAUMATIC) (2) Diabetes Code(s): E11.9 - TYPE 2 DIABETES MELLITUS WITHOUT COMPLICATIONS Qualifiers: Diabetes mellitus type: type 2 (3) Sepsis Code(s): A41.9 - SEPSIS, UNSPECIFIED ORGANISM Assessment/Plan RESOLVING PERFORATED VISCOUS RESOLVING SEPSIS AWAITING PLACEMENT TO [facility] TO CHAIR PT
--- NOTE | 2019-03-08 13:15 | PN ---
Progress Note, Physician History of Present Illness: patient stable no new issue - Current Medication List Current Medications: Active Medications Acetaminophen (Tylenol -) 325 mg PO Q4H PRN PRN Reason: PAIN LEVEL 4 - 6 Atorvastatin Calcium (Lipitor -) 40 mg PO HS [facility] Last Admin: 03/07/19 21:34 Dose: 40 mg Gabapentin (Neurontin -) 100 mg PO BID [facility] Last Admin: 03/08/19 09:29 Dose: 100 mg Insulin Aspart (Novolog Vial Sliding Scale -) 1 vial SQ [facility]; Protocol Last Admin: 03/08/19 11:51 Dose: 2 units Isosorbide Mononitrate (Imdur -) 30 mg PO DAILY [facility] Last Admin: 03/08/19 09:29 Dose: 30 mg Losartan Potassium (Cozaar -) 100 mg PO DAILY [facility] Last Admin: 03/08/19 09:29 Dose: 100 mg Pantoprazole Sodium (Protonix -) 20 mg PO BID [facility] Last Admin: 03/08/19 09:29 Dose: 20 mg Polyethylene Glycol (Miralax (For Daily Use) -) 17 gm PO DAILY [facility] Last Admin: 03/08/19 09:29 Dose: 17 grams - Objective Vital Signs: Vital Signs Temperature 98.3 F 03/08/19 09:04 Pulse Rate 106 H 03/08/19 09:04 Respiratory Rate 18 03/08/19 09:04 Blood Pressure 130/57 L 03/08/19 09:04 O2 Sat by Pulse Oximetry (%) 94 L 03/07/19 21:00 Constitutional: Yes: No Distress, Calm Cardiovascular: Yes: Regular Rate and Rhythm Respiratory: Yes: Regular, CTA Bilaterally Gastrointestinal: Yes: Normal Bowel Sounds, Soft Musculoskeletal: Yes: WNL Extremities: Yes: WNL Neurological: Yes: Alert, Oriented Psychiatric: Yes: Alert, Oriented Labs: CBC, BMP 03/07/19 06:40 03/07/19 06:40 INR, PTT INR 0.94 (0.83-1.09) 02/19/19 09:50 Assessment/Plan Assessment/Plan Perforated viscus, dehydration, CAD, Obesity. Plan : Hydrate , Antibiotics, Emergency laparotomy , perforated ulcer. gi bleed plan stable continue current mgmt colonoscopy noted rest as per the team
[2019-03-08] MEDS: ATORVASTATIN CA 40 MG TABLET (FP) PO SCH (21:09)
[2019-03-08] MEDS: ACETAMINOPHEN 325 MG TABLET (FP) PO PRN (22:43)
[2019-03-09] MEDS: INSULIN SLIDING SCALE (NOVOLOG) 1 VIAL SQ SCH ×4 (07:04→21:51)
--- NOTE | 2019-03-09 09:21 | PN ---
Progress Note, Physician History of Present Illness: stable no issues - Current Medication List Current Medications: Active Medications Acetaminophen (Tylenol -) 325 mg PO Q4H PRN PRN Reason: PAIN LEVEL 4 - 6 Last Admin: 03/08/19 22:43 Dose: 325 mg Atorvastatin Calcium (Lipitor -) 40 mg PO HS [facility] Last Admin: 03/08/19 21:09 Dose: 40 mg Gabapentin (Neurontin -) 100 mg PO BID [facility] Last Admin: 03/08/19 21:09 Dose: 100 mg Insulin Aspart (Novolog Vial Sliding Scale -) 1 vial SQ [facility]; Protocol Last Admin: 03/09/19 07:04 Dose: 2 units Isosorbide Mononitrate (Imdur -) 30 mg PO DAILY [facility] Last Admin: 03/08/19 09:29 Dose: 30 mg Losartan Potassium (Cozaar -) 100 mg PO DAILY [facility] Last Admin: 03/08/19 09:29 Dose: 100 mg Pantoprazole Sodium (Protonix -) 20 mg PO BID [facility] Last Admin: 03/08/19 21:09 Dose: 20 mg Polyethylene Glycol (Miralax (For Daily Use) -) 17 gm PO DAILY [facility] Last Admin: 03/08/19 09:29 Dose: 17 grams - Objective Vital Signs: Vital Signs Temperature 98.3 F 03/09/19 07:44 Pulse Rate 92 H 03/09/19 07:44 Respiratory Rate 20 03/09/19 07:44 Blood Pressure 132/58 L 03/09/19 07:44 O2 Sat by Pulse Oximetry (%) 99 03/08/19 20:34 Constitutional: Yes: No Distress, Calm Cardiovascular: Yes: S1, S2 Respiratory: Yes: Regular, CTA Bilaterally Gastrointestinal: Yes: Normal Bowel Sounds, Soft Musculoskeletal: Yes: WNL Extremities: Yes: WNL Neurological: Yes: Alert, Oriented Psychiatric: Yes: Alert, Oriented Labs: CBC, BMP 03/07/19 06:40 03/07/19 06:40 INR, PTT INR 0.94 (0.83-1.09) 02/19/19 09:50 Assessment/Plan Assessment/Plan Perforated viscus, dehydration, CAD, Obesity. Plan : Hydrate , Antibiotics, Emergency laparotomy , perforated ulcer. gi bleed plan stable continue current mgmt nutrition rest as per surgery
[2019-03-09] MEDS: GABAPENTIN 100 MG CAPSULE (FP) PO SCH ×2 (10:32→21:02)
[2019-03-09] MEDS: LOSARTAN POTASSIUM 50 MG TABLET (FP) PO SCH (10:32)
[2019-03-09] MEDS: ISOSORBIDE MONONITRATE 30 MG TAB.SR.24H (FP) PO SCH (10:32)
[2019-03-09] MEDS: PANTOPRAZOLE 20 MG TABLET (FP) PO SCH ×2 (10:32→21:02)
[2019-03-09] MEDS: POLYETHYLENE GLYCOL 3350 119 GM BTL PO SCH (10:43)
--- NOTE | 2019-03-09 15:01 | PN ---
Progress Note, Physician Chief Complaint: AWAITING PLACEMENT TO SNF NO ACUTE CHANGES - Current Medication List Current Medications: Active Medications Acetaminophen (Tylenol -) 325 mg PO Q4H PRN PRN Reason: PAIN LEVEL 4 - 6 Last Admin: 03/08/19 22:43 Dose: 325 mg Atorvastatin Calcium (Lipitor -) 40 mg PO HS [facility] Last Admin: 03/08/19 21:09 Dose: 40 mg Gabapentin (Neurontin -) 100 mg PO BID [facility] Last Admin: 03/09/19 10:32 Dose: 100 mg Insulin Aspart (Novolog Vial Sliding Scale -) 1 vial SQ [facility]; Protocol Last Admin: 03/09/19 12:04 Dose: 2 units Isosorbide Mononitrate (Imdur -) 30 mg PO DAILY [facility] Last Admin: 03/09/19 10:32 Dose: 30 mg Losartan Potassium (Cozaar -) 100 mg PO DAILY [facility] Last Admin: 03/09/19 10:32 Dose: 100 mg Pantoprazole Sodium (Protonix -) 20 mg PO BID [facility] Last Admin: 03/09/19 10:32 Dose: 20 mg Polyethylene Glycol (Miralax (For Daily Use) -) 17 gm PO DAILY [facility] Last Admin: 03/09/19 10:43 Dose: 17 grams - Objective Vital Signs: Vital Signs Temperature 98.3 F 03/09/19 07:44 Pulse Rate 92 H 03/09/19 07:44 Respiratory Rate 20 03/09/19 07:44 Blood Pressure 132/58 L 03/09/19 07:44 O2 Sat by Pulse Oximetry (%) 99 03/08/19 20:34 Constitutional: Yes: No Distress Eyes: Yes: WNL HENT: Yes: WNL Neck: Yes: WNL Cardiovascular: Yes: WNL Respiratory: Yes: WNL Gastrointestinal: Yes: WNL Genitourinary: Yes: WNL Musculoskeletal: Yes: Muscle Weakness Extremities: Yes: WNL Edema: No Integumentary: Yes: WNL Wound/Incision: Yes: Clean/Dry Neurological: Yes: Pre-Existing Deficit ...Motor Strength: LLE, RLE Psychiatric: Yes: WNL Labs: CBC, BMP 03/07/19 06:40 03/07/19 06:40 INR, PTT INR 0.94 (0.83-1.09) 02/19/19 09:50 Problem List - Problems (1) Bowel perforation Code(s): K63.1 - PERFORATION OF INTESTINE (NONTRAUMATIC) (2) Diabetes Code(s): E11.9 - TYPE 2 DIABETES MELLITUS WITHOUT COMPLICATIONS Qualifiers: Diabetes mellitus type: type 2 (3) Sepsis Code(s): A41.9 - SEPSIS, UNSPECIFIED ORGANISM Assessment/Plan RESOLVING PERFORATED VISCOUS RESOLVING SEPSIS AWAITING PLACEMENT TO SNF [facility] OOB TO CHAIR PT
--- NOTE | 2019-03-09 16:49 | PATH ---
Surgical Pathology Report Patient Name: DALILA IBARRA [facility]. Rec. #: [id number] /Age/Gender: 1930 (Age: 88) / F Account: [id number] Location: [facility] MED/SURG Taken: 03/04/2019 Received: 03/05/2019 Reported: 03/09/2019 Physicians: MD Reji Mckinney M.D. Specimen(s) Received A: RIGHT COLON POLYP B: TRANSVERSE COLON POLYP Clinical History Rectal bleeding Postoperative diagnosis: Colon polyps, diverticulosis, hemorrhoids Final Diagnosis A. RIGHT COLON POLYP, POLYPECTOMY: TUBULAR ADENOMA. B. TRANSVERSE COLON POLYP, POLYPECTOMY: TUBULAR ADENOMA. Electronically Signed Osman Gandhi M.D. Gross Description A. Received in formalin, labeled "right colon polyp biopsy" is a butcher, irregular portion of soft tissue measuring 0.5 cm. in greatest dimension. The specimen is submitted in toto in one cassette. B. Received in formalin, labeled "transverse colon polyp" is a butcher, irregular portion of soft tissue measuring 0.4 cm. in greatest dimension. The specimen is submitted in toto in one cassette. DL/03/05/2019 saudi03/05/2019
[2019-03-09] MEDS: ACETAMINOPHEN 325 MG TABLET (FP) PO PRN (20:57)
[2019-03-09] MEDS: ATORVASTATIN CA 40 MG TABLET (FP) PO SCH (21:02)
[2019-03-09] MEDS ORDERED: PT OWN MED DRAWER 7, Y5N ONE (21:54)
[2019-03-10] MEDS ORDERED: PT OWN MED DRAWER 7, Y5N ONE (01:29)
[2019-03-10] MEDS: INSULIN SLIDING SCALE (NOVOLOG) 1 VIAL SQ SCH ×4 (06:54→22:40)
--- NOTE | 2019-03-10 08:29 | PN ---
Progress Note, Physician History of Present Illness: stable no new issues - Current Medication List Current Medications: Active Medications Acetaminophen (Tylenol -) 325 mg PO Q4H PRN PRN Reason: PAIN LEVEL 4 - 6 Last Admin: 03/09/19 20:57 Dose: 325 mg Atorvastatin Calcium (Lipitor -) 40 mg PO HS [facility] Last Admin: 03/09/19 21:02 Dose: 40 mg Gabapentin (Neurontin -) 100 mg PO BID [facility] Last Admin: 03/09/19 21:02 Dose: 100 mg Insulin Aspart (Novolog Vial Sliding Scale -) 1 vial SQ [facility]; Protocol Last Admin: 03/10/19 06:54 Dose: Not Given Isosorbide Mononitrate (Imdur -) 30 mg PO DAILY [facility] Last Admin: 03/09/19 10:32 Dose: 30 mg Losartan Potassium (Cozaar -) 100 mg PO DAILY [facility] Last Admin: 03/09/19 10:32 Dose: 100 mg Pantoprazole Sodium (Protonix -) 20 mg PO BID [facility] Last Admin: 03/09/19 21:02 Dose: 20 mg Polyethylene Glycol (Miralax (For Daily Use) -) 17 gm PO DAILY [facility] Last Admin: 03/09/19 10:43 Dose: 17 grams - Objective Vital Signs: Vital Signs Temperature 99 F 03/10/19 07:31 Pulse Rate 104 H 03/10/19 07:31 Respiratory Rate 20 03/10/19 07:31 Blood Pressure 130/62 03/10/19 07:31 O2 Sat by Pulse Oximetry (%) 99 03/09/19 21:00 Constitutional: Yes: No Distress, Calm Cardiovascular: Yes: S1, S2 Respiratory: Yes: Regular, CTA Bilaterally Gastrointestinal: Yes: Normal Bowel Sounds, Soft Musculoskeletal: Yes: WNL Extremities: Yes: WNL Neurological: Yes: Alert, Other Psychiatric: Yes: Alert Labs: CBC, BMP 03/07/19 06:40 03/07/19 06:40 INR, PTT INR 0.94 (0.83-1.09) 02/19/19 09:50 Assessment/Plan Assessment/Plan Perforated viscus, dehydration, CAD, Obesity. Plan : Hydrate , Antibiotics, Emergency laparotomy , perforated ulcer. gi bleed plan stable continue current mgmt colonoscopy noted rest as per the team
[2019-03-10] MEDS: POLYETHYLENE GLYCOL 3350 119 GM BTL PO SCH (10:10)
[2019-03-10] MEDS: PANTOPRAZOLE 20 MG TABLET (FP) PO SCH ×2 (10:10→22:27)
[2019-03-10] MEDS: GABAPENTIN 100 MG CAPSULE (FP) PO SCH ×2 (10:10→22:27)
[2019-03-10] MEDS: ISOSORBIDE MONONITRATE 30 MG TAB.SR.24H (FP) PO SCH (10:10)
[2019-03-10] MEDS: LOSARTAN POTASSIUM 50 MG TABLET (FP) PO SCH (10:10)
--- NOTE | 2019-03-10 10:38 | PN ---
Progress Note, Physician Chief Complaint: Perforated Peptic Ulcer Acute Peritonitis S/p Exp Laparotomy History of Present Illness: Previous notes and events reviewed awake and alert NAD awaiting SNF - Current Medication List Current Medications: Active Medications Acetaminophen (Tylenol -) 325 mg PO Q4H PRN PRN Reason: PAIN LEVEL 4 - 6 Last Admin: 03/09/19 20:57 Dose: 325 mg Atorvastatin Calcium (Lipitor -) 40 mg PO HS [facility] Last Admin: 03/09/19 21:02 Dose: 40 mg Gabapentin (Neurontin -) 100 mg PO BID [facility] Last Admin: 03/10/19 10:10 Dose: 100 mg Insulin Aspart (Novolog Vial Sliding Scale -) [address] [facility]; Protocol Last Admin: 03/10/19 06:54 Dose: Not Given Isosorbide Mononitrate (Imdur -) 30 mg PO DAILY [facility] Last Admin: 03/10/19 10:10 Dose: 30 mg Losartan Potassium (Cozaar -) 100 mg PO DAILY [facility] Last Admin: 03/10/19 10:10 Dose: 100 mg Pantoprazole Sodium (Protonix -) 20 mg PO BID [facility] Last Admin: 03/10/19 10:10 Dose: 20 mg Polyethylene Glycol (Miralax (For Daily Use) -) 17 gm PO DAILY [facility] Last Admin: 03/10/19 10:10 Dose: 17 grams - Objective Vital Signs: Vital Signs Temperature 99 F 03/10/19 07:31 Pulse Rate 104 H 03/10/19 07:31 Respiratory Rate 20 03/10/19 07:31 Blood Pressure 130/62 03/10/19 07:31 O2 Sat by Pulse Oximetry (%) 99 03/09/19 21:00 Constitutional: Yes: No Distress, Calm Eyes: Yes: Conjunctiva Clear HENT: Yes: Atraumatic Cardiovascular: Yes: Regular Rate and Rhythm Respiratory: Yes: Regular, CTA Bilaterally Gastrointestinal: Yes: Normal Bowel Sounds, Soft Musculoskeletal: Yes: Muscle Weakness Extremities: Yes: WNL Edema: No Neurological: Yes: Alert, Pre-Existing Deficit Psychiatric: Yes: Alert Labs: CBC, BMP 03/07/19 06:40 03/07/19 06:40 INR, PTT INR 0.94 (0.83-1.09) 02/19/19 09:50 Microbiology 02/27/19 02:00 Stool Salmonella/Shigella Culture - Final NO GROWTH OF SALMONELLA OR SHIGELLA SPECIES OBTAINED 02/27/19 02:00 Stool Campylobacter Culture - Final NO GROWTH OF CAMPYLOBACTER SPECIES OBTAINED 02/27/19 02:00 Stool Yersinia Culture - Final NO GROWTH OF YERSINIA SPECIES OBTAINED 02/27/19 02:00 Stool Vibrio Culture - Final NO GROWTH OF VIBRIO SPECIES OBTAINED 02/27/19 02:00 Stool Escherichia coli 0157 Culture - Final NO GROWTH OF E COLI 0157 OBTAINED 02/19/19 17:30 Peritoneal Cavity Swab Gram Stain - Final 02/19/19 17:30 Peritoneal Cavity Swab Wound Culture - Final NO AEROBIC OR ANAEROBIC GROWTH OBTAINED. Problem List - Problems (1) Diabetes Assessment/Plan: -[facility] ACHS -ISS -diabetic diet Code(s): E11.9 - TYPE 2 DIABETES MELLITUS WITHOUT COMPLICATIONS Qualifiers: Diabetes mellitus type: type 2 (2) Perforated chronic peptic ulcer Assessment/Plan: -Surgery on board -s/p exploratory laparotomy -drain removed and dressing in place without -Upper GI Series shows no extravasation -monitor off antibiotics Code(s): K27.5 - CHRONIC OR UNSP PEPTIC ULCER, SITE UNSP, WITH PERFORATION (3) Sepsis Assessment/Plan: -WBC 10.0 -afebrile -ID on board -will monitor off ABT Code(s): A41.9 - SEPSIS, UNSPECIFIED ORGANISM (4) Diarrhea Assessment/Plan: -stool culture neg -resolved Code(s): R19.7 - DIARRHEA, UNSPECIFIED (5) Rectal bleeding Assessment/Plan: -GI on board -resolved Code(s): K62.5 - HEMORRHAGE OF ANUS AND RECTUM Assessment/Plan see problem list dvt ppx
--- NOTE | 2019-03-10 11:56 | PN ---
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 Will need follow-up MRI in 4 months to assess stability followed by +/- EUS all as outpatient. Problem List - Problems (1) Rectal bleeding Code(s): K62.5 - HEMORRHAGE OF ANUS AND RECTUM
--- NOTE | 2019-03-10 16:10 | DS ---
Physical Examination Vital Signs: Vital Signs Temperature 98.4 F 03/10/19 14:45 Pulse Rate 110 H 03/10/19 14:45 Respiratory Rate 18 03/10/19 14:45 Blood Pressure 108/50 L 03/10/19 14:45 O2 Sat by Pulse Oximetry (%) 99 03/09/19 21:00 Findings/Remarks: Patient is an 88 y/o female with past medical history of DM and HTN. Patient complain of abdominal pain radiate to back x [address] scan in ER showed pneumoperitoneum. Patient is s/p exploratory laparotomy for repair of perforated duodenal ulcer. Constitutional: Yes: No Distress, Calm Eyes: Yes: Conjunctiva Clear HENT: Yes: Atraumatic Neck: Yes: Supple Cardiovascular: Yes: Regular Rate and Rhythm Gastrointestinal: Yes: Normal Bowel Sounds, Soft Musculoskeletal: Yes: Muscle Weakness Extremities: Yes: WNL Edema: No Peripheral Pulses WNL: No Neurological: Yes: Alert Psychiatric: Yes: Alert Labs: CBC, BMP 03/07/19 06:40 03/07/19 06:40 Discharge Summary Reason For Visit: PERFORATION OF INTESTINE Current Active Problems Bowel perforation (Acute) Diabetes (Acute) Diarrhea (Acute) Pancreatic abnormality (Acute) Perforated chronic peptic ulcer (Acute) Rectal bleeding (Acute) Rectal bleeding (Acute) Sepsis (Acute) Hospital Course: see progress notes Laboratory Tests 02/19/19 02/19/19 02/19/19 09:50 09:50 09:50 WBC 10.7 H RBC 5.05 Hgb 15.6 H Hct 46.3 H MCV 91.8 MCH 30.9 MCHC 33.6 RDW 15.4 Plt Count 381 MPV 7.5 Absolute Neuts (auto) 10.1 H Neutrophils % 94.4 H Neutrophils % (Manual) 87.2 H Band Neutrophils % 7.3 Lymphocytes % 2.6 L Lymphocytes % (Manual) 2.8 L Monocytes % 2.8 L Monocytes % (Manual) 2 L Eosinophils % 0.2 Eosinophils % (Manual) 0.0 Basophils % 0.0 Basophils % (Manual) 0.0 Myelocytes % (Man) 0 Promyelocytes % (Man) 0 Blast Cells % (Manual) 0 Nucleated RBC % 0 Metamyelocytes 1 Hypochromia 0 Platelet Estimate Normal Polychromasia 0 Poikilocytosis 0 Anisocytosis 0 Microcytosis 0 Macrocytosis 0 PT with INR 11.10 INR 0.94 Puncture Site ABG pH ABG pCO2 at Pt Temp ABG pO2 at Pt Temp ABG HCO3 ABG O2 Sat (Measured) ABG O2 Content ABG Base Excess Malik Test O2 Delivery Device Oxygen Flow Rate Sodium 122 L Potassium 4.8 Chloride 87 L Carbon Dioxide 24 Anion Gap 11 BUN 22 H Creatinine 1.0 Est GFR (CKD-EPI)AfAm 59.08 Est GFR (CKD-EPI)NonAf 50.97 POC Glucometer Random Glucose 279 H Serum Osmolality Lactic Acid Calcium 9.7 Phosphorus Magnesium Total Bilirubin 1.3 H AST 24 ALT 15 Alkaline Phosphatase 93 Creatine Kinase 110 Troponin I < 0.02 Total Protein 7.8 Albumin 4.0 Total Amylase Lipase 1992 H Stool Occult Blood Blood Type Antibody Screen Crossmatch 02/19/19 02/19/19 02/19/19 09:50 09:50 12:26 WBC RBC Hgb Hct MCV MCH MCHC RDW Plt Count MPV Absolute Neuts (auto) Neutrophils % Neutrophils % (Manual) Band Neutrophils % Lymphocytes % Lymphocytes % (Manual) Monocytes % Monocytes % (Manual) Eosinophils % Eosinophils % (Manual) Basophils % Basophils % (Manual) Myelocytes % (Man) Promyelocytes % (Man) Blast Cells % (Manual) Nucleated RBC % Metamyelocytes Hypochromia Platelet Estimate Polychromasia Poikilocytosis Anisocytosis Microcytosis Macrocytosis PT with INR INR Puncture Site ABG pH ABG pCO2 at Pt Temp ABG pO2 at Pt Temp ABG HCO3 ABG O2 Sat (Measured) ABG O2 Content ABG Base Excess Malik Test O2 Delivery Device Oxygen Flow Rate Sodium Potassium Chloride Carbon Dioxide Anion Gap BUN Creatinine Est GFR (CKD-EPI)AfAm Est GFR (CKD-EPI)NonAf POC Glucometer Random Glucose Serum Osmolality Lactic Acid 3.8 H* Calcium Phosphorus Magnesium Total Bilirubin AST ALT Alkaline Phosphatase Creatine Kinase Troponin I Total Protein Albumin Total Amylase Lipase Stool Occult Blood Blood Type A POSITIVE Cancelled Antibody Screen Negative Cancelled Crossmatch 02/19/19 02/19/19 02/19/19 13:32 13:32 17:26 WBC RBC Hgb Hct MCV MCH MCHC RDW Plt Count MPV Absolute Neuts (auto) Neutrophils % Neutrophils % (Manual) Band Neutrophils % Lymphocytes % Lymphocytes % (Manual) Monocytes % Monocytes % (Manual) Eosinophils % Eosinophils % (Manual) Basophils % Basophils % (Manual) Myelocytes % (Man) Promyelocytes % (Man) Blast Cells % (Manual) Nucleated RBC % Metamyelocytes Hypochromia Platelet Estimate Polychromasia Poikilocytosis Anisocytosis Microcytosis Macrocytosis PT with INR INR Puncture Site Arterial line ABG pH 7.33 L ABG pCO2 at Pt Temp 38.3 ABG pO2 at Pt Temp 65.9 L ABG HCO3 19.5 L ABG O2 Sat (Measured) 91.9 L ABG O2 Content 15.8 ABG Base Excess -5.4 L Malik Test Positive O2 Delivery Device Nasal cannula Oxygen Flow Rate 3l Sodium Potassium Chloride Carbon Dioxide Anion Gap BUN Creatinine Est GFR (CKD-EPI)AfAm Est GFR (CKD-EPI)NonAf POC Glucometer Random Glucose Serum Osmolality 279 Lactic Acid Calcium Phosphorus Magnesium Total Bilirubin AST ALT Alkaline Phosphatase Creatine Kinase Troponin I Total Protein Albumin Total Amylase Lipase Stool Occult Blood Blood Type A POSITIVE Antibody Screen Negative Crossmatch 02/19/19 02/19/19 02/19/19 19:45 21:30 21:30 WBC 9.8 RBC 4.37 Hgb 13.4 Hct 40.5 MCV 92.6 MCH 30.7 MCHC 33.1 RDW 15.6 Plt Count 237 D MPV 7.4 L Absolute Neuts (auto) Neutrophils % Neutrophils % (Manual) Band Neutrophils % Lymphocytes % Lymphocytes % (Manual) Monocytes % Monocytes % (Manual) Eosinophils % Eosinophils % (Manual) Basophils % Basophils % (Manual) Myelocytes % (Man) Promyelocytes % (Man) Blast Cells % (Manual) Nucleated RBC % Metamyelocytes Hypochromia Platelet Estimate Polychromasia Poikilocytosis Anisocytosis Microcytosis Macrocytosis PT with INR INR Puncture Site ABG pH ABG pCO2 at Pt Temp ABG pO2 at Pt Temp ABG HCO3 ABG O2 Sat (Measured) ABG O2 Content ABG Base Excess Malik Test O2 Delivery Device Oxygen Flow Rate Sodium 127 L Potassium 4.6 Chloride 97 L Carbon Dioxide 22 Anion Gap 8 BUN 17 Creatinine 0.7 Est GFR (CKD-EPI)AfAm 90.93 Est GFR (CKD-EPI)NonAf 78.45 POC Glucometer Random Glucose 213 H Serum Osmolality Lactic Acid 2.9 H* Calcium 7.7 L Phosphorus Magnesium Total Bilirubin AST ALT Alkaline Phosphatase Creatine Kinase Troponin I Total Protein Albumin Total Amylase Lipase Stool Occult Blood Blood Type Antibody Screen Crossmatch 02/20/19 02/20/19 02/20/19 05:30 05:30 07:00 WBC 11.9 H RBC 4.08 Hgb 12.5 Hct 37.2 MCV 91.2 MCH 30.6 MCHC 33.6 RDW 15.5 Plt Count 285 D MPV 7.4 L Absolute Neuts (auto) 10.8 H Neutrophils % 90.9 H Neutrophils % (Manual) Band Neutrophils % Lymphocytes % 3.4 L D Lymphocytes % (Manual) Monocytes % 5.6 D Monocytes % (Manual) Eosinophils % 0.0 D Eosinophils % (Manual) Basophils % 0.1 D Basophils % (Manual) Myelocytes % (Man) Promyelocytes % (Man) Blast Cells % (Manual) Nucleated RBC % 0 Metamyelocytes Hypochromia Platelet Estimate Polychromasia Poikilocytosis Anisocytosis Microcytosis Macrocytosis PT with INR INR Puncture Site ABG pH ABG pCO2 at Pt Temp ABG pO2 at Pt Temp ABG HCO3 ABG O2 Sat (Measured) ABG O2 Content ABG Base Excess Malik Test O2 Delivery Device Oxygen Flow Rate Sodium 132 L Potassium 4.7 Chloride 102 Carbon Dioxide 23 Anion Gap 7 L BUN 14 Creatinine 0.6 Est GFR (CKD-EPI)AfAm 95.66 Est GFR (CKD-EPI)NonAf 82.53 POC Glucometer 108 Random Glucose 116 H Serum Osmolality Lactic Acid Calcium 7.8 L Phosphorus 3.4 Magnesium 2.9 H Total Bilirubin 0.8 AST 41 H ALT 32 Alkaline Phosphatase 55 Creatine Kinase Troponin I Total Protein 5.2 L Albumin 2.4 L Total Amylase Lipase Stool Occult Blood Blood Type Antibody Screen Crossmatch 02/20/19 02/20/19 02/20/19 11:05 15:36 21:57 WBC RBC Hgb Hct MCV MCH MCHC RDW Plt Count MPV Absolute Neuts (auto) Neutrophils % Neutrophils % (Manual) Band Neutrophils % Lymphocytes % Lymphocytes % (Manual) Monocytes % Monocytes % (Manual) Eosinophils % Eosinophils % (Manual) Basophils % Basophils % (Manual) Myelocytes % (Man) Promyelocytes % (Man) Blast Cells % (Manual) Nucleated RBC % Metamyelocytes Hypochromia Platelet Estimate Polychromasia Poikilocytosis Anisocytosis Microcytosis Macrocytosis PT with INR INR Puncture Site ABG pH ABG pCO2 at Pt Temp ABG pO2 at Pt Temp ABG HCO3 ABG O2 Sat (Measured) ABG O2 Content ABG Base Excess Malik Test O2 Delivery Device Oxygen Flow Rate Sodium Potassium Chloride Carbon Dioxide Anion Gap BUN Creatinine Est GFR (CKD-EPI)AfAm Est GFR (CKD-EPI)NonAf POC Glucometer 126 111 Random Glucose Serum Osmolality Lactic Acid 1.7 Calcium Phosphorus Magnesium Total Bilirubin AST ALT Alkaline Phosphatase Creatine Kinase Troponin I Total Protein Albumin Total Amylase Lipase Stool Occult Blood Blood Type Antibody Screen Crossmatch 02/21/19 02/21/19 02/21/19 05:21 05:30 05:30 WBC 11.4 H RBC 3.90 Hgb 11.9 Hct 35.5 MCV 91.1 MCH 30.6 MCHC 33.6 RDW 15.9 H Plt Count 249 MPV 7.2 L Absolute Neuts (auto) 9.9 H Neutrophils % 86.9 H Neutrophils % (Manual) Band Neutrophils % Lymphocytes % 7.6 L D Lymphocytes % (Manual) Monocytes % 5.0 Monocytes % (Manual) Eosinophils % 0.4 D Eosinophils % (Manual) Basophils % 0.1 Basophils % (Manual) Myelocytes % (Man) Promyelocytes % (Man) Blast Cells % (Manual) Nucleated RBC % 0 Metamyelocytes Hypochromia Platelet Estimate Polychromasia Poikilocytosis Anisocytosis Microcytosis Macrocytosis PT with INR INR Puncture Site ABG pH ABG pCO2 at Pt Temp ABG pO2 at Pt Temp ABG HCO3 ABG O2 Sat (Measured) ABG O2 Content ABG Base Excess Malik Test O2 Delivery Device Oxygen Flow Rate Sodium 136 Potassium 4.2 Chloride 102 Carbon Dioxide 26 Anion Gap 8 BUN 13 Creatinine 0.8 Est GFR (CKD-EPI)AfAm 77.37 Est GFR (CKD-EPI)NonAf 66.76 POC Glucometer 97 Random Glucose 103 Serum Osmolality Lactic Acid Calcium 7.9 L Phosphorus 2.8 Magnesium 2.4 Total Bilirubin 1.1 H AST 28 ALT 19 Alkaline Phosphatase 66 Creatine Kinase Troponin I Total Protein 5.5 L Albumin 2.4 L Total Amylase Lipase Stool Occult Blood Blood Type Antibody Screen Crossmatch 02/21/19 02/21/19 02/21/19 11:33 16:29 21:49 WBC RBC Hgb Hct MCV MCH MCHC RDW Plt Count MPV Absolute Neuts (auto) Neutrophils % Neutrophils % (Manual) Band Neutrophils % Lymphocytes % Lymphocytes % (Manual) Monocytes % Monocytes % (Manual) Eosinophils % Eosinophils % (Manual) Basophils % Basophils % (Manual) Myelocytes % (Man) Promyelocytes % (Man) Blast Cells % (Manual) Nucleated RBC % Metamyelocytes Hypochromia Platelet Estimate Polychromasia Poikilocytosis Anisocytosis Microcytosis Macrocytosis PT with INR INR Puncture Site ABG pH ABG pCO2 at Pt Temp ABG pO2 at Pt Temp ABG HCO3 ABG O2 Sat (Measured) ABG O2 Content ABG Base Excess Malik Test O2 Delivery Device Oxygen Flow Rate Sodium Potassium Chloride Carbon Dioxide Anion Gap BUN Creatinine Est GFR (CKD-EPI)AfAm Est GFR (CKD-EPI)NonAf POC Glucometer 119 96 95 Random Glucose Serum Osmolality Lactic Acid Calcium Phosphorus Magnesium Total Bilirubin AST ALT Alkaline Phosphatase Creatine Kinase Troponin I Total Protein Albumin Total Amylase Lipase Stool Occult Blood Blood Type Antibody Screen Crossmatch 02/22/19 02/22/19 02/22/19 05:28 11:28 16:33 WBC RBC Hgb Hct MCV MCH MCHC RDW Plt Count MPV Absolute Neuts (auto) Neutrophils % Neutrophils % (Manual) Band Neutrophils % Lymphocytes % Lymphocytes % (Manual) Monocytes % Monocytes % (Manual) Eosinophils % Eosinophils % (Manual) Basophils % Basophils % (Manual) Myelocytes % (Man) Promyelocytes % (Man) Blast Cells % (Manual) Nucleated RBC % Metamyelocytes Hypochromia Platelet Estimate Polychromasia Poikilocytosis Anisocytosis Microcytosis Macrocytosis PT with INR INR Puncture Site ABG pH ABG pCO2 at Pt Temp ABG pO2 at Pt Temp ABG HCO3 ABG O2 Sat (Measured) ABG O2 Content ABG Base Excess Malik Test O2 Delivery Device Oxygen Flow Rate Sodium Potassium Chloride Carbon Dioxide Anion Gap BUN Creatinine Est GFR (CKD-EPI)AfAm Est GFR (CKD-EPI)NonAf POC Glucometer 80 99 73 Random Glucose Serum Osmolality Lactic Acid Calcium Phosphorus Magnesium Total Bilirubin AST ALT Alkaline Phosphatase Creatine Kinase Troponin I Total Protein Albumin Total Amylase Lipase Stool Occult Blood Blood Type Antibody Screen Crossmatch 02/22/19 02/23/19 02/23/19 20:52 06:17 11:17 WBC RBC Hgb Hct MCV MCH MCHC RDW Plt Count MPV Absolute Neuts (auto) Neutrophils % Neutrophils % (Manual) Band Neutrophils % Lymphocytes % Lymphocytes % (Manual) Monocytes % Monocytes % (Manual) Eosinophils % Eosinophils % (Manual) Basophils % Basophils % (Manual) Myelocytes % (Man) Promyelocytes % (Man) Blast Cells % (Manual) Nucleated RBC % Metamyelocytes Hypochromia Platelet Estimate Polychromasia Poikilocytosis Anisocytosis Microcytosis Macrocytosis PT with INR INR Puncture Site ABG pH ABG pCO2 at Pt Temp ABG pO2 at Pt Temp ABG HCO3 ABG O2 Sat (Measured) ABG O2 Content ABG Base Excess Malik Test O2 Delivery Device Oxygen Flow Rate Sodium Potassium Chloride Carbon Dioxide Anion Gap BUN Creatinine Est GFR (CKD-EPI)AfAm Est GFR (CKD-EPI)NonAf POC Glucometer 88 87 115 Random Glucose Serum Osmolality Lactic Acid Calcium Phosphorus Magnesium Total Bilirubin AST ALT Alkaline Phosphatase Creatine Kinase Troponin I Total Protein Albumin Total Amylase Lipase Stool Occult Blood Blood Type Antibody Screen Crossmatch 02/23/19 02/23/19 02/24/19 16:32 23:14 05:45 WBC RBC Hgb Hct MCV MCH MCHC RDW Plt Count MPV Absolute Neuts (auto) Neutrophils % Neutrophils % (Manual) Band Neutrophils % Lymphocytes % Lymphocytes % (Manual) Monocytes % Monocytes % (Manual) Eosinophils % Eosinophils % (Manual) Basophils % Basophils % (Manual) Myelocytes % (Man) Promyelocytes % (Man) Blast Cells % (Manual) Nucleated RBC % Metamyelocytes Hypochromia Platelet Estimate Polychromasia Poikilocytosis Anisocytosis Microcytosis Macrocytosis PT with INR INR Puncture Site ABG pH ABG pCO2 at Pt Temp ABG pO2 at Pt Temp ABG HCO3 ABG O2 Sat (Measured) ABG O2 Content ABG Base Excess Malik Test O2 Delivery Device Oxygen Flow Rate Sodium Potassium Chloride Carbon Dioxide Anion Gap BUN Creatinine Est GFR (CKD-EPI)AfAm Est GFR (CKD-EPI)NonAf POC Glucometer 90 89 90 Random Glucose Serum Osmolality Lactic Acid Calcium Phosphorus Magnesium Total Bilirubin AST ALT Alkaline Phosphatase Creatine Kinase Troponin I Total Protein Albumin Total Amylase Lipase Stool Occult Blood Blood Type Antibody Screen Crossmatch 02/24/19 02/24/19 02/24/19 06:00 06:00 11:21 WBC 9.2 RBC 3.98 Hgb 12.2 Hct 35.8 MCV 90.1 MCH 30.7 MCHC 34.1 RDW 15.6 Plt Count 295 MPV 7.1 L Absolute Neuts (auto) 6.7 Neutrophils % 72.7 Neutrophils % (Manual) Band Neutrophils % Lymphocytes % 13.1 D Lymphocytes % (Manual) Monocytes % 10.5 H D Monocytes % (Manual) Eosinophils % 3.1 D Eosinophils % (Manual) Basophils % 0.6 D Basophils % (Manual) Myelocytes % (Man) Promyelocytes % (Man) Blast Cells % (Manual) Nucleated RBC % 0 Metamyelocytes Hypochromia Platelet Estimate Polychromasia Poikilocytosis Anisocytosis Microcytosis Macrocytosis PT with INR INR Puncture Site ABG pH ABG pCO2 at Pt Temp ABG pO2 at Pt Temp ABG HCO3 ABG O2 Sat (Measured) ABG O2 Content ABG Base Excess Malik Test O2 Delivery Device Oxygen Flow Rate Sodium 135 L Potassium 2.7 L* Chloride 102 Carbon Dioxide 23 Anion Gap 11 BUN 11 Creatinine 0.6 Est GFR (CKD-EPI)AfAm 95.66 Est GFR (CKD-EPI)NonAf 82.53 POC Glucometer 262 Random Glucose 99 Serum Osmolality Lactic Acid Calcium 8.0 L Phosphorus Magnesium Total Bilirubin 0.9 AST 18 ALT 14 Alkaline Phosphatase 61 Creatine Kinase Troponin I Total Protein 5.5 L Albumin 2.3 L Total Amylase Lipase Stool Occult Blood Blood Type Antibody Screen Crossmatch 02/24/19 02/24/19 02/25/19 16:29 20:41 05:30 WBC RBC Hgb Hct MCV MCH MCHC RDW Plt Count MPV Absolute Neuts (auto) Neutrophils % Neutrophils % (Manual) Band Neutrophils % Lymphocytes % Lymphocytes % (Manual) Monocytes % Monocytes % (Manual) Eosinophils % Eosinophils % (Manual) Basophils % Basophils % (Manual) Myelocytes % (Man) Promyelocytes % (Man) Blast Cells % (Manual) Nucleated RBC % Metamyelocytes Hypochromia Platelet Estimate Polychromasia Poikilocytosis Anisocytosis Microcytosis Macrocytosis PT with INR INR Puncture Site ABG pH ABG pCO2 at Pt Temp ABG pO2 at Pt Temp ABG HCO3 ABG O2 Sat (Measured) ABG O2 Content ABG Base Excess Malik Test O2 Delivery Device Oxygen Flow Rate Sodium Potassium Chloride Carbon Dioxide Anion Gap BUN Creatinine Est GFR (CKD-EPI)AfAm Est GFR (CKD-EPI)NonAf POC Glucometer 175 194 137 Random Glucose Serum Osmolality Lactic Acid Calcium Phosphorus Magnesium Total Bilirubin AST ALT Alkaline Phosphatase Creatine Kinase Troponin I Total Protein Albumin Total Amylase Lipase Stool Occult Blood Blood Type Antibody Screen Crossmatch 02/25/19 02/25/19 02/25/19 07:00 07:00 11:25 WBC 10.7 H RBC 4.20 Hgb 13.0 Hct 38.4 MCV 91.4 MCH 31.0 MCHC 33.9 RDW 15.7 H Plt Count 312 MPV 7.3 L Absolute Neuts (auto) Neutrophils % Neutrophils % (Manual) Band Neutrophils % Lymphocytes % Lymphocytes % (Manual) Monocytes % Monocytes % (Manual) Eosinophils % Eosinophils % (Manual) Basophils % Basophils % (Manual) Myelocytes % (Man) Promyelocytes % (Man) Blast Cells % (Manual) Nucleated RBC % Metamyelocytes Hypochromia Platelet Estimate Polychromasia Poikilocytosis Anisocytosis Microcytosis Macrocytosis PT with INR INR Puncture Site ABG pH ABG pCO2 at Pt Temp ABG pO2 at Pt Temp ABG HCO3 ABG O2 Sat (Measured) ABG O2 Content ABG Base Excess Malik Test O2 Delivery Device Oxygen Flow Rate Sodium 137 Potassium 3.9 Chloride 102 Carbon Dioxide 30 Anion Gap 6 L BUN 10 Creatinine 0.8 Est GFR (CKD-EPI)AfAm 77.37 Est GFR (CKD-EPI)NonAf 66.76 POC Glucometer 201 Random Glucose 143 H Serum Osmolality Lactic Acid Calcium 8.6 Phosphorus Magnesium Total Bilirubin 0.6 AST 21 ALT 16 Alkaline Phosphatase 71 Creatine Kinase Troponin I Total Protein 6.4 Albumin 2.8 L Total Amylase Lipase Stool Occult Blood Blood Type Antibody Screen Crossmatch 02/25/19 02/25/19 02/26/19 16:30 21:44 06:01 WBC RBC Hgb Hct MCV MCH MCHC RDW Plt Count MPV Absolute Neuts (auto) Neutrophils % Neutrophils % (Manual) Band Neutrophils % Lymphocytes % Lymphocytes % (Manual) Monocytes % Monocytes % (Manual) Eosinophils % Eosinophils % (Manual) Basophils % Basophils % (Manual) Myelocytes % (Man) Promyelocytes % (Man) Blast Cells % (Manual) Nucleated RBC % Metamyelocytes Hypochromia Platelet Estimate Polychromasia Poikilocytosis Anisocytosis Microcytosis Macrocytosis PT with INR INR Puncture Site ABG pH ABG pCO2 at Pt Temp ABG pO2 at Pt Temp ABG HCO3 ABG O2 Sat (Measured) ABG O2 Content ABG Base Excess Malik Test O2 Delivery Device Oxygen Flow Rate Sodium Potassium Chloride Carbon Dioxide Anion Gap BUN Creatinine Est GFR (CKD-EPI)AfAm Est GFR (CKD-EPI)NonAf POC Glucometer 145 157 129 Random Glucose Serum Osmolality Lactic Acid Calcium Phosphorus Magnesium Total Bilirubin AST ALT Alkaline Phosphatase Creatine Kinase Troponin I Total Protein Albumin Total Amylase Lipase Stool Occult Blood Blood Type Antibody Screen Crossmatch 02/26/19 02/26/19 02/26/19 11:22 16:35 21:10 WBC RBC Hgb Hct MCV MCH MCHC RDW Plt Count MPV Absolute Neuts (auto) Neutrophils % Neutrophils % (Manual) Band Neutrophils % Lymphocytes % Lymphocytes % (Manual) Monocytes % Monocytes % (Manual) Eosinophils % Eosinophils % (Manual) Basophils % Basophils % (Manual) Myelocytes % (Man) Promyelocytes % (Man) Blast Cells % (Manual) Nucleated RBC % Metamyelocytes Hypochromia Platelet Estimate Polychromasia Poikilocytosis Anisocytosis Microcytosis Macrocytosis PT with INR INR Puncture Site ABG pH ABG pCO2 at Pt Temp ABG pO2 at Pt Temp ABG HCO3 ABG O2 Sat (Measured) ABG O2 Content ABG Base Excess Malik Test O2 Delivery Device Oxygen Flow Rate Sodium Potassium Chloride Carbon Dioxide Anion Gap BUN Creatinine Est GFR (CKD-EPI)AfAm Est GFR (CKD-EPI)NonAf POC Glucometer 163 193 134 Random Glucose Serum Osmolality Lactic Acid Calcium Phosphorus Magnesium Total Bilirubin AST ALT Alkaline Phosphatase Creatine Kinase Troponin I Total Protein Albumin Total Amylase Lipase Stool Occult Blood Blood Type Antibody Screen Crossmatch 02/27/19 02/27/19 02/27/19 05:53 10:58 16:04 WBC RBC Hgb Hct MCV MCH MCHC RDW Plt Count MPV Absolute Neuts (auto) Neutrophils % Neutrophils % (Manual) Band Neutrophils % Lymphocytes % Lymphocytes % (Manual) Monocytes % Monocytes % (Manual) Eosinophils % Eosinophils % (Manual) Basophils % Basophils % (Manual) Myelocytes % (Man) Promyelocytes % (Man) Blast Cells % (Manual) Nucleated RBC % Metamyelocytes Hypochromia Platelet Estimate Polychromasia Poikilocytosis Anisocytosis Microcytosis Macrocytosis PT with INR INR Puncture Site ABG pH ABG pCO2 at Pt Temp ABG pO2 at Pt Temp ABG HCO3 ABG O2 Sat (Measured) ABG O2 Content ABG Base Excess Malik Test O2 Delivery Device Oxygen Flow Rate Sodium Potassium Chloride Carbon Dioxide Anion Gap BUN Creatinine Est GFR (CKD-EPI)AfAm Est GFR (CKD-EPI)NonAf POC Glucometer 129 206 149 Random Glucose Serum Osmolality Lactic Acid Calcium Phosphorus Magnesium Total Bilirubin AST ALT Alkaline Phosphatase Creatine Kinase Troponin I Total Protein Albumin Total Amylase Lipase Stool Occult Blood Blood Type Antibody Screen Crossmatch 02/27/19 02/28/19 02/28/19 21:04 05:30 09:10 WBC 7.6 RBC 3.94 Hgb 12.0 Hct 36.3 MCV 92.3 MCH 30.5 MCHC 33.0 RDW 15.9 H Plt Count 378 D MPV 7.4 L Absolute Neuts (auto) Neutrophils % Neutrophils % (Manual) Band Neutrophils % Lymphocytes % Lymphocytes % (Manual) Monocytes % Monocytes % (Manual) Eosinophils % Eosinophils % (Manual) Basophils % Basophils % (Manual) Myelocytes % (Man) Promyelocytes % (Man) Blast Cells % (Manual) Nucleated RBC % Metamyelocytes Hypochromia Platelet Estimate Polychromasia Poikilocytosis Anisocytosis Microcytosis Macrocytosis PT with INR INR Puncture Site ABG pH ABG pCO2 at Pt Temp ABG pO2 at Pt Temp ABG HCO3 ABG O2 Sat (Measured) ABG O2 Content ABG Base Excess Malik Test O2 Delivery Device Oxygen Flow Rate Sodium Potassium Chloride Carbon Dioxide Anion Gap BUN Creatinine Est GFR (CKD-EPI)AfAm Est GFR (CKD-EPI)NonAf POC Glucometer 134 128 Random Glucose Serum Osmolality Lactic Acid Calcium Phosphorus Magnesium Total Bilirubin AST ALT Alkaline Phosphatase Creatine Kinase Troponin I Total Protein Albumin Total Amylase Lipase Stool Occult Blood Blood Type Antibody Screen Crossmatch 02/28/19 02/28/19 02/28/19 09:10 11:11 16:22 WBC RBC Hgb Hct MCV MCH MCHC RDW Plt Count MPV Absolute Neuts (auto) Neutrophils % Neutrophils % (Manual) Band Neutrophils % Lymphocytes % Lymphocytes % (Manual) Monocytes % Monocytes % (Manual) Eosinophils % Eosinophils % (Manual) Basophils % Basophils % (Manual) Myelocytes % (Man) Promyelocytes % (Man) Blast Cells % (Manual) Nucleated RBC % Metamyelocytes Hypochromia Platelet Estimate Polychromasia Poikilocytosis Anisocytosis Microcytosis Macrocytosis PT with INR INR Puncture Site ABG pH ABG pCO2 at Pt Temp ABG pO2 at Pt Temp ABG HCO3 ABG O2 Sat (Measured) ABG O2 Content ABG Base Excess Malik Test O2 Delivery Device Oxygen Flow Rate Sodium 134 L Potassium 3.4 L Chloride 97 L Carbon Dioxide 30 Anion Gap 6 L BUN 9 Creatinine 0.9 Est GFR (CKD-EPI)AfAm 67.10 Est GFR (CKD-EPI)NonAf 57.90 POC Glucometer 153 149 Random Glucose 228 H Serum Osmolality Lactic Acid Calcium 8.6 Phosphorus Magnesium Total Bilirubin 0.4 AST 21 ALT 20 Alkaline Phosphatase 68 Creatine Kinase Troponin I Total Protein 6.4 Albumin 2.8 L Total Amylase Lipase Stool Occult Blood Blood Type Antibody Screen Crossmatch 02/28/19 03/01/19 03/01/19 21:04 05:56 08:00 WBC 8.6 RBC 3.97 Hgb 12.0 Hct 37.0 MCV 93.1 MCH 30.3 MCHC 32.5 RDW 15.8 H Plt Count 402 MPV 7.5 Absolute Neuts (auto) Neutrophils % Neutrophils % (Manual) Band Neutrophils % Lymphocytes % Lymphocytes % (Manual) Monocytes % Monocytes % (Manual) Eosinophils % Eosinophils % (Manual) Basophils % Basophils % (Manual) Myelocytes % (Man) Promyelocytes % (Man) Blast Cells % (Manual) Nucleated RBC % Metamyelocytes Hypochromia Platelet Estimate Polychromasia Poikilocytosis Anisocytosis Microcytosis Macrocytosis PT with INR INR Puncture Site ABG pH ABG pCO2 at Pt Temp ABG pO2 at Pt Temp ABG HCO3 ABG O2 Sat (Measured) ABG O2 Content ABG Base Excess Malik Test O2 Delivery Device Oxygen Flow Rate Sodium Potassium Chloride Carbon Dioxide Anion Gap BUN Creatinine Est GFR (CKD-EPI)AfAm Est GFR (CKD-EPI)NonAf POC Glucometer 166 132 Random Glucose Serum Osmolality Lactic Acid Calcium Phosphorus Magnesium Total Bilirubin AST ALT Alkaline Phosphatase Creatine Kinase Troponin I Total Protein Albumin Total Amylase Lipase Stool Occult Blood Blood Type Antibody Screen Crossmatch 03/01/19 03/01/19 03/01/19 08:00 10:54 16:47 WBC RBC Hgb Hct MCV MCH MCHC RDW Plt Count MPV Absolute Neuts (auto) Neutrophils % Neutrophils % (Manual) Band Neutrophils % Lymphocytes % Lymphocytes % (Manual) Monocytes % Monocytes % (Manual) Eosinophils % Eosinophils % (Manual) Basophils % Basophils % (Manual) Myelocytes % (Man) Promyelocytes % (Man) Blast Cells % (Manual) Nucleated RBC % Metamyelocytes Hypochromia Platelet Estimate Polychromasia Poikilocytosis Anisocytosis Microcytosis Macrocytosis PT with INR INR Puncture Site ABG pH ABG pCO2 at Pt Temp ABG pO2 at Pt Temp ABG HCO3 ABG O2 Sat (Measured) ABG O2 Content ABG Base Excess Malik Test O2 Delivery Device Oxygen Flow Rate Sodium 133 L Potassium 3.8 Chloride 97 L Carbon Dioxide 29 Anion Gap 7 L BUN 11 Creatinine 0.9 Est GFR (CKD-EPI)AfAm 67.10 Est GFR (CKD-EPI)NonAf 57.90 POC Glucometer 120 149 Random Glucose 149 H Serum Osmolality Lactic Acid Calcium 9.0 Phosphorus Magnesium Total Bilirubin 0.7 AST 26 ALT 21 Alkaline Phosphatase 73 Creatine Kinase Troponin I Total Protein 6.7 Albumin 3.1 L Total Amylase Lipase Stool Occult Blood Blood Type Antibody Screen Crossmatch 03/01/19 03/02/19 03/02/19 21:33 04:00 06:03 WBC RBC Hgb Hct MCV MCH MCHC RDW Plt Count MPV Absolute Neuts (auto) Neutrophils % Neutrophils % (Manual) Band Neutrophils % Lymphocytes % Lymphocytes % (Manual) Monocytes % Monocytes % (Manual) Eosinophils % Eosinophils % (Manual) Basophils % Basophils % (Manual) Myelocytes % (Man) Promyelocytes % (Man) Blast Cells % (Manual) Nucleated RBC % Metamyelocytes Hypochromia Platelet Estimate Polychromasia Poikilocytosis Anisocytosis Microcytosis Macrocytosis PT with INR INR Puncture Site ABG pH ABG pCO2 at Pt Temp ABG pO2 at Pt Temp ABG HCO3 ABG O2 Sat (Measured) ABG O2 Content ABG Base Excess Malik Test O2 Delivery Device Oxygen Flow Rate Sodium Potassium Chloride Carbon Dioxide Anion Gap BUN Creatinine Est GFR (CKD-EPI)AfAm Est GFR (CKD-EPI)NonAf POC Glucometer 144 154 Random Glucose Serum Osmolality Lactic Acid Calcium Phosphorus Magnesium Total Bilirubin AST ALT Alkaline Phosphatase Creatine Kinase Troponin I Total Protein Albumin Total Amylase Lipase Stool Occult Blood Negative Blood Type Antibody Screen Crossmatch 03/02/19 03/02/19 03/02/19 06:40 06:40 06:40 WBC 10.0 RBC 3.17 L Hgb 9.8 L Hct 28.9 L D MCV 90.9 MCH 30.8 MCHC 33.9 RDW 15.4 Plt Count 369 MPV 7.0 L Absolute Neuts (auto) Neutrophils % Neutrophils % (Manual) Band Neutrophils % Lymphocytes % Lymphocytes % (Manual) Monocytes % Monocytes % (Manual) Eosinophils % Eosinophils % (Manual) Basophils % Basophils % (Manual) Myelocytes % (Man) Promyelocytes % (Man) Blast Cells % (Manual) Nucleated RBC % Metamyelocytes Hypochromia Platelet Estimate Polychromasia Poikilocytosis Anisocytosis Microcytosis Macrocytosis PT with INR INR Puncture Site ABG pH ABG pCO2 at Pt Temp ABG pO2 at Pt Temp ABG HCO3 ABG O2 Sat (Measured) ABG O2 Content ABG Base Excess Malik Test O2 Delivery Device Oxygen Flow Rate Sodium 134 L Potassium 4.0 Chloride 100 Carbon Dioxide 27 Anion Gap 7 L BUN 13 Creatinine 0.9 Est GFR (CKD-EPI)AfAm 67.10 Est GFR (CKD-EPI)NonAf 57.90 POC Glucometer Random Glucose 141 H Serum Osmolality Lactic Acid Calcium 8.3 L Phosphorus Magnesium Total Bilirubin 0.5 AST 18 ALT 15 Alkaline Phosphatase 62 Creatine Kinase Troponin I Total Protein 5.6 L Albumin 2.6 L Total Amylase Lipase Stool Occult Blood Blood Type A POSITIVE Antibody Screen Negative Crossmatch See Detail 03/02/19 03/02/19 03/02/19 12:19 16:40 16:57 WBC 11.4 H RBC 3.49 L Hgb 10.4 L Hct 32.0 L MCV 91.7 MCH 29.9 MCHC 32.6 RDW 15.5 Plt Count 375 MPV 7.6 Absolute Neuts (auto) 8.6 H Neutrophils % 75.2 Neutrophils % (Manual) Band Neutrophils % Lymphocytes % 15.3 Lymphocytes % (Manual) Monocytes % 7.3 Monocytes % (Manual) Eosinophils % 1.5 Eosinophils % (Manual) Basophils % 0.7 Basophils % (Manual) Myelocytes % (Man) Promyelocytes % (Man) Blast Cells % (Manual) Nucleated RBC % 0 Metamyelocytes Hypochromia Platelet Estimate Polychromasia Poikilocytosis Anisocytosis Microcytosis Macrocytosis PT with INR INR Puncture Site ABG pH ABG pCO2 at Pt Temp ABG pO2 at Pt Temp ABG HCO3 ABG O2 Sat (Measured) ABG O2 Content ABG Base Excess Malik Test O2 Delivery Device Oxygen Flow Rate Sodium Potassium Chloride Carbon Dioxide Anion Gap BUN Creatinine Est GFR (CKD-EPI)AfAm Est GFR (CKD-EPI)NonAf POC Glucometer 136 113 Random Glucose Serum Osmolality Lactic Acid Calcium Phosphorus Magnesium Total Bilirubin AST ALT Alkaline Phosphatase Creatine Kinase Troponin I Total Protein Albumin Total Amylase Lipase Stool Occult Blood Blood Type Antibody Screen Crossmatch 03/02/19 03/03/19 03/03/19 21:51 05:30 05:30 WBC 8.9 RBC 3.27 L Hgb 10.2 L Hct 29.6 L MCV 90.5 MCH 31.1 MCHC 34.3 RDW 15.5 Plt Count 347 MPV 7.6 Absolute Neuts (auto) 6.4 Neutrophils % 72.4 Neutrophils % (Manual) Band Neutrophils % Lymphocytes % 15.7 Lymphocytes % (Manual) Monocytes % 9.0 Monocytes % (Manual) Eosinophils % 2.2 Eosinophils % (Manual) Basophils % 0.7 Basophils % (Manual) Myelocytes % (Man) Promyelocytes % (Man) Blast Cells % (Manual) Nucleated RBC % 0 Metamyelocytes Hypochromia Platelet Estimate Polychromasia Poikilocytosis Anisocytosis Microcytosis Macrocytosis PT with INR INR Puncture Site ABG pH ABG pCO2 at Pt Temp ABG pO2 at Pt Temp ABG HCO3 ABG O2 Sat (Measured) ABG O2 Content ABG Base Excess Malik Test O2 Delivery Device Oxygen Flow Rate Sodium 136 Potassium 4.2 Chloride 102 Carbon Dioxide 28 Anion Gap 6 L BUN 8 Creatinine 0.8 Est GFR (CKD-EPI)AfAm 77.37 Est GFR (CKD-EPI)NonAf 66.76 POC Glucometer 110 Random Glucose 107 H Serum Osmolality Lactic Acid Calcium 8.2 L Phosphorus 3.7 Magnesium 2.1 Total Bilirubin 1.0 AST 15 ALT 13 Alkaline Phosphatase 60 Creatine Kinase Troponin I Total Protein 5.2 L Albumin 2.4 L Total Amylase Lipase Stool Occult Blood Blood Type Antibody Screen Crossmatch 03/03/19 03/03/19 03/03/19 05:47 12:33 17:00 WBC 11.4 H RBC 3.34 L Hgb 10.1 L Hct 30.7 L MCV 92.0 MCH 30.1 MCHC 32.8 RDW 15.7 H Plt Count 351 MPV 7.4 L Absolute Neuts (auto) Neutrophils % Neutrophils % (Manual) Band Neutrophils % Lymphocytes % Lymphocytes % (Manual) Monocytes % Monocytes % (Manual) Eosinophils % Eosinophils % (Manual) Basophils % Basophils % (Manual) Myelocytes % (Man) Promyelocytes % (Man) Blast Cells % (Manual) Nucleated RBC % Metamyelocytes Hypochromia Platelet Estimate Polychromasia Poikilocytosis Anisocytosis Microcytosis Macrocytosis PT with INR INR Puncture Site ABG pH ABG pCO2 at Pt Temp ABG pO2 at Pt Temp ABG HCO3 ABG O2 Sat (Measured) ABG O2 Content ABG Base Excess Malik Test O2 Delivery Device Oxygen Flow Rate Sodium Potassium Chloride Carbon Dioxide Anion Gap BUN Creatinine Est GFR (CKD-EPI)AfAm Est GFR (CKD-EPI)NonAf POC Glucometer 107 114 Random Glucose Serum Osmolality Lactic Acid Calcium Phosphorus Magnesium Total Bilirubin AST ALT Alkaline Phosphatase Creatine Kinase Troponin I Total Protein Albumin Total Amylase Lipase Stool Occult Blood Blood Type Antibody Screen Crossmatch 03/03/19 03/03/19 03/03/19 17:00 17:47 21:08 WBC RBC Hgb Hct MCV MCH MCHC RDW Plt Count MPV Absolute Neuts (auto) Neutrophils % Neutrophils % (Manual) Band Neutrophils % Lymphocytes % Lymphocytes % (Manual) Monocytes % Monocytes % (Manual) Eosinophils % Eosinophils % (Manual) Basophils % Basophils % (Manual) Myelocytes % (Man) Promyelocytes % (Man) Blast Cells % (Manual) Nucleated RBC % Metamyelocytes Hypochromia Platelet Estimate Polychromasia Poikilocytosis Anisocytosis Microcytosis Macrocytosis PT with INR INR Puncture Site ABG pH ABG pCO2 at Pt Temp ABG pO2 at Pt Temp ABG HCO3 ABG O2 Sat (Measured) ABG O2 Content ABG Base Excess Malik Test O2 Delivery Device Oxygen Flow Rate Sodium Potassium Chloride Carbon Dioxide Anion Gap BUN Creatinine Est GFR (CKD-EPI)AfAm Est GFR (CKD-EPI)NonAf POC Glucometer 99 195 Random Glucose Serum Osmolality Lactic Acid Calcium Phosphorus Magnesium Total Bilirubin AST ALT Alkaline Phosphatase Creatine Kinase Troponin I Total Protein Albumin Total Amylase 332 H Lipase 2142 H Stool Occult Blood Blood Type Antibody Screen Crossmatch 03/04/19 03/04/19 03/04/19 05:30 05:30 06:03 WBC 9.8 RBC 3.35 L Hgb 10.3 L Hct 30.5 L MCV 90.8 MCH 30.7 MCHC 33.8 RDW 15.6 Plt Count 374 MPV 7.7 Absolute Neuts (auto) Neutrophils % Neutrophils % (Manual) Band Neutrophils % Lymphocytes % Lymphocytes % (Manual) Monocytes % Monocytes % (Manual) Eosinophils % Eosinophils % (Manual) Basophils % Basophils % (Manual) Myelocytes % (Man) Promyelocytes % (Man) Blast Cells % (Manual) Nucleated RBC % Metamyelocytes Hypochromia Platelet Estimate Polychromasia Poikilocytosis Anisocytosis Microcytosis Macrocytosis PT with INR INR Puncture Site ABG pH ABG pCO2 at Pt Temp ABG pO2 at Pt Temp ABG HCO3 ABG O2 Sat (Measured) ABG O2 Content ABG Base Excess Malik Test O2 Delivery Device Oxygen Flow Rate Sodium 135 L Potassium 3.7 Chloride 101 Carbon Dioxide 25 Anion Gap 9 BUN 8 Creatinine 0.7 Est GFR (CKD-EPI)AfAm 90.93 Est GFR (CKD-EPI)NonAf 78.45 POC Glucometer 114 Random Glucose 112 H Serum Osmolality Lactic Acid Calcium 8.3 L Phosphorus 3.5 Magnesium 2.1 Total Bilirubin 0.7 AST 19 ALT 16 Alkaline Phosphatase 65 Creatine Kinase Troponin I Total Protein 5.4 L Albumin 2.7 L Total Amylase Lipase 1460 H Stool Occult Blood Blood Type Antibody Screen Crossmatch 03/04/19 03/04/19 03/04/19 11:52 12:40 16:16 WBC 8.6 RBC 3.35 L Hgb 10.3 L Hct 31.1 L MCV 92.9 MCH 30.7 MCHC 33.0 RDW 15.6 Plt Count 398 MPV 7.6 Absolute Neuts (auto) 6.5 Neutrophils % 76.1 Neutrophils % (Manual) Band Neutrophils % Lymphocytes % 13.2 Lymphocytes % (Manual) Monocytes % 8.6 Monocytes % (Manual) Eosinophils % 1.6 Eosinophils % (Manual) Basophils % 0.5 Basophils % (Manual) Myelocytes % (Man) Promyelocytes % (Man) Blast Cells % (Manual) Nucleated RBC % 0 Metamyelocytes Hypochromia Platelet Estimate Polychromasia Poikilocytosis Anisocytosis Microcytosis Macrocytosis PT with INR INR Puncture Site ABG pH ABG pCO2 at Pt Temp ABG pO2 at Pt Temp ABG HCO3 ABG O2 Sat (Measured) ABG O2 Content ABG Base Excess Malik Test O2 Delivery Device Oxygen Flow Rate Sodium Potassium Chloride Carbon Dioxide Anion Gap BUN Creatinine Est GFR (CKD-EPI)AfAm Est GFR (CKD-EPI)NonAf POC Glucometer 124 110 Random Glucose Serum Osmolality Lactic Acid Calcium Phosphorus Magnesium Total Bilirubin AST ALT Alkaline Phosphatase Creatine Kinase Troponin I Total Protein Albumin Total Amylase Lipase Stool Occult Blood Blood Type Antibody Screen Crossmatch 03/04/19 03/04/19 03/05/19 17:21 21:07 05:30 WBC 8.5 7.0 RBC 3.31 L 2.95 L Hgb 10.1 L 9.2 L Hct 30.5 L 26.8 L MCV 92.2 91.0 MCH 30.6 31.3 MCHC 33.2 34.4 RDW 15.5 15.6 Plt Count 410 383 MPV 7.5 7.6 Absolute Neuts (auto) 4.8 Neutrophils % 67.7 Neutrophils % (Manual) Band Neutrophils % Lymphocytes % 18.1 D Lymphocytes % (Manual) Monocytes % 10.8 H Monocytes % (Manual) Eosinophils % 2.6 Eosinophils % (Manual) Basophils % 0.8 Basophils % (Manual) Myelocytes % (Man) Promyelocytes % (Man) Blast Cells % (Manual) Nucleated RBC % 0 Metamyelocytes Hypochromia Platelet Estimate Polychromasia Poikilocytosis Anisocytosis Microcytosis Macrocytosis PT with INR INR Puncture Site ABG pH ABG pCO2 at Pt Temp ABG pO2 at Pt Temp ABG HCO3 ABG O2 Sat (Measured) ABG O2 Content ABG Base Excess Malik Test O2 Delivery Device Oxygen Flow Rate Sodium Potassium Chloride Carbon Dioxide Anion Gap BUN Creatinine Est GFR (CKD-EPI)AfAm Est GFR (CKD-EPI)NonAf POC Glucometer 178 Random Glucose Serum Osmolality Lactic Acid Calcium Phosphorus Magnesium Total Bilirubin AST ALT Alkaline Phosphatase Creatine Kinase Troponin I Total Protein Albumin Total Amylase Lipase Stool Occult Blood Blood Type Antibody Screen Crossmatch 03/05/19 03/05/19 03/05/19 05:30 05:32 11:55 WBC 7.1 RBC 3.26 L Hgb 10.1 L Hct 30.1 L MCV 92.3 MCH 30.8 MCHC 33.4 RDW 15.3 Plt Count 418 MPV 7.4 L Absolute Neuts (auto) 5.2 Neutrophils % 73.0 Neutrophils % (Manual) Band Neutrophils % Lymphocytes % 14.6 Lymphocytes % (Manual) Monocytes % 9.9 Monocytes % (Manual) Eosinophils % 1.9 Eosinophils % (Manual) Basophils % 0.6 Basophils % (Manual) Myelocytes % (Man) Promyelocytes % (Man) Blast Cells % (Manual) Nucleated RBC % 0 Metamyelocytes Hypochromia Platelet Estimate Polychromasia Poikilocytosis Anisocytosis Microcytosis Macrocytosis PT with INR INR Puncture Site ABG pH ABG pCO2 at Pt Temp ABG pO2 at Pt Temp ABG HCO3 ABG O2 Sat (Measured) ABG O2 Content ABG Base Excess Malik Test O2 Delivery Device Oxygen Flow Rate Sodium 137 Potassium 3.7 Chloride 104 Carbon Dioxide 26 Anion Gap 7 L BUN 7 Creatinine 0.6 Est GFR (CKD-EPI)AfAm 95.66 Est GFR (CKD-EPI)NonAf 82.53 POC Glucometer 114 Random Glucose 117 H Serum Osmolality Lactic Acid Calcium 8.0 L Phosphorus 3.5 Magnesium 2.0 Total Bilirubin 0.6 AST 17 ALT 14 Alkaline Phosphatase 63 Creatine Kinase Troponin I Total Protein 5.1 L Albumin 2.5 L Total Amylase Lipase Stool Occult Blood Blood Type Antibody Screen Crossmatch 03/05/19 03/05/19 03/05/19 12:34 18:01 22:37 WBC RBC Hgb Hct MCV MCH MCHC RDW Plt Count MPV Absolute Neuts (auto) Neutrophils % Neutrophils % (Manual) Band Neutrophils % Lymphocytes % Lymphocytes % (Manual) Monocytes % Monocytes % (Manual) Eosinophils % Eosinophils % (Manual) Basophils % Basophils % (Manual) Myelocytes % (Man) Promyelocytes % (Man) Blast Cells % (Manual) Nucleated RBC % Metamyelocytes Hypochromia Platelet Estimate Polychromasia Poikilocytosis Anisocytosis Microcytosis Macrocytosis PT with INR INR Puncture Site ABG pH ABG pCO2 at Pt Temp ABG pO2 at Pt Temp ABG HCO3 ABG O2 Sat (Measured) ABG O2 Content ABG Base Excess Malik Test O2 Delivery Device Oxygen Flow Rate Sodium Potassium Chloride Carbon Dioxide Anion Gap BUN Creatinine Est GFR (CKD-EPI)AfAm Est GFR (CKD-EPI)NonAf POC Glucometer 183 169 154 Random Glucose Serum Osmolality Lactic Acid Calcium Phosphorus Magnesium Total Bilirubin AST ALT Alkaline Phosphatase Creatine Kinase Troponin I Total Protein Albumin Total Amylase Lipase Stool Occult Blood Blood Type Antibody Screen Crossmatch 03/06/19 03/06/19 03/06/19 06:33 06:48 06:48 WBC 6.3 RBC 3.17 L Hgb 9.9 L Hct 28.9 L MCV 91.0 MCH 31.2 MCHC 34.3 RDW 15.6 Plt Count 407 MPV 7.5 Absolute Neuts (auto) 4.0 Neutrophils % 63.7 Neutrophils % (Manual) Band Neutrophils % Lymphocytes % 19.9 D Lymphocytes % (Manual) Monocytes % 12.2 H Monocytes % (Manual) Eosinophils % 3.2 Eosinophils % (Manual) Basophils % 1.0 Basophils % (Manual) Myelocytes % (Man) Promyelocytes % (Man) Blast Cells % (Manual) Nucleated RBC % 0 Metamyelocytes Hypochromia Platelet Estimate Polychromasia Poikilocytosis Anisocytosis Microcytosis Macrocytosis PT with INR INR Puncture Site ABG pH ABG pCO2 at Pt Temp ABG pO2 at Pt Temp ABG HCO3 ABG O2 Sat (Measured) ABG O2 Content ABG Base Excess Malik Test O2 Delivery Device Oxygen Flow Rate Sodium 137 Potassium 3.7 Chloride 102 Carbon Dioxide 28 Anion Gap 7 L BUN 8 Creatinine 0.7 Est GFR (CKD-EPI)AfAm 90.93 Est GFR (CKD-EPI)NonAf 78.45 POC Glucometer 124 Random Glucose 120 H Serum Osmolality Lactic Acid Calcium 8.3 L Phosphorus 3.2 Magnesium 1.9 Total Bilirubin 0.5 AST 12 L ALT 11 L Alkaline Phosphatase 69 Creatine Kinase Troponin I Total Protein 5.5 L Albumin 2.5 L Total Amylase Lipase Stool Occult Blood Blood Type Antibody Screen Crossmatch 03/06/19 03/06/19 03/06/19 12:48 18:12 23:15 WBC RBC Hgb Hct MCV MCH MCHC RDW Plt Count MPV Absolute Neuts (auto) Neutrophils % Neutrophils % (Manual) Band Neutrophils % Lymphocytes % Lymphocytes % (Manual) Monocytes % Monocytes % (Manual) Eosinophils % Eosinophils % (Manual) Basophils % Basophils % (Manual) Myelocytes % (Man) Promyelocytes % (Man) Blast Cells % (Manual) Nucleated RBC % Metamyelocytes Hypochromia Platelet Estimate Polychromasia Poikilocytosis Anisocytosis Microcytosis Macrocytosis PT with INR INR Puncture Site ABG pH ABG pCO2 at Pt Temp ABG pO2 at Pt Temp ABG HCO3 ABG O2 Sat (Measured) ABG O2 Content ABG Base Excess Malik Test O2 Delivery Device Oxygen Flow Rate Sodium Potassium Chloride Carbon Dioxide Anion Gap BUN Creatinine Est GFR (CKD-EPI)AfAm Est GFR (CKD-EPI)NonAf POC Glucometer 139 162 121 Random Glucose Serum Osmolality Lactic Acid Calcium Phosphorus Magnesium Total Bilirubin AST ALT Alkaline Phosphatase Creatine Kinase Troponin I Total Protein Albumin Total Amylase Lipase Stool Occult Blood Blood Type Antibody Screen Crossmatch 03/07/19 03/07/19 03/07/19 06:40 06:40 06:56 WBC 10.0 RBC 3.26 L Hgb 10.2 L Hct 29.7 L MCV 91.1 MCH 31.2 MCHC 34.2 RDW 15.8 H Plt Count 425 MPV 7.6 Absolute Neuts (auto) Neutrophils % Neutrophils % (Manual) Band Neutrophils % Lymphocytes % Lymphocytes % (Manual) Monocytes % Monocytes % (Manual) Eosinophils % Eosinophils % (Manual) Basophils % Basophils % (Manual) Myelocytes % (Man) Promyelocytes % (Man) Blast Cells % (Manual) Nucleated RBC % Metamyelocytes Hypochromia Platelet Estimate Polychromasia Poikilocytosis Anisocytosis Microcytosis Macrocytosis PT with INR INR Puncture Site ABG pH ABG pCO2 at Pt Temp ABG pO2 at Pt Temp ABG HCO3 ABG O2 Sat (Measured) ABG O2 Content ABG Base Excess Malik Test O2 Delivery Device Oxygen Flow Rate Sodium 136 Potassium 4.0 Chloride 100 Carbon Dioxide 27 Anion Gap 9 BUN 10 Creatinine 0.8 Est GFR (CKD-EPI)AfAm 77.37 Est GFR (CKD-EPI)NonAf 66.76 POC Glucometer 145 Random Glucose 136 H Serum Osmolality Lactic Acid Calcium 8.8 Phosphorus Magnesium Total Bilirubin 0.6 AST 10 L ALT 10 L Alkaline Phosphatase 83 Creatine Kinase Troponin I Total Protein 5.8 L Albumin 2.7 L Total Amylase Lipase Stool Occult Blood Blood Type Antibody Screen Crossmatch 03/07/19 03/07/19 03/07/19 12:23 17:47 21:33 WBC RBC Hgb Hct MCV MCH MCHC RDW Plt Count MPV Absolute Neuts (auto) Neutrophils % Neutrophils % (Manual) Band Neutrophils % Lymphocytes % Lymphocytes % (Manual) Monocytes % Monocytes % (Manual) Eosinophils % Eosinophils % (Manual) Basophils % Basophils % (Manual) Myelocytes % (Man) Promyelocytes % (Man) Blast Cells % (Manual) Nucleated RBC % Metamyelocytes Hypochromia Platelet Estimate Polychromasia Poikilocytosis Anisocytosis Microcytosis Macrocytosis PT with INR INR Puncture Site ABG pH ABG pCO2 at Pt Temp ABG pO2 at Pt Temp ABG HCO3 ABG O2 Sat (Measured) ABG O2 Content ABG Base Excess Malik Test O2 Delivery Device Oxygen Flow Rate Sodium Potassium Chloride Carbon Dioxide Anion Gap BUN Creatinine Est GFR (CKD-EPI)AfAm Est GFR (CKD-EPI)NonAf POC Glucometer 149 176 133 Random Glucose Serum Osmolality Lactic Acid Calcium Phosphorus Magnesium Total Bilirubin AST ALT Alkaline Phosphatase Creatine Kinase Troponin I Total Protein Albumin Total Amylase Lipase Stool Occult Blood Blood Type Antibody Screen Crossmatch 03/08/19 03/08/19 03/08/19 06:46 11:50 16:59 WBC RBC Hgb Hct MCV MCH MCHC RDW Plt Count MPV Absolute Neuts (auto) Neutrophils % Neutrophils % (Manual) Band Neutrophils % Lymphocytes % Lymphocytes % (Manual) Monocytes % Monocytes % (Manual) Eosinophils % Eosinophils % (Manual) Basophils % Basophils % (Manual) Myelocytes % (Man) Promyelocytes % (Man) Blast Cells % (Manual) Nucleated RBC % Metamyelocytes Hypochromia Platelet Estimate Polychromasia Poikilocytosis Anisocytosis Microcytosis Macrocytosis PT with INR INR Puncture Site ABG pH ABG pCO2 at Pt Temp ABG pO2 at Pt Temp ABG HCO3 ABG O2 Sat (Measured) ABG O2 Content ABG Base Excess Malik Test O2 Delivery Device Oxygen Flow Rate Sodium Potassium Chloride Carbon Dioxide Anion Gap BUN Creatinine Est GFR (CKD-EPI)AfAm Est GFR (CKD-EPI)NonAf POC Glucometer 142 165 193 Random Glucose Serum Osmolality Lactic Acid Calcium Phosphorus Magnesium Total Bilirubin AST ALT Alkaline Phosphatase Creatine Kinase Troponin I Total Protein Albumin Total Amylase Lipase Stool Occult Blood Blood Type Antibody Screen Crossmatch 03/08/19 03/09/19 03/09/19 21:00 05:52 11:57 WBC RBC Hgb Hct MCV MCH MCHC RDW Plt Count MPV Absolute Neuts (auto) Neutrophils % Neutrophils % (Manual) Band Neutrophils % Lymphocytes % Lymphocytes % (Manual) Monocytes % Monocytes % (Manual) Eosinophils % Eosinophils % (Manual) Basophils % Basophils % (Manual) Myelocytes % (Man) Promyelocytes % (Man) Blast Cells % (Manual) Nucleated RBC % Metamyelocytes Hypochromia Platelet Estimate Polychromasia Poikilocytosis Anisocytosis Microcytosis Macrocytosis PT with INR INR Puncture Site ABG pH ABG pCO2 at Pt Temp ABG pO2 at Pt Temp ABG HCO3 ABG O2 Sat (Measured) ABG O2 Content ABG Base Excess Malik Test O2 Delivery Device Oxygen Flow Rate Sodium Potassium Chloride Carbon Dioxide Anion Gap BUN Creatinine Est GFR (CKD-EPI)AfAm Est GFR (CKD-EPI)NonAf POC Glucometer 153 151 169 Random Glucose Serum Osmolality Lactic Acid Calcium Phosphorus Magnesium Total Bilirubin AST ALT Alkaline Phosphatase Creatine Kinase Troponin I Total Protein Albumin Total Amylase Lipase Stool Occult Blood Blood Type Antibody Screen Crossmatch 03/09/19 03/09/19 03/10/19 17:20 21:48 06:53 WBC RBC Hgb Hct MCV MCH MCHC RDW Plt Count MPV Absolute Neuts (auto) Neutrophils % Neutrophils % (Manual) Band Neutrophils % Lymphocytes % Lymphocytes % (Manual) Monocytes % Monocytes % (Manual) Eosinophils % Eosinophils % (Manual) Basophils % Basophils % (Manual) Myelocytes % (Man) Promyelocytes % (Man) Blast Cells % (Manual) Nucleated RBC % Metamyelocytes Hypochromia Platelet Estimate Polychromasia Poikilocytosis Anisocytosis Microcytosis Macrocytosis PT with INR INR Puncture Site ABG pH ABG pCO2 at Pt Temp ABG pO2 at Pt Temp ABG HCO3 ABG O2 Sat (Measured) ABG O2 Content ABG Base Excess Malik Test O2 Delivery Device Oxygen Flow Rate Sodium Potassium Chloride Carbon Dioxide Anion Gap BUN Creatinine Est GFR (CKD-EPI)AfAm Est GFR (CKD-EPI)NonAf POC Glucometer 140 157 136 Random Glucose Serum Osmolality Lactic Acid Calcium Phosphorus Magnesium Total Bilirubin AST ALT Alkaline Phosphatase Creatine Kinase Troponin I Total Protein Albumin Total Amylase Lipase Stool Occult Blood Blood Type Antibody Screen Crossmatch 03/10/19 11:46 WBC RBC Hgb Hct MCV MCH MCHC RDW Plt Count MPV Absolute Neuts (auto) Neutrophils % Neutrophils % (Manual) Band Neutrophils % Lymphocytes % Lymphocytes % (Manual) Monocytes % Monocytes % (Manual) Eosinophils % Eosinophils % (Manual) Basophils % Basophils % (Manual) Myelocytes % (Man) Promyelocytes % (Man) Blast Cells % (Manual) Nucleated RBC % Metamyelocytes Hypochromia Platelet Estimate Polychromasia Poikilocytosis Anisocytosis Microcytosis Macrocytosis PT with INR INR Puncture Site ABG pH ABG pCO2 at Pt Temp ABG pO2 at Pt Temp ABG HCO3 ABG O2 Sat (Measured) ABG O2 Content ABG Base Excess Malik Test O2 Delivery Device Oxygen Flow Rate Sodium Potassium Chloride Carbon Dioxide Anion Gap BUN Creatinine Est GFR (CKD-EPI)AfAm Est GFR (CKD-EPI)NonAf POC Glucometer 164 Random Glucose Serum Osmolality Lactic Acid Calcium Phosphorus Magnesium Total Bilirubin AST ALT Alkaline Phosphatase Creatine Kinase Troponin I Total Protein Albumin Total Amylase Lipase Stool Occult Blood Blood Type Antibody Screen Crossmatch Active Medications Generic Name Dose Route Start Last Admin Trade Name Freq PRN Reason Stop Dose Admin Acetaminophen 325 mg 03/06/19 07:38 03/09/19 20:57 Tylenol - PO 325 mg Q4H PRN Administration PAIN LEVEL 4 - 6 Atorvastatin Calcium 40 mg 03/06/19 22:00 03/09/19 21:02 Lipitor - PO 40 mg HS AI Administration Gabapentin 100 mg 03/06/19 10:00 03/10/19 10:10 Neurontin - PO 100 mg BID AI Administration Insulin Aspart 1 vial 03/06/19 11:00 03/10/19 12:05 Novolog Vial Sliding Scale - SQ 2 units ACHS AI Administration Protocol Isosorbide Mononitrate 30 mg 03/06/19 10:00 03/10/19 10:10 Imdur - PO 30 mg DAILY AI Administration Losartan Potassium 100 mg 03/06/19 10:00 03/10/19 10:10 Cozaar - PO 100 mg DAILY AI Administration Pantoprazole Sodium 20 mg 03/06/19 10:00 03/10/19 10:10 Protonix - PO 20 mg BID AI Administration Polyethylene Glycol 17 gm 03/07/19 10:00 03/10/19 10:10 Miralax (For Daily Use) - PO 17 grams DAILY AI Administration Microbiology 02/27/19 02:00 Stool Salmonella/Shigella Culture - Final NO GROWTH OF SALMONELLA OR SHIGELLA SPECIES OBTAINED 02/27/19 02:00 Stool Campylobacter Culture - Final NO GROWTH OF CAMPYLOBACTER SPECIES OBTAINED 02/27/19 02:00 Stool Yersinia Culture - Final NO GROWTH OF YERSINIA SPECIES OBTAINED 02/27/19 02:00 Stool Vibrio Culture - Final NO GROWTH OF VIBRIO SPECIES OBTAINED 02/27/19 02:00 Stool Escherichia coli 0157 Culture - Final NO GROWTH OF E COLI 0157 OBTAINED 02/19/19 17:30 Peritoneal Cavity Swab Gram Stain - Final 02/19/19 17:30 Peritoneal Cavity Swab Wound Culture - Final NO AEROBIC OR ANAEROBIC GROWTH OBTAINED. Condition: Stable - Instructions Diet, Activity, Other Instructions: Call Dr. Kyle's office , Tel No [phone], for follow up appointment. Follow up with PMD in 1 week after discharge Follow up with Surgery Dr Kyle for staple removal continue with current medication regimen continue with ABT return to ER if develop infection to surgical site, respiratory distress, chest pain, fever Referrals: Disha Castano DO [Staff Physician] - Lupillo Kyle MD [Staff Physician] - Disposition: VNS/HOME HEALTH CARE - Home Medications Comprehensive Discharge Medication List: Ambulatory Orders Atorvastatin Ca [Lipitor] 40 mg PO HS 02/19/19 Gabapentin 100 mg PO BID 02/19/19 Isosorbide Mononitrate [Isosorbide Mononitrate ER] 30 mg PO DAILY 02/19/19 Losartan Potassium 100 mg PO DAILY 02/19/19 Meloxicam 15 mg PO DAILY 02/19/19 Metformin HCl [Glucophage] 500 mg PO BID 02/19/19 Zolpidem Tartrate [Ambien] 10 mg PO HS 02/19/19 Amox-Tr/K Cl [Augmentin 875-125mg Tablet -] 1 tab PO BID@0800,1730 #6 tablet Pantoprazole Sodium [Protonix -] 40 mg PO DAILY #30 tablet.ec 02/26/19
[2019-03-10] MEDS: ATORVASTATIN CA 40 MG TABLET (FP) PO SCH (22:27)
[2019-03-10] MEDS: ACETAMINOPHEN 325 MG TABLET (FP) PO PRN (22:28)
[2019-03-11] MEDS: INSULIN SLIDING SCALE (NOVOLOG) 1 VIAL SQ SCH ×4 (06:23→21:34)
--- NOTE | 2019-03-11 09:55 | PN ---
Progress Note, Physician History of Present Illness: stable no new issues - Current Medication List Current Medications: Active Medications Acetaminophen (Tylenol -) 325 mg PO Q4H PRN PRN Reason: PAIN LEVEL 4 - 6 Last Admin: 03/10/19 22:28 Dose: 325 mg Atorvastatin Calcium (Lipitor -) 40 mg PO HS [facility] Last Admin: 03/10/19 22:27 Dose: 40 mg Gabapentin (Neurontin -) 100 mg PO BID [facility] Last Admin: 03/10/19 22:27 Dose: 100 mg Insulin Aspart (Novolog Vial Sliding Scale -) 1 vial SQ [facility]; Protocol Last Admin: 03/11/19 06:23 Dose: Not Given Isosorbide Mononitrate (Imdur -) 30 mg PO DAILY [facility] Last Admin: 03/10/19 10:10 Dose: 30 mg Losartan Potassium (Cozaar -) 100 mg PO DAILY [facility] Last Admin: 03/10/19 10:10 Dose: 100 mg Pantoprazole Sodium (Protonix -) 20 mg PO BID [facility] Last Admin: 03/10/19 22:27 Dose: 20 mg Polyethylene Glycol (Miralax (For Daily Use) -) 17 gm PO DAILY [facility] Last Admin: 03/10/19 10:10 Dose: 17 grams - Objective Vital Signs: Vital Signs Temperature 98.7 F 03/11/19 06:55 Pulse Rate 82 03/11/19 06:55 Respiratory Rate 20 03/11/19 06:55 Blood Pressure 124/55 L 03/11/19 06:55 O2 Sat by Pulse Oximetry (%) 99 03/10/19 09:00 Constitutional: Yes: No Distress, Calm Cardiovascular: Yes: Regular Rate and Rhythm Respiratory: Yes: Regular, CTA Bilaterally Gastrointestinal: Yes: Soft Musculoskeletal: Yes: WNL Extremities: Yes: WNL Neurological: Yes: Alert, Oriented Psychiatric: Yes: Alert, Oriented Labs: CBC, BMP 03/07/19 06:40 03/07/19 06:40 INR, PTT INR 0.94 (0.83-1.09) 02/19/19 09:50 Assessment/Plan Assessment/Plan Perforated viscus, dehydration, CAD, Obesity. Plan : Hydrate , Antibiotics, Emergency laparotomy , perforated ulcer. gi bleed plan stable continue current mgmt doing well rest as per the team
[2019-03-11] MEDS: ISOSORBIDE MONONITRATE 30 MG TAB.SR.24H (FP) PO SCH (10:17)
[2019-03-11] MEDS: LOSARTAN POTASSIUM 50 MG TABLET (FP) PO SCH (10:17)
[2019-03-11] MEDS: GABAPENTIN 100 MG CAPSULE (FP) PO SCH ×2 (10:17→21:32)
[2019-03-11] MEDS: PANTOPRAZOLE 20 MG TABLET (FP) PO SCH ×2 (10:17→21:32)
[2019-03-11] MEDS: POLYETHYLENE GLYCOL 3350 119 GM BTL PO SCH (10:22)
--- NOTE | 2019-03-11 10:24 | PN ---
Progress Note (short form) - Note Progress Note: PATIENT NOT AMBULATING WELL WITH UNSTEADY GAIT. PATIENT DOES NOT HAVE ANY HELP AT HOME WITH NO FAMILY TO ASSIST. DIFFICULT FOR HOME HEALTH CARE TO MANAGE AND MAY ULTIMATELY NEED SNF PLACEMENT. CONTINUE CURRENT MEDICATIONS AND WORKUP. Problem List - Problems (1) Bowel perforation Code(s): K63.1 - PERFORATION OF INTESTINE (NONTRAUMATIC) (2) Diabetes Code(s): E11.9 - TYPE 2 DIABETES MELLITUS WITHOUT COMPLICATIONS Qualifiers: Diabetes mellitus type: type 2 (3) Sepsis Code(s): A41.9 - SEPSIS, UNSPECIFIED ORGANISM
[2019-03-11] MEDS: ATORVASTATIN CA 40 MG TABLET (FP) PO SCH (21:32)
[2019-03-11] MEDS ORDERED: INSULIN (NOVOLOG) ASPART 100 UNITS/ML 10ML VIAL ONE (21:33)
[2019-03-11] MEDS: ACETAMINOPHEN 325 MG TABLET (FP) PO PRN (23:07)
[2019-03-12] MEDS: INSULIN SLIDING SCALE (NOVOLOG) 1 VIAL SQ SCH ×4 (06:53→22:08)
--- NOTE | 2019-03-12 10:26 | PN ---
Progress Note, Physician - Current Medication List Current Medications: Active Medications Acetaminophen (Tylenol -) 325 mg PO Q4H PRN PRN Reason: PAIN LEVEL 4 - 6 Last Admin: 03/11/19 23:07 Dose: 325 mg Atorvastatin Calcium (Lipitor -) 40 mg PO HS [facility] Last Admin: 03/11/19 21:32 Dose: 40 mg Gabapentin (Neurontin -) 100 mg PO BID [facility] Last Admin: 03/11/19 21:32 Dose: 100 mg Insulin Aspart (Novolog Vial Sliding Scale -) 1 vial SQ [facility]; Protocol Last Admin: 03/12/19 06:53 Dose: Not Given Isosorbide Mononitrate (Imdur -) 30 mg PO DAILY [facility] Last Admin: 03/11/19 10:17 Dose: 30 mg Losartan Potassium (Cozaar -) 100 mg PO DAILY [facility] Last Admin: 03/11/19 10:17 Dose: 100 mg Pantoprazole Sodium (Protonix -) 20 mg PO BID [facility] Last Admin: 03/11/19 21:32 Dose: 20 mg Polyethylene Glycol (Miralax (For Daily Use) -) 17 gm PO DAILY [facility] Last Admin: 03/11/19 10:22 Dose: 17 grams - Objective Vital Signs: Vital Signs Temperature 97.9 F 03/12/19 06:31 Pulse Rate 94 H 03/12/19 06:31 Respiratory Rate 20 03/12/19 06:31 Blood Pressure 120/59 L 03/12/19 06:31 O2 Sat by Pulse Oximetry (%) 96 03/11/19 21:00 Labs: CBC, BMP 03/07/19 06:40 03/07/19 06:40 INR, PTT INR 0.94 (0.83-1.09) 02/19/19 09:50 Assessment/Plan Abdomen is soft. Wound is clean. No abdominal pain. Patient is in the hospital for assistance .
--- NOTE | 2019-03-12 11:36 | PN ---
Progress Note, Physician Chief Complaint: PATIENT IS STILL AWAITING PLACEMENT TO SNF DUE TO UNSAFE DISCHARGE ENVIRONMENT AT HOME IS NOT SAFE. - Current Medication List Current Medications: Active Medications Acetaminophen (Tylenol -) 325 mg PO Q4H PRN PRN Reason: PAIN LEVEL 4 - 6 Last Admin: 03/11/19 23:07 Dose: 325 mg Atorvastatin Calcium (Lipitor -) 40 mg PO HS [facility] Last Admin: 03/11/19 21:32 Dose: 40 mg Gabapentin (Neurontin -) 100 mg PO BID [facility] Last Admin: 03/11/19 21:32 Dose: 100 mg Insulin Aspart (Novolog Vial Sliding Scale -) 1 vial SQ [facility]; Protocol Last Admin: 03/12/19 06:53 Dose: Not Given Isosorbide Mononitrate (Imdur -) 30 mg PO DAILY [facility] Last Admin: 03/11/19 10:17 Dose: 30 mg Losartan Potassium (Cozaar -) 100 mg PO DAILY [facility] Last Admin: 03/11/19 10:17 Dose: 100 mg Pantoprazole Sodium (Protonix -) 20 mg PO BID [facility] Last Admin: 03/11/19 21:32 Dose: 20 mg Polyethylene Glycol (Miralax (For Daily Use) -) 17 gm PO DAILY [facility] Last Admin: 03/11/19 10:22 Dose: 17 grams - Objective Vital Signs: Vital Signs Temperature 97.9 F 03/12/19 06:31 Pulse Rate 94 H 03/12/19 06:31 Respiratory Rate 20 03/12/19 06:31 Blood Pressure 120/59 L 03/12/19 06:31 O2 Sat by Pulse Oximetry (%) 96 03/11/19 21:00 Constitutional: Yes: No Distress Eyes: Yes: WNL HENT: Yes: WNL Neck: Yes: WNL Cardiovascular: Yes: Regular Rate and Rhythm Respiratory: Yes: WNL Gastrointestinal: Yes: Normal Bowel Sounds Genitourinary: Yes: WNL Musculoskeletal: Yes: Muscle Weakness Extremities: Yes: WNL Edema: No Peripheral Pulses WNL: Yes Integumentary: Yes: WNL Wound/Incision: Yes: Clean/Dry Neurological: Yes: Pre-Existing Deficit Psychiatric: Yes: Other Labs: CBC, BMP 03/07/19 06:40 03/07/19 06:40 INR, PTT INR 0.94 (0.83-1.09) 02/19/19 09:50 Problem List - Problems (1) Bowel perforation Code(s): K63.1 - PERFORATION OF INTESTINE (NONTRAUMATIC) (2) Diabetes Code(s): E11.9 - TYPE 2 DIABETES MELLITUS WITHOUT COMPLICATIONS Qualifiers: Diabetes mellitus type: type 2 (3) Sepsis Code(s): A41.9 - SEPSIS, UNSPECIFIED ORGANISM Assessment/Plan UNSAFE DISCHARGE TO GO HOME NOT A SAFE ENVIRONMENT TO BE HOME ALONE. CHECKING LABS TODAY SNF PLACEMENT D/W NATIONAL ACCOUNT DIRECTOR
[2019-03-12] MEDS: LOSARTAN POTASSIUM 50 MG TABLET (FP) PO SCH (12:09)
[2019-03-12] MEDS: PANTOPRAZOLE 20 MG TABLET (FP) PO SCH ×2 (12:09→22:08)
[2019-03-12] MEDS: GABAPENTIN 100 MG CAPSULE (FP) PO SCH ×2 (12:09→22:08)
[2019-03-12] MEDS: ISOSORBIDE MONONITRATE 30 MG TAB.SR.24H (FP) PO SCH (12:09)
[2019-03-12] MEDS: POLYETHYLENE GLYCOL 3350 119 GM BTL PO SCH (12:13)
--- NOTE | 2019-03-12 12:34 | PN ---
Progress Note, Physician History of Present Illness: stable doing well - Current Medication List Current Medications: Active Medications Acetaminophen (Tylenol -) 325 mg PO Q4H PRN PRN Reason: PAIN LEVEL 4 - 6 Last Admin: 03/11/19 23:07 Dose: 325 mg Atorvastatin Calcium (Lipitor -) 40 mg PO HS [facility] Last Admin: 03/11/19 21:32 Dose: 40 mg Gabapentin (Neurontin -) 100 mg PO BID [facility] Last Admin: 03/12/19 12:09 Dose: 100 mg Insulin Aspart (Novolog Vial Sliding Scale -) 1 vial SQ [facility]; Protocol Last Admin: 03/12/19 12:15 Dose: Not Given Isosorbide Mononitrate (Imdur -) 30 mg PO DAILY [facility] Last Admin: 03/12/19 12:09 Dose: 30 mg Losartan Potassium (Cozaar -) 100 mg PO DAILY [facility] Last Admin: 03/12/19 12:09 Dose: 100 mg Pantoprazole Sodium (Protonix -) 20 mg PO BID [facility] Last Admin: 03/12/19 12:09 Dose: 20 mg Polyethylene Glycol (Miralax (For Daily Use) -) 17 gm PO DAILY [facility] Last Admin: 03/12/19 12:13 Dose: 17 grams - Objective Vital Signs: Vital Signs Temperature 98.8 F 03/12/19 11:36 Pulse Rate 102 H 03/12/19 11:36 Respiratory Rate 18 03/12/19 11:36 Blood Pressure 127/58 L 03/12/19 11:36 O2 Sat by Pulse Oximetry (%) 96 03/11/19 21:00 Constitutional: Yes: No Distress, Calm Cardiovascular: Yes: S1, S2 Respiratory: Yes: Regular, CTA Bilaterally Gastrointestinal: Yes: Normal Bowel Sounds, Soft Musculoskeletal: Yes: WNL Extremities: Yes: WNL Neurological: Yes: Alert, Oriented Psychiatric: Yes: Alert, Oriented Labs: CBC, BMP 03/07/19 06:40 03/07/19 06:40 INR, PTT INR 0.94 (0.83-1.09) 02/19/19 09:50 Assessment/Plan Assessment/Plan Perforated viscus, dehydration, CAD, Obesity. Plan : Hydrate , Antibiotics, Emergency laparotomy , perforated ulcer. gi bleed plan stable continue current mgmt doing well rest as per the team
[2019-03-12 12:57] LABS: HEMATOCRIT 31.3 % (32.4-45.2); HEMOGLOBIN 10.2 GM/dL (10.7-15.3); MCHC 32.6 g/dl (32.0-36.0); MEAN CELL VOLUME 92.1 fl (80-96); MEAN PLT VOLUME 7.7 fl (7.5-11.1); PLATELET COUNT 421 K/MM3 (134-434); RBC 3.39 M/mm3 (3.60-5.2); RDW 15.4 % (11.6-15.6); WHITE BLOOD COUNT 9.3 K/mm3 (4.0-10.0)
[2019-03-12 13:37] LABS: ALBUMIN 2.7 g/dl (3.4-5.0); BILIRUBIN,TOTAL 0.6 mg/dL (0.2-1); CREATININE 0.9 mg/dL (0.55-1.3); POTASSIUM 4.7 mmol/L (3.5-5.1); TOT PROT 6.4 g/dl (6.4-8.2)
--- NOTE | 2019-03-12 20:34 | PN ---
Progress Note (short form) - Note Progress Note: Patient is currently awaiting placement for SNF. Patient has an unsafe living environment at home and does not have much support in the community. Problem List - Problems (1) Diabetes Code(s): E11.9 - TYPE 2 DIABETES MELLITUS WITHOUT COMPLICATIONS Qualifiers: Diabetes mellitus type: type 2 (2) Perforated chronic peptic ulcer Code(s): K27.5 - CHRONIC OR UNSP PEPTIC ULCER, SITE UNSP, WITH PERFORATION (3) Sepsis Code(s): A41.9 - SEPSIS, UNSPECIFIED ORGANISM (4) Diarrhea Code(s): R19.7 - DIARRHEA, UNSPECIFIED (5) Rectal bleeding Code(s): K62.5 - HEMORRHAGE OF ANUS AND RECTUM
[2019-03-12] MEDS: ATORVASTATIN CA 40 MG TABLET (FP) PO SCH (22:08)
[2019-03-13] MEDS: INSULIN SLIDING SCALE (NOVOLOG) 1 VIAL SQ SCH ×4 (06:46→21:59)
--- NOTE | 2019-03-13 08:45 | PN ---
Progress Note, Physician History of Present Illness: stable doing well - Current Medication List Current Medications: Active Medications Acetaminophen (Tylenol -) 325 mg PO Q4H PRN PRN Reason: PAIN LEVEL 4 - 6 Last Admin: 03/11/19 23:07 Dose: 325 mg Atorvastatin Calcium (Lipitor -) 40 mg PO HS [facility] Last Admin: 03/12/19 22:08 Dose: 40 mg Gabapentin (Neurontin -) 100 mg PO BID [facility] Last Admin: 03/12/19 22:08 Dose: 100 mg Insulin Aspart (Novolog Vial Sliding Scale -) 1 vial SQ [facility]; Protocol Last Admin: 03/13/19 06:46 Dose: Not Given Isosorbide Mononitrate (Imdur -) 30 mg PO DAILY [facility] Last Admin: 03/12/19 12:09 Dose: 30 mg Losartan Potassium (Cozaar -) 100 mg PO DAILY [facility] Last Admin: 03/12/19 12:09 Dose: 100 mg Pantoprazole Sodium (Protonix -) 20 mg PO BID [facility] Last Admin: 03/12/19 22:08 Dose: 20 mg Polyethylene Glycol (Miralax (For Daily Use) -) 17 gm PO DAILY [facility] Last Admin: 03/12/19 12:13 Dose: 17 grams - Objective Vital Signs: Vital Signs Temperature 98.1 F 03/12/19 20:56 Pulse Rate 101 H 03/12/19 20:56 Respiratory Rate 20 03/12/19 20:56 Blood Pressure 133/55 L 03/12/19 20:56 O2 Sat by Pulse Oximetry (%) 96 03/12/19 21:00 Constitutional: Yes: No Distress, Calm Cardiovascular: Yes: Regular Rate and Rhythm Respiratory: Yes: Regular, CTA Bilaterally Gastrointestinal: Yes: Normal Bowel Sounds, Soft Musculoskeletal: Yes: WNL Extremities: Yes: WNL Neurological: Yes: Alert, Oriented Psychiatric: Yes: Alert, Oriented Labs: CBC, BMP 03/12/19 12:18 03/12/19 12:18 INR, PTT INR 0.94 (0.83-1.09) 02/19/19 09:50 Assessment/Plan Assessment/Plan Perforated viscus, dehydration, CAD, Obesity. Plan : Hydrate , Antibiotics, Emergency laparotomy , perforated ulcer. gi bleed plan stable continue current mgmt doing well rest as per the team
[2019-03-13] MEDS: ISOSORBIDE MONONITRATE 30 MG TAB.SR.24H (FP) PO SCH (11:17)
[2019-03-13] MEDS: LOSARTAN POTASSIUM 50 MG TABLET (FP) PO SCH (11:17)
[2019-03-13] MEDS: GABAPENTIN 100 MG CAPSULE (FP) PO SCH ×2 (11:17→22:00)
[2019-03-13] MEDS: PANTOPRAZOLE 20 MG TABLET (FP) PO SCH ×2 (11:18→22:00)
[2019-03-13] MEDS: POLYETHYLENE GLYCOL 3350 119 GM BTL PO SCH (11:18)
--- NOTE | 2019-03-13 13:23 | PN ---
Progress Note, Physician Chief Complaint: Perforated Peptic Ulcer Acute Peritonitis S/p Exp Laparotomy History of Present Illness: Previous notes and events reviewed awake and alert NAD awaiting SNF placement due to unsafe discharge 11/08 to living environment patient states feeling depressed, she states her son is in the hospital and her [id number] went back to where he lives out of state - Current Medication List Current Medications: Active Medications Acetaminophen (Tylenol -) 325 mg PO Q4H PRN PRN Reason: PAIN LEVEL 4 - 6 Last Admin: 03/11/19 23:07 Dose: 325 mg Atorvastatin Calcium (Lipitor -) 40 mg PO HS [facility] Last Admin: 03/12/19 22:08 Dose: 40 mg Gabapentin (Neurontin -) 100 mg PO BID [facility] Last Admin: 03/13/19 11:17 Dose: 100 mg Insulin Aspart (Novolog Vial Sliding Scale -) 1 vial SQ [facility]; Protocol Last Admin: 03/13/19 12:20 Dose: 2 units Isosorbide Mononitrate (Imdur -) 30 mg PO DAILY [facility] Last Admin: 03/13/19 11:17 Dose: 30 mg Losartan Potassium (Cozaar -) 100 mg PO DAILY [facility] Last Admin: 03/13/19 11:17 Dose: 100 mg Pantoprazole Sodium (Protonix -) 20 mg PO BID [facility] Last Admin: 03/13/19 11:18 Dose: 20 mg Polyethylene Glycol (Miralax (For Daily Use) -) 17 gm PO DAILY [facility] Last Admin: 03/13/19 11:18 Dose: 17 grams - Objective Vital Signs: Vital Signs Temperature 98.1 F 03/12/19 20:56 Pulse Rate 101 H 03/12/19 20:56 Respiratory Rate 20 03/12/19 20:56 Blood Pressure 133/55 L 03/12/19 20:56 O2 Sat by Pulse Oximetry (%) 96 03/12/19 21:00 Constitutional: Yes: No Distress, Calm Eyes: Yes: Conjunctiva Clear HENT: Yes: Atraumatic Cardiovascular: Yes: Regular Rate and Rhythm Respiratory: Yes: Regular, CTA Bilaterally Gastrointestinal: Yes: Normal Bowel Sounds, Soft Musculoskeletal: Yes: Muscle Weakness Extremities: Yes: WNL Edema: No Neurological: Yes: Alert, Oriented Psychiatric: Yes: Alert, Oriented Labs: CBC, BMP 03/12/19 12:18 03/12/19 12:18 INR, PTT INR 0.94 (0.83-1.09) 02/19/19 09:50 Problem List - Problems (1) Diabetes Assessment/Plan: -BGM ACHS -ISS -diabetic diet Code(s): E11.9 - TYPE 2 DIABETES MELLITUS WITHOUT COMPLICATIONS Qualifiers: Diabetes mellitus type: type 2 (2) Perforated chronic peptic ulcer Assessment/Plan: -Surgery on board -s/p exploratory laparotomy -drain removed and dressing in place without -Upper GI Series shows no extravasation -monitor off antibiotics Code(s): K27.5 - CHRONIC OR UNSP PEPTIC ULCER, SITE UNSP, WITH PERFORATION (3) Sepsis Assessment/Plan: -afebrile -ID on board -will monitor off ABT Code(s): A41.9 - SEPSIS, UNSPECIFIED ORGANISM (4) Diarrhea Assessment/Plan: -stool culture neg -resolved Code(s): R19.7 - DIARRHEA, UNSPECIFIED (5) Rectal bleeding Assessment/Plan: -GI on board -resolved Code(s): K62.5 - HEMORRHAGE OF ANUS AND RECTUM Assessment/Plan see problem list dvt ppx patient is pending discharge to SNF--has unsafe living environment and does not have good familial support
--- NOTE | 2019-03-13 16:05 | CON.PSY ---
Psychiatry Consult Chief Complaint: i am depressed, I dont sleep well. i have poor appetite. Symptoms: reports: Depressed Mood, Appetite Disturbance, Weight change, Sleep Disturbance - Previous Psychiatric Treatment Outpatient: None Inpatient: None - Previous Substance Abuse Treatment Outpatient: None Inpatient: None - Current Medications Current Medications: Active Medications Acetaminophen (Tylenol -) 325 mg PO Q4H PRN PRN Reason: PAIN LEVEL 4 - 6 Last Admin: 03/11/19 23:07 Dose: 325 mg Atorvastatin Calcium (Lipitor -) 40 mg PO [facility] Last Admin: 03/12/19 22:08 Dose: 40 mg Gabapentin (Neurontin -) 100 mg PO BID [facility] Last Admin: 03/13/19 11:17 Dose: 100 mg Insulin Aspart (Novolog Vial Sliding Scale -) 1 vial SQ [facility]; Protocol Last Admin: 03/13/19 12:20 Dose: 2 units Isosorbide Mononitrate (Imdur -) 30 mg PO DAILY [facility] Last Admin: 03/13/19 11:17 Dose: 30 mg Losartan Potassium (Cozaar -) 100 mg PO DAILY [facility] Last Admin: 03/13/19 11:17 Dose: 100 mg Mirtazapine (Remeron -) 15 mg PO [facility] Pantoprazole Sodium (Protonix -) 20 mg PO BID [facility] Last Admin: 03/13/19 11:18 Dose: 20 mg Polyethylene Glycol (Miralax (For Daily Use) -) 17 gm PO DAILY [facility] Last Admin: 03/13/19 11:18 Dose: 17 grams - Allergies Allergies: Allergies Allergy/AdvReac Type Severity Reaction Status Date / Time No Known Allergies Allergy Verified 02/19/19 09:35 - Current Living Status Usual Living Arrangement: With Child - Current Mental Status Evaluation Appearance: Well Groomed Attitude: Cooperative - Affect Affect: Constrictive Appropriateness: Appropriate to Content - Mood Mood: Depressed - Speech/Language Expressive: Coherent - Psychomotor Activity Psychomotor Activity: Slowed - Thought Process Thought Process: Intact - Thought Content Hallucinations: Absent Delusions: Absent - Self Perception Self Perception: No Impairment - Cognition Attention: Alert Orientation: Time Memory, Immediate Recall: Intact - Concentration Serial Sevens Intact: No Simple Calculations Intact: Yes - Abstraction Proverb Interpretation: Intact Judgement: Intact - Insight Insight: Intact - Impulse Control Impulse Control: Good Control - Suicidal Ideation Suicidal Ideation: No - Homicidal Ideation Homicidal Ideation: No Assessment/Plan 1) Remeron 15mg po hs for DCEpression.
[2019-03-13] MEDS ORDERED: INSULIN (NOVOLOG) ASPART 100 UNITS/ML 10ML VIAL ONE (21:21)
[2019-03-13] MEDS: MIRTAZAPINE 15 MG TABLET (FP) PO SCH (22:00)
[2019-03-13] MEDS: ATORVASTATIN CA 40 MG TABLET (FP) PO SCH (22:00)
[2019-03-14] MEDS: INSULIN SLIDING SCALE (NOVOLOG) 1 VIAL SQ SCH ×4 (06:29→22:08)
[2019-03-14] MEDS: GABAPENTIN 100 MG CAPSULE (FP) PO SCH ×2 (09:26→22:04)
[2019-03-14] MEDS: POLYETHYLENE GLYCOL 3350 119 GM BTL PO SCH (09:26)
[2019-03-14] MEDS: PANTOPRAZOLE 20 MG TABLET (FP) PO SCH ×2 (09:26→22:04)
[2019-03-14] MEDS: LOSARTAN POTASSIUM 50 MG TABLET (FP) PO SCH (09:26)
[2019-03-14] MEDS: ISOSORBIDE MONONITRATE 30 MG TAB.SR.24H (FP) PO SCH (09:26)
--- NOTE | 2019-03-14 14:06 | PN ---
Progress Note, Physician Chief Complaint: Perforated Peptic Ulcer Acute Peritonitis S/p Exp Laparotomy - Current Medication List Current Medications: Active Medications Acetaminophen (Tylenol -) 325 mg PO Q4H PRN PRN Reason: PAIN LEVEL 4 - 6 Last Admin: 03/11/19 23:07 Dose: 325 mg Atorvastatin Calcium (Lipitor -) 40 mg PO [facility] Last Admin: 03/13/19 22:00 Dose: 40 mg Gabapentin (Neurontin -) 100 mg PO BID [facility] Last Admin: 03/14/19 09:26 Dose: 100 mg Insulin Aspart (Novolog Vial Sliding Scale -) 1 vial SQ [facility]; Protocol Last Admin: 03/14/19 12:25 Dose: 2 units Isosorbide Mononitrate (Imdur -) 30 mg PO DAILY [facility] Last Admin: 03/14/19 09:26 Dose: 30 mg Losartan Potassium (Cozaar -) 100 mg PO DAILY [facility] Last Admin: 03/14/19 09:26 Dose: 100 mg Mirtazapine (Remeron -) 15 mg PO [facility] Last Admin: 03/13/19 22:00 Dose: 15 mg Pantoprazole Sodium (Protonix -) 20 mg PO BID [facility] Last Admin: 03/14/19 09:26 Dose: 20 mg Polyethylene Glycol (Miralax (For Daily Use) -) 17 gm PO DAILY [facility] Last Admin: 03/14/19 09:26 Dose: 17 grams - Objective Vital Signs: Vital Signs Temperature 99.2 F 03/14/19 10:00 Pulse Rate 115 H 03/14/19 10:00 Respiratory Rate 18 03/14/19 10:00 Blood Pressure 118/70 03/14/19 10:00 O2 Sat by Pulse Oximetry (%) 96 03/13/19 21:00 Constitutional: Yes: Well Nourished, No Distress, Calm Cardiovascular: Yes: Regular Rate and Rhythm Respiratory: Yes: Regular Gastrointestinal: Yes: Normal Bowel Sounds, Soft Musculoskeletal: Yes: Muscle Weakness Extremities: Yes: WNL Edema: No Peripheral Pulses WNL: Yes Neurological: Yes: Alert, Oriented Psychiatric: Yes: Alert, Oriented Labs: CBC, BMP 03/12/19 12:18 03/12/19 12:18 INR, PTT INR 0.94 (0.83-1.09) 02/19/19 09:50 Assessment/Plan (1) Diabetes Assessment/Plan: -BGM ACHS -ISS -diabetic diet Code(s): E11.9 - TYPE 2 DIABETES MELLITUS WITHOUT COMPLICATIONS Qualifiers: Diabetes mellitus type: type 2 (2) Perforated chronic peptic ulcer Assessment/Plan: -Surgery on board -s/p exploratory laparotomy -drain removed and dressing in place without -Upper GI Series shows no extravasation -monitor off antibiotics Code(s): K27.5 - CHRONIC OR UNSP PEPTIC ULCER, SITE UNSP, WITH PERFORATION (3) Sepsis Assessment/Plan: -afebrile -ID on board -will monitor off ABT Code(s): A41.9 - SEPSIS, UNSPECIFIED ORGANISM (4) Diarrhea Assessment/Plan: -stool culture neg -resolved Code(s): R19.7 - DIARRHEA, UNSPECIFIED (5) Rectal bleeding Assessment/Plan: -GI on board -resolved Code(s): K62.5 - HEMORRHAGE OF ANUS AND RECTUM patient is pending discharge to SNF--has unsafe living environment and does not have good familial support
--- NOTE | 2019-03-14 19:03 | PN ---
Progress Note, Physician History of Present Illness: Pt seen and examined, events noted. Pt with low grade fever today. C/o dysuria x 2 days. No rigors, no abd pain/n/v/d, no SOB/cough. - Current Medication List Current Medications: Active Medications Acetaminophen (Tylenol -) 325 mg PO Q4H PRN PRN Reason: PAIN LEVEL 4 - 6 Last Admin: 03/11/19 23:07 Dose: 325 mg Atorvastatin Calcium (Lipitor -) 40 mg PO [facility] Last Admin: 03/13/19 22:00 Dose: 40 mg Gabapentin (Neurontin -) 100 mg PO BID [facility] Last Admin: 03/14/19 09:26 Dose: 100 mg Insulin Aspart (Novolog Vial Sliding Scale -) 1 vial SQ [facility]; Protocol Last Admin: 03/14/19 17:29 Dose: Not Given Isosorbide Mononitrate (Imdur -) 30 mg PO DAILY [facility] Last Admin: 03/14/19 09:26 Dose: 30 mg Levofloxacin (Levaquin -) 500 mg PO DAILY [facility] Losartan Potassium (Cozaar -) 100 mg PO DAILY [facility] Last Admin: 03/14/19 09:26 Dose: 100 mg Mirtazapine (Remeron -) 15 mg PO [facility] Last Admin: 03/13/19 22:00 Dose: 15 mg Pantoprazole Sodium (Protonix -) 20 mg PO BID [facility] Last Admin: 03/14/19 09:26 Dose: 20 mg Polyethylene Glycol (Miralax (For Daily Use) -) 17 gm PO DAILY [facility] Last Admin: 03/14/19 09:26 Dose: 17 grams - Objective Vital Signs: Vital Signs Temperature 99.2 F 03/14/19 10:00 Pulse Rate 115 H 03/14/19 10:00 Respiratory Rate 18 03/14/19 10:00 Blood Pressure 118/70 03/14/19 10:00 O2 Sat by Pulse Oximetry (%) 96 03/13/19 21:00 Constitutional: Yes: No Distress, Calm Cardiovascular: Yes: Regular Rate and Rhythm Respiratory: Yes: Regular Gastrointestinal: Yes: Normal Bowel Sounds, Soft Genitourinary: Yes: WNL Extremities: Yes: WNL Neurological: Yes: Alert Labs: CBC, BMP 03/12/19 12:18 03/12/19 12:18 INR, PTT INR 0.94 (0.83-1.09) 02/19/19 09:50 Problem List - Problems (1) Perforated chronic peptic ulcer Code(s): K27.5 - CHRONIC OR UNSP PEPTIC ULCER, SITE UNSP, WITH PERFORATION (2) Bowel perforation Code(s): K63.1 - PERFORATION OF INTESTINE (NONTRAUMATIC) (3) Diabetes Code(s): E11.9 - TYPE 2 DIABETES MELLITUS WITHOUT COMPLICATIONS Qualifiers: Diabetes mellitus type: type 2 (4) Sepsis Code(s): A41.9 - SEPSIS, UNSPECIFIED ORGANISM Assessment/Plan Perforated PUD s/p Ex-lap s/p Acute peritonitis Fever r/o UTI -- Pt with temp of 100.1 , c/o dysuria -- send UA, urine cx -- start levaquin po for now -- monitor temps
[2019-03-14] MEDS: MIRTAZAPINE 15 MG TABLET (FP) PO SCH (22:04)
[2019-03-14] MEDS: ATORVASTATIN CA 40 MG TABLET (FP) PO SCH (22:04)
[2019-03-15] MEDS: INSULIN SLIDING SCALE (NOVOLOG) 1 VIAL SQ SCH ×4 (06:24→21:49)
--- NOTE | 2019-03-15 09:10 | PN ---
Progress Note, Physician Chief Complaint: Perforated Peptic Ulcer Acute Peritonitis S/p Exp Laparotomy - Current Medication List Current Medications: Active Medications Acetaminophen (Tylenol -) 325 mg PO Q4H PRN PRN Reason: PAIN LEVEL 4 - 6 Last Admin: 03/11/19 23:07 Dose: 325 mg Atorvastatin Calcium (Lipitor -) 40 mg PO [facility] Last Admin: 03/14/19 22:04 Dose: 40 mg Gabapentin (Neurontin -) 100 mg PO BID [facility] Last Admin: 03/14/19 22:04 Dose: 100 mg Insulin Aspart (Novolog Vial Sliding Scale -) 1 vial SQ [facility]; Protocol Last Admin: 03/15/19 06:24 Dose: Not Given Isosorbide Mononitrate (Imdur -) 30 mg PO DAILY [facility] Last Admin: 03/14/19 09:26 Dose: 30 mg Levofloxacin (Levaquin -) 500 mg PO DAILY@0600 [facility] Last Admin: 03/15/19 06:24 Dose: 500 mg Losartan Potassium (Cozaar -) 100 mg PO DAILY [facility] Last Admin: 03/14/19 09:26 Dose: 100 mg Mirtazapine (Remeron -) 15 mg PO [facility] Last Admin: 03/14/19 22:04 Dose: 15 mg Pantoprazole Sodium (Protonix -) 20 mg PO BID [facility] Last Admin: 03/14/19 22:04 Dose: 20 mg Polyethylene Glycol (Miralax (For Daily Use) -) 17 gm PO DAILY [facility] Last Admin: 03/14/19 09:26 Dose: 17 grams - Objective Vital Signs: Vital Signs Temperature 97.8 F 03/15/19 07:05 Pulse Rate 97 H 03/15/19 07:05 Respiratory Rate 20 03/15/19 07:05 Blood Pressure 125/54 L 03/15/19 07:05 O2 Sat by Pulse Oximetry (%) 96 03/14/19 21:00 Constitutional: Yes: Well Nourished, No Distress, Calm Cardiovascular: Yes: Regular Rate and Rhythm Respiratory: Yes: Regular Gastrointestinal: Yes: Normal Bowel Sounds, Soft Genitourinary: Yes: WNL Musculoskeletal: Yes: Muscle Weakness Extremities: Yes: WNL Edema: No Peripheral Pulses WNL: Yes Neurological: Yes: Alert, Oriented Psychiatric: Yes: Alert, Oriented Labs: CBC, BMP 03/12/19 12:18 03/12/19 12:18 INR, PTT INR 0.94 (0.83-1.09) 02/19/19 09:50 Assessment/Plan (1) Diabetes Assessment/Plan: -BGM ACHS -ISS -diabetic diet Code(s): E11.9 - TYPE 2 DIABETES MELLITUS WITHOUT COMPLICATIONS Qualifiers: Diabetes mellitus type: type 2 (2) Perforated chronic peptic ulcer Assessment/Plan: -Surgery on board -s/p exploratory laparotomy -drain removed and dressing in place without -Upper GI Series shows no extravasation -monitor off antibiotics Code(s): K27.5 - CHRONIC OR UNSP PEPTIC ULCER, SITE UNSP, WITH PERFORATION (3) Sepsis Assessment/Plan: -afebrile -ID on board -will monitor off ABT Code(s): A41.9 - SEPSIS, UNSPECIFIED ORGANISM (4) Diarrhea Assessment/Plan: -stool culture neg -resolved Code(s): R19.7 - DIARRHEA, UNSPECIFIED (5) Rectal bleeding Assessment/Plan: -GI on board -resolved Code(s): K62.5 - HEMORRHAGE OF ANUS AND RECTUM patient is pending discharge to SNF--has unsafe living environment and does not have good familial support
[2019-03-15] MEDS: GABAPENTIN 100 MG CAPSULE (FP) PO SCH ×2 (09:54→21:48)
[2019-03-15] MEDS: PANTOPRAZOLE 20 MG TABLET (FP) PO SCH ×2 (09:54→21:48)
[2019-03-15] MEDS: ISOSORBIDE MONONITRATE 30 MG TAB.SR.24H (FP) PO SCH (09:54)
[2019-03-15] MEDS: LOSARTAN POTASSIUM 50 MG TABLET (FP) PO SCH (09:54)
[2019-03-15] MEDS: POLYETHYLENE GLYCOL 3350 119 GM BTL PO SCH (09:55)
--- NOTE | 2019-03-15 16:17 | PN ---
Progress Note, Physician History of Present Illness: Pt is alert, without distress. Afebrile today. States dysuria has resolved. - Current Medication List Current Medications: Active Medications Acetaminophen (Tylenol -) 325 mg PO Q4H PRN PRN Reason: PAIN LEVEL 4 - 6 Last Admin: 03/11/19 23:07 Dose: 325 mg Atorvastatin Calcium (Lipitor -) 40 mg PO [facility] Last Admin: 03/14/19 22:04 Dose: 40 mg Gabapentin (Neurontin -) 100 mg PO BID [facility] Last Admin: 03/15/19 09:54 Dose: 100 mg Insulin Aspart (Novolog Vial Sliding Scale -) 1 vial SQ ACHS [facility]; Protocol Last Admin: 03/15/19 12:11 Dose: Not Given Isosorbide Mononitrate (Imdur -) 30 mg PO DAILY [facility] Last Admin: 03/15/19 09:54 Dose: 30 mg Levofloxacin (Levaquin -) 500 mg PO DAILY@0600 [facility] Last Admin: 03/15/19 06:24 Dose: 500 mg Losartan Potassium (Cozaar -) 100 mg PO DAILY [facility] Last Admin: 03/15/19 09:54 Dose: 100 mg Mirtazapine (Remeron -) 15 mg PO [facility] Last Admin: 03/14/19 22:04 Dose: 15 mg Pantoprazole Sodium (Protonix -) 20 mg PO BID [facility] Last Admin: 03/15/19 09:54 Dose: 20 mg Polyethylene Glycol (Miralax (For Daily Use) -) 17 gm PO DAILY [facility] Last Admin: 03/15/19 09:55 Dose: 17 grams - Objective Vital Signs: Vital Signs Temperature 97.9 F 03/15/19 13:23 Pulse Rate 111 H 03/15/19 13:23 Respiratory Rate 20 03/15/19 13:23 Blood Pressure 128/37 L 03/15/19 13:23 O2 Sat by Pulse Oximetry (%) 96 03/15/19 09:00 Constitutional: Yes: No Distress, Calm Cardiovascular: Yes: Tachycardia Respiratory: Yes: CTA Bilaterally Gastrointestinal: Yes: Normal Bowel Sounds, Soft Genitourinary: Yes: WNL Integumentary: Yes: WNL Neurological: Yes: Alert Labs: CBC, BMP 03/12/19 12:18 03/12/19 12:18 INR, PTT INR 0.94 (0.83-1.09) 05/16/19 09:50 Microbiology 02/27/19 02:00 Stool Salmonella/Shigella Culture - Final NO GROWTH OF SALMONELLA OR SHIGELLA SPECIES OBTAINED 02/27/19 02:00 Stool Campylobacter Culture - Final NO GROWTH OF CAMPYLOBACTER SPECIES OBTAINED 02/27/19 02:00 Stool Yersinia Culture - Final NO GROWTH OF YERSINIA SPECIES OBTAINED 02/27/19 02:00 Stool Vibrio Culture - Final NO GROWTH OF VIBRIO SPECIES OBTAINED 02/27/19 02:00 Stool Escherichia coli 0157 Culture - Final NO GROWTH OF E COLI 0157 OBTAINED 02/19/19 17:30 Peritoneal Cavity Swab Gram Stain - Final 02/19/19 17:30 Peritoneal Cavity Swab Wound Culture - Final NO AEROBIC OR ANAEROBIC GROWTH OBTAINED. Problem List - Problems (1) Perforated chronic peptic ulcer Code(s): K27.5 - CHRONIC OR UNSP PEPTIC ULCER, SITE UNSP, WITH PERFORATION (2) Bowel perforation Code(s): K63.1 - PERFORATION OF INTESTINE (NONTRAUMATIC) (3) Diabetes Code(s): E11.9 - TYPE 2 DIABETES MELLITUS WITHOUT COMPLICATIONS Qualifiers: Diabetes mellitus type: type 2 (4) Sepsis Code(s): A41.9 - SEPSIS, UNSPECIFIED ORGANISM Assessment/Plan Perforated PUD s/p Ex-lap s/p Acute peritonitis Fever r/o UTI -- pt afebrile now > 24hr -- UA, urine cx ordered -- continue levaquin po for now -- continue monitor, pt currently stable
[2019-03-15 19:25] LABS: EPI CELLS 12.3 /HPF (0-5/HPF); HYALINE CASTS 33 /lpf (0-8); URINE APPEARANCE TURBID; URINE BILIRUBIN NEGATIVE (NEGATIVE); URINE COLOR YELLOW; URINE GLUCOSE (UA) NEGATIVE (NEGATIVE); URINE KETONE NEGATIVE (NEGATIVE); URINE LEUK ESTERASE 3+ (NEGATIVE); URINE NITRITE NEGATIVE (NEGATIVE); URINE PROTEIN 1+ (NEGATIVE); URINE RBC 61 /hpf (0-4); URINE UROBILINOGEN 0.2 mg/dL (0.2-1.0); URINE WBC 3406 /hpf (0-5)
[2019-03-15] MEDS: ATORVASTATIN CA 40 MG TABLET (FP) PO SCH (21:48)
[2019-03-15] MEDS: MIRTAZAPINE 15 MG TABLET (FP) PO SCH (21:48)
[2019-03-16] MEDS: INSULIN SLIDING SCALE (NOVOLOG) 1 VIAL SQ SCH ×4 (06:08→21:23)
[2019-03-16] MEDS: ISOSORBIDE MONONITRATE 30 MG TAB.SR.24H (FP) PO SCH (10:17)
[2019-03-16] MEDS: LOSARTAN POTASSIUM 50 MG TABLET (FP) PO SCH (10:17)
[2019-03-16] MEDS: GABAPENTIN 100 MG CAPSULE (FP) PO SCH ×2 (10:17→21:21)
[2019-03-16] MEDS: PANTOPRAZOLE 20 MG TABLET (FP) PO SCH ×2 (10:17→21:21)
[2019-03-16] MEDS: POLYETHYLENE GLYCOL 3350 119 GM BTL PO SCH (10:18)
--- NOTE | 2019-03-16 11:39 | PN ---
Progress Note, Physician Chief Complaint: Perforated Peptic Ulcer Acute Peritonitis S/p Exp Laparotomy History of Present Illness: Previous notes and events reviewed awake and alert NAD no complaints of chest pain or SOB awaiting SNF placement due to unsafe discharge 11/08 to living environment patient states feeling depressed, she states her son is in the hospital and her [id number] went back to where he lives out of state - Current Medication List Current Medications: Active Medications Acetaminophen (Tylenol -) 325 mg PO Q4H PRN PRN Reason: PAIN LEVEL 4 - 6 Last Admin: 03/11/19 23:07 Dose: 325 mg Atorvastatin Calcium (Lipitor -) 40 mg PO [facility] Last Admin: 03/15/19 21:48 Dose: 40 mg Gabapentin (Neurontin -) 100 mg PO BID [facility] Last Admin: 03/16/19 10:17 Dose: 100 mg Insulin Aspart (Novolog Vial Sliding Scale -) 1 vial SQ [facility]; Protocol Last Admin: 03/16/19 06:08 Dose: Not Given Isosorbide Mononitrate (Imdur -) 30 mg PO DAILY [facility] Last Admin: 03/16/19 10:17 Dose: 30 mg Levofloxacin (Levaquin -) 500 mg PO DAILY@0600 [facility] Last Admin: 03/16/19 05:50 Dose: 500 mg Losartan Potassium (Cozaar -) 100 mg PO DAILY [facility] Last Admin: 03/16/19 10:17 Dose: 100 mg Mirtazapine (Remeron -) 15 mg PO [facility] Last Admin: 03/15/19 21:48 Dose: 15 mg Pantoprazole Sodium (Protonix -) 20 mg PO BID [facility] Last Admin: 03/16/19 10:17 Dose: 20 mg Polyethylene Glycol (Miralax (For Daily Use) -) 17 gm PO DAILY [facility] Last Admin: 03/16/19 10:18 Dose: 17 grams - Objective Vital Signs: Vital Signs Temperature 97.8 F 03/15/19 22:00 Pulse Rate 98 H 03/15/19 22:00 Respiratory Rate 20 03/15/19 22:00 Blood Pressure 131/61 03/15/19 22:00 O2 Sat by Pulse Oximetry (%) 96 03/15/19 20:45 Constitutional: Yes: No Distress, Calm Eyes: Yes: Conjunctiva Clear HENT: Yes: Atraumatic Cardiovascular: Yes: Regular Rate and Rhythm Respiratory: Yes: Regular, CTA Bilaterally Gastrointestinal: Yes: Normal Bowel Sounds, Soft Musculoskeletal: Yes: Muscle Weakness Extremities: Yes: WNL Edema: No Neurological: Yes: Alert Psychiatric: Yes: Alert Labs: CBC, BMP 03/12/19 12:18 03/12/19 12:18 INR, PTT INR 0.94 (0.83-1.09) 02/19/19 09:50 Microbiology 02/27/19 02:00 Stool Salmonella/Shigella Culture - Final NO GROWTH OF SALMONELLA OR SHIGELLA SPECIES OBTAINED 02/27/19 02:00 Stool Campylobacter Culture - Final NO GROWTH OF CAMPYLOBACTER SPECIES OBTAINED 02/27/19 02:00 Stool Yersinia Culture - Final NO GROWTH OF YERSINIA SPECIES OBTAINED 02/27/19 02:00 Stool Vibrio Culture - Final NO GROWTH OF VIBRIO SPECIES OBTAINED 02/27/19 02:00 Stool Escherichia coli 0157 Culture - Final NO GROWTH OF E COLI 0157 OBTAINED 02/19/19 17:30 Peritoneal Cavity Swab Gram Stain - Final 02/19/19 17:30 Peritoneal Cavity Swab Wound Culture - Final NO AEROBIC OR ANAEROBIC GROWTH OBTAINED. Problem List - Problems (1) Diabetes Assessment/Plan: -[facility] ACHS -ISS -diabetic diet Code(s): E11.9 - TYPE 2 DIABETES MELLITUS WITHOUT COMPLICATIONS Qualifiers: Diabetes mellitus type: type 2 (2) Perforated chronic peptic ulcer Assessment/Plan: -Surgery on board -s/p exploratory laparotomy -drain removed and dressing in place without -Upper GI Series shows no extravasation -monitor off antibiotics Code(s): K27.5 - CHRONIC OR UNSP PEPTIC ULCER, SITE UNSP, WITH PERFORATION (3) Sepsis Assessment/Plan: -afebrile -ID on board -will monitor off ABT Code(s): A41.9 - SEPSIS, UNSPECIFIED ORGANISM (4) Diarrhea Assessment/Plan: -stool culture neg -resolved Code(s): R19.7 - DIARRHEA, UNSPECIFIED (5) Rectal bleeding Assessment/Plan: -GI on board -resolved Code(s): K62.5 - HEMORRHAGE OF ANUS AND RECTUM Assessment/Plan see problem list dvt ppx patient is pending discharge to SNF--has unsafe living environment and does not have good familial support
--- NOTE | 2019-03-16 12:32 | PN ---
Progress Note, Physician History of Present Illness: stable no new issues - Current Medication List Current Medications: Active Medications Acetaminophen (Tylenol -) 325 mg PO Q4H PRN PRN Reason: PAIN LEVEL 4 - 6 Last Admin: 03/11/19 23:07 Dose: 325 mg Atorvastatin Calcium (Lipitor -) 40 mg PO HS [facility] Last Admin: 03/15/19 21:48 Dose: 40 mg Gabapentin (Neurontin -) 100 mg PO BID [facility] Last Admin: 03/16/19 10:17 Dose: 100 mg Insulin Aspart (Novolog Vial Sliding Scale -) 1 vial SQ [facility]; Protocol Last Admin: 03/16/19 12:00 Dose: Not Given Isosorbide Mononitrate (Imdur -) 30 mg PO DAILY [facility] Last Admin: 03/16/19 10:17 Dose: 30 mg Levofloxacin (Levaquin -) 500 mg PO DAILY@0600 [facility] Last Admin: 03/16/19 05:50 Dose: 500 mg Losartan Potassium (Cozaar -) 100 mg PO DAILY [facility] Last Admin: 03/16/19 10:17 Dose: 100 mg Mirtazapine (Remeron -) 15 mg PO [facility] Last Admin: 03/15/19 21:48 Dose: 15 mg Pantoprazole Sodium (Protonix -) 20 mg PO BID [facility] Last Admin: 03/16/19 10:17 Dose: 20 mg Polyethylene Glycol (Miralax (For Daily Use) -) 17 gm PO DAILY [facility] Last Admin: 03/16/19 10:18 Dose: 17 grams - Objective Vital Signs: Vital Signs Temperature 97.8 F 03/15/19 22:00 Pulse Rate 98 H 03/15/19 22:00 Respiratory Rate 20 03/15/19 22:00 Blood Pressure 131/61 03/15/19 22:00 O2 Sat by Pulse Oximetry (%) 96 03/15/19 20:45 Constitutional: Yes: No Distress, Calm Cardiovascular: Yes: S1, S2 Respiratory: Yes: Regular, CTA Bilaterally Gastrointestinal: Yes: Normal Bowel Sounds, Soft Neurological: Yes: Alert, Oriented Psychiatric: Yes: Alert, Oriented Labs: CBC, BMP 03/12/19 12:18 03/12/19 12:18 INR, PTT INR 0.94 (0.83-1.09) 02/19/19 09:50 Assessment/Plan Assessment/Plan Perforated viscus, dehydration, CAD, Obesity. Plan : Hydrate , Antibiotics, Emergency laparotomy , perforated ulcer. gi bleed plan stable continue current mgmt nutrition rest as per surgery
[2019-03-16] MEDS: ATORVASTATIN CA 40 MG TABLET (FP) PO SCH (21:21)
[2019-03-16] MEDS: MIRTAZAPINE 15 MG TABLET (FP) PO SCH (21:21)
--- NOTE | 2019-03-17 09:44 | PN ---
Progress Note, Physician Chief Complaint: Perforated Peptic Ulcer Acute Peritonitis S/p Exp Laparotomy History of Present Illness: Previous notes and events reviewed awake and alert NAD no complaints of chest pain or SOB awaiting SNF placement due to unsafe discharge / to living environment patient states feeling depressed, she states her son is in the hospital and her [id number] went back to where he lives out of state complain of difficulty sleeping - Current Medication List Current Medications: Active Medications Acetaminophen (Tylenol -) 325 mg PO Q4H PRN PRN Reason: PAIN LEVEL 4 - 6 Last Admin: 03/11/19 23:07 Dose: 325 mg Atorvastatin Calcium (Lipitor -) 40 mg PO HS [facility] Last Admin: 03/16/19 21:21 Dose: 40 mg Gabapentin (Neurontin -) 100 mg PO BID [facility] Last Admin: 03/16/19 21:21 Dose: 100 mg Insulin Aspart (Novolog Vial Sliding Scale -) [address] [facility]; Protocol Last Admin: 03/16/19 21:23 Dose: Not Given Isosorbide Mononitrate (Imdur -) 30 mg PO DAILY [facility] Last Admin: 03/16/19 10:17 Dose: 30 mg Levofloxacin (Levaquin -) 500 mg PO DAILY@0600 [facility] Last Admin: 03/17/19 06:21 Dose: 500 mg Losartan Potassium (Cozaar -) 100 mg PO DAILY [facility] Last Admin: 03/16/19 10:17 Dose: 100 mg Melatonin (Melatonin) 1 mg PO [facility] Mirtazapine (Remeron -) 15 mg PO [facility] Last Admin: 03/16/19 21:21 Dose: 15 mg Pantoprazole Sodium (Protonix -) 20 mg PO BID [facility] Last Admin: 03/16/19 21:21 Dose: 20 mg Polyethylene Glycol (Miralax (For Daily Use) -) 17 gm PO DAILY [facility] Last Admin: 03/16/19 10:18 Dose: 17 grams - Objective Vital Signs: Vital Signs Temperature 98.3 F 03/17/19 06:00 Pulse Rate 98 H 03/17/19 06:00 Respiratory Rate 18 03/17/19 06:00 Blood Pressure 152/79 03/17/19 06:00 O2 Sat by Pulse Oximetry (%) 98 03/16/19 21:00 Constitutional: Yes: No Distress, Calm Eyes: Yes: Conjunctiva Clear HENT: Yes: Atraumatic Cardiovascular: Yes: Regular Rate and Rhythm Respiratory: Yes: Regular, CTA Bilaterally Gastrointestinal: Yes: Normal Bowel Sounds, Soft Musculoskeletal: Yes: Muscle Weakness Extremities: Yes: WNL Edema: No Neurological: Yes: Alert, Pre-Existing Deficit Psychiatric: Yes: Alert Labs: CBC, BMP 03/12/19 12:18 03/12/19 12:18 INR, PTT INR 0.94 (0.83-1.09) 02/19/19 09:50 Problem List - Problems (1) Diabetes Assessment/Plan: -BGM ACHS -ISS -diabetic diet Code(s): E11.9 - TYPE 2 DIABETES MELLITUS WITHOUT COMPLICATIONS Qualifiers: Diabetes mellitus type: type 2 (2) Perforated chronic peptic ulcer Assessment/Plan: -Surgery on board -s/p exploratory laparotomy -drain removed and dressing in place without -Upper GI Series shows no extravasation -monitor off antibiotics Code(s): K27.5 - CHRONIC OR UNSP PEPTIC ULCER, SITE UNSP, WITH PERFORATION (3) Sepsis Assessment/Plan: -afebrile -ID on board -will monitor off ABT Code(s): A41.9 - SEPSIS, UNSPECIFIED ORGANISM (4) Diarrhea Assessment/Plan: -stool culture neg -resolved Code(s): R19.7 - DIARRHEA, UNSPECIFIED (5) Rectal bleeding Assessment/Plan: -GI on board -resolved Code(s): K62.5 - HEMORRHAGE OF ANUS AND RECTUM (6) Difficulty sleeping Assessment/Plan: -Melatonin HS Code(s): G47.9 - SLEEP DISORDER, UNSPECIFIED (7) Depression Assessment/Plan: -psych on board -Remeron HS Code(s): F32.9 - MAJOR DEPRESSIVE DISORDER, SINGLE EPISODE, UNSPECIFIED Assessment/Plan see problem list dvt ppx
[2019-03-17] MEDS: LOSARTAN POTASSIUM 50 MG TABLET (FP) PO SCH (10:36)
[2019-03-17] MEDS: PANTOPRAZOLE 20 MG TABLET (FP) PO SCH ×2 (10:37→21:10)
[2019-03-17] MEDS: GABAPENTIN 100 MG CAPSULE (FP) PO SCH ×2 (10:37→21:10)
[2019-03-17] MEDS: POLYETHYLENE GLYCOL 3350 119 GM BTL PO SCH (10:38)
[2019-03-17] MEDS: ISOSORBIDE MONONITRATE 30 MG TAB.SR.24H (FP) PO SCH (10:38)
[2019-03-17] MEDS: INSULIN SLIDING SCALE (NOVOLOG) 1 VIAL SQ SCH ×4 (10:51→21:12)
--- NOTE | 2019-03-17 11:17 | PN ---
Progress Note, Physician History of Present Illness: patient stable no new issues - Current Medication List Current Medications: Active Medications Acetaminophen (Tylenol -) 325 mg PO Q4H PRN PRN Reason: PAIN LEVEL 4 - 6 Last Admin: 03/11/19 23:07 Dose: 325 mg Atorvastatin Calcium (Lipitor -) 40 mg PO HS [facility] Last Admin: 03/16/19 21:21 Dose: 40 mg Gabapentin (Neurontin -) 100 mg PO BID [facility] Last Admin: 03/17/19 10:37 Dose: 100 mg Insulin Aspart (Novolog Vial Sliding Scale -) 1 vial SQ [facility]; Protocol Last Admin: 03/17/19 10:52 Dose: Not Given Isosorbide Mononitrate (Imdur -) 30 mg PO DAILY [facility] Last Admin: 03/17/19 10:38 Dose: 30 mg Levofloxacin (Levaquin -) 500 mg PO DAILY@0600 [facility] Last Admin: 03/17/19 06:21 Dose: 500 mg Losartan Potassium (Cozaar -) 100 mg PO DAILY [facility] Last Admin: 03/17/19 10:36 Dose: 100 mg Melatonin (Melatonin) 1 mg PO [facility] Mirtazapine (Remeron -) 15 mg PO [facility] Last Admin: 03/16/19 21:21 Dose: 15 mg Pantoprazole Sodium (Protonix -) 20 mg PO BID [facility] Last Admin: 03/17/19 10:37 Dose: 20 mg Polyethylene Glycol (Miralax (For Daily Use) -) 17 gm PO DAILY [facility] Last Admin: 03/17/19 10:38 Dose: 119 grams - Objective Vital Signs: Vital Signs Temperature 98.3 F 03/17/19 06:00 Pulse Rate 98 H 03/17/19 06:00 Respiratory Rate 18 03/17/19 06:00 Blood Pressure 152/79 03/17/19 06:00 O2 Sat by Pulse Oximetry (%) 98 03/16/19 21:00 Constitutional: Yes: No Distress, Calm Cardiovascular: Yes: Regular Rate and Rhythm Respiratory: Yes: Regular, CTA Bilaterally Gastrointestinal: Yes: Normal Bowel Sounds, Soft Musculoskeletal: Yes: WNL Extremities: Yes: WNL Neurological: Yes: Alert, Oriented Labs: CBC, BMP 03/12/19 12:18 03/12/19 12:18 INR, PTT INR 0.94 (0.83-1.09) 02/19/19 09:50 Assessment/Plan Assessment/Plan Perforated viscus, dehydration, CAD, Obesity. Plan : Hydrate , Antibiotics, Emergency laparotomy , perforated ulcer. gi bleed plan stable continue current mgmt nutrition rest as per surgery
[2019-03-17] MEDS: ATORVASTATIN CA 40 MG TABLET (FP) PO SCH (21:10)
[2019-03-17] MEDS: MELATONIN 1 MG TABLET PO SCH (21:10)
[2019-03-17] MEDS: MIRTAZAPINE 15 MG TABLET (FP) PO SCH (21:10)
[2019-03-18] MEDS: INSULIN SLIDING SCALE (NOVOLOG) 1 VIAL SQ SCH ×4 (06:07→22:16)
[2019-03-18 07:48] LABS: ALBUMIN 2.5 g/dl (3.4-5.0); BILIRUBIN,TOTAL 0.4 mg/dL (0.2-1); BLOOD UREA NITROGEN 20.6 mg/dL (7-18); CALCIUM 8.4 mg/dL (8.5-10.1); CREATININE 0.9 mg/dL (0.55-1.3); POTASSIUM 4.1 mmol/L (3.5-5.1); TOT PROT 5.8 g/dl (6.4-8.2)
[2019-03-18 08:04] LABS: HEMATOCRIT 29.4 % (32.4-45.2); HEMOGLOBIN 9.9 GM/dL (10.7-15.3); MCH 30.2 pg (25.7-33.7); MCHC 33.5 g/dl (32.0-36.0); MEAN CELL VOLUME 90.3 fl (80-96); MEAN PLT VOLUME 7.5 fl (7.5-11.1); PLATELET COUNT 293 K/MM3 (134-434); RBC 3.26 M/mm3 (3.60-5.2); RDW 15.5 % (11.6-15.6); WHITE BLOOD COUNT 6.8 K/mm3 (4.0-10.0)
--- NOTE | 2019-03-18 09:32 | PN ---
Progress Note, Physician Chief Complaint: awake in bed tolerating meals +bowel movements - Current Medication List Current Medications: Active Medications Acetaminophen (Tylenol -) 325 mg PO Q4H PRN PRN Reason: PAIN LEVEL 4 - 6 Last Admin: 03/11/19 23:07 Dose: 325 mg Atorvastatin Calcium (Lipitor -) 40 mg PO [facility] Last Admin: 03/17/19 21:10 Dose: 40 mg Gabapentin (Neurontin -) 100 mg PO BID [facility] Last Admin: 03/17/19 21:10 Dose: 100 mg Insulin Aspart (Novolog Vial Sliding Scale -) 1 vial SQ [facility]; Protocol Last Admin: 03/18/19 06:07 Dose: Not Given Isosorbide Mononitrate (Imdur -) 30 mg PO DAILY [facility] Last Admin: 03/17/19 10:38 Dose: 30 mg Losartan Potassium (Cozaar -) 100 mg PO DAILY [facility] Last Admin: 03/17/19 10:36 Dose: 100 mg Melatonin (Melatonin) 1 mg PO [facility] Last Admin: 03/17/19 21:10 Dose: 1 mg Mirtazapine (Remeron -) 15 mg PO [facility] Last Admin: 03/17/19 21:10 Dose: 15 mg Pantoprazole Sodium (Protonix -) 20 mg PO BID [facility] Last Admin: 03/17/19 21:10 Dose: 20 mg Polyethylene Glycol (Miralax (For Daily Use) -) 17 gm PO DAILY [facility] Last Admin: 03/17/19 10:38 Dose: 119 grams - Objective Vital Signs: Vital Signs Temperature 98.4 F 03/18/19 06:00 Pulse Rate 95 H 03/18/19 06:00 Respiratory Rate 20 03/18/19 06:00 Blood Pressure 144/64 03/18/19 06:00 O2 Sat by Pulse Oximetry (%) 98 03/17/19 21:00 Constitutional: Yes: Mild Distress Eyes: Yes: WNL HENT: Yes: WNL Neck: Yes: WNL Cardiovascular: Yes: WNL Respiratory: Yes: WNL Gastrointestinal: Yes: WNL Genitourinary: Yes: Incontinence, Other Musculoskeletal: Yes: Muscle Weakness Extremities: Yes: WNL Edema: No Peripheral Pulses WNL: Yes Integumentary: Yes: WNL Wound/Incision: Yes: Clean/Dry Neurological: Yes: Confusion, Pre-Existing Deficit ...Motor Strength: LLE, RLE Psychiatric: Yes: Other Labs: CBC, BMP 03/18/19 05:50 03/18/19 05:50 INR, PTT INR 0.94 (0.83-1.09) 02/19/19 09:50 Problem List - Problems (1) Bowel perforation Code(s): K63.1 - PERFORATION OF INTESTINE (NONTRAUMATIC) (2) Diabetes Code(s): E11.9 - TYPE 2 DIABETES MELLITUS WITHOUT COMPLICATIONS Qualifiers: Diabetes mellitus type: type 2 (3) Sepsis Code(s): A41.9 - SEPSIS, UNSPECIFIED ORGANISM Assessment/Plan UNSAFE DISCHARGE TO GO HOME NOT A SAFE ENVIRONMENT TO BE HOME ALONE. CHECKING LABS TODAY SNF PLACEMENT D/W [employer]
[2019-03-18] MEDS: LOSARTAN POTASSIUM 50 MG TABLET (FP) PO SCH (10:23)
[2019-03-18] MEDS: GABAPENTIN 100 MG CAPSULE (FP) PO SCH ×2 (10:23→22:15)
[2019-03-18] MEDS: PANTOPRAZOLE 20 MG TABLET (FP) PO SCH ×2 (10:23→22:16)
[2019-03-18] MEDS: POLYETHYLENE GLYCOL 3350 119 GM BTL PO SCH (10:24)
--- NOTE | 2019-03-18 11:01 | PN ---
Progress Note, Physician History of Present Illness: patient stable no new issues - Current Medication List Current Medications: Active Medications Acetaminophen (Tylenol -) 325 mg PO Q4H PRN PRN Reason: PAIN LEVEL 4 - 6 Last Admin: 03/11/19 23:07 Dose: 325 mg Atorvastatin Calcium (Lipitor -) 40 mg PO HS [facility] Last Admin: 03/17/19 21:10 Dose: 40 mg Gabapentin (Neurontin -) 100 mg PO BID [facility] Last Admin: 03/18/19 10:23 Dose: 100 mg Insulin Aspart (Novolog Vial Sliding Scale -) 1 vial SQ [facility]; Protocol Last Admin: 03/18/19 06:07 Dose: Not Given Isosorbide Mononitrate (Imdur -) 30 mg PO DAILY [facility] Last Admin: 03/17/19 10:38 Dose: 30 mg Losartan Potassium (Cozaar -) 100 mg PO DAILY [facility] Last Admin: 03/18/19 10:23 Dose: 100 mg Melatonin (Melatonin) 1 mg PO [facility] Last Admin: 03/17/19 21:10 Dose: 1 mg Mirtazapine (Remeron -) 15 mg PO [facility] Last Admin: 03/17/19 21:10 Dose: 15 mg Pantoprazole Sodium (Protonix -) 20 mg PO BID [facility] Last Admin: 03/18/19 10:23 Dose: 20 mg Polyethylene Glycol (Miralax (For Daily Use) -) 17 gm PO DAILY [facility] Last Admin: 03/18/19 10:24 Dose: 17 grams - Objective Vital Signs: Vital Signs Temperature 98.4 F 03/18/19 06:00 Pulse Rate 95 H 03/18/19 06:00 Respiratory Rate 20 03/18/19 06:00 Blood Pressure 144/64 03/18/19 06:00 O2 Sat by Pulse Oximetry (%) 98 03/17/19 21:00 Constitutional: Yes: No Distress, Calm Respiratory: Yes: Regular Gastrointestinal: Yes: Normal Bowel Sounds, Soft Musculoskeletal: Yes: WNL Extremities: Yes: WNL Neurological: Yes: Alert Psychiatric: Yes: Alert Labs: CBC, BMP 03/18/19 05:50 03/18/19 05:50 INR, PTT INR 0.94 (0.83-1.09) 02/19/19 09:50 Assessment/Plan Assessment/Plan Perforated viscus, dehydration, CAD, Obesity. Plan : Hydrate , Antibiotics, Emergency laparotomy , perforated ulcer. gi bleed plan stable continue current mgmt nutrition rest as per surgery
[2019-03-18] MEDS: ISOSORBIDE MONONITRATE 30 MG TAB.SR.24H (FP) PO SCH (11:29)
[2019-03-18] MEDS ORDERED: PT OWN MED DRAWER 7, Y5N ONE (21:33)
[2019-03-18] MEDS: MELATONIN 1 MG TABLET PO SCH (22:15)
[2019-03-18] MEDS: ATORVASTATIN CA 40 MG TABLET (FP) PO SCH (22:16)
[2019-03-18] MEDS: MIRTAZAPINE 15 MG TABLET (FP) PO SCH (22:16)
[2019-03-19] MEDS: INSULIN SLIDING SCALE (NOVOLOG) 1 VIAL SQ SCH ×4 (06:39→21:06)
[2019-03-19] MEDS ORDERED: INSULIN (NOVOLOG) ASPART 100 UNITS/ML 10ML VIAL ONE (08:30)
--- NOTE | 2019-03-19 09:21 | PN ---
Progress Note, Physician Chief Complaint: Perforated Peptic Ulcer Acute Peritonitis S/p Exp Laparotomy History of Present Illness: Previous notes and events reviewed awake and alert NAD no complaints of chest pain or SOB awaiting SNF placement due to unsafe discharge 2/2 to living environment recent labs drawn and reviewed - Current Medication List Current Medications: Active Medications Acetaminophen (Tylenol -) 325 mg PO Q4H PRN PRN Reason: PAIN LEVEL 4 - 6 Last Admin: 03/11/19 23:07 Dose: 325 mg Atorvastatin Calcium (Lipitor -) 40 mg PO [facility] Last Admin: 03/18/19 22:16 Dose: 40 mg Gabapentin (Neurontin -) 100 mg PO BID [facility] Last Admin: 03/18/19 22:15 Dose: 100 mg Insulin Aspart (Novolog Vial Sliding Scale -) 1 vial SQ [facility]; Protocol Last Admin: 03/19/19 06:39 Dose: Not Given Isosorbide Mononitrate (Imdur -) 30 mg PO DAILY [facility] Last Admin: 03/18/19 11:29 Dose: 30 mg Losartan Potassium (Cozaar -) 100 mg PO DAILY [facility] Last Admin: 03/18/19 10:23 Dose: 100 mg Melatonin (Melatonin) 1 mg PO [facility] Last Admin: 03/18/19 22:15 Dose: 1 mg Mirtazapine (Remeron -) 15 mg PO [facility] Last Admin: 03/18/19 22:16 Dose: 15 mg Pantoprazole Sodium (Protonix -) 20 mg PO BID [facility] Last Admin: 03/18/19 22:16 Dose: 20 mg Polyethylene Glycol (Miralax (For Daily Use) -) 17 gm PO DAILY [facility] Last Admin: 03/18/19 10:24 Dose: 17 grams - Objective Vital Signs: Vital Signs Temperature 98.6 F 03/19/19 06:00 Pulse Rate 93 H 03/19/19 06:00 Respiratory Rate 22 H 03/18/19 21:08 Blood Pressure 125/54 L 03/18/19 21:08 O2 Sat by Pulse Oximetry (%) 98 03/17/19 21:00 Constitutional: Yes: No Distress, Calm Eyes: Yes: Conjunctiva Clear HENT: Yes: Atraumatic Cardiovascular: Yes: Regular Rate and Rhythm Respiratory: Yes: Regular, CTA Bilaterally Gastrointestinal: Yes: Normal Bowel Sounds, Soft Genitourinary: Yes: Incontinence Musculoskeletal: Yes: Muscle Weakness Extremities: Yes: WNL Edema: No Neurological: Yes: Alert, Pre-Existing Deficit Psychiatric: Yes: Alert Labs: CBC, BMP 03/18/19 05:50 03/18/19 05:50 INR, PTT INR 0.94 (0.83-1.09) 02/19/19 09:50 Microbiology 03/15/19 15:40 Urine - Urine Clean Catch Urine Culture - Final NO GROWTH OBTAINED 02/27/19 02:00 Stool Salmonella/Shigella Culture - Final NO GROWTH OF SALMONELLA OR SHIGELLA SPECIES OBTAINED 02/27/19 02:00 Stool Campylobacter Culture - Final NO GROWTH OF CAMPYLOBACTER SPECIES OBTAINED 02/27/19 02:00 Stool Yersinia Culture - Final NO GROWTH OF YERSINIA SPECIES OBTAINED 02/27/19 02:00 Stool Vibrio Culture - Final NO GROWTH OF VIBRIO SPECIES OBTAINED 02/27/19 02:00 Stool Escherichia coli 0157 Culture - Final NO GROWTH OF E COLI 0157 OBTAINED 02/19/19 17:30 Peritoneal Cavity Swab Gram Stain - Final 02/19/19 17:30 Peritoneal Cavity Swab Wound Culture - Final NO AEROBIC OR ANAEROBIC GROWTH OBTAINED. Problem List - Problems (1) Diabetes Assessment/Plan: -[facility] ACHS -[facility] -diabetic diet Code(s): E11.9 - TYPE 2 DIABETES MELLITUS WITHOUT COMPLICATIONS Qualifiers: Diabetes mellitus type: type 2 (2) Perforated chronic peptic ulcer Assessment/Plan: -Surgery on board -s/p exploratory laparotomy -drain removed and dressing in place without -Upper GI Series shows no extravasation -monitor off antibiotics Code(s): K27.5 - CHRONIC OR UNSP PEPTIC ULCER, SITE UNSP, WITH PERFORATION (3) Sepsis Assessment/Plan: -afebrile -ID on board -will monitor off ABT Code(s): A41.9 - SEPSIS, UNSPECIFIED ORGANISM (4) Diarrhea Assessment/Plan: -stool culture neg -resolved Code(s): R19.7 - DIARRHEA, UNSPECIFIED (5) Rectal bleeding Assessment/Plan: -GI on board -resolved Code(s): K62.5 - HEMORRHAGE OF ANUS AND RECTUM (6) Difficulty sleeping Assessment/Plan: -Melatonin HS Code(s): G47.9 - SLEEP DISORDER, UNSPECIFIED (7) Depression Assessment/Plan: -psych on board -Remeron HS Code(s): F32.9 - MAJOR DEPRESSIVE DISORDER, SINGLE EPISODE, UNSPECIFIED Assessment/Plan see problem list dvt ppx awaiting SNF placement due to unsafe discharge 2/2 to living environment
[2019-03-19] MEDS: ISOSORBIDE MONONITRATE 30 MG TAB.SR.24H (FP) PO SCH (10:41)
[2019-03-19] MEDS: GABAPENTIN 100 MG CAPSULE (FP) PO SCH ×2 (10:41→21:06)
[2019-03-19] MEDS: LOSARTAN POTASSIUM 50 MG TABLET (FP) PO SCH (10:41)
[2019-03-19] MEDS: PANTOPRAZOLE 20 MG TABLET (FP) PO SCH ×2 (10:41→21:06)
[2019-03-19] MEDS: POLYETHYLENE GLYCOL 3350 119 GM BTL PO SCH (11:33)
--- NOTE | 2019-03-19 17:50 | PN ---
Progress Note, Physician History of Present Illness: Pt afebrile, alert. No new events. - Current Medication List Current Medications: Active Medications Acetaminophen (Tylenol -) 325 mg PO Q4H PRN PRN Reason: PAIN LEVEL 4 - 6 Last Admin: 03/11/19 23:07 Dose: 325 mg Atorvastatin Calcium (Lipitor -) 40 mg PO HS [facility] Last Admin: 03/18/19 22:16 Dose: 40 mg Gabapentin (Neurontin -) 100 mg PO BID [facility] Last Admin: 03/19/19 10:41 Dose: 100 mg Insulin Aspart (Novolog Vial Sliding Scale -) 1 vial SQ [facility]; Protocol Last Admin: 03/19/19 16:59 Dose: 2 units Isosorbide Mononitrate (Imdur -) 30 mg PO DAILY [facility] Last Admin: 03/19/19 10:41 Dose: 30 mg Losartan Potassium (Cozaar -) 100 mg PO DAILY [facility] Last Admin: 03/19/19 10:41 Dose: Not Given Melatonin (Melatonin) 1 mg PO [facility] Last Admin: 03/18/19 22:15 Dose: 1 mg Mirtazapine (Remeron -) 15 mg PO [facility] Last Admin: 03/18/19 22:16 Dose: 15 mg Pantoprazole Sodium (Protonix -) 20 mg PO BID [facility] Last Admin: 03/19/19 10:41 Dose: 20 mg Polyethylene Glycol (Miralax (For Daily Use) -) 17 gm PO DAILY [facility] Last Admin: 03/19/19 11:33 Dose: Not Given - Objective Vital Signs: Vital Signs Temperature 98.7 F 03/19/19 16:49 Pulse Rate 116 H 03/19/19 16:49 Respiratory Rate 20 03/19/19 16:49 Blood Pressure 117/61 03/19/19 16:49 O2 Sat by Pulse Oximetry (%) 98 03/17/19 21:00 Constitutional: Yes: No Distress Cardiovascular: Yes: Tachycardia Respiratory: Yes: Regular Gastrointestinal: Yes: Normal Bowel Sounds, Soft Extremities: Yes: WNL Neurological: Yes: Alert Labs: CBC, BMP 03/18/19 05:50 03/18/19 05:50 INR, PTT INR 0.94 (0.83-1.09) 02/19/19 09:50 Problem List - Problems (1) Perforated chronic peptic ulcer Code(s): K27.5 - CHRONIC OR UNSP PEPTIC ULCER, SITE UNSP, WITH PERFORATION (2) Bowel perforation Code(s): K63.1 - PERFORATION OF INTESTINE (NONTRAUMATIC) (3) Diabetes Code(s): E11.9 - TYPE 2 DIABETES MELLITUS WITHOUT COMPLICATIONS Qualifiers: Diabetes mellitus type: type 2 (4) Sepsis Code(s): A41.9 - SEPSIS, UNSPECIFIED ORGANISM Assessment/Plan Perforated PUD s/p Ex-lap s/p Acute peritonitis -- Pt afebrile, continue monitor with current management -- Awaiting SNF placement
[2019-03-19] MEDS: MIRTAZAPINE 15 MG TABLET (FP) PO SCH (21:06)
[2019-03-19] MEDS: ATORVASTATIN CA 40 MG TABLET (FP) PO SCH (21:06)
[2019-03-19] MEDS: MELATONIN 1 MG TABLET PO SCH (21:06)
[2019-03-20] MEDS: INSULIN SLIDING SCALE (NOVOLOG) 1 VIAL SQ SCH ×4 (06:18→21:40)
[2019-03-20] MEDS: ISOSORBIDE MONONITRATE 30 MG TAB.SR.24H (FP) PO SCH (10:55)
[2019-03-20] MEDS: PANTOPRAZOLE 20 MG TABLET (FP) PO SCH ×2 (10:55→21:38)
[2019-03-20] MEDS: GABAPENTIN 100 MG CAPSULE (FP) PO SCH ×2 (10:55→21:38)
[2019-03-20] MEDS: LOSARTAN POTASSIUM 50 MG TABLET (FP) PO SCH (10:55)
[2019-03-20] MEDS: POLYETHYLENE GLYCOL 3350 119 GM BTL PO SCH (10:56)
--- NOTE | 2019-03-20 11:42 | PN ---
Progress Note, Physician History of Present Illness: stable no events - Current Medication List Current Medications: Active Medications Acetaminophen (Tylenol -) 325 mg PO Q4H PRN PRN Reason: PAIN LEVEL 4 - 6 Last Admin: 03/11/19 23:07 Dose: 325 mg Atorvastatin Calcium (Lipitor -) 40 mg PO [facility] Last Admin: 03/19/19 21:06 Dose: 40 mg Gabapentin (Neurontin -) 100 mg PO BID [facility] Last Admin: 03/20/19 10:55 Dose: 100 mg Insulin Aspart (Novolog Vial Sliding Scale -) 1 vial SQ [facility]; Protocol Last Admin: 03/20/19 06:18 Dose: Not Given Isosorbide Mononitrate (Imdur -) 30 mg PO DAILY [facility] Last Admin: 03/20/19 10:55 Dose: 30 mg Losartan Potassium (Cozaar -) 100 mg PO DAILY [facility] Last Admin: 03/20/19 10:55 Dose: 100 mg Melatonin (Melatonin) 1 mg PO [facility] Last Admin: 03/19/19 21:06 Dose: 1 mg Mirtazapine (Remeron -) 15 mg PO [facility] Last Admin: 03/19/19 21:06 Dose: 15 mg Pantoprazole Sodium (Protonix -) 20 mg PO BID [facility] Last Admin: 03/20/19 10:55 Dose: 20 mg Polyethylene Glycol (Miralax (For Daily Use) -) 17 gm PO DAILY [facility] Last Admin: 03/20/19 10:56 Dose: 7 grams - Objective Vital Signs: Vital Signs Temperature 98.1 F 03/20/19 06:00 Pulse Rate 93 H 03/20/19 06:00 Respiratory Rate 18 03/20/19 06:00 Blood Pressure 131/65 03/20/19 06:00 O2 Sat by Pulse Oximetry (%) 98 03/17/19 21:00 Constitutional: Yes: No Distress, Calm HENT: Yes: Atraumatic Cardiovascular: Yes: Regular Rate and Rhythm Respiratory: Yes: Regular, CTA Bilaterally Gastrointestinal: Yes: Normal Bowel Sounds, Soft Musculoskeletal: Yes: WNL Extremities: Yes: WNL Neurological: Yes: Alert, Oriented Psychiatric: Yes: Alert, Oriented Labs: CBC, BMP 03/18/19 05:50 03/18/19 05:50 INR, PTT INR 0.94 (0.83-1.09) 02/19/19 09:50 Assessment/Plan Assessment/Plan Perforated viscus, dehydration, CAD, Obesity. Plan : Hydrate , Antibiotics, Emergency laparotomy , perforated ulcer. gi bleed plan stable continue current mgmt nutrition rest as per surgery
--- NOTE | 2019-03-20 14:05 | PN ---
Progress Note, Physician Chief Complaint: AWAKE AND ALERT X 2 NO NEW EVENTS - Current Medication List Current Medications: Active Medications Acetaminophen (Tylenol -) 325 mg PO Q4H PRN PRN Reason: PAIN LEVEL 4 - 6 Last Admin: 03/11/19 23:07 Dose: 325 mg Atorvastatin Calcium (Lipitor -) 40 mg PO [facility] Last Admin: 03/19/19 21:06 Dose: 40 mg Gabapentin (Neurontin -) 100 mg PO BID [facility] Last Admin: 03/20/19 10:55 Dose: 100 mg Insulin Aspart (Novolog Vial Sliding Scale -) 1 vial SQ [facility]; Protocol Last Admin: 03/20/19 12:45 Dose: Not Given Isosorbide Mononitrate (Imdur -) 30 mg PO DAILY [facility] Last Admin: 03/20/19 10:55 Dose: 30 mg Losartan Potassium (Cozaar -) 100 mg PO DAILY [facility] Last Admin: 03/20/19 10:55 Dose: 100 mg Melatonin (Melatonin) 1 mg PO [facility] Last Admin: 03/19/19 21:06 Dose: 1 mg Mirtazapine (Remeron -) 15 mg PO [facility] Last Admin: 03/19/19 21:06 Dose: 15 mg Pantoprazole Sodium (Protonix -) 20 mg PO BID [facility] Last Admin: 03/20/19 10:55 Dose: 20 mg Polyethylene Glycol (Miralax (For Daily Use) -) 17 gm PO DAILY [facility] Last Admin: 03/20/19 10:56 Dose: 7 grams - Objective Vital Signs: Vital Signs Temperature 98.6 F 03/20/19 10:00 Pulse Rate 96 H 03/20/19 10:00 Respiratory Rate 18 03/20/19 10:00 Blood Pressure 139/60 03/20/19 10:00 O2 Sat by Pulse Oximetry (%) 98 03/17/19 21:00 Constitutional: Yes: No Distress Eyes: Yes: WNL HENT: Yes: WNL Neck: Yes: WNL Cardiovascular: Yes: Regular Rate and Rhythm Respiratory: Yes: WNL Gastrointestinal: Yes: WNL Genitourinary: Yes: Incontinence Musculoskeletal: Yes: Muscle Weakness Extremities: Yes: Other Edema: No Peripheral Pulses WNL: Yes Integumentary: Yes: WNL Wound/Incision: Yes: Clean/Dry Neurological: Yes: Confusion ...Motor Strength: LLE, RLE Psychiatric: Yes: Other Labs: CBC, BMP 03/18/19 05:50 03/18/19 05:50 INR, PTT INR 0.94 (0.83-1.09) 02/19/19 09:50 Problem List - Problems (1) Bowel perforation Code(s): K63.1 - PERFORATION OF INTESTINE (NONTRAUMATIC) (2) Diabetes Code(s): E11.9 - TYPE 2 DIABETES MELLITUS WITHOUT COMPLICATIONS Qualifiers: Diabetes mellitus type: type 2 (3) Sepsis Code(s): A41.9 - SEPSIS, UNSPECIFIED ORGANISM Assessment/Plan UNSAFE DISCHARGE TO GO HOME NOT A SAFE ENVIRONMENT TO BE HOME ALONE. SNF PLACEMENT D/W CLAIMS ADMINISTRATORNEIGHBORHOOD COORDINATOR CARE AND MEDICAL MANAGEMENT
[2019-03-20] MEDS: HYDROCORTISONE 2.5% LOTION - 1 BOTTLE TP PRN (17:39)
[2019-03-20] MEDS ORDERED: PT OWN MED DRAWER 7, Y5N ONE (21:23)
[2019-03-20] MEDS: MIRTAZAPINE 15 MG TABLET (FP) PO SCH (21:38)
[2019-03-20] MEDS: ATORVASTATIN CA 40 MG TABLET (FP) PO SCH (21:38)
[2019-03-21] MEDS: MELATONIN 1 MG TABLET PO SCH ×2 (03:14→22:18)
[2019-03-21] MEDS: INSULIN SLIDING SCALE (NOVOLOG) 1 VIAL SQ SCH ×4 (06:13→22:24)
--- NOTE | 2019-03-21 08:38 | PN ---
Progress Note, Physician Chief Complaint: AWAKE ALERT DENIES CP OR SOB + APPETITE + BM - Current Medication List Current Medications: Active Medications Acetaminophen (Tylenol -) 325 mg PO Q4H PRN PRN Reason: PAIN LEVEL 4 - 6 Last Admin: 03/11/19 23:07 Dose: 325 mg Atorvastatin Calcium (Lipitor -) 40 mg PO HS [facility] Last Admin: 03/20/19 21:38 Dose: 40 mg Gabapentin (Neurontin -) 100 mg PO BID [facility] Last Admin: 03/20/19 21:38 Dose: 100 mg Hydrocortisone (Hytone 2.5% Lotion -) 1 applic TP BID PRN PRN Reason: DRY SKIN Last Admin: 03/20/19 17:39 Dose: 1 applic Insulin Aspart (Novolog Vial Sliding Scale -) 1 vial [facility]Q [facility]; Protocol Last Admin: 03/21/19 06:13 Dose: Not Given Isosorbide Mononitrate (Imdur -) 30 mg PO DAILY [facility] Last Admin: 03/20/19 10:55 Dose: 30 mg Losartan Potassium (Cozaar -) 100 mg PO DAILY [facility] Last Admin: 03/20/19 10:55 Dose: 100 mg Melatonin (Melatonin) 1 mg PO [facility] Last Admin: 03/21/19 03:14 Dose: Not Given Mirtazapine (Remeron -) 15 mg PO [facility] Last Admin: 03/20/19 21:38 Dose: 15 mg Pantoprazole Sodium (Protonix -) 20 mg PO BID [facility] Last Admin: 03/20/19 21:38 Dose: 20 mg Polyethylene Glycol (Miralax (For Daily Use) -) 17 gm PO DAILY [facility] Last Admin: 03/20/19 10:56 Dose: 7 grams - Objective Vital Signs: Vital Signs Temperature 98.2 F 03/21/19 06:00 Pulse Rate 87 03/21/19 06:00 Respiratory Rate 20 03/21/19 06:00 Blood Pressure 138/67 03/21/19 06:00 O2 Sat by Pulse Oximetry (%) 98 03/20/19 21:00 Constitutional: Yes: No Distress Eyes: Yes: WNL HENT: Yes: WNL Neck: Yes: WNL Cardiovascular: Yes: WNL Respiratory: Yes: WNL Gastrointestinal: Yes: WNL Genitourinary: Yes: Incontinence Musculoskeletal: Yes: Muscle Weakness Extremities: Yes: Other Edema: No Peripheral Pulses WNL: Yes Integumentary: Yes: WNL Wound/Incision: Yes: Clean/Dry Neurological: Yes: Confusion ...Motor Strength: LLE, RLE Psychiatric: Yes: Other Labs: CBC, BMP 03/18/19 05:50 03/18/19 05:50 INR, PTT INR 0.94 (0.83-1.09) 02/19/19 09:50 Problem List - Problems (1) Bowel perforation Code(s): K63.1 - PERFORATION OF INTESTINE (NONTRAUMATIC) (2) Diabetes Code(s): E11.9 - TYPE 2 DIABETES MELLITUS WITHOUT COMPLICATIONS Qualifiers: Diabetes mellitus type: type 2 (3) Sepsis Code(s): A41.9 - SEPSIS, UNSPECIFIED ORGANISM Assessment/Plan UNSAFE DISCHARGE TO GO HOME NOT A SAFE ENVIRONMENT TO BE HOME ALONE. SNF PLACEMENT D/W SAIL CUTTERPATTERN FITTER CARE AND MEDICAL MANAGEMENT
[2019-03-21] MEDS: GABAPENTIN 100 MG CAPSULE (FP) PO SCH ×2 (09:52→22:18)
[2019-03-21] MEDS: PANTOPRAZOLE 20 MG TABLET (FP) PO SCH ×2 (09:56→22:18)
[2019-03-21] MEDS: POLYETHYLENE GLYCOL 3350 119 GM BTL PO SCH (09:56)
[2019-03-21] MEDS: HYDROCORTISONE 2.5% LOTION - 1 BOTTLE TP PRN (09:57)
[2019-03-21] MEDS: LOSARTAN POTASSIUM 50 MG TABLET (FP) PO SCH (09:57)
[2019-03-21] MEDS: ISOSORBIDE MONONITRATE 30 MG TAB.SR.24H (FP) PO SCH (09:58)
--- NOTE | 2019-03-21 13:09 | PN ---
Progress Note, Physician History of Present Illness: stable no new events - Current Medication List Current Medications: Active Medications Acetaminophen (Tylenol -) 325 mg PO Q4H PRN PRN Reason: PAIN LEVEL 4 - 6 Last Admin: 03/11/19 23:07 Dose: 325 mg Atorvastatin Calcium (Lipitor -) 40 mg PO HS [facility] Last Admin: 03/20/19 21:38 Dose: 40 mg Gabapentin (Neurontin -) 100 mg PO BID [facility] Last Admin: 03/21/19 09:52 Dose: 100 mg Hydrocortisone (Hytone 2.5% Lotion -) 1 applic TP BID PRN PRN Reason: DRY SKIN Last Admin: 03/21/19 09:57 Dose: 1 applic Insulin Aspart (Novolog Vial Sliding Scale -) [address] [facility]; Protocol Last Admin: 03/21/19 12:24 Dose: Not Given Isosorbide Mononitrate (Imdur -) 30 mg PO DAILY [facility] Last Admin: 03/21/19 09:58 Dose: 30 mg Losartan Potassium (Cozaar -) 100 mg PO DAILY [facility] Last Admin: 03/21/19 09:57 Dose: 100 mg Melatonin (Melatonin) 1 mg PO [facility] Last Admin: 03/21/19 03:14 Dose: Not Given Mirtazapine (Remeron -) 15 mg PO [facility] Last Admin: 03/20/19 21:38 Dose: 15 mg Pantoprazole Sodium (Protonix -) 20 mg PO BID [facility] Last Admin: 03/21/19 09:56 Dose: 20 mg Polyethylene Glycol (Miralax (For Daily Use) -) 17 gm PO DAILY [facility] Last Admin: 03/21/19 09:56 Dose: 17 grams - Objective Vital Signs: Vital Signs Temperature 97.6 F 03/21/19 09:41 Pulse Rate 92 H 03/21/19 09:41 Respiratory Rate 18 03/21/19 09:41 Blood Pressure 129/46 L 03/21/19 09:41 O2 Sat by Pulse Oximetry (%) 98 03/21/19 10:00 Constitutional: Yes: No Distress, Calm Cardiovascular: Yes: Regular Rate and Rhythm Respiratory: Yes: Regular, CTA Bilaterally Gastrointestinal: Yes: Normal Bowel Sounds, Soft Musculoskeletal: Yes: WNL Extremities: Yes: WNL Neurological: Yes: Alert, Oriented Psychiatric: Yes: Alert, Oriented Labs: CBC, BMP 03/18/19 05:50 03/18/19 05:50 INR, PTT INR 0.94 (0.83-1.09) 02/19/19 09:50 Assessment/Plan Assessment/Plan Perforated viscus, dehydration, CAD, Obesity. Plan : Hydrate , Antibiotics, Emergency laparotomy , perforated ulcer. gi bleed plan stable continue current mgmt nutrition rest as per surgery
[2019-03-21] MEDS: MIRTAZAPINE 15 MG TABLET (FP) PO SCH (22:18)
[2019-03-21] MEDS: ATORVASTATIN CA 40 MG TABLET (FP) PO SCH (22:18)
[2019-03-22] MEDS: INSULIN SLIDING SCALE (NOVOLOG) 1 VIAL SQ SCH ×4 (06:13→22:04)
[2019-03-22] MEDS ORDERED: PT OWN MED DRAWER 7, Y5N ONE (09:38)
[2019-03-22] MEDS: GABAPENTIN 100 MG CAPSULE (FP) PO SCH ×2 (09:40→22:04)
[2019-03-22] MEDS: PANTOPRAZOLE 20 MG TABLET (FP) PO SCH ×2 (09:40→22:04)
[2019-03-22] MEDS: LOSARTAN POTASSIUM 50 MG TABLET (FP) PO SCH (09:40)
[2019-03-22] MEDS: ISOSORBIDE MONONITRATE 30 MG TAB.SR.24H (FP) PO SCH (09:40)
[2019-03-22] MEDS: POLYETHYLENE GLYCOL 3350 119 GM BTL PO SCH (09:40)
--- NOTE | 2019-03-22 10:35 | PN ---
Progress Note, Physician Chief Complaint: C/O FATIGUE NO FEVER OR CHILLS - Current Medication List Current Medications: Active Medications Acetaminophen (Tylenol -) 325 mg PO Q4H PRN PRN Reason: PAIN LEVEL 4 - 6 Last Admin: 03/11/19 23:07 Dose: 325 mg Atorvastatin Calcium (Lipitor -) 40 mg PO HS [facility] Last Admin: 03/21/19 22:18 Dose: 40 mg Gabapentin (Neurontin -) 100 mg PO BID [facility] Last Admin: 03/22/19 09:40 Dose: 100 mg Hydrocortisone (Hytone 2.5% Lotion -) 1 applic TP BID PRN PRN Reason: DRY SKIN Last Admin: 03/21/19 09:57 Dose: 1 applic Insulin Aspart (Novolog Vial Sliding Scale -) 1 vial SQ [facility]; Protocol Last Admin: 03/22/19 06:13 Dose: Not Given Isosorbide Mononitrate (Imdur -) 30 mg PO DAILY [facility] Last Admin: 03/22/19 09:40 Dose: 30 mg Losartan Potassium (Cozaar -) 100 mg PO DAILY [facility] Last Admin: 03/22/19 09:40 Dose: 100 mg Melatonin (Melatonin) 1 mg PO [facility] Last Admin: 03/21/19 22:18 Dose: 1 mg Mirtazapine (Remeron -) 15 mg PO [facility] Last Admin: 03/21/19 22:18 Dose: 15 mg Pantoprazole Sodium (Protonix -) 20 mg PO BID [facility] Last Admin: 03/22/19 09:40 Dose: 20 mg Polyethylene Glycol (Miralax (For Daily Use) -) 17 gm PO DAILY [facility] Last Admin: 03/22/19 09:40 Dose: 17 grams - Objective Vital Signs: Vital Signs Temperature 98.1 F 03/22/19 06:00 Pulse Rate 99 H 03/22/19 06:00 Respiratory Rate 20 03/22/19 06:00 Blood Pressure 150/62 03/22/19 06:00 O2 Sat by Pulse Oximetry (%) 97 03/21/19 21:00 Constitutional: Yes: No Distress Eyes: Yes: WNL HENT: Yes: WNL Neck: Yes: WNL Cardiovascular: Yes: WNL Respiratory: Yes: WNL Gastrointestinal: Yes: WNL Genitourinary: Yes: WNL Musculoskeletal: Yes: Muscle Weakness Edema: No Peripheral Pulses WNL: Yes Integumentary: Yes: WNL Wound/Incision: Yes: Clean/Dry Neurological: Yes: WNL ...Motor Strength: WNL Psychiatric: Yes: WNL Labs: CBC, BMP 03/18/19 05:50 03/18/19 05:50 INR, PTT INR 0.94 (0.83-1.09) 02/19/19 09:50 Problem List - Problems (1) Bowel perforation Code(s): K63.1 - PERFORATION OF INTESTINE (NONTRAUMATIC) (2) Diabetes Code(s): E11.9 - TYPE 2 DIABETES MELLITUS WITHOUT COMPLICATIONS Qualifiers: Diabetes mellitus type: type 2 (3) Sepsis Code(s): A41.9 - SEPSIS, UNSPECIFIED ORGANISM Assessment/Plan CHECK LABS TODAY UNSAFE DISCHARGE TO GO HOME NOT A SAFE ENVIRONMENT TO BE HOME ALONE. SNF PLACEMENT D/W STRENGTH AND CONDITIONING COACHCLEANER OPERATOR CARE AND MEDICAL MANAGEMENT
[2019-03-22 10:56] LABS: HEMATOCRIT 30.7 % (32.4-45.2); HEMOGLOBIN 10.2 GM/dL (10.7-15.3); MCHC 33.2 g/dl (32.0-36.0); MEAN CELL VOLUME 90.3 fl (80-96); MEAN PLT VOLUME 7.2 fl (7.5-11.1); RDW 15.6 % (11.6-15.6)
[2019-03-22 11:15] LABS: PLATELET COUNT 305 K/MM3 (134-434)
[2019-03-22 11:24] LABS: ALBUMIN 2.9 g/dl (3.4-5.0); BILIRUBIN,TOTAL 0.6 mg/dL (0.2-1); BLOOD UREA NITROGEN 18.8 mg/dL (7-18); CALCIUM 8.9 mg/dL (8.5-10.1); CREATININE 0.9 mg/dL (0.55-1.3); MAGNESIUM 2.2 mg/dL (1.8-2.4); POTASSIUM 4.3 mmol/L (3.5-5.1); TOT PROT 6.3 g/dl (6.4-8.2)
--- NOTE | 2019-03-22 11:59 | PN ---
Progress Note, Physician History of Present Illness: feels weak no issues - Current Medication List Current Medications: Active Medications Acetaminophen (Tylenol -) 325 mg PO Q4H PRN PRN Reason: PAIN LEVEL 4 - 6 Last Admin: 03/11/19 23:07 Dose: 325 mg Atorvastatin Calcium (Lipitor -) 40 mg PO HS [facility] Last Admin: 03/21/19 22:18 Dose: 40 mg Gabapentin (Neurontin -) 100 mg PO BID [facility] Last Admin: 03/22/19 09:40 Dose: 100 mg Hydrocortisone (Hytone 2.5% Lotion -) 1 applic TP BID PRN PRN Reason: DRY SKIN Last Admin: 03/21/19 09:57 Dose: 1 applic Insulin Aspart (Novolog Vial Sliding Scale -) 1 vial SQ [facility]; Protocol Last Admin: 03/22/19 06:13 Dose: Not Given Isosorbide Mononitrate (Imdur -) 30 mg PO DAILY [facility] Last Admin: 03/22/19 09:40 Dose: 30 mg Losartan Potassium (Cozaar -) 100 mg PO DAILY [facility] Last Admin: 03/22/19 09:40 Dose: 100 mg Melatonin (Melatonin) 1 mg PO [facility] Last Admin: 03/21/19 22:18 Dose: 1 mg Mirtazapine (Remeron -) 15 mg PO [facility] Last Admin: 03/21/19 22:18 Dose: 15 mg Pantoprazole Sodium (Protonix -) 20 mg PO BID [facility] Last Admin: 03/22/19 09:40 Dose: 20 mg Polyethylene Glycol (Miralax (For Daily Use) -) 17 gm PO DAILY [facility] Last Admin: 03/22/19 09:40 Dose: 17 grams - Objective Vital Signs: Vital Signs Temperature 98.6 F 03/22/19 10:00 Pulse Rate 77 03/22/19 10:00 Respiratory Rate 20 03/22/19 10:00 Blood Pressure 113/54 L 03/22/19 10:00 O2 Sat by Pulse Oximetry (%) 97 03/22/19 09:00 Constitutional: Yes: No Distress, Calm Gastrointestinal: Yes: Normal Bowel Sounds Musculoskeletal: Yes: WNL Extremities: Yes: WNL Neurological: Yes: Alert, Oriented Psychiatric: Yes: Alert Labs: CBC, BMP 03/22/19 10:45 03/22/19 10:45 INR, PTT INR 0.94 (0.83-1.09) 02/19/19 09:50 Assessment/Plan Assessment/Plan Perforated viscus, dehydration, CAD, Obesity. Plan : Hydrate , Antibiotics, Emergency laparotomy , perforated ulcer. gi bleed plan stable continue current mgmt nutrition rest as per surgery
[2019-03-22] MEDS: MELATONIN 1 MG TABLET PO SCH (22:04)
[2019-03-22] MEDS: ATORVASTATIN CA 40 MG TABLET (FP) PO SCH (22:04)
[2019-03-22] MEDS: MIRTAZAPINE 15 MG TABLET (FP) PO SCH (22:04)
[2019-03-23] MEDS: INSULIN SLIDING SCALE (NOVOLOG) 1 VIAL SQ SCH ×4 (06:12→21:47)
--- NOTE | 2019-03-23 08:46 | PN ---
Progress Note, Physician History of Present Illness: stable no new issues - Current Medication List Current Medications: Active Medications Acetaminophen (Tylenol -) 325 mg PO Q4H PRN PRN Reason: PAIN LEVEL 4 - 6 Last Admin: 03/11/19 23:07 Dose: 325 mg Atorvastatin Calcium (Lipitor -) 40 mg PO HS [facility] Last Admin: 03/22/19 22:04 Dose: 40 mg Gabapentin (Neurontin -) 100 mg PO BID [facility] Last Admin: 03/22/19 22:04 Dose: 100 mg Hydrocortisone (Hytone 2.5% Lotion -) 1 applic TP BID PRN PRN Reason: DRY SKIN Last Admin: 03/21/19 09:57 Dose: 1 applic Insulin Aspart (Novolog Vial Sliding Scale -) 1 vial SQ [facility]; Protocol Last Admin: 03/23/19 06:12 Dose: Not Given Isosorbide Mononitrate (Imdur -) 30 mg PO DAILY [facility] Last Admin: 03/22/19 09:40 Dose: 30 mg Losartan Potassium (Cozaar -) 100 mg PO DAILY [facility] Last Admin: 03/22/19 09:40 Dose: 100 mg Melatonin (Melatonin) 1 mg PO [facility] Last Admin: 03/22/19 22:04 Dose: 1 mg Mirtazapine (Remeron -) 15 mg PO HS [facility] Last Admin: 03/22/19 22:04 Dose: 15 mg Pantoprazole Sodium (Protonix -) 20 mg PO BID [facility] Last Admin: 03/22/19 22:04 Dose: 20 mg Polyethylene Glycol (Miralax (For Daily Use) -) 17 gm PO DAILY [facility] Last Admin: 03/22/19 09:40 Dose: 17 grams - Objective Vital Signs: Vital Signs Temperature 98.3 F 03/23/19 06:00 Pulse Rate 89 03/23/19 06:00 Respiratory Rate 20 03/23/19 06:00 Blood Pressure 140/72 03/23/19 06:00 O2 Sat by Pulse Oximetry (%) 98 03/22/19 21:00 Constitutional: Yes: No Distress, Calm Cardiovascular: Yes: S1, S2 Respiratory: Yes: Regular, CTA Bilaterally Gastrointestinal: Yes: Normal Bowel Sounds, Soft Musculoskeletal: Yes: WNL Extremities: Yes: Other Neurological: Yes: Alert, Oriented Psychiatric: Yes: Alert, Oriented Labs: CBC, BMP 03/22/19 10:45 03/22/19 10:45 INR, PTT INR 0.94 (0.83-1.09) 02/19/19 09:50 Assessment/Plan Assessment/Plan Perforated viscus, dehydration, CAD, Obesity. Plan : Hydrate , Antibiotics, Emergency laparotomy , perforated ulcer. gi bleed plan stable continue current mgmt nutrition rest as per surgery
[2019-03-23] MEDS: POLYETHYLENE GLYCOL 3350 119 GM BTL PO SCH (09:22)
[2019-03-23] MEDS: PANTOPRAZOLE 20 MG TABLET (FP) PO SCH ×2 (09:22→21:47)
[2019-03-23] MEDS: GABAPENTIN 100 MG CAPSULE (FP) PO SCH ×2 (09:22→21:47)
[2019-03-23] MEDS: ISOSORBIDE MONONITRATE 30 MG TAB.SR.24H (FP) PO SCH (09:22)
[2019-03-23] MEDS: LOSARTAN POTASSIUM 50 MG TABLET (FP) PO SCH (09:22)
--- NOTE | 2019-03-23 12:19 | PN ---
Progress Note, Physician Chief Complaint: Perforated Peptic Ulcer Acute Peritonitis S/p Exp Laparotomy History of Present Illness: Previous notes and events reviewed awake and alert NAD no complaints of chest pain or SOB awaiting SNF placement due to unsafe discharge 2/2 to living environment - Current Medication List Current Medications: Active Medications Acetaminophen (Tylenol -) 325 mg PO Q4H PRN PRN Reason: PAIN LEVEL 4 - 6 Last Admin: 03/11/19 23:07 Dose: 325 mg Atorvastatin Calcium (Lipitor -) 40 mg PO HS [facility] Last Admin: 03/22/19 22:04 Dose: 40 mg Gabapentin (Neurontin -) 100 mg PO BID [facility] Last Admin: 03/23/19 09:22 Dose: 100 mg Hydrocortisone (Hytone 2.5% Lotion -) 1 applic TP BID PRN PRN Reason: DRY SKIN Last Admin: 03/21/19 09:57 Dose: 1 applic Insulin Aspart (Novolog Vial Sliding Scale -) 1 vial SQ [facility]; Protocol Last Admin: 03/23/19 11:55 Dose: Not Given Isosorbide Mononitrate (Imdur -) 30 mg PO DAILY [facility] Last Admin: 03/23/19 09:22 Dose: 30 mg Losartan Potassium (Cozaar -) 100 mg PO DAILY [facility] Last Admin: 03/23/19 09:22 Dose: 100 mg Melatonin (Melatonin) 1 mg PO [facility] Last Admin: 03/22/19 22:04 Dose: 1 mg Mirtazapine (Remeron -) 15 mg PO HS [facility] Last Admin: 03/22/19 22:04 Dose: 15 mg Pantoprazole Sodium (Protonix -) 20 mg PO BID [facility] Last Admin: 03/23/19 09:22 Dose: 20 mg Polyethylene Glycol (Miralax (For Daily Use) -) 17 gm PO DAILY [facility] Last Admin: 03/23/19 09:22 Dose: 17 grams - Objective Vital Signs: Vital Signs Temperature 98.1 F 03/23/19 10:00 Pulse Rate 94 H 03/23/19 10:00 Respiratory Rate 18 03/23/19 10:00 Blood Pressure 117/48 L 03/23/19 10:00 O2 Sat by Pulse Oximetry (%) 100 03/23/19 09:00 Constitutional: Yes: No Distress, Calm Eyes: Yes: Conjunctiva Clear HENT: Yes: Atraumatic Cardiovascular: Yes: Regular Rate and Rhythm Respiratory: Yes: Regular, CTA Bilaterally Gastrointestinal: Yes: Normal Bowel Sounds, Soft Musculoskeletal: Yes: Muscle Weakness Extremities: Yes: WNL Edema: No Neurological: Yes: Alert, Pre-Existing Deficit Psychiatric: Yes: Alert, Oriented Labs: CBC, BMP 03/22/19 10:45 03/22/19 10:45 INR, PTT INR 0.94 (0.83-1.09) 02/19/19 09:50 Problem List - Problems (1) Diabetes Assessment/Plan: -BGM ACHS -ISS -diabetic diet Code(s): E11.9 - TYPE 2 DIABETES MELLITUS WITHOUT COMPLICATIONS Qualifiers: Diabetes mellitus type: type 2 (2) Perforated chronic peptic ulcer Assessment/Plan: -Surgery on board -s/p exploratory laparotomy -drain removed and dressing in place without -Upper GI Series shows no extravasation -monitor off antibiotics Code(s): K27.5 - CHRONIC OR UNSP PEPTIC ULCER, SITE UNSP, WITH PERFORATION (3) Sepsis Assessment/Plan: -afebrile -ID on board -will monitor off ABT Code(s): A41.9 - SEPSIS, UNSPECIFIED ORGANISM (4) Diarrhea Assessment/Plan: -stool culture neg -resolved Code(s): R19.7 - DIARRHEA, UNSPECIFIED (5) Rectal bleeding Assessment/Plan: -GI on board -resolved Code(s): K62.5 - HEMORRHAGE OF ANUS AND RECTUM (6) Difficulty sleeping Assessment/Plan: -Melatonin HS Code(s): G47.9 - SLEEP DISORDER, UNSPECIFIED (7) Depression Assessment/Plan: -psych on board -Remeron HS Code(s): F32.9 - MAJOR DEPRESSIVE DISORDER, SINGLE EPISODE, UNSPECIFIED Assessment/Plan see problem list dvt ppx awaiting SNF placement due to unsafe discharge 11/08 to living environment
[2019-03-23] MEDS: MELATONIN 1 MG TABLET PO SCH (21:47)
[2019-03-23] MEDS: MIRTAZAPINE 15 MG TABLET (FP) PO SCH (21:47)
[2019-03-23] MEDS: ATORVASTATIN CA 40 MG TABLET (FP) PO SCH (21:47)
[2019-03-24] MEDS: INSULIN SLIDING SCALE (NOVOLOG) 1 VIAL SQ SCH ×4 (06:30→23:03)
--- NOTE | 2019-03-24 09:31 | PN ---
Progress Note, Physician - Current Medication List Current Medications: Active Medications Acetaminophen (Tylenol -) 325 mg PO Q4H PRN PRN Reason: PAIN LEVEL 4 - 6 Last Admin: 03/11/19 23:07 Dose: 325 mg Atorvastatin Calcium (Lipitor -) 40 mg PO HS [facility] Last Admin: 03/23/19 21:47 Dose: 40 mg Gabapentin (Neurontin -) 100 mg PO BID [facility] Last Admin: 03/23/19 21:47 Dose: 100 mg Hydrocortisone (Hytone 2.5% Lotion -) 1 applic TP BID PRN PRN Reason: DRY SKIN Last Admin: 03/21/19 09:57 Dose: 1 applic Insulin Aspart (Novolog Vial Sliding Scale -) 1 vial SQ ACHS [facility]; Protocol Last Admin: 03/24/19 06:30 Dose: Not Given Isosorbide Mononitrate (Imdur -) 30 mg PO DAILY [facility] Last Admin: 03/23/19 09:22 Dose: 30 mg Losartan Potassium (Cozaar -) 100 mg PO DAILY [facility] Last Admin: 03/23/19 09:22 Dose: 100 mg Melatonin (Melatonin) 1 mg PO [facility] Last Admin: 03/23/19 21:47 Dose: 1 mg Mirtazapine (Remeron -) 15 mg PO [facility] Last Admin: 03/23/19 21:47 Dose: 15 mg Pantoprazole Sodium (Protonix -) 20 mg PO BID [facility] Last Admin: 03/23/19 21:47 Dose: 20 mg Polyethylene Glycol (Miralax (For Daily Use) -) 17 gm PO DAILY [facility] Last Admin: 03/23/19 09:22 Dose: 17 grams - Objective Vital Signs: Vital Signs Temperature 98.7 F 03/24/19 06:00 Pulse Rate 90 03/24/19 06:00 Respiratory Rate 18 03/24/19 06:00 Blood Pressure 131/62 03/24/19 06:00 O2 Sat by Pulse Oximetry (%) 100 03/23/19 21:00 Cardiovascular: Yes: Regular Rate and Rhythm Respiratory: Yes: Regular, CTA Bilaterally Gastrointestinal: Yes: Normal Bowel Sounds, Soft Labs: CBC, BMP 03/22/19 10:45 03/22/19 10:45 INR, PTT INR 0.94 (0.83-1.09) 02/19/19 09:50 Problem List - Problems (1) Perforated chronic peptic ulcer Code(s): K27.5 - CHRONIC OR UNSP PEPTIC ULCER, SITE UNSP, WITH PERFORATION (2) Diabetes Code(s): E11.9 - TYPE 2 DIABETES MELLITUS WITHOUT COMPLICATIONS Qualifiers: Diabetes mellitus type: type 2 (3) Sepsis Code(s): A41.9 - SEPSIS, UNSPECIFIED ORGANISM Assessment/Plan - Problems (1) Diabetes Assessment/Plan: -BGM ACHS -ISS -diabetic diet Code(s): E11.9 - TYPE 2 DIABETES MELLITUS WITHOUT COMPLICATIONS Qualifiers: Diabetes mellitus type: type 2 (2) Perforated chronic peptic ulcer Assessment/Plan: -Surgery on board -s/p exploratory laparotomy -drain removed and dressing in place without -Upper GI Series shows no extravasation -monitor off antibiotics Code(s): K27.5 - CHRONIC OR UNSP PEPTIC ULCER, SITE UNSP, WITH PERFORATION (3) Sepsis Assessment/Plan: -afebrile -ID on board -will monitor off ABT Code(s): A41.9 - SEPSIS, UNSPECIFIED ORGANISM (4) Diarrhea Assessment/Plan: -stool culture neg -resolved Code(s): R19.7 - DIARRHEA, UNSPECIFIED (5) Rectal bleeding Assessment/Plan: -GI on board -resolved Code(s): K62.5 - HEMORRHAGE OF ANUS AND RECTUM (6) Difficulty sleeping Assessment/Plan: -Melatonin HS Code(s): G47.9 - SLEEP DISORDER, UNSPECIFIED (7) Depression Assessment/Plan: -psych on board -Remeron HS Code(s): F32.9 - MAJOR DEPRESSIVE DISORDER, SINGLE EPISODE, UNSPECIFIED
[2019-03-24] MEDS: LOSARTAN POTASSIUM 50 MG TABLET (FP) PO SCH (09:58)
[2019-03-24] MEDS: GABAPENTIN 100 MG CAPSULE (FP) PO SCH ×2 (09:58→22:58)
[2019-03-24] MEDS: PANTOPRAZOLE 20 MG TABLET (FP) PO SCH ×2 (09:58→22:58)
[2019-03-24] MEDS: ISOSORBIDE MONONITRATE 30 MG TAB.SR.24H (FP) PO SCH (09:58)
[2019-03-24] MEDS: POLYETHYLENE GLYCOL 3350 119 GM BTL PO SCH (09:58)
--- NOTE | 2019-03-24 13:54 | PN ---
Progress Note, Physician History of Present Illness: stable no new issues - Current Medication List Current Medications: Active Medications Acetaminophen (Tylenol -) 325 mg PO Q4H PRN PRN Reason: PAIN LEVEL 4 - 6 Last Admin: 03/11/19 23:07 Dose: 325 mg Atorvastatin Calcium (Lipitor -) 40 mg PO HS [facility] Last Admin: 03/23/19 21:47 Dose: 40 mg Gabapentin (Neurontin -) 100 mg PO BID [facility] Last Admin: 03/24/19 09:58 Dose: 100 mg Hydrocortisone (Hytone 2.5% Lotion -) 1 applic TP BID PRN PRN Reason: DRY SKIN Last Admin: 03/21/19 09:57 Dose: 1 applic Insulin Aspart (Novolog Vial Sliding Scale -) 1 vial SQ ACHS [facility]; Protocol Last Admin: 03/24/19 13:32 Dose: Not Given Isosorbide Mononitrate (Imdur -) 30 mg PO DAILY [facility] Last Admin: 03/24/19 09:58 Dose: 30 mg Losartan Potassium (Cozaar -) 100 mg PO DAILY [facility] Last Admin: 03/24/19 09:58 Dose: 100 mg Melatonin (Melatonin) 1 mg PO [facility] Last Admin: 03/23/19 21:47 Dose: 1 mg Mirtazapine (Remeron -) 15 mg PO HS [facility] Last Admin: 03/23/19 21:47 Dose: 15 mg Pantoprazole Sodium (Protonix -) 20 mg PO BID [facility] Last Admin: 03/24/19 09:58 Dose: 20 mg Polyethylene Glycol (Miralax (For Daily Use) -) 17 gm PO DAILY [facility] Last Admin: 03/24/19 09:58 Dose: 17 grams - Objective Vital Signs: Vital Signs Temperature 97.9 F 03/24/19 09:57 Pulse Rate 93 H 03/24/19 09:57 Respiratory Rate 18 03/24/19 09:57 Blood Pressure 126/59 L 03/24/19 09:57 O2 Sat by Pulse Oximetry (%) 100 03/24/19 09:00 Constitutional: Yes: No Distress, Calm Cardiovascular: Yes: S1, S2 Respiratory: Yes: Regular, CTA Bilaterally Gastrointestinal: Yes: Normal Bowel Sounds, Soft Musculoskeletal: Yes: WNL Extremities: Yes: WNL Labs: CBC, BMP 03/22/19 10:45 06/16/19 10:45 INR, PTT INR 0.94 (0.83-1.09) 02/19/19 09:50 Assessment/Plan Assessment/Plan Perforated viscus, dehydration, CAD, Obesity. Plan : Hydrate , Antibiotics, Emergency laparotomy , perforated ulcer. gi bleed plan stable continue current mgmt nutrition rest as per surgery
[2019-03-24] MEDS ORDERED: PT OWN MED DRAWER 7, Y5N ONE (21:23)
[2019-03-24] MEDS: MIRTAZAPINE 15 MG TABLET (FP) PO SCH (22:58)
[2019-03-24] MEDS: ATORVASTATIN CA 40 MG TABLET (FP) PO SCH (22:58)
[2019-03-24] MEDS: MELATONIN 1 MG TABLET PO SCH (22:58)
[2019-03-25] MEDS: INSULIN SLIDING SCALE (NOVOLOG) 1 VIAL SQ SCH ×4 (07:16→21:31)
[2019-03-25] MEDS: HYDROCORTISONE 2.5% LOTION - 1 BOTTLE TP PRN (09:14)
[2019-03-25] MEDS: POLYETHYLENE GLYCOL 3350 119 GM BTL PO SCH (09:14)
[2019-03-25] MEDS: PANTOPRAZOLE 20 MG TABLET (FP) PO SCH ×2 (09:15→21:41)
[2019-03-25] MEDS: LOSARTAN POTASSIUM 50 MG TABLET (FP) PO SCH (09:15)
[2019-03-25] MEDS: GABAPENTIN 100 MG CAPSULE (FP) PO SCH ×2 (09:15→21:39)
[2019-03-25] MEDS: ISOSORBIDE MONONITRATE 30 MG TAB.SR.24H (FP) PO SCH (09:15)
--- NOTE | 2019-03-25 11:38 | DS ---
Physical Examination Vital Signs: Vital Signs Temperature 98.4 F 03/25/19 09:01 Pulse Rate 94 H 03/25/19 09:01 Respiratory Rate 20 03/25/19 09:01 Blood Pressure 126/58 L 03/25/19 09:01 O2 Sat by Pulse Oximetry (%) 100 03/24/19 09:00 Cardiovascular: Yes: Regular Rate and Rhythm Respiratory: Yes: Regular, CTA Bilaterally Gastrointestinal: Yes: Normal Bowel Sounds, Soft. No: Tenderness Labs: CBC, BMP 03/22/19 10:45 03/22/19 10:45 Discharge Summary Reason For Visit: PERFORATION OF INTESTINE Current Active Problems Bowel perforation (Acute) Depression (Acute) Diabetes (Acute) Diarrhea (Acute) Difficulty sleeping (Acute) Pancreatic abnormality (Acute) Perforated chronic peptic ulcer (Acute) Rectal bleeding (Acute) Rectal bleeding (Acute) Sepsis (Acute) Hospital Course: - Problems (1) Diabetes Assessment/Plan: -BGM ACHS -ISS -diabetic diet Code(s): E11.9 - TYPE 2 DIABETES MELLITUS WITHOUT COMPLICATIONS Qualifiers: Diabetes mellitus type: type 2 (2) Perforated chronic peptic ulcer Assessment/Plan: -Surgery on board -s/p exploratory laparotomy -drain removed and dressing in place without -Upper GI Series shows no extravasation -monitor off antibiotics Code(s): K27.5 - CHRONIC OR UNSP PEPTIC ULCER, SITE UNSP, WITH PERFORATION (3) Sepsis Assessment/Plan: -afebrile -ID on board -will monitor off ABT Code(s): A41.9 - SEPSIS, UNSPECIFIED ORGANISM (4) Diarrhea Assessment/Plan: -stool culture neg -resolved Code(s): R19.7 - DIARRHEA, UNSPECIFIED (5) Rectal bleeding Assessment/Plan: -GI on board -resolved Code(s): K62.5 - HEMORRHAGE OF ANUS AND RECTUM (6) Difficulty sleeping Assessment/Plan: -Melatonin HS Code(s): G47.9 - SLEEP DISORDER, UNSPECIFIED (7) Depression Assessment/Plan: -psych on board -Remeron HS Code(s): F32.9 - MAJOR DEPRESSIVE DISORDER, SINGLE EPISODE, UNSPECIFIED Condition: Stable - Instructions Diet, Activity, Other Instructions: Call Dr. Kyle's office , Tel No [phone], for follow up appointment. Follow up with PMD in 1 week after discharge Follow up with Surgery Dr Kyle for staple removal continue with current medication regimen continue with ABT return to ER if develop infection to surgical site, respiratory distress, chest pain, fever Referrals: Disha Castano DO [Staff Physician] - Lupillo Kyle MD [Staff Physician] - Disposition: VNS/HOME HEALTH CARE - Home Medications Comprehensive Discharge Medication List: Ambulatory Orders Atorvastatin Ca [Lipitor] 40 mg PO HS 02/19/19 Gabapentin 100 mg PO BID 02/19/19 Isosorbide Mononitrate [Isosorbide Mononitrate ER] 30 mg PO DAILY 02/19/19 Losartan Potassium 100 mg PO DAILY 02/19/19 Meloxicam 15 mg PO DAILY 02/19/19 Metformin HCl [Glucophage] 500 mg PO BID 02/19/19 Zolpidem Tartrate [Ambien] 10 mg PO HS 02/19/19 Amox-Tr/K Cl [Augmentin 875-125mg Tablet -] 1 tab PO BID@0800,1730 #6 tablet Pantoprazole Sodium [Protonix -] 40 mg PO DAILY #30 tablet.ec 02/26/19 Atorvastatin Ca [Lipitor] 40 mg PO HS tablet 03/10/19 Gabapentin [Neurontin -] 100 mg PO BID capsule 03/10/19 Isosorbide Mononitrate [Imdur -] 30 mg PO DAILY tab.sr.24h 03/10/19 Losartan Potassium [Cozaar -] 100 mg PO DAILY tablet 03/10/19 Polyethylene Glycol 3350 [Miralax 119 gm Btl -] 17 gm PO DAILY #1 bottle
--- NOTE | 2019-03-25 12:02 | PN ---
Progress Note, Physician History of Present Illness: stable no new issues - Current Medication List Current Medications: Active Medications Acetaminophen (Tylenol -) 325 mg PO Q4H PRN PRN Reason: PAIN LEVEL 4 - 6 Last Admin: 03/11/19 23:07 Dose: 325 mg Atorvastatin Calcium (Lipitor -) 40 mg PO HS [facility] Last Admin: 03/24/19 22:58 Dose: 40 mg Gabapentin (Neurontin -) 100 mg PO BID [facility] Last Admin: 03/25/19 09:15 Dose: 100 mg Hydrocortisone (Hytone 2.5% Lotion -) 1 applic TP BID PRN PRN Reason: DRY SKIN Last Admin: 03/25/19 09:14 Dose: 1 applic Insulin Aspart (Novolog Vial Sliding Scale -) 1 vial SQ ACHS [facility]; Protocol Last Admin: 03/25/19 11:47 Dose: Not Given Isosorbide Mononitrate (Imdur -) 30 mg PO DAILY [facility] Last Admin: 03/25/19 09:15 Dose: 30 mg Losartan Potassium (Cozaar -) 100 mg PO DAILY [facility] Last Admin: 03/25/19 09:15 Dose: 100 mg Melatonin (Melatonin) 1 mg PO [facility] Last Admin: 03/24/19 22:58 Dose: 1 mg Mirtazapine (Remeron -) 15 mg PO HS [facility] Last Admin: 03/24/19 22:58 Dose: 15 mg Pantoprazole Sodium (Protonix -) 20 mg PO BID [facility] Last Admin: 03/25/19 09:15 Dose: 20 mg Polyethylene Glycol (Miralax (For Daily Use) -) 17 gm PO DAILY [facility] Last Admin: 03/25/19 09:14 Dose: 17 grams - Objective Vital Signs: Vital Signs Temperature 98.4 F 03/25/19 09:01 Pulse Rate 94 H 03/25/19 09:01 Respiratory Rate 20 03/25/19 09:01 Blood Pressure 126/58 L 03/25/19 09:01 O2 Sat by Pulse Oximetry (%) 100 03/24/19 09:00 Constitutional: Yes: No Distress, Calm Cardiovascular: Yes: S1, S2 Respiratory: Yes: Regular, CTA Bilaterally Gastrointestinal: Yes: Normal Bowel Sounds, Soft Musculoskeletal: Yes: WNL Extremities: Yes: WNL Neurological: Yes: Alert, Oriented Psychiatric: Yes: Alert, Oriented Labs: CBC, BMP 03/22/19 10:45 03/22/19 10:45 INR, PTT INR 0.94 (0.83-1.09) 02/19/19 09:50 Assessment/Plan Assessment/Plan Perforated viscus, dehydration, CAD, Obesity. Plan : Hydrate , Antibiotics, Emergency laparotomy , perforated ulcer. gi bleed plan stable continue current mgmt nutrition rest as per surgery
[2019-03-25 15:15] VITALS: BMI 23.2
[2019-03-25] MEDS ORDERED: PT OWN MED DRAWER 7, Y5N ONE (21:25)
[2019-03-25] MEDS: ATORVASTATIN CA 40 MG TABLET (FP) PO SCH (21:38)
[2019-03-25] MEDS: MIRTAZAPINE 15 MG TABLET (FP) PO SCH (21:39)
[2019-03-25] MEDS: MELATONIN 1 MG TABLET PO SCH (21:39)
[2019-03-26] MEDS: INSULIN SLIDING SCALE (NOVOLOG) 1 VIAL SQ SCH ×4 (06:29→22:26)
[2019-03-26] MEDS ORDERED: PT OWN MED DRAWER 7, Y5N ONE (09:27)
[2019-03-26] MEDS: PANTOPRAZOLE 20 MG TABLET (FP) PO SCH ×2 (09:48→22:25)
[2019-03-26] MEDS: ISOSORBIDE MONONITRATE 30 MG TAB.SR.24H (FP) PO SCH (09:48)
[2019-03-26] MEDS: GABAPENTIN 100 MG CAPSULE (FP) PO SCH ×2 (09:48→22:25)
[2019-03-26] MEDS: LOSARTAN POTASSIUM 50 MG TABLET (FP) PO SCH (09:48)
[2019-03-26] MEDS: POLYETHYLENE GLYCOL 3350 119 GM BTL PO SCH (09:48)
--- NOTE | 2019-03-26 15:21 | PN ---
Progress Note, Physician - Current Medication List Current Medications: Active Medications Acetaminophen (Tylenol -) 325 mg PO Q4H PRN PRN Reason: PAIN LEVEL 4 - 6 Last Admin: 03/11/19 23:07 Dose: 325 mg Atorvastatin Calcium (Lipitor -) 40 mg PO HS [facility] Last Admin: 03/25/19 21:38 Dose: 40 mg Gabapentin (Neurontin -) 100 mg PO BID [facility] Last Admin: 03/26/19 09:48 Dose: 100 mg Hydrocortisone (Hytone 2.5% Lotion -) 1 applic TP BID PRN PRN Reason: DRY SKIN Last Admin: 03/25/19 09:14 Dose: 1 applic Insulin Aspart (Novolog Vial Sliding Scale -) 1 vial SQ ACHS [facility]; Protocol Last Admin: 03/26/19 11:27 Dose: Not Given Isosorbide Mononitrate (Imdur -) 30 mg PO DAILY [facility] Last Admin: 03/26/19 09:48 Dose: 30 mg Losartan Potassium (Cozaar -) 100 mg PO DAILY [facility] Last Admin: 03/26/19 09:48 Dose: 100 mg Melatonin (Melatonin) 1 mg PO [facility] Last Admin: 03/25/19 21:39 Dose: 1 mg Mirtazapine (Remeron -) 15 mg PO HS [facility] Last Admin: 03/25/19 21:39 Dose: 15 mg Pantoprazole Sodium (Protonix -) 20 mg PO BID [facility] Last Admin: 03/26/19 09:48 Dose: 20 mg Polyethylene Glycol (Miralax (For Daily Use) -) 17 gm PO DAILY [facility] Last Admin: 03/26/19 09:48 Dose: 17 grams - Objective Vital Signs: Vital Signs Temperature 98.2 F 03/26/19 10:00 Pulse Rate 95 H 03/26/19 10:00 Respiratory Rate 18 03/26/19 10:00 Blood Pressure 129/51 L 03/26/19 10:00 O2 Sat by Pulse Oximetry (%) 98 03/26/19 09:00 Labs: CBC, BMP 03/22/19 10:45 03/22/19 10:45 INR, PTT INR 0.94 (0.83-1.09) 02/19/19 09:50
[2019-03-26] MEDS: MELATONIN 1 MG TABLET PO SCH (22:25)
[2019-03-26] MEDS: MIRTAZAPINE 15 MG TABLET (FP) PO SCH (22:25)
[2019-03-26] MEDS: ATORVASTATIN CA 40 MG TABLET (FP) PO SCH (22:25)
[2019-03-27] MEDS: INSULIN SLIDING SCALE (NOVOLOG) 1 VIAL SQ SCH ×2 (06:09→12:45)
[2019-03-27] MEDS: POLYETHYLENE GLYCOL 3350 119 GM BTL PO SCH (10:10)
[2019-03-27] MEDS: GABAPENTIN 100 MG CAPSULE (FP) PO SCH (10:14)
[2019-03-27] MEDS: ISOSORBIDE MONONITRATE 30 MG TAB.SR.24H (FP) PO SCH (10:14)
[2019-03-27] MEDS: LOSARTAN POTASSIUM 50 MG TABLET (FP) PO SCH (10:14)
[2019-03-27] MEDS: PANTOPRAZOLE 20 MG TABLET (FP) PO SCH (10:14)
[2019-03-27 10:17] VITALS: BP 126/57; PULSE 93; TEMP 98
--- NOTE | 2019-03-27 11:48 | PN ---
Progress Note, Physician Chief Complaint: Perforated Peptic Ulcer Acute Peritonitis S/p Exp Laparotomy History of Present Illness: Previous notes and events reviewed awake and alert NAD no complaints of chest pain or SOB patient is being discharged home with VNS services - Current Medication List Current Medications: Active Medications Acetaminophen (Tylenol -) 325 mg PO Q4H PRN PRN Reason: PAIN LEVEL 4 - 6 Last Admin: 03/11/19 23:07 Dose: 325 mg Atorvastatin Calcium (Lipitor -) 40 mg PO HS [facility] Last Admin: 03/26/19 22:25 Dose: 40 mg Gabapentin (Neurontin -) 100 mg PO BID [facility] Last Admin: 03/27/19 10:14 Dose: 100 mg Hydrocortisone (Hytone 2.5% Lotion -) 1 applic TP BID PRN PRN Reason: DRY SKIN Last Admin: 03/25/19 09:14 Dose: 1 applic Insulin Aspart (Novolog Vial Sliding Scale -) 1 vial SQ [facility]; Protocol Last Admin: 03/27/19 06:09 Dose: Not Given Isosorbide Mononitrate (Imdur -) 30 mg PO DAILY [facility] Last Admin: 03/27/19 10:14 Dose: 30 mg Losartan Potassium (Cozaar -) 100 mg PO DAILY [facility] Last Admin: 03/27/19 10:14 Dose: 100 mg Melatonin (Melatonin) 1 mg PO [facility] Last Admin: 03/26/19 22:25 Dose: 1 mg Mirtazapine (Remeron -) 15 mg PO HS [facility] Last Admin: 03/26/19 22:25 Dose: 15 mg Pantoprazole Sodium (Protonix -) 20 mg PO BID [facility] Last Admin: 03/27/19 10:14 Dose: 20 mg Polyethylene Glycol (Miralax (For Daily Use) -) 17 gm PO DAILY [facility] Last Admin: 03/27/19 10:10 Dose: 17 grams - Objective Vital Signs: Vital Signs Temperature 98.0 F 03/27/19 10:05 Pulse Rate 93 H 03/27/19 10:05 Respiratory Rate 20 03/27/19 10:05 Blood Pressure 126/57 L 03/27/19 10:05 O2 Sat by Pulse Oximetry (%) 98 03/26/19 21:00 Constitutional: Yes: No Distress, Calm Eyes: Yes: Conjunctiva Clear HENT: Yes: Atraumatic Cardiovascular: Yes: Regular Rate and Rhythm Respiratory: Yes: Regular, CTA Bilaterally Gastrointestinal: Yes: Normal Bowel Sounds, Soft Musculoskeletal: Yes: Muscle Weakness Extremities: Yes: WNL Edema: No Neurological: Yes: Alert, Pre-Existing Deficit Psychiatric: Yes: Alert, Oriented Labs: CBC, BMP 03/22/19 10:45 03/22/19 10:45 INR, PTT INR 0.94 (0.83-1.09) 02/19/19 09:50 Microbiology 03/15/19 15:40 Urine - Urine Clean Catch Urine Culture - Final NO GROWTH OBTAINED 02/27/19 02:00 Stool Salmonella/Shigella Culture - Final NO GROWTH OF SALMONELLA OR SHIGELLA SPECIES OBTAINED 02/27/19 02:00 Stool Campylobacter Culture - Final NO GROWTH OF CAMPYLOBACTER SPECIES OBTAINED 02/27/19 02:00 Stool Yersinia Culture - Final NO GROWTH OF YERSINIA SPECIES OBTAINED 02/27/19 02:00 Stool Vibrio Culture - Final NO GROWTH OF VIBRIO SPECIES OBTAINED 02/27/19 02:00 Stool Escherichia coli 0157 Culture - Final NO GROWTH OF E COLI 0157 OBTAINED 02/19/19 17:30 Peritoneal Cavity Swab Gram Stain - Final 02/19/19 17:30 Peritoneal Cavity Swab Wound Culture - Final NO AEROBIC OR ANAEROBIC GROWTH OBTAINED. Problem List - Problems (1) Diabetes Assessment/Plan: -[facility] ACHS -ISS -diabetic diet Code(s): E11.9 - TYPE 2 DIABETES MELLITUS WITHOUT COMPLICATIONS Qualifiers: Diabetes mellitus type: type 2 (2) Perforated chronic peptic ulcer Assessment/Plan: -Surgery on board -s/p exploratory laparotomy -drain removed and dressing in place without -Upper GI Series shows no extravasation Code(s): K27.5 - CHRONIC OR UNSP PEPTIC ULCER, SITE UNSP, WITH PERFORATION (3) Sepsis Assessment/Plan: -afebrile -ID on board Code(s): A41.9 - SEPSIS, UNSPECIFIED ORGANISM (4) Diarrhea Assessment/Plan: -stool culture neg -resolved Code(s): R19.7 - DIARRHEA, UNSPECIFIED (5) Rectal bleeding Assessment/Plan: -GI on board -resolved Code(s): K62.5 - HEMORRHAGE OF ANUS AND RECTUM (6) Difficulty sleeping Assessment/Plan: -Melatonin HS Code(s): G47.9 - SLEEP DISORDER, UNSPECIFIED (7) Depression Assessment/Plan: -psych on board -Remeron HS Code(s): F32.9 - MAJOR DEPRESSIVE DISORDER, SINGLE EPISODE, UNSPECIFIED Assessment/Plan see problem list dvt ppx patient being discharged home wiht VNS in place
--- NOTE | 2019-03-27 13:07 | PN ---
Progress Note, Physician History of Present Illness: no new issues doing well - Current Medication List Current Medications: Active Medications Acetaminophen (Tylenol -) 325 mg PO Q4H PRN PRN Reason: PAIN LEVEL 4 - 6 Last Admin: 03/11/19 23:07 Dose: 325 mg Atorvastatin Calcium (Lipitor -) 40 mg PO HS [facility] Last Admin: 03/26/19 22:25 Dose: 40 mg Gabapentin (Neurontin -) 100 mg PO BID [facility] Last Admin: 03/27/19 10:14 Dose: 100 mg Hydrocortisone (Hytone 2.5% Lotion -) 1 applic TP BID PRN PRN Reason: DRY SKIN Last Admin: 03/25/19 09:14 Dose: 1 applic Insulin Aspart (Novolog Vial Sliding Scale -) 1 vial SQ ACHS [facility]; Protocol Last Admin: 03/27/19 12:45 Dose: Not Given Isosorbide Mononitrate (Imdur -) 30 mg PO DAILY [facility] Last Admin: 03/27/19 10:14 Dose: 30 mg Losartan Potassium (Cozaar -) 100 mg PO DAILY [facility] Last Admin: 03/27/19 10:14 Dose: 100 mg Melatonin (Melatonin) 1 mg PO [facility] Last Admin: 03/26/19 22:25 Dose: 1 mg Mirtazapine (Remeron -) 15 mg PO HS [facility] Last Admin: 03/26/19 22:25 Dose: 15 mg Pantoprazole Sodium (Protonix -) 20 mg PO BID [facility] Last Admin: 03/27/19 10:14 Dose: 20 mg Polyethylene Glycol (Miralax (For Daily Use) -) 17 gm PO DAILY [facility] Last Admin: 03/27/19 10:10 Dose: 17 grams - Objective Vital Signs: Vital Signs Temperature 98.0 F 03/27/19 10:05 Pulse Rate 93 H 03/27/19 10:05 Respiratory Rate 20 03/27/19 10:05 Blood Pressure 126/57 L 03/27/19 10:05 O2 Sat by Pulse Oximetry (%) 98 03/26/19 21:00 Constitutional: Yes: No Distress, Calm Cardiovascular: Yes: Regular Rate and Rhythm Respiratory: Yes: Regular, CTA Bilaterally Gastrointestinal: Yes: Normal Bowel Sounds, Soft Musculoskeletal: Yes: WNL Extremities: Yes: WNL Neurological: Yes: Alert, Oriented Psychiatric: Yes: Alert, Oriented Labs: CBC, BMP 03/22/19 10:45 03/22/19 10:45 INR, PTT INR 0.94 (0.83-1.09) 02/19/19 09:50 Assessment/Plan Assessment/Plan Perforated viscus, dehydration, CAD, Obesity. Plan : Hydrate , Antibiotics, Emergency laparotomy , perforated ulcer. gi bleed plan stable continue current mgmt nutrition rest as per surgery
== END 2019-03-27 16:17 | disposition home health service (06) | DRG 329 ==
LOC: JER 09:22 → JERBED 12:22 → JICU 16:45 → J6S 02-21 14:17 → JICU 03-02 12:36 → J8W 03-05 19:38
PROVIDERS: ADMIT Family Medicine; ATTEND Family Medicine
PROC: 0D9670Z Drainage of Stomach with Drainage Device, Via Natural or Artificial Opening (ICD-10-PCS; 2019-02-19)
PROC: 0DU907Z Supplement Duodenum with Autologous Tissue Substitute, Open Approach (ICD-10-PCS; principal; 2019-02-19 16:00)
PROC: 30233N1 Transfusion of Nonautologous Red Blood Cells into Peripheral Vein, Percutaneous Approach (ICD-10-PCS; 2019-03-02)
PROC: 0DB98ZX Excision of Duodenum, Via Natural or Artificial Opening Endoscopic, Diagnostic (ICD-10-PCS; 2019-03-03)
PROC: 0DBK8ZX Excision of Ascending Colon, Via Natural or Artificial Opening Endoscopic, Diagnostic (ICD-10-PCS; 2019-03-04)
PROC: 0DBL8ZX Excision of Transverse Colon, Via Natural or Artificial Opening Endoscopic, Diagnostic (ICD-10-PCS; 2019-03-04)
DX: K26.1 Acute duodenal ulcer with perforation (principal); A41.9 Sepsis, unspecified organism; K65.0 Generalized (acute) peritonitis; E87.2 Acidosis; K56.7 Ileus, unspecified; E87.1 Hypo-osmolality and hyponatremia; D62 Acute posthemorrhagic anemia; N13.30 Unspecified hydronephrosis; I25.10 Atherosclerotic heart disease of native coronary artery without angina pectoris; E86.0 Dehydration; E87.6 Hypokalemia; I10 Essential (primary) hypertension; E11.9 Type 2 diabetes mellitus without complications; Z95.5 Presence of coronary angioplasty implant and graft; R00.0 Tachycardia, unspecified; K57.90 Diverticulosis of intestine, part unspecified, without perforation or abscess without bleeding; R19.7 Diarrhea, unspecified; K62.5 Hemorrhage of anus and rectum; K80.80 Other cholelithiasis without obstruction; R33.8 Other retention of urine; K29.81 Duodenitis with bleeding; K86.89 Other specified diseases of pancreas; K64.8 Other hemorrhoids; K63.5 Polyp of colon; G47.9 Sleep disorder, unspecified; F32.9 Major depressive disorder, single episode, unspecified; Z87.891 Personal history of nicotine dependence
CPT/HCPCS: 36415; 36430; 36511; 36600; 71045-TC-FY; 74019-TC-FY; 74176-TC; 74177-TC; 74182-TC; 74247-TC-FY; 80048; 80053; 81003; 82150; 82272; 82550; 82803; 82962; 83540; 83605; 83690; 83735; 83930; 84100; 84484; 85025; 85027; 85610; 86850; 86900; 86901; 86922; 87045; 87046; 87070; 87086; 87205; 88305-TC; 93005; 93010; 93970-TC; 97116-GP; 97161-GP; 99283-25; A9579; J0131; J1644; J7030; P9038; P9058; Q9967